=== PATIENT | female | born 1965 | race Two or more races ===

== ENCOUNTER 2020-06-27 12:43 | Outpatient (REF) | payer MEDICAID, SELFPAY | END 2020-06-27 12:44 | disposition home or self-care (01) | LOC: HO.LAB 12:43 | PROVIDERS: Visit Provider Internal Medicine | DX: Z20.828 Contact with and (suspected) exposure to other viral communicable diseases (principal) | CPT/HCPCS: C9803; U0003 ==

== ENCOUNTER 2020-07-18 09:48 | Emergency (ER) | payer MEDICAID, SELFPAY ==
[2020-07-18 10:16] VITALS: BP 145/87; PULSE 108; RESP 20; TEMP 37.8; O2SAT 96; BMI 29.2
[2020-07-18] MEDS: Acetaminophen 325 MG TABLET 650 MG PO (10:53)
[2020-07-18 11:53] LABS: Influenza A PCR NEGATIVE (Negative); Influenza B PCR NEGATIVE (Negative); Resp Syncy Virus RNA Qual PCR NEGATIVE (Negative)
[2020-07-18 11:57] LABS: SARS COV2 PCR INHOUSE POSITIVE (Negative)
--- NOTE | 2020-07-18 12:56 | ED.URI ---
HPI - URI/Sore Throat General Chief Complaint: Fever <Mauro Stubbs NP - Last Filed: 07/18/20 13:06> Stated Complaint: covid symptoms <Mauro Stubbs NP - Last Filed: 07/18/20 13:06> Time Seen by Provider: 07/18/20 10:32 <Mauro Stubbs NP - Last Filed: 07/18/20 13:06> Source: patient <Mauro Stubbs NP - Last Filed: 07/18/20 13:06> Mode of arrival: ambulatory <Mauro Stubbs NP - Last Filed: 07/18/20 13:06> Limitations: no limitations <Mauro Stubbs NP - Last Filed: 07/18/20 13:06> History of Present Illness HPI Narrative: Body aches, chills, nasal congestion <Mauro Stubbs NP - Last Filed: 07/18/20 13:06> MD elicited complaint: rhinorrhea and nasal congestion <Mauro Stubbs NP - Last Filed: 07/18/20 13:06> Onset (ago): day(s) (2 days ) <Mauro Stubbs NP - Last Filed: 07/18/20 13:06> Treatments prior to arrival: acetaminophen <Mauro Stubbs NP - Last Filed: 07/18/20 13:06> Related Data Home Medications: Previous Rx's Medication Instructions Recorded famotidine 20 mg tablet 20 mg PO BEDTIME 30 Days #30 tab 07/10/20 docusate sodium 100 mg capsule 100 mg PO DAILY PRN 30 Days #30 cap 07/13/20 albuterol sulfate 1 inh INHALATION Q4-6H PRN #1 ea 07/18/20 azithromycin [Zithromax Z-Mo] 250 mg PO DAILY 5 Days #6 tab 07/18/20 prednisone 40 mg PO DAILY 5 Days #10 tab 07/18/20 dexlansoprazole 60 mg 60 mg PO DAILY 30 Days #30 cap 07/19/20 capsule,biphase delayed release <Mauro Stubbs NP - Last Filed: 07/18/20 13:06> Allergies/Adverse Reactions: Allergies Allergy/AdvReac Type Severity Reaction Status Date / Time ibuprofen [From Motrin] AdvReac Mild INTENSE Unverified 03/22/20 15:22 STOMACH PAIN; RASH Motrin Allergy Unknown Uncoded 12/27/19 00:00 <Mauro Stubbs NP - Last Filed: 07/18/20 13:06> Review of Systems Review of Systems: Constitutional: No Weight loss, No Fever, + Chills, No Night Sweats, No Fatigue, No Malaise ENT/Mouth: No Hearing loss, No Ear Pain, + Nasal Congestion, No Sinus Pain, No Hoarseness, No sore throat, + Rhinorrhea, No Swallowing Difficulty Eyes: No Eye Pain, No Swelling, No Redness, No Foreign Body, No Discharge, No Vision Changes Cardiovascular: No Chest Pain, No SOB, No Dyspnea on Exertion, No Orthopnea, No Edema, No Palpitations Respiratory: No Cough, No Sputum, No Wheezing, No Smoke Exposure, No Dyspnea Gastrointestinal: No Nausea, No Vomiting, No Diarrhea, No Constipation, No abdominal Pain, No Hematochezia, No Melena Genitourinary: no irregular bleeding, No Dysuria, No Urinary Frequency, No Hematuria, No Urinary Incontinence, No Urgenc Musculoskeletal: No joint pain, No Myalgias, No Joint Swelling Skin: No Skin Lesions, No rash Neuro: No Weakness, No Numbness, No Paresthesias, No Loss of Consciousness, No Dizziness, No Headache Psych: No Social Issues Heme/Lymph: No Bruising, No Bleeding,No Lymphadenopathy Endocrine: No Polyuria, No Polydipsia, No Temperature Intolerance <Mauro Stubbs NP - Last Filed: 07/18/20 13:06> Yes all other systems are reviewed and are negative <Mauro Stubbs NP - Last Filed: 07/18/20 13:06> [facility], [facility] Past Medical History Medical History: Medical History (Updated 07/18/20 @ 13:05 by Mauro Stubbs NP) Asthma Diabetes mellitus, type 2 Hypercholesteremia Hypertension <Mauro Stubbs NP - Last Filed: 07/18/20 13:06> Social History Social History: Social History Advance Directives: No Advance Directives Information Provided: No <Mauro Stubbs NP - Last Filed: 07/18/20 13:06> Physical Exam Vital Signs: Vital Signs: Last Vital Signs Temp 100.0 F 07/18/20 10:16 Pulse 108 H 07/18/20 10:16 Resp 20 07/18/20 10:16 BP 145/87 H 07/18/20 10:16 Pulse Ox 96 07/18/20 10:16 Body Mass Index 29.2 Reviewed <Mauro Stubbs NP - Last Filed: 07/18/20 13:06> Vital Signs: Last Vital Signs Temp 100.0 F 07/18/20 10:16 Pulse 108 H 07/18/20 10:16 Resp 20 07/18/20 10:16 BP 145/87 H 07/18/20 10:16 Pulse Ox 96 07/18/20 10:16 Body Mass Index 29.2 <Christian Liu MD - Last Filed: 07/26/20 23:26> Const: General: cooperative and healthy appearing; No acute distress or intoxicated appearing <Mauro Stubbs NP - Last Filed: 07/18/20 13:06> Nutritional Appearance: average body habitus <Mauro Stubbs NP - Last Filed: 07/18/20 13:06> Orientation/consciousness: patient oriented x3 <Mauor Stubbs NP - Last Filed: 07/18/20 13:06> HENMT: Head: Yes normal to inspection <Mauro Stubbs NP - Last Filed: 07/18/20 13:06> Ears: hearing grossly normal bilaterally <Mauro Stubbs NP - Last Filed: 07/18/20 13:06> Eyes: General: appearance normal, both eyes and all related structures <Mauro Stubbs NP - Last Filed: 07/18/20 13:06> Visual Burgess: normal visual burgess by confrontation <Mauro Stubbs NP - Last Filed: 07/18/20 13:06> Neck: Neck: Yes normal visual inspection, No positive Brudzinski's sign, No positive Kernig's sign and No tender <Mauro Stubbs NP - Last Filed: 07/18/20 13:06> Thyroid: Thyroid normal <Mauro Stubbs NP - Last Filed: 07/18/20 13:06> Chest: Chest palpation & inspection: normal inspection of the chest <Mauro Stubbs NP - Last Filed: 07/18/20 13:06> Resp: Effort & Inspection: normal respiratory effort <Mauro Stubbs NP - Last Filed: 07/18/20 13:06> Auscultation: clear to auscultation bilaterally <Mauro StubbsYASH li - Last Filed: 07/18/20 13:06> Cardio: Jugular venous distension: no JVD <Mauroivette Stubbs NP - Last Filed: 07/18/20 13:06> Rate: regular rate <Mauro StubbsYASH li - Last Filed: 07/18/20 13:06> Rhythm: regular rhythm <Mauro YASH Stubbs - Last Filed: 07/18/20 13:06> Heart sounds: S1 normal heart sound present and S2 normal heart sound present <Mauro YASH Stubbs - Last Filed: 07/18/20 13:06> GI: Inspection: Yes normal to inspection <Mauro YASH Stubbs - Last Filed: 07/18/20 13:06> Percussion: Yes normal to percussion <Mauro YASH Stubbs - Last Filed: 07/18/20 13:06> Auscultation: normal bowel sounds <Mauroivette Stubbs NP - Last Filed: 07/18/20 13:06> : General: Yes no CVA tenderness <Mauroivette Stubbs NP - Last Filed: 07/18/20 13:06> Back/Spine/Pelvis: Back: no CVA tenderness <Mauroivette Stubbs NP - Last Filed: 07/18/20 13:06> Skin: General skin exam: no rashes or lesions noted <Mauroivette Stubbs NP - Last Filed: 07/18/20 13:06> Neuro: General: patient oriented x3 <Mauro Stubbs NP - Last Filed: 07/18/20 13:06> Extrem: General: Yes normal to inspection <Mauro YASH Stubbs - Last Filed: 07/18/20 13:06> Course Course Course Narrative: Well nontoxic appearing. COVID-19/flu/RSV panel done she is COVID positive. Not tachycardic, pulse ox 99% on room air. Ambulatory steady straight gait without shortness of breath. Will discharge home with supportive care, return follow-up instructions. <Mauro Stubbs NP - Last Filed: 07/18/20 13:06> I have reviewed the chart <Christian Liu MD - Last Filed: 07/26/20 23:26> MDM - URI/Sore Throat Lab Data Labs: Lab Results 07/18/20 Range/Units Unknown Coronavirus (PCR) POSITIVE A (Negative) Influenza Type A (PCR) NEGATIVE (Negative) Influenza Type B (PCR) NEGATIVE (Negative) RSV RNA Qual (PCR) NEGATIVE (Negative) <Mauro Stubbs NP - Last Filed: 07/18/20 13:06> Lab Results 07/18/20 Range/Units Unknown Coronavirus (PCR) POSITIVE A (Negative) Influenza Type A (PCR) NEGATIVE (Negative) Influenza Type B (PCR) NEGATIVE (Negative) RSV RNA Qual (PCR) NEGATIVE (Negative) <Christian Liu MD - Last Filed: 07/26/20 23:26> Discharge Plan Discharge Clinical Impression: COVID-19 <Mauro Stubbs NP - Last Filed: 07/18/20 13:06> Patient Disposition: Home, Self-Care <Mauro Stubbs NP - Last Filed: 07/18/20 13:06> Instructions: COVID-19 (Coronavirus Disease 2019) (ED) <Mauro Stubbs NP - Last Filed: 07/18/20 13:06> Additional Instructions: Self-isolation/discussing Quarantine for 14 days supportive care as discussed Take medication prescribed Return if any concerns or worsening symptoms Thank you <Mauro Stubbs NP - Last Filed: 07/18/20 13:06> Prescriptions: New azithromycin [Zithromax Z-Mo] 250 mg tablet 250 mg PO DAILY 5 Days Qty: 6 RF: 0 prednisone 20 mg tablet 40 mg PO DAILY 5 Days Qty: 10 RF: 0 albuterol sulfate 90 mcg/actuation aero powdr breath act w/sensor 1 inh inhalation Q4-6H PRN (Reason: shortness of breath or wheezing) Qty: 1 RF: 0 No Action famotidine 20 mg tablet 20 mg PO BEDTIME 30 Days Qty: 30 RF: 3 docusate sodium 100 mg capsule 100 mg PO DAILY PRN (Reason: constipation) 30 Days Qty: 30 RF: 6 Dexilant 60 mg capsule,biphase delayed releas 60 mg PO DAILY 30 Days Qty: 30 RF: 6 <Mauro Stubbs NP - Last Filed: 07/18/20 13:06> Referrals: Nidia Salgado MD [Primary Care Provider] - 2 weeks <Mauro Stubbs NP - Last Filed: 07/18/20 13:06> Interventions: ED Discharge Assessment Last Done: 07/18/20 13:30 <Mauro Stubbs NP - Last Filed: 07/18/20 13:06> Discharge Date/Time: 07/18/20 13:31 <Mauro Stubbs NP - Last Filed: 07/18/20 13:06>
== END 2020-07-18 13:31 | disposition home or self-care (01) ==
PROVIDERS: Physician Assistant Medical; Emergency Provider Emergency Medicine; PCP Internal Medicine
DX: U07.1 COVID-19 (principal); E11.9 Type 2 diabetes mellitus without complications; I10 Essential (primary) hypertension; J45.909 Unspecified asthma, uncomplicated
CPT/HCPCS: 0241U; 36415; 99283

== ENCOUNTER 2020-08-22 10:01 | Outpatient (REF) | payer MEDICAID, SELFPAY | END 2020-08-22 10:02 | disposition home or self-care (01) | LOC: HO.LAB 10:01 | PROVIDERS: PCP Internal Medicine; Visit Provider Internal Medicine | DX: Z20.822 Contact with and (suspected) exposure to COVID-19 (principal) | CPT/HCPCS: 36415; C9803; U0003; U0005 ==

== ENCOUNTER 2020-10-16 09:22 | Outpatient (REF) | payer MEDICAID, SELFPAY ==
--- NOTE | ~2020-10-16 | US_ITS ---
EXAMINATION: US RETROPERITONEAL COMPLETE (RENAL) CLINICAL INFORMATION: Abdominal pain. COMPARISON: CT abdomen and pelvis without contrast dated 12/23/2018 x-ray abdomen dated 11/22/2012 and 10/16/2009. TECHNIQUE: Real-time imaging of the kidneys and bladder. FINDINGS: RIGHT KIDNEY: 10.1 x 4.2 x 5.0 cm (SAG x AP x TRV). The kidney is normal in size, contour, and echogenicity. Renal cortical thickness is normal. No calculi or focal parenchymal lesions. No hydronephrosis. LEFT KIDNEY: 10.4 x 4.8 x 4.3 cm (SAG x AP x TRV). The kidney is normal in size, contour, and echogenicity. Renal cortical thickness is normal. No calculi or focal parenchymal lesions. No hydronephrosis. Slightly prominent but nondilated left proximal ureter is seen. BLADDER: Well distended and normal. Bilateral ureteral jets are demonstrated. Prevoid bladder volume is 325 mL. Postvoid bladder volume is 9.28 mL. US/US retroperitoneal comp IMPRESSION: Normal bilateral ureteral jets with a tiny postvoid residual volume of 9.3 mL. No bladder wall thickening seen. Ultrasound of kidneys is unremarkable. There is minimal prominence of the left proximal ureter but no dilation seen.
== END 2020-10-16 09:23 | disposition home or self-care (01) ==
LOC: HO.US 09:22
PROVIDERS: Visit Provider Internal Medicine
DX: R10.9 Unspecified abdominal pain (principal)
CPT/HCPCS: 76770

== ENCOUNTER 2020-11-19 11:05 | Emergency (ER) | payer OTHER, MEDICAID, SELFPAY ==
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
[2020-11-19 11:50] VITALS: BP 116/76; PULSE 94; RESP 18; TEMP 36; O2SAT 100; BMI 30.2
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
[2020-11-19] MEDS: HYDROcodone Bit/Acetam 5/325 TABLET 1 TAB PO (12:55)
== END 2020-11-19 13:43 | disposition home or self-care (01) ==
PROVIDERS: Emergency Provider Emergency Medicine; PCP Internal Medicine
DX: S53.402A Unspecified sprain of left elbow, initial encounter (principal); S43.402A Unspecified sprain of left shoulder joint, initial encounter; S39.012A Strain of muscle, fascia and tendon of lower back, initial encounter; M79.602 Pain in left arm; M25.561 Pain in right knee; I10 Essential (primary) hypertension; V43.62XA Car passenger injured in collision with other type car in traffic accident, initial encounter; Y93.9 Activity, unspecified; Y92.410 Unspecified street and highway as the place of occurrence of the external cause; Y99.9 Unspecified external cause status; Z86.16 Personal history of COVID-19; Z79.899 Other long term (current) drug therapy
CPT/HCPCS: 72100; 73030; 73080; 73564; 99283

== ENCOUNTER → 2021-03-05 11:01 | Outpatient (BNVA) | payer MEDICAID, SELFPAY | PROVIDERS: PCP Internal Medicine; Visit Provider Physician Assistant ==

== ENCOUNTER 2021-07-16 12:27 | Outpatient (REF) | payer MEDICAID, SELFPAY ==
--- NOTE | ~2021-07-16 | US_ITS ---
EXAMINATION: US PELVIS CLINICAL INFORMATION: Pelvic and perineal pain. Age 56. Prior hysterectomy. COMPARISON: CT abdomen and pelvis 12/23/2018, 07/01/2016 TECHNIQUE: Ultrasound of the pelvis is performed using both transabdominal and transvaginal transducers along with Doppler. Transvaginal imaging is performed due to inadequate visualization transabdominally. FINDINGS: Uterus: Prior hysterectomy. Vaginal stripe are unremarkable. Adnexa: Both ovaries are visualized. There is normal color flow to the adnexa. There is no ovarian torsion. There is no pelvic ascites or fluid collection. Right ovary measures 1.4 x 1.1 x 1.4 cm. Volume 1.1 mL. Left ovary measures 1.4 x 1.2 x 1.7 cm. Volume 1.5 mL. US/US pelvic and transvaginal IMPRESSION: 1. Status post prior hysterectomy. Vaginal stripe unremarkable. 2. No adnexal mass or pelvic ascites.
== END 2021-07-16 12:28 | disposition home or self-care (01) ==
LOC: HO.US 12:27
PROVIDERS: PCP Internal Medicine; Visit Provider Internal Medicine
DX: R10.2 Pelvic and perineal pain (principal)
CPT/HCPCS: 76830; 76856

== ENCOUNTER 2021-08-15 14:06 | Outpatient (REF) | payer MEDICAID, SELFPAY ==
--- NOTE | ~2021-08-15 | MM_ITS ---
EXAMINATION: MM SCREENING DIGITAL BREAST TOMOSYNTHESIS, BILATERAL CLINICAL INFORMATION: Screening. Asymptomatic. The lifetime risk of breast cancer based on the Tyrer-Cuzick Model is 7.7%. COMPARISON: Mammography: 04/07/2019 and studies dating back to 04/02/2010 TECHNIQUE: Digital breast tomosynthesis is performed in both the craniocaudal and mediolateral oblique views along with computer-aided detection (CAD). Synthesized 2-D images are generated from the tomosynthesis. FINDINGS: There are scattered areas of fibroglandular density (ACR BI-RADS breast composition Category b). There is a stable parenchymal pattern of the left breast without new abnormal dominant mass or suspicious grouping of microcalcifications. Within the upper outer aspect of the right breast approximately 4 cm from the nipple, there is a circumscribed 7 x 5 mm density without spiculation or calcifications. Spot compression view and probable ultrasound if this is persistent is recommended. MM/MM tomosynthesis screening BI IMPRESSION: Right breast density upper outer aspect for further evaluation as described. ASSESSMENT: BI-RADS 0: Incomplete - Need Additional Imaging Evaluation. RECOMMENDATION: 1. Additional views of the right breast. 2. Targeted ultrasound if warranted after review of the additional views. 3. Radiology department staff will contact the patient for additional imaging. This patient's information was entered into a reminder system with a target due date for their next mammogram.
== END 2021-08-15 14:07 | disposition home or self-care (01) ==
LOC: HO.MAMMO 14:06
PROVIDERS: PCP Internal Medicine; Visit Provider Internal Medicine
DX: Z12.31 Encounter for screening mammogram for malignant neoplasm of breast (principal)
CPT/HCPCS: 77063; 77067

== ENCOUNTER 2021-08-22 14:45 | Outpatient (REF) | payer MEDICAID, SELFPAY ==
--- NOTE | ~2021-08-22 | MM_ITS ---
EXAMINATION: MM DIAGNOSTIC DIGITAL BREAST TOMOSYNTHESIS, RIGHT US DIAGNOSTIC ULTRASOUND BREAST, RIGHT CLINICAL INFORMATION: Recall from screening for asymmetric density upper outer right breast. COMPARISON: Mammography: 08/15/2021, 04/07/2019, 01/19/2018, 12/18/2016, 11/26/2015, 12/12/2013 TECHNIQUE: Digital breast tomosynthesis is performed. 2D images are generated from the tomosynthesis. The following views are obtained: Spot CC, spot rolled CC, spot MLO, spot ML. Ultrasound right breast is targeted to the upper outer quadrant using grayscale imaging and color Doppler without and with harmonics. FINDINGS: There are scattered areas of fibroglandular density (ACR BI-RADS breast composition Category b). The additional views show no architectural abnormality or developing density from prior studies. On the CC spot views, there is a 6 mm circumscribed nodule which is believed to be related to the finding noted on CC screening view prompting recall. Ultrasound demonstrates a complicated cyst 10:00 position 4 cm from nipple measuring 0.8 x 0.4 cm. There is a tortuous hyperechoic internal septation. No solid mass or peripheral or internal color flow. This appears to correspond to the nodularity on additional views. Results are discussed with the patient at time of visit. The complicated cyst has a benign appearance and will be reassessed again in 6 months with targeted ultrasound. MM/MM tomosynthesis added views R IMPRESSION: Benign-appearing complicated cyst anterior upper outer breast measuring just under 1 cm. ASSESSMENT: BI-RADS 3: Probably Benign RECOMMENDATION: Targeted right breast ultrasound in 6 months. This patient's information was entered into a reminder system with a target due date for their next mammogram.
== END 2021-08-22 14:46 | disposition home or self-care (01) ==
LOC: HO.MAMMO 14:45
PROVIDERS: Visit Provider Internal Medicine
DX: R92.2 Inconclusive mammogram (principal)
CPT/HCPCS: 76642; 77061; 77065

== ENCOUNTER 2022-01-04 09:30 | Emergency (ER) | payer MEDICAID, SELFPAY ==
--- NOTE | ~2022-01-04 | XR_ITS ---
EXAMINATION: XR CHEST CLINICAL INFORMATION: Chest pain COMPARISON: September 04, 2019 TECHNIQUE: Frontal view of the chest was obtained. FINDINGS: No significant abnormality is noted involving the heart, lungs, mediastinum, bony thorax or soft tissues. There is mild elevation of the right hemidiaphragm. XR/XR chest 1V IMPRESSION: No acute disease
--- NOTE | ~2022-01-04 | CT_ITS ---
EXAMINATION: CT ABDOMEN AND PELVIS WITHOUT CONTRAST CLINICAL INFORMATION: LLQ pain, tenderness, rule out diverticulitis COMPARISON: 07/16/2021. 12/23/2018. TECHNIQUE: Multidetector volumetric imaging was performed from the lung bases through the pubic symphysis. Sagittal and coronal reformatted images were obtained on the technologist workstation. This CT examination was performed using dose optimization techniques as appropriate, variously including the following: *Automated exposure control *Adjustment of mA and/or kV according to patient size (this includes techniques or standardized protocols for targeted exams where dose is matched to indication/reason for exam; i.e. extremities or head) *Use of iterative reconstruction technique DLP 534 FINDINGS: The lack of intravenous contrast limits evaluation of the solid visceral organs including the liver, spleen, pancreas, and kidneys. LUNG BASES: Lung bases are clear. Normal heart size. No pericardial effusion. LIVER, GALLBLADDER, AND BILIARY TREE: Limited non-contrast evaluation is normal. No gross focal hepatic lesion. Normal liver size and contour. No gross biliary ductal dilation. Status post cholecystectomy. The common bile duct remains dilated, similar in appearance to the prior study 12/23/2018. This is not an uncommon chronic sequelae of remote prior cholecystectomy. No intrahepatic biliary ductal dilatation is seen. PANCREAS: There is diffuse low density atrophy of the pancreas similar to prior studies. No peripancreatic fluid or inflammatory changes. SPLEEN: Limited non-contrast evaluation is normal. ADRENAL GLANDS: Normal; no adrenal mass. KIDNEYS AND URETERS: Limited non-contrast evaluation is normal. No hydronephrosis, hydroureter, or calculi seen. No perinephric stranding. GASTROINTESTINAL TRACT: Small bowel and colon are non-dilated. No bowel wall thickening. There is mild diverticulosis especially in the sigmoid colon but no pericolonic inflammatory changes to suggest colitis or diverticulitis. No right lower quadrant inflammatory changes to suggest appendicitis. ABDOMINAL WALL: Small fat-containing umbilical hernia. LYMPH NODES: No pathologically enlarged lymph nodes in the abdomen or pelvis. VASCULAR: Normal caliber abdominal aorta. BLADDER: Unremarkable. PELVIC VISCERA: Uterus not seen, either diminutive or surgically absent. No adnexal mass. OSSEOUS STRUCTURES: No acute or suspicious osseous abnormalities. CT/CT abdomen pelvis wo con IMPRESSION: No acute CT findings to explain left lower quadrant pain. Diverticulosis without evidence of diverticulitis.
[2022-01-04 09:32] VITALS: BP 132/78; PULSE 88; RESP 18; TEMP 36.6; O2SAT 100; BMI 29.2
--- NOTE | 2022-01-04 09:34 | ECG_ITS ---
Test Reason : cp Blood Pressure : / mmHG Vent. Rate : 089 BPM Atrial Rate : 089 BPM P-R Int : 154 ms QRS Dur : 080 ms QT Int : 350 ms P-R-T Axes : 051 009 029 degrees QTc Int : 425 ms Normal sinus rhythm Low voltage QRS Septal infarct , age undetermined Abnormal ECG When compared with ECG of 04-SEP-2019 11:14, No significant change was found Referred By: Generic ED Physician Electronically Signed By:JAKY TUCKER
[2022-01-04 10:26] VITALS: BP 158/78; PULSE 89; RESP 16; O2SAT 100
[2022-01-04 10:28] LABS: MANUAL DIFF FLAG NO
[2022-01-04 10:31] LABS: Eosinophils Absolute Auto 0.1 X10*3/uL (0.0-0.4); Eosinophils Percent Auto 2.1 % (0-4); Hematocrit 37.9 % (37.0-47.0); Hemoglobin 12.5 g/dl (12.0-16.0); Imm Gran Abs Auto 0.02 X10*3/uL (0.00-0.03); Imm Gran Pct Auto 0.3 % (0.0-0.4); Lymphocytes Absolute Auto 1.9 X10*3/uL (1.2-4.9); Lymphocytes Percent Auto 30.6 % (20-40); Mean Corpuscular Hemoglobin 26.4 pg (27.0-33.0); Mean Platelet Volume 10.4 fL (9.4-12.3); Monocytes Absolute Auto 0.5 X10*3/uL (0.1-1.2); Monocytes Percent Auto 8.4 % (2-11); Neutrophils Absolute Auto 3.5 x10*3/uL (2.0-8.3); Neutrophils Percent Auto 58.6 % (45-73); Platelet Count 301 X10*3/uL (160-400); Red Blood Count 4.74 X10*6/uL (4.20-5.50); Red Cell Distribution Width 13.2 % (11.0-16.0); White Blood Count 6.1 X10*3/uL (4.8-10.8)
[2022-01-04] MEDS: ondansetron HCL 4 MG/2 ML VIAL IVPUSH (10:34)
--- NOTE | 2022-01-04 10:42 | ED_ITS ---
HPI - Chest Pain General Chief Complaint: Chest Pain Stated Complaint: left side abd pain/chest pain/diarrhea Time Seen by Provider: 01/04/22 10:42 Source: patient Mode of arrival: ambulatory Limitations: no limitations History of Present Illness HPI narrative: 56-year-old female who presents emergency department for evaluation of abdominal pain and chest pain. The patient states that she developed abdominal pain yesterday at around 17:00 hours. She states that it was gradual in onset. She points to her left upper quadrant and left lower quadrant when asked to localize the pain. The pain radiates to her back. She describes the pain is a constant pressure-like pain which is 9/10 at its worst. She states that this morning at 07:00 hours she woke up and she continued to have the pain. She states that she also developed left-sided chest pain which she describes as a pressure-like pain associated that radiates down her left arm, associated with lightheadedness dizziness and headache. She states that the chest pain is constant, still present and is 3/10. She states that she had 2 episodes of vomiting and 4 episodes of loose watery stool this morning. She denied complained of subjective fever and chills, she denied sore throat, cough, frequency, urgency or dysuria. MD complaint: chest pain Onset (ago): hour(s) (4) Timing of current episode: constant Prior episodes: No Onset: during rest Pain location: left chest Pain radiation: left arm Severity: mild Pain scale (0-10): 3 Quality: other (Pressure) Relieving factors: nothing Exacerbating factors: nothing Associated symptoms: nausea, vomiting, fever (Chills) and other (Diarrhea, abdominal pain) Treatment prior to arrival: none Related Data Home Medications Medication Instructions Recorded Confirmed metformin 500 mg tablet,extended 2 tab PO BID 09/03/21 09/03/21 release 24 hr Previous Rx's Medication Instructions Recorded albuterol sulfate 90 mcg/actuation 1 inh inhalation Q4-6H PRN 07/18/20 breath activated powder shortness of breath or wheezing #1 inhaler,sensor ea cyclobenzaprine 10 mg tablet 10 mg PO Q8H Muscle spasm #10 tabs 11/19/20 hydrocodone 5 mg-acetaminophen 325 1 tab PO Q8H PRN pain #10 tabs 11/19/20 mg tablet sennosides 8.6 mg tablet (senna) 17.2 mg PO DAILY PRN for 10/28/21 constipation 3 months #120 tabs dexlansoprazole 60 mg 60 mg PO DAILY #30 caps 12/05/21 capsule,biphase delayed release (Dexilant) docusate sodium 100 mg capsule 100 mg PO DAILY PRN for 12/09/21 constipation #30 caps famotidine 20 mg tablet 20 mg PO BEDTIME 30 days #30 tabs 12/15/21 ondansetron 4 mg disintegrating 4 mg PO Q6-8H PRN nausea and 01/04/22 tablet vomiting #14 tabs Allergies Allergy/AdvReac Type Severity Reaction Status Date / Time ibuprofen [From Motrin] AdvReac Mild INTENSE Verified 09/03/21 13:40 STOMACH PAIN; RASH Review of Systems Review of Systems: Yes all other systems are reviewed and are negative [facility] Past Medical History [facility] Narrative: Social history: The patient denies tobacco, alcohol and drug use. Medical History Asthma Diabetes mellitus, type 2 Hypercholesteremia Hypertension Surgical History H/O: hysterectomy History of bladder surgery Family History Family History Mother Diabetes Maternal Grandmother Diabetes Maternal Aunt Diabetes Social History Social History Household Members: Spouse Housing: Apartment Are you a primary med care manager to a significant other at home: No Do you presently have visiting nurse or other home services: Yes Alcohol intake: never Patient Tobacco Use Status: Never used Tobacco Use of substances other than those prescribed or required for medical reasons: No Advance Directives: No Advance Directives Information Provided: No service: No Current occupational status: disabled Physical Exam Vital Signs: Vital Signs: Last Vital Signs Temp 98 F 01/04/22 09:32 Pulse 89 01/04/22 10:26 Resp 16 01/04/22 10:26 BP 158/78 H 01/04/22 10:26 Pulse Ox 100 01/04/22 10:26 O2 Del Method 01/04/22 10:26 BMI result Body Mass Index 29.2 Const: General: cooperative and no acute distress Orientation/consciousness: oriented to person and oriented to place Limitations: no limitations HEENT: Head: Yes normal to inspection, Yes normocephalic and Yes atraumatic Ears: external ears normal General nose exam: Normal external nose present Face and sinus: Yes normal facial exam Mouth: Normal oral and palatal mucosa present Throat: Yes posterior oropharynx normal Eyes: General: appearance normal, both eyes and all related structures Pupils: Equal, round and reactive pupils present Neck: Neck: Yes normal visual inspection, Yes no lymphadenopathy, Yes trachea midline and Yes supple Chest: Chest palpation & inspection: normal inspection of the chest and tenderness (Moderate left chest wall tenderness) Resp: Effort & Inspection: normal respiratory effort and able to speak in complete sentences Auscultation: clear to auscultation bilaterally Cardio: Rate: regular rate Rhythm: regular rhythm Heart sounds: S1 norm al heart sound present, S2 normal heart sound present and no murmurs GI: Inspection: Yes normal to inspection Palpation (GI): Soft to palpation, Tenderness to palpation present (GI) in the LLQ (Moderate) and in the LUQ (Moderate) and no guarding Auscultation: normal bowel sounds : General: Yes no CVA tenderness Back/Spine/Pelvis: Back: no CVA tenderness Skin: General skin exam: no rashes or lesions noted Neuro: General: oriented to person and oriented to place Cranial nerves: Yes CN's II-XII intact bilaterally and Yes Equal, round and reactive pupils present Cognition (Neuro): normal cognition Motor exam (neuro): 5/5 motor strength present throughout Extrem: General: Yes normal to inspection Psych: Appearance: grossly normal Speech and movement: Normal speech and movement present Affect: normal affect Attitude: cooperative Thought process: Normal thought process present Thought content: Normal thought content present Course Course Course Narrative: 56-year-old female who presents emergency department for evaluation of left upper and left lower quadrant abdominal pain, nausea, vomiting and diarrhea as well as chest pain radiating to her left arm with symptoms starting yesterday. Vital signs were except for an elevated blood pressure of 150/78. Physical examination did reveal left-sided abdominal pain otherwise was unremarkable. Laboratory evaluation was ordered. CT scan of the abdomen pelvis was obtained. Patient was treated with Zosyn 4 mg IV and morphine 4 mg IV. She was also ordered to get normal saline x1 L. 1251: The patient's laboratory evaluation was unremarkable, the patient has high sensitivity troponin I was below detectable limits. COVID-[address] scan of the abdomen pelvis did not reveal a clear etiology for the patient's pain. The patient got no relief of her pain with the above treatment therefore she was given Dilaudid 1 mg IV. While the patient was here in the emergency department she had 3 loose diarrheal stools. This time I suspect the patient's pain is secondary to her diarrhea could be consistent with colonic spasm. The patient will be discharged home with a prescription for Zosyn. She was advised to take Tylenol for pain and for pain not relieved by Tylenol she was prescribed oxycodone. She was given printed and verbal instructions and discharged home. MDM - Chest Pain Lab Data Result diagrams: 01/04/22 10:24 01/04/22 10:24 Labs: Lab Results 01/04/22 01/04/22 01/04/22 Range/Units 10:24 10:24 10:24 WBC 6.1 (4.8-10.8) X10*3/uL RBC 4.74 (4.20-5.50) X10*6/uL Hgb 12.5 (12.0-16.0) g/dl Hct 37.9 (37.0-47.0) % MCV 80.0 (80.0-98.0) fL MCH 26.4 L (27.0-33.0) pg MCHC 33.0 (31.0-35.0) g/dl RDW 13.2 (11.0-16.0) % Plt Count 301 (160-400) X10*3/uL MPV 10.4 (9.4-12.3) fL Immature Gran % (Auto) 0.3 (0.0-0.4) % Neut % (Auto) 58.6 (45-73) % Lymph % (Auto) 30.6 (20-40) % [place] % (Auto) 8.4 (2-11) % Eos % (Auto) 2.1 (0-4) % Baso % (Auto) 0.0 (0-2) % Lymph # (Auto) 1.9 (1.2-4.9) X10*3/uL [place] # (Auto) 0.5 (0.1-1.2) X10*3/uL Eos # (Auto) 0.1 (0.0-0.4) X10*3/uL Baso # (Auto) 0.0 (0.0-0.2) X10*3/uL Abs Immat Gran (auto) 0.02 (0.00-0.03) X10*3/uL Absolute Neuts (auto) 3.5 (2.0-8.3) x10*3/uL Absolute Nucleated RBC 0.000 (0.0-0.012) X10*3/uL Nucleated RBC % (auto) 0.0 (0.0-0.2) /100WBC Sodium 137 (135-145) mmol/L Potassium 4.1 (3.3-5.1) mmol/L Chloride 100 (96-108) mmol/L Carbon Dioxide 30 H (22-29) mmol/L Anion Gap 11 L (12-20) BUN 9 (9-16) mg/dL Creatinine 0.86 (0.5-1.4) mg/dL Estim Creat Clear Calc 68.1 Estimated GFR > 60 Random Glucose 199 H (60-115) mg/dL Calcium 9.5 D (8.4-10.2) mg/dL Total Bilirubin 0.9 (0.0-1.0) mg/dL Direct Bilirubin 0.2 (0.0-0.5) mg/dL AST 32 H D (5-31) U/L ALT 25 (0-31) U/L Alkaline Phosphatase 76 (39-117) U/L Troponin I High Sens < 3.5 (<3.5-17.0) ng/L Total Protein 7.2 (6.5-8.0) g/dL Albumin 4.0 (3.5-5.0) g/dL Lipase 24 (8-78) U/L COVID-19 (JOSE ELIAS) (Negative) COVID-19 Clin Com 01/04/22 Range/Units 10:33 WBC (4.8-10.8) X10*3/uL RBC (4.20-5.50) X10*6/uL Hgb (12.0-16.0) g/dl Hct (37.0-47.0) % MCV (80.0-98.0) fL MCH (27.0-33.0) pg MCHC (31.0-35.0) g/dl RDW (11.0-16.0) % Plt Count (160-400) X10*3/uL MPV (9.4-12.3) fL Immature Gran % (Auto) (0.0-0.4) % Neut % (Auto) (45-73) % Lymph % (Auto) (20-40) % [place] % (Auto) (2-11) % Eos % (Auto) (0-4) % Baso % (Auto) (0-2) % Lymph # (Auto) (1.2-4.9) X10*3/uL [place] # (Auto) (0.1-1.2) X10*3/uL Eos # (Auto) (0.0-0.4) X10*3/uL Baso # (Auto) (0.0-0.2) X10*3/uL Abs Immat Gran (auto) (0.00-0.03) X10*3/uL Absolute Neuts (auto) (2.0-8.3) x10*3/uL Absolute Nucleated RBC (0.0-0.012) X10*3/uL Nucleated RBC % (auto) (0.0-0.2) /100WBC Sodium (135-145) mmol/L Potassium (3.3-5.1) mmol/L Chloride (96-108) mmol/L Carbon Dioxide (22-29) mmol/L Anion Gap (12-20) BUN (9-16) mg/dL Creatinine (0.5-1.4) mg/dL Estim Creat Clear Calc Estimated GFR Random Glucose (60-115) mg/dL Calcium (8.4-10.2) mg/dL Total Bilirubin (0.0-1.0) mg/dL Direct Bilirubin (0.0-0.5) mg/dL AST (5-31) U/L ALT (0-31) U/L Alkaline Phosphatase (39-117) U/L Troponin I High Sens (<3.5-17.0) ng/L Total Protein (6.5-8.0) g/dL Albumin (3.5-5.0) g/dL Lipase (8-78) U/L COVID-19 (JOSE ELIAS) Negative (Negative) COVID-19 Clin Com See Note Discharge Plan Discharge Clinical Impression: Abdominal pain Qualifiers: Abdominal location: left upper quadrant Qualified Code(s): R10.12 - Left upper quadrant pain Diarrhea Qualifiers: Diarrhea type: unspecified type Qualified Code(s): R19.7 - Diarrhea, unspecified Patient Disposition: Home, Self-Care Instructions: Acute Diarrhea (ED), Abdominal Pain (ED) Additional Instructions: Your blood work was normal. Your EKG was unremarkable. Your troponin which is a marker of heart damage was below detectable limits. Your chest x-ray was normal. The CT scan of your abdomen pelvis did not reveal a clear cause for the pain. At this time I believe that your pain is caused by your diarrhea which is probably causing spasm of your colon. Take Zofran ODT 4 mg pills, 1 pill dissolved in your mouth every 8 hours as needed for nausea and vomiting. Take Tylenol (acetaminophen) 500 mg pills, 2 pills every 4-6 hours as needed for pain. For pain not relieved by ibuprofen or Tylenol you can take Percocet as prescribed by your doctor however you have to wait at least 4-6 hours after taking Tylenol since Percocet has Tylenol in it as well. Do not drive or work while taking this medication since they can cause sleepiness. Follow-up with your doctor in 2 days. Please return to the emergency department if your symptoms get worse or if you develop any symptoms that are concerning to you. Prescriptions: New ondansetron 4 mg tablet,disintegrating 4 mg PO Q6-8H PRN (Reason: nausea and vomiting) Qty: 14 0RF No Action sennosides [senna] 8.6 mg tablet 17.2 mg PO DAILY PRN (Reason: for constipation) 90 Days Qty: 120 1RF Dexilant 60 mg capsule,biphase delayed releas 60 mg PO DAILY Qty: 30 6RF docusate sodium 100 mg capsule 100 mg PO DAILY PRN (Reason: for constipation) Qty: 30 0RF famotidine 20 mg tablet 20 mg PO BEDTIME 30 Days Qty: 30 1RF cyclobenzaprine 10 mg tablet 10 mg PO Q8H Qty: 10 0RF hydrocodone-acetaminophen 5-325 mg tablet 1 tab PO Q8H PRN (Reason: pain) Qty: 10 0RF albuterol sulfate 90 mcg/actuation aero powdr breath act w/sensor 1 inh inhalation Q4-6H PRN (Reason: shortness of breath or wheezing) Qty: 1 0RF metformin 500 mg tablet extended release 24 hr 2 tab PO BID
[2022-01-04 10:48] LABS: Troponin-I High Sensitivity < 3.5 ng/L (<3.5-17.0)
[2022-01-04 10:57] LABS: COVID-19 Test Negative (Negative)
[2022-01-04 11:07] LABS: Alanine Aminotransferase 25 U/L (0-31); Alkaline Phosphatase 76 U/L (39-117); Anion Gap 11 (12-20); Aspartate Amino Transferase 32 U/L (5-31); Bilirubin Direct 0.2 mg/dL (0.0-0.5); Bilirubin Total 0.9 mg/dL (0.0-1.0); Blood Urea Nitrogen 9 mg/dL (9-16); Calcium 9.5 mg/dL (8.4-10.2); Carbon Dioxide 30 mmol/L (22-29); Chloride 100 mmol/L (96-108); Creatinine Clr Calc Pharmacy 68.1; Estimated Glomerular Filt Rate > 60; Glucose Random 199 mg/dL (60-115); Lipase 24 U/L (8-78); Potassium 4.1 mmol/L (3.3-5.1); Sodium 137 mmol/L (135-145); Total Protein 7.2 g/dL (6.5-8.0)
[2022-01-04] MEDS: Morphine Sulfate 4 MG/ML CARTRIDGE IVPUSH (11:16)
[2022-01-04] MEDS: 0.9 % Sodium Chloride 1,000 ML 999 ML IV (11:17)
[2022-01-04] MEDS: HYDROmorphone HCl 1 MG/ML SYRINGE IVPUSH (12:59)
[2022-01-04 13:13] LABS: Appearance Urine CLEAR; Color Urine YELLOW; Glucose Urine UA NEG (NEG); Leukocyte Esterase Urine NEG (NEG); Nitrite Urine NEG (NEG); Specific Gravity - Urine <= 1.005 (1.005-1.025); Urine Blood NEG (NEG); Urine Ketones NEG (NEG); Urine Protein NEG (NEG-TRACE)
[2022-01-04 14:08] VITALS: BP 150/86; PULSE 81; RESP 18
== END 2022-01-04 14:08 | disposition home or self-care (01) ==
PROVIDERS: Emergency Provider Emergency Medicine Emergency Medical Services; PCP Internal Medicine
DX: R10.12 Left upper quadrant pain (principal); R19.7 Diarrhea, unspecified; Z20.822 Contact with and (suspected) exposure to COVID-19; R07.9 Chest pain, unspecified; E11.9 Type 2 diabetes mellitus without complications; I10 Essential (primary) hypertension; E78.5 Hyperlipidemia, unspecified
CPT/HCPCS: 36415; 71045; 74176; 80048; 80076; 81003; 83690; 84484; 85025; 87635; 93005; 96361; 96374; 96375; 99284; J1170; J2270; J2405

== ENCOUNTER → 2022-01-13 10:32 | Outpatient (BNVA) | payer MEDICAID, SELFPAY | PROVIDERS: PCP Internal Medicine; Referring Provider Internal Medicine; Visit Provider Physician Assistant | DX: R10.9 Unspecified abdominal pain (principal) | CPT/HCPCS: 99212 ==

== ENCOUNTER 2022-02-19 12:12 | Outpatient (REF) | payer MEDICAID, SELFPAY ==
--- NOTE | ~2022-02-19 | US_ITS ---
EXAMINATION: US DIAGNOSTIC ULTRASOUND BREAST, RIGHT CLINICAL INFORMATION: Six-month follow-up right breast complex cyst.. COMPARISON: August 22, 2021. TECHNIQUE: Ultrasound of the breast is performed with real-time reynolds scale imaging and color Doppler. FINDINGS: There is a stable appearing hypoechoic avascular lesion with hyperechoic septation at the 10:00 position 4 cm from the nipple.. No internal vascularity is seen. Margins are circumscribed. There is minimal distal sound enhancement. No ductal ectasia or edema within the soft tissues identified. Results are discussed with the patient at time of visit. US/US breast RT limited IMPRESSION: Stable appearance of right breast lesion. ASSESSMENT: BI-RADS 3: Probably Benign RECOMMENDATION: Diagnostic ultrasound evaluation in 6 months at time of bilateral mammography. This patient's information was entered into a reminder system with a target due date for their next mammogram.
== END 2022-02-19 12:13 | disposition home or self-care (01) ==
LOC: HO.MAMMO 12:12
PROVIDERS: PCP Internal Medicine; Visit Provider Internal Medicine
DX: N60.01 Solitary cyst of right breast (principal)
CPT/HCPCS: 76642

== ENCOUNTER 2022-04-16 09:46 | Inpatient (IN) | payer MEDICAID, SELFPAY ==
[2022-04-16] VITALS (7 sets, daily range): BP systolic 116–153; BP diastolic 67–81; PULSE 78–93; RESP 12–18; TEMP 36.3–37; O2SAT 93–100; BMI 25.6
--- NOTE | ~2022-04-16 | CT_ITS ---
EXAMINATION: CT ABDOMEN AND PELVIS WITHOUT CONTRAST CLINICAL INFORMATION: Left flank pain COMPARISON: January 04, 2022 December 23, 2018 TECHNIQUE: Multidetector volumetric imaging was performed from the superior aspect of the liver through the pubic symphysis. Sagittal and coronal reformatted images were obtained on the technologist's workstation. This CT examination was performed using dose optimization techniques as appropriate, variously including the following: *Automated exposure control *Adjustment of mA and/or kV according to patient size (this includes techniques or standardized protocols for targeted exams where dose is matched to indication/reason for exam; i.e. extremities or head) *Use of iterative reconstruction technique DLP: 526 mGy-cm FINDINGS: LUNG BASES: The visualized lung bases are unremarkable. No pleural or pericardial effusion. LIVER, GALLBLADDER, AND BILIARY TREE: The liver is normal in size, shape, and attenuation. No focal hepatic lesion or biliary ductal dilatation is present. Status post cholecystectomy. PANCREAS: Unremarkable. No mass or peripancreatic inflammatory change identified. SPLEEN: Unremarkable. ADRENAL GLANDS: Unremarkable. KIDNEYS AND URETERS: The kidneys are normal in size, shape, and attenuation. No hydronephrosis, hydroureter, or calculi seen. No perinephric stranding. BLADDER: Unremarkable. GASTROINTESTINAL TRACT: No dilated loops of large or small bowel are evident. There is a large stool burden throughout the colon. No evidence of acute appendicitis. No free air or free fluid is appreciated. There is some wall thickening and pericolonic fat stranding involving the sigmoid colon. This may be related to acute diverticulitis or colitis of other etiology. No drainable abscess collection. ABDOMINAL WALL: No significant hernia is appreciated. LYMPH NODES: No lymphadenopathy is appreciated. VASCULAR: Unremarkable. PELVIC VISCERA: No suspicious pelvic mass. OSSEOUS STRUCTURES: No suspicious destructive bony lesions identified. CT/CT abdomen pelvis wo IV con IMPRESSION: Thick-walled sigmoid colon with adjacent pericolonic fat stranding consistent with acute colitis such as diverticulitis. No drainable abscess collection identified. Large colonic stool burden. Fleischner guidelines were followed.
[2022-04-16 10:12] LABS: Appearance Urine Clear; Color Urine Yellow; Glucose Urine UA Negative (Negative); Leukocyte Esterase Urine Negative (Negative); Nitrite Urine Negative (Negative); Urine Blood Negative (Negative); Urine Ketones Negative (Negative); Urine Protein Negative (Neg-Trace)
--- NOTE | 2022-04-16 10:57 | ED.FEMALEGU ---
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 Patient states that around 02:00 hours she had a gradual onset bilateral flank pain, left greater than right. She describes the pain as a constant tightness that waxes and wanes in intensity. The pain is 8/10 at the time of evaluation. She states she had similar pain 3 years prior when she had a kidney infection which required hospitalization for 6 days. Patient states that she did have a fever as high as 102 degrees F. she had nausea and had 2 episodes of vomiting. She states she had 9 soft loose bowel movements with no blood in the bowel movement. She does have burning with urination and urinary frequency. Patient states that she had her gallbladder removed many years ago and she states that the pain in her abdomen feels similar to her gallbladder pain. MD elicited complaint: dysuria and flank pain (Bilateral, left greater than right) Pertinent past history: pyelonephritis Onset (ago): hour(s) (9) Location of symptoms: flank (Bilateral flank, left greater than right) Severity: severe Female Urogenital Radiation: Non-Radiating Severity scale (1-10): 8 Quality of pain: other (Tightness) Consistency: constant (Waxes and wanes in intensity) Vaginal discharge: none Vaginal bleeding: none Urinary symptoms: Dysuria and Frequency Relieving factors: none Associated symptoms: abdominal pain (Diffuse), fever (102 degrees F documented at home), chills, nausea, vomiting and other (Diarrhea) Treatment prior to arrival: none Related Data Home Medications Medication Instructions Recorded Confirmed metformin 500 mg tablet,extended 2 tab PO BID 09/03/21 01/13/22 release 24 hr plecanatide 3 mg tablet (Trulance) 3 mg PO DAILY 01/13/22 01/13/22 Previous Rx's Medication Instructions Recorded albuterol sulfate 90 mcg/actuation 1 inh inhalation Q4-6H PRN 07/18/20 breath activated powder shortness of breath or wheezing #1 inhaler,sensor ea cyclobenzaprine 10 mg tablet 10 mg PO Q8H Muscle spasm #10 tabs 11/19/20 hydrocodone 5 mg-acetaminophen 325 1 tab PO Q8H PRN pain #10 tabs 11/19/20 mg tablet dexlansoprazole 60 mg 60 mg PO DAILY #30 caps 12/05/21 capsule,biphase delayed release (Dexilant) ondansetron 4 mg disintegrating 4 mg PO Q6-8H PRN nausea and 01/04/22 tablet vomiting #14 tabs docusate sodium 100 mg capsule 200 mg PO BEDTIME #60 caps 01/13/22 (Colace) docusate sodium 100 mg capsule 100 mg PO DAILY PRN for 01/15/22 constipation #30 caps sennosides 8.6 mg tablet (senna) 17.2 mg PO DAILY PRN for 02/03/22 constipation 60 days #120 tabs plecanatide 3 mg tablet (Trulance) 3 mg PO DAILY #30 tabs 03/25/22 famotidine 20 mg tablet 20 mg PO BEDTIME 30 days #30 tabs 04/03/22 Allergies Allergy/AdvReac Type Severity Reaction Status Date / Time ibuprofen [From Motrin] AdvReac Mild INTENSE Verified 01/13/22 10:36 STOMACH PAIN; RASH Review of Systems Review of Systems: Yes all other systems are reviewed and are negative [facility] Past Medical History [facility] Narrative: Past medical history: Diabetes mellitus, hypertension, asthma, GERD, pyelonephritis 3 years prior requiring hospitalization. Past surgical history: Cholecystectomy many years prior. Hysterectomy secondary to fibroid disease, the patient has her ovaries. Bladder suspension social history: Patient denies tobacco, alcohol and drug use Medical History Asthma Diabetes mellitus, type 2 Hypercholesteremia Hypertension Surgical History H/O: hysterectomy History of bladder surgery Family History Family History Mother Diabetes Maternal Grandmother Diabetes Maternal Aunt Diabetes Social History Social History Household Members: Spouse Housing: Apartment Are you a primary memory care program resident to a significant other at home: No Do you presently have visiting nurse or other home services: Yes Alcohol intake: never Patient Tobacco Use Status: Never used Tobacco Use of substances other than those prescribed or required for medical reasons: No Advance Directives: No service: No Current occupational status: disabled Physical Exam Vital Signs: Vital Signs: Last Vital Signs Temp 97.6 F 04/16/22 13:01 Pulse 92 04/16/22 14:41 Resp 12 04/16/22 14:41 BP 133/80 04/16/22 14:41 Pulse Ox 93 04/16/22 14:41 O2 Del Method 04/16/22 14:41 BMI result Body Mass Index 25.6 Const: General: cooperative and no acute distress Orientation/consciousness: oriented to person and oriented to place Limitations: no limitations HEENT: Head: Yes normal to inspection, Yes normocephalic and Yes atraumatic Ears: external ears normal General nose exam: Normal external nose present Face and sinus: Yes normal facial exam Mouth: Normal oral and palatal mucosa present Throat: Yes posterior oropharynx normal Eyes: General: appearance normal, both eyes and all related structures Pupils: Equal, round and reactive pupils present Neck: Neck: Yes normal visual inspection, Yes no lymphadenopathy, Yes trachea midline and Yes supple Chest: Chest palpation & inspection: normal inspection of the chest and normal palpation of entire chest wall Resp: Effort & Inspection: normal respiratory effort and able to speak in complete sentences Auscultation: clear to auscultation bilaterally Cardio: Rate: regular rate Rhythm: regular rhythm Heart sounds: S1 normal heart sound present, S2 normal heart sound present and no murmurs GI: Inspection: Yes normal to inspection Palpation (GI): Soft to palpation, Tenderness to palpation present (GI) (Mild diffuse tenderness) and no guarding Auscultation: normal bowel sounds : General: Yes CVA tenderness on the right (Mild) and on the left (Moderate) Back/Spine/Pelvis: Back: CVA tenderness Skin: General skin exam: no rashes or lesions noted Neuro: General: oriented to person and oriented to place Cranial nerves: Yes CN's II-XII intact bilaterally and Yes Equal, round and reactive pupils present Cognition (Neuro): normal cognition Motor exam (neuro): 5/5 motor strength present throughout Extrem: General: Yes normal to inspection Psych: Appearance: grossly normal Speech and movement: Normal speech and movement present Affect: normal affect Attitude: cooperative Thought process: Normal thought process present Thought content: Normal thought content present Course Course Course Narrative: 57-year-old female who presents emergency department for evaluation of bilateral flank pain, left greater than right, fever documented at 102 degrees F at home with chills, frequency, dysuria, nausea, vomiting and diarrhea with symptoms starting today at 02:00 hours. Patient states she has had similar symptoms 3 years prior when she had a kidney infection requiring hospitalization. She also states that her abdominal pain felt similar to her gallbladder pain. At the time of presentation her pain was 8/10. Vital signs were normal and the patient was afebrile. Exam did reveal bilateral CVA tenderness left greater than right and diffuse abdominal tenderness. Laboratory evaluation was ordered at triage to include CBC, BMP, liver panel urinalysis, lipase, magnesium. I ordered COVID-19 influenza testing. I will obtain a CT scan of the abdomen pelvis without IV contrast to further evaluate her pain in her rule out renal disease. Patient's pain and nausea was treated with morphine 4 mg IV and Zofran 4 mg IV. She is also to get normal saline x1 L. 1258: Laboratory evaluation was unremarkable. Urinalysis was negative. COVID-[address] scan of the abdomen pelvis without IV contrast is consistent with sigmoid colitis versus diverticulitis. I did discuss this with the patient. I will obtain blood cultures x2. Patient was given Levaquin 750 mg IV and Flagyl 500 mg IV. She also required a 2nd dose of morphine 4 mg IV. 1447: The patient has only gotten minimal relief of her pain with the above medications, therefore I ordered Dilaudid 0.5 mg IV. Given the significant pain that the patient is having, I do not think that she be managed as an outpatient. I will discuss admission with the covering hospitalist. MDM - Female Genitourinary Lab Data Result diagrams: 04/16/22 11:16 10 11:16 Labs: Lab Results 04/16/22 04/16/22 04/16/22 Range/Units 10:04 11:16 11:16 WBC 6.5 (4.8-10.8) X10*3/uL RBC 4.95 (4.20-5.50) X10*6/uL Hgb 13.0 (12.0-16.0) g/dl Hct 40.2 (37.0-47.0) % MCV 81.2 (80.0-98.0) fL MCH 26.3 L (27.0-33.0) pg MCHC 32.3 (31.0-35.0) g/dl RDW 13.4 (11.0-16.0) % Plt Count 276 (160-400) X10*3/uL MPV 9.9 (9.4-12.3) fL Immature Gran % (Auto) 0.3 (0.0-0.4) % Neut % (Auto) 56.6 (45-73) % Lymph % (Auto) 31.4 (20-40) % Bertie % (Auto) 8.6 (2-11) % Eos % (Auto) 2.9 (0-4) % Baso % (Auto) 0.2 (0-2) % Lymph # (Auto) 2.0 (1.2-4.9) X10*3/uL Bertie # (Auto) 0.6 (0.1-1.2) X10*3/uL Eos # (Auto) 0.2 (0.0-0.4) X10*3/uL Baso # (Auto) 0.0 (0.0-0.2) X10*3/uL Abs Immat Gran (auto) 0.02 (0.00-0.03) X10*3/uL Absolute Neuts (auto) 3.7 (2.0-8.3) x10*3/uL Absolute Nucleated RBC 0.000 (0.0-0.012) X10*3/uL Nucleated RBC % (auto) 0.0 (0.0-0.2) /100WBC Sodium 140 (135-145) mmol/L Potassium 4.1 (3.3-5.1) mmol/L Chloride 101 (96-108) mmol/L Carbon Dioxide 29 (22-29) mmol/L Anion Gap 14 (12-20) BUN 7 L (9-16) mg/dL Creatinine 0.91 (0.5-1.4) mg/dL Estim Creat Clear Calc 59.7 Estimated GFR > 60 Random Glucose 105 (60-115) mg/dL Calcium 10.1 D (8.4-10.2) mg/dL Magnesium 1.8 (1.6-2.6) mg/dL Total Bilirubin 0.3 (0.0-1.0) mg/dL Direct Bilirubin < 0.2 (0.0-0.5) mg/dL AST 20 (5-31) U/L ALT 18 (0-31) U/L Alkaline Phosphatase 67 (39-117) U/L Total Protein 7.2 (6.5-8.0) g/dL Albumin 4.3 (3.5-5.0) g/dL Lipase 24 (8-78) U/L Urine Color Yellow Urine Appearance Clear Urine pH 6.0 (5.0-9.0) Ur Specific [place] 1.010 (1.005-1.025) Urine Protein Negative (Neg-Trace) mg/dL Urine Glucose (UA) Negative (Negative) mg/dL Urine Ketones Negative (Negative) mg/dL Urine Blood Negative (Negative) Urine Nitrite Negative (Negative) Ur Leukocyte Esterase Negative (Negative) COVID-19 (JOSE ELIAS) (Negative) COVID-19 Clin Com Influenza Type A (EM) (Negative) Influenza Type B (EM) (Negative) Influenza A & B Note 04/16/22 04/16/22 Range/Units 11:46 11:46 WBC (4.8-10.8) X10*3/uL RBC (4.20-5.50) X10*6/uL Hgb (12.0-16.0) g/dl Hct (37.0-47.0) % MCV (80.0-98.0) fL MCH (27.0-33.0) pg MCHC (31.0-35.0) g/dl RDW (11.0-16.0) % Plt Count (160-400) X10*3/uL MPV (9.4-12.3) fL Immature Gran % (Auto) (0.0-0.4) % Neut % (Auto) (45-73) % Lymph % (Auto) (20-40) % Bertie % (Auto) (2-11) % Eos % (Auto) (0-4) % Baso % (Auto) (0-2) % Lymph # (Auto) (1.2-4.9) X10*3/uL Bertie # (Auto) (0.1-1.2) X10*3/uL Eos # (Auto) (0.0-0.4) X10*3/uL Baso # (Auto) (0.0-0.2) X10*3/uL Abs Immat Gran (auto) (0.00-0.03) X10*3/uL Absolute Neuts (auto) (2.0-8.3) x10*3/uL Absolute Nucleated RBC (0.0-0.012) X10*3/uL Nucleated RBC % (auto) (0.0-0.2) /100WBC Sodium (135-145) mmol/L Potassium (3.3-5.1) mmol/L Chloride (96-108) mmol/L Carbon Dioxide (22-29) mmol/L Anion Gap (12-20) BUN (9-16) mg/dL Creatinine (0.5-1.4) mg/dL Estim Creat Clear Calc Estimated GFR Random Glucose (60-115) mg/dL Calcium (8.4-10.2) mg/dL Magnesium (1.6-2.6) mg/dL Total Bilirubin (0.0-1.0) mg/dL Direct Bilirubin (0.0-0.5) mg/dL AST (5-31) U/L ALT (0-31) U/L Alkaline Phosphatase (39-117) U/L Total Protein (6.5-8.0) g/dL Albumin (3.5-5.0) g/dL Lipase (8-78) U/L Urine Color Urine Appearance Urine pH (5.0-9.0) Ur Specific [place] (1.005-1.025) Urine Protein (Neg-Trace) mg/dL Urine Glucose (UA) (Negative) mg/dL Urine Ketones (Negative) mg/dL Urine Blood (Negative) Urine Nitrite (Negative) Ur Leukocyte Esterase (Negative) COVID-19 (JOSE ELIAS) Negative (Negative) COVID-19 Clin Com See Note Influenza Type A (EM) Negative (Negative) Influenza Type B (EM) Negative (Negative) Influenza A & B Note See Note Discharge Plan Discharge Clinical Impression: Diverticulitis of sigmoid colon, Abdominal pain Patient Disposition: Admitted As Inpatient Prescriptions: No Action Dexilant 60 mg capsule,biphase delayed releas 60 mg PO DAILY Qty: 30 6RF docusate sodium 100 mg capsule 100 mg PO DAILY PRN (Reason: for constipation) Qty: 30 0RF sennosides [senna] 8.6 mg tablet 17.2 mg PO DAILY PRN (Reason: for constipation) 60 Days Qty: 120 1RF Trulance 3 mg tablet 3 mg PO DAILY Qty: 30 2RF famotidine 20 mg tablet 20 mg PO BEDTIME 30 Days Qty: 30 1RF cyclobenzaprine 10 mg tablet 10 mg PO Q8H Qty: 10 0RF hydrocodone-acetaminophen 5-325 mg tablet 1 tab PO Q8H PRN (Reason: pain) Qty: 10 0RF albuterol sulfate 90 mcg/actuation aero powdr breath act w/sensor 1 inh inhalation Q4-6H PRN (Reason: shortness of breath or wheezing) Qty: 1 0RF ondansetron 4 mg tablet,disintegrating 4 mg PO Q6-8H PRN (Reason: nausea and vomiting) Qty: 14 0RF metformin 500 mg tablet extended release 24 hr 2 tab PO BID Trulance 3 mg tablet 3 mg PO DAILY docusate sodium [Colace] 100 mg capsule 200 mg PO BEDTIME Qty: 60 5RF
[2022-04-16 11:21] LABS: MANUAL DIFF FLAG NO
[2022-04-16 11:24] LABS: Basophils Percent Auto 0.2 % (0-2); Eosinophils Absolute Auto 0.2 X10*3/uL (0.0-0.4); Eosinophils Percent Auto 2.9 % (0-4); Hematocrit 40.2 % (37.0-47.0); Imm Gran Abs Auto 0.02 X10*3/uL (0.00-0.03); Imm Gran Pct Auto 0.3 % (0.0-0.4); Lymphocytes Percent Auto 31.4 % (20-40); Mean Corpuscular HGB Conc 32.3 g/dl (31.0-35.0); Mean Corpuscular Hemoglobin 26.3 pg (27.0-33.0); Mean Corpuscular Volume 81.2 fL (80.0-98.0); Mean Platelet Volume 9.9 fL (9.4-12.3); Monocytes Absolute Auto 0.6 X10*3/uL (0.1-1.2); Monocytes Percent Auto 8.6 % (2-11); Neutrophils Absolute Auto 3.7 x10*3/uL (2.0-8.3); Neutrophils Percent Auto 56.6 % (45-73); Platelet Count 276 X10*3/uL (160-400); Red Blood Count 4.95 X10*6/uL (4.20-5.50); Red Cell Distribution Width 13.4 % (11.0-16.0); White Blood Count 6.5 X10*3/uL (4.8-10.8)
[2022-04-16 11:43] LABS: Alanine Aminotransferase 18 U/L (0-31); Albumin Level 4.3 g/dL (3.5-5.0); Alkaline Phosphatase 67 U/L (39-117); Anion Gap 14 (12-20); Aspartate Amino Transferase 20 U/L (5-31); Bilirubin Direct < 0.2 mg/dL (0.0-0.5); Bilirubin Total 0.3 mg/dL (0.0-1.0); Blood Urea Nitrogen 7 mg/dL (9-16); Calcium 10.1 mg/dL (8.4-10.2); Carbon Dioxide 29 mmol/L (22-29); Chloride 101 mmol/L (96-108); Creatinine Clr Calc Pharmacy 59.7; Estimated Glomerular Filt Rate > 60; Glucose Random 105 mg/dL (60-115); Lipase 24 U/L (8-78); Magnesium 1.8 mg/dL (1.6-2.6); Potassium 4.1 mmol/L (3.3-5.1); Sodium 140 mmol/L (135-145); Total Protein 7.2 g/dL (6.5-8.0)
[2022-04-16] MEDS: ondansetron HCL 4 MG/2 ML VIAL IVPUSH (11:52)
[2022-04-16] MEDS: Morphine Sulfate 4 MG/ML CARTRIDGE IVPUSH ×2 (11:52→13:31)
[2022-04-16] MEDS: 0.9 % Sodium Chloride 1,000 ML 999 ML IV (11:54)
[2022-04-16 12:07] LABS: COVID-19 Test Negative (Negative); IDNOW Serial# 55D5AD1C
[2022-04-16 12:08] LABS: IDNOW Serial# 9DB6401D; Influenza A Negative (Negative); Influenza B2 Negative (Negative)
--- NOTE | 2022-04-16 13:52 | PC.NURSE ---
REC'D V.O. FOR BLOOD CULTURES, PT IS A TOUGH STICK, TECH CURRENTLY ATTEMPTING.
[2022-04-16] MEDS: levoFLOXacin/D5W 750 MG/150 ML PIGGYBACK 100 MG IV (14:19)
[2022-04-16] MEDS: HYDROmorphone HCl 0.5 MG/0.5 ML SYRINGE IVPUSH (14:57)
--- NOTE | 2022-04-16 15:44 | PM.IMHP ---
History of Present Illness Date of Service: 04/16/22 Attending physician on admission: George Cuellar Chief Complaint: left flank/llq pain 57-year-old female history of gcn-gojjbys-yvfyckxbl type 2 diabetes, hypertension, hypercholesterolemia, fibromyalgia, chronic low back pain, mild persistent asthma, chronic constipation, nephrolithiasis, and anxiety presented to the ED this morning complaining of left flank pain radiating to the left lower quadrant ongoing for 3 days. She reports the pain has been intermittent and rated as a 9/10. She has also felt bloated with constipation and has had fevers up to 102 yesterday but is currently afebrile. She also endorses mild dysuria, no hematuria or increaed urinary frequency. On arrival, she had stated that she felt as if her pain was related to kidney stones. Urinalysis was unremarkable. There is no leukocytosis. Renal function electrolyte levels were normal. CT of the abdomen/pelvis showed thick-walled sigmoid colon with adjacent pericolonic fat stranding consistent with acute colitis such as diverticulitis without any drainable abscess collection or perforation. There is also large colonic stool burden noted. Patient has been afebrile in the ED with VSS. Levaquin was initiated and metronidazole was ordered. Despite multiple doses of morphine and dilaudid, patient's pain level has been poorly controlled and admission is therefore recommended. Seen and examined in presence of , Catrachito, and [place] interpretor Review of Systems Review of Systems: General: No fevers, malaise, unintentional weight loss Cardiovascular: No chest pain, palpitations, or leg edema Respiratory: No shortness of breath, wheezing, cough GI: +llq pain, +nausea, +decreased appetite, +constipation. No vomiting, diarrhea, melena, hematochezia : +dysuria. No hematuria, increased urinary frequency Neuro: No headaches, weakness, paresthesias Skin: No rashes or lesions [facility] Medical History Abdominal pain Anemia Asthma Chronic constipation Chronic low back pain COVID-19 Diabetes mellitus, type 2 Fibromyalgia GERD (gastroesophageal reflux disease) Hypercholesteremia Hypertension Family History Mother Diabetes Chronic kidney disease Maternal Grandmother Diabetes Maternal Aunt Diabetes Father CAD (coronary artery disease) Surgical History H/O: hysterectomy History of bladder surgery Social History Household Members: Spouse Housing: Apartment Are you a primary director of primary care to a significant other at home: No Do you presently have visiting nurse or other home services: Yes Alcohol intake: never Patient Tobacco Use Status: Never used Tobacco Use of substances other than those prescribed or required for medical reasons: No Advance Directives: No service: No Current occupational status: disabled Meds Allergies Allergy/AdvReac Type Severity Reaction Status Date / Time ibuprofen [From Motrin] AdvReac Mild INTENSE Verified 01/13/22 10:36 STOMACH PAIN; RASH Active Medications: Current Medications Acetaminophen (Acetaminophen 325 Mg Tablet) 650 mg PO Q6H PRN PRN Reason: Pain, Mild (Pain Scale 1-3) Docusate Sodium (Docusate Sodium 100 Mg Capsule) 100 mg PO BID NARCISO Enoxaparin Sodium (Enoxaparin Sodium 40 Mg/0.4 Ml Syringe) 40 mg SUBCUT Q24H NARCISO Hydromorphone HCl (Hydromorphone Hcl 1 Mg/Ml Syringe) 0.5 mg IVPUSH Q4H PRN; Protocol PRN Reason: Pain, Severe (Pain Scale 7-10) Levofloxacin (Levaquin) 750 mg in 150 mls @ 100 mls/hr IV Q24H NARCISO Metronidazole (Flagyl) 500 mg in 100 mls @ 100 mls/hr IV Q8H NARCISO Ondansetron HCl (Ondansetron Odt 4 Mg Tab.Rapdis) 4 mg TRANSLINGU ONCE ONE Stop: 04/16/22 15:44 Oxycodone HCl (Oxycodone Hcl Immed Release 5 Mg Tablet) 5 mg PO Q6H PRN PRN Reason: Pain, Moderate (Pain Scale 4-6 Pharmacy Consult (Consult Rx Perform Med Rec) 1 each MISCELLANE ONCE PRN PRN Reason: Consult order Sodium Chloride (0.9 % Sodium Chloride Flush 3 Ml Syringe) 3 ml IVFLUSH QSHIFT NARCISO Home Medications Medication Instructions Recorded Confirmed Last Taken Type aspirin 81 mg tablet,delayed 1 tab PO DAILY 04/16/22 04/16/22 Unknown History release cholecalciferol (vitamin D3) 25 1 tab PO DAILY 04/16/22 04/16/22 04/16/22 History mcg (1,000 unit) tablet cyclobenzaprine 10 mg tablet 10 mg PO Q8H PRN Muscle Spasm 04/16/22 04/16/22 04/15/22 History dulaglutide 0.75 mg/0.5 mL 0.75 mg subcut TU 04/16/22 04/16/22 04/15/22 History subcutaneous pen injector (Trulicity) estradiol 0.05 mg/24 hr weekly 1 patch transdermal MO 04/16/22 04/16/22 04/14/22 History transdermal patch fluticasone propionate 220 1 puff inhalation BID 04/16/22 04/16/22 04/15/22 History mcg/actuation HFA aerosol inhaler (Flovent HFA) hydrochlorothiazide 25 mg tablet 0.5 tab PO DAILY 04/16/22 04/16/22 Unknown History lisinopril 40 mg tablet 1 tab PO DAILY 04/16/22 04/16/22 04/16/22 History lorazepam 0.5 mg tablet 1 tab PO DAILY PRN Anxiety 04/16/22 04/16/22 04/09/22 History montelukast 10 mg tablet 1 tab PO BEDTIME 04/16/22 04/16/22 04/15/22 History oxycodone-acetaminophen 5 mg-325 1 tab PO TID PRN severe pain 04/16/22 04/16/22 04/16/22 History mg tablet zolpidem 10 mg tablet 1 tab PO BEDTIME PRN Insomnia 04/16/22 04/16/22 04/15/22 History Physical Exam Vital Signs and Narrative: Vital Signs: Last Vital Signs Temp 97.6 F 04/16/22 13:01 Pulse 92 04/16/22 14:41 Resp 12 04/16/22 14:41 BP 133/80 04/16/22 14:41 Pulse Ox 93 04/16/22 14:41 O2 Del Method 04/16/22 14:41 BMI result Body Mass Index 25.6 Constitutional - Awake and Alert, No apparent distress Eyes - PERRLA, EOMI Cardiovascular - S1S2, RRR, No edema Respiratory - Normal lung expansion, Normal respiratory effort, No respiratory distress, CTA bilaterally Gastrointestinal - Diffuse abdominal pain greatest LLQ. ND; +BS; No rebound or guarding - No CVA tenderness Extremities - no calf tenderness bilaterally, no swelling Skin - Warm/Dry Neurological - Alert & oriented x3, 5/5 stregth BUE and BLE Psychological - Appropriate affect Results Labs CBC and Chem 7: 04/16/22 11:16 04/16/22 11:16 Labs: Laboratory Results - last 24 hr 04/16/22 04/16/22 04/16/22 10:04 11:16 11:16 MCV 81.2 MCH 26.3 L MCHC 32.3 RDW 13.4 Plt Count 276 MPV 9.9 Immature Gran % (Auto) 0.3 Neut % (Auto) 56.6 Lymph % (Auto) 31.4 Butts % (Auto) 8.6 Eos % (Auto) 2.9 Baso % (Auto) 0.2 Lymph # (Auto) 2.0 Butts # (Auto) 0.6 Eos # (Auto) 0.2 Baso # (Auto) 0.0 Abs Immat Gran (auto) 0.02 Absolute Neuts (auto) 3.7 Absolute Nucleated RBC 0.000 Nucleated RBC % (auto) 0.0 Anion Gap 14 Estim Creat Clear Calc 59.7 Estimated GFR > 60 Random Glucose 105 Calcium 10.1 D Magnesium 1.8 Total Bilirubin 0.3 Direct Bilirubin < 0.2 AST 20 ALT 18 Alkaline Phosphatase 67 Total Protein 7.2 Albumin 4.3 Lipase 24 Urine Color Yellow Urine Appearance Clear Urine pH 6.0 Ur Specific [place] 1.010 Urine Protein Negative Urine Glucose (UA) Negative Urine Ketones Negative Urine Blood Negative Urine Nitrite Negative Ur Leukocyte Esterase Negative COVID-19 (JOSE ELIAS) COVID-19 Clin Com Influenza Type A (EM) Influenza Type B (EM) Influenza A & B Note 04/16/22 04/16/22 11:46 11:46 MCV MCH MCHC RDW Plt Count MPV Immature Gran % (Auto) Neut % (Auto) Lymph % (Auto) Butts % (Auto) Eos % (Auto) Baso % (Auto) Lymph # (Auto) Butts # (Auto) Eos # (Auto) Baso # (Auto) Abs Immat Gran (auto) Absolute Neuts (auto) Absolute Nucleated RBC Nucleated RBC % (auto) Anion Gap Estim Creat Clear Calc Estimated GFR Random Glucose Calcium Magnesium Total Bilirubin Direct Bilirubin AST ALT Alkaline Phosphatase Total Protein Albumin Lipase Urine Color Urine Appearance Urine pH Ur Specific [place] Urine Protein Urine Glucose (UA) Urine Ketones Urine Blood Urine Nitrite Ur Leukocyte Esterase COVID-19 (JOSE ELIAS) Negative COVID-19 Clin Com See Note Influenza Type A (EM) Negative Influenza Type B (EM) Negative Influenza A & B Note See Note Imaging Radiologist's Impressions: Impressions Abdomen/Pelvis CT 04/16/22 11:47 IMPRESSION: Thick-walled sigmoid colon with adjacent pericolonic fat stranding consistent with acute colitis such as diverticulitis. No drainable abscess collection identified. Large colonic stool burden. Fleischner guidelines were followed. Assessment and Plan (1) Diverticulitis of sigmoid colon: Status: Acute Plan 57-year-old female history of eeo-mbzveih-aohccqiqj type 2 diabetes, hypertension, hypercholesterolemia, fibromyalgia, chronic low back pain, mild persistent asthma, chronic constipation, nephrolithiasis, and anxiety admitted for acute sigmoid diverticulitis. 1- Acute uncomplicated sigmoid diverticulitis vs colitis -CT abd/pelvis showing thick-walled sigmoid colon with pericolonic fat stranding suggestive of acute colitis or diverticulitis -IV levaquin and flagyl -Liquid diet due to decreased appetite. Advance as tolerated -Pain has been difficult to control. Pain control with oxycodone and dilaudid using pain scale -Ondansetron prn 2- Iho-kmmewzy-cmziothin type 2 diabetes - Humalog on sliding scale - liquid diet for now, advance to diabetic diet as tolerated - POC glucose 3- HTN- controlled -Continue lisinopril and hctz 4-HLD -not on statin 5-Mild persistent asthma -Continue maintenance meds -Albuterol prn 6-Chronic constipation -Continue home meds 7-Chronic pain/fibromyalgia -Hold home percocet. Pain scale as sabove -Continue cyclobenzaprine 8-Anxiety/insomnia -Continue home meds DVT proph- lovenox Full code Pt requires inpt stay at least 2 midnights due to acute diverticulitis with intractable pain requiring IV narcotics and IV antibiotics. Quality Stroke Does the patient have a stroke diagnosis?: No VTE Prior VTE?: No VTE Risk Level:: Medical - moderate - high VTE Device Contraindication: Treatment Not Indicated VTE Drug Contraindication: N/A - Med Ordered
[2022-04-16] MEDS: metroNIDAZOLE/NS 500 MG/100 ML PIGGYBACK 100 MG IV ×2 (15:56→23:48)
[2022-04-16] MEDS: Ondansetron ODT 4 MG TAB.RAPDIS TRANSLINGU (15:57)
--- NOTE | 2022-04-16 16:00 | PHA.MEDREC ---
Pharmacy Consult ? Medication Reconciliation Pharmacy has completed the medication reconciliation.
[2022-04-16] MEDS: Enoxaparin Sodium 40 MG/0.4 ML SYRINGE SUBCUT (17:30)
[2022-04-16 17:37] LABS: Glucose, Whole Blood 70 mg/dL (60-115)
--- NOTE | 2022-04-16 19:45 | PC.NURSE ---
Report given to Germán Stevens.
[2022-04-16] MEDS: HYDROmorphone HCl 1 MG/ML SYRINGE 0.5 MG IVPUSH (20:38)
[2022-04-16] MEDS: 0.9 % Sodium Chloride Flush 3 ML SYRINGE IVFLUSH (20:39)
[2022-04-16] MEDS: Montelukast Sodium 10 MG TABLET PO (20:39)
[2022-04-16] MEDS: Docusate Sodium 100 MG CAPSULE PO (20:39)
[2022-04-16 20:42] LABS: Glucose, Whole Blood 61 mg/dL (60-115)
[2022-04-16] MEDS: Zolpidem Tartrate 5 MG TABLET 10 MG PO (21:13)
[2022-04-16 22:14] LABS: Glucose, Whole Blood 69 mg/dL (60-115)
[2022-04-16 22:54] LABS: Glucose, Whole Blood 79 mg/dL (60-115)
[2022-04-16 23:48] LABS: Glucose, Whole Blood 97 mg/dL (60-115)
[2022-04-16] MEDS: oxyCODONE HCl Immed Release 5 MG TABLET PO (23:48)
[2022-04-17 03:18] VITALS: BP 109/58; PULSE 81; RESP 18; TEMP 36.9; O2SAT 97
[2022-04-17] MEDS: HYDROmorphone HCl 1 MG/ML SYRINGE 0.5 MG IVPUSH ×4 (04:44→18:33)
[2022-04-17 07:41] VITALS: BP 111/57; PULSE 77; RESP 16; TEMP 35.8; O2SAT 100
[2022-04-17 07:49] LABS: Glucose, Whole Blood 85 mg/dL (60-115)
[2022-04-17] MEDS: Acetaminophen 325 MG TABLET 650 MG PO ×2 (08:06→15:59)
[2022-04-17] MEDS: Cholecalciferol (Vitamin D3) 25 MCG TABLET PO (08:07)
[2022-04-17] MEDS: Aspirin Enteric Coated 81 MG TABLET.DR PO (08:07)
[2022-04-17] MEDS: Docusate Sodium 100 MG CAPSULE PO ×2 (08:07→21:04)
[2022-04-17] MEDS: hydroCHLOROthiazide 12.5 MG TABLET PO (08:07)
[2022-04-17] MEDS: oxyCODONE HCl Immed Release 5 MG TABLET PO ×2 (08:07→15:58)
[2022-04-17] MEDS: lisinopriL 40 MG TABLET PO (08:07)
[2022-04-17] MEDS: metroNIDAZOLE/NS 500 MG/100 ML PIGGYBACK 100 MG IV ×2 (08:08→15:59)
[2022-04-17] MEDS: 0.9 % Sodium Chloride Flush 3 ML SYRINGE IVFLUSH ×3 (08:09→21:05)
--- NOTE | 2022-04-17 09:20 | P.PNIM_ITS ---
Subjective Subjective Date of Service: 04/17/22 Interval History: cc: abd pain interval history:ongoing pain Cardiovascular Cardiovascular: Reports no additional cardiovascular complaints Respiratory Respiratory: Reports no additional respiratory complaints Physical Exam Vital Signs: Vital Signs: Last Vital Signs Temp 96.5 F L 04/17/22 07:41 Pulse 77 04/17/22 07:41 Resp 16 04/17/22 07:41 BP 111/57 L 04/17/22 07:41 Pulse Ox 100 04/17/22 07:41 O2 Del Method 04/17/22 07:41 BMI result Body Mass Index 25.6 General: AO X 3, no acute distress Resp: CTA bilateral, no accessory muscles used CVS: S1,S2,RRR GI: soft, LLQ tender, non distended Neuro: motor grossly intact, alert Psych: appropriate affect, appropriate insight Objective Data Active Medications Acetaminophen (Acetaminophen 325 Mg Tablet) 650 mg PO Q6H PRN PRN Reason: Pain, Mild (Pain Scale 1-3) Last Admin: 04/17/22 08:06 Dose: 650 mg Documented By: PARK Aspirin (Aspirin Enteric Coated 81 Mg Tablet.) 81 mg PO DAILY [facility] Last Admin: 04/17/22 08:07 Dose: 81 mg Documented By: PARK Cyclobenzaprine HCl (Cyclobenzaprine Hcl 10 Mg Tablet) 10 mg PO Q8H PRN PRN Reason: Muscle Spasm Dextrose (Dextrose 50 % 25 Gm/50 Ml Syringe) 25 gm IVPUSH Q15M PRN; Protocol PRN Reason: per Hypoglycemia Standing Ord. Docusate Sodium (Docusate Sodium 100 Mg Capsule) 100 mg PO BID [facility] Last Admin: 04/17/22 08:07 Dose: 100 mg Documented By: PARK Enoxaparin Sodium (Enoxaparin Sodium 40 Mg/0.4 Ml Syringe) 40 mg SUBCUT Q24H [facility] Last Admin: 04/16/22 17:30 Dose: 40 mg Documented By: MIKIE Fluticasone Propionate (Fluticasone Propionate 250 Mcg Blst.W.Dev) 1 puff INHALE RBID [facility] Last Admin: 04/17/22 07:51 Dose: Not Given Documented By: LALITO Non-Admin Reason: Med Not Available Glucose (Glucose Gel 15 Gm Gel..Gram.) 15 gm PO Q15M PRN; Protocol PRN Reason: per Hypoglycemia Standing Ord. Hydrochlorothiazide (Hydrochlorothiazide 12.5 Mg Tablet) 12.5 mg PO DAILY [facility]; Protocol Last Admin: 04/17/22 08:07 Dose: 12.5 mg Documented By: PARK Hydromorphone HCl (Hydromorphone Hcl 1 Mg/Ml Syringe) 0.5 mg IVPUSH Q4H PRN; Protocol PRN Reason: Pain, Severe (Pain Scale 7-10) Last Admin: 04/17/22 04:44 Dose: 0.5 mg Documented By: SOULEYMANE Levofloxacin (Levaquin) 750 mg in 150 mls @ 100 mls/hr IV Q24H NARC[facility] Metronidazole (Flagyl) 500 mg in 100 mls @ 100 mls/hr IV Q8H [facility] Last Admin: 04/17/22 08:08 Dose: 100 mls/hr Documented By: PARK Insulin Human Lispro (Insulin Lispro 100 Unit/Ml 3 Ml Vial) 0 unit SUBCUT QIDACHS [facility]; Protocol Last Admin: 04/17/22 08:01 Dose: Not Given Documented By: PARK Non-Admin Reason: No Insulin Coverage Lisinopril (Lisinopril 40 Mg Tablet) 40 mg PO DAILY [facility]; Protocol Last Admin: 04/17/22 08:07 Dose: 40 mg Documented By: PARK Lorazepam (Lorazepam 0.5 Mg Tablet) 0.5 mg PO DAILY PRN PRN Reason: Anxiety Montelukast Sodium (Montelukast Sodium 10 Mg Tablet) 10 mg PO BEDTIME [facility] Last Admin: 04/16/22 20:39 Dose: 10 mg Documented By: LAUREANO Non-Formulary Medication (Dexlansoprazole [Dexilant]) 60 mg PO DAILY [facility] Non-Formulary Medication (Estradiol) 1 patch TRANSDERMA MO [facility] Non-Formulary Medication (Plecanatide [Trulance]) 3 mg PO DAILY [facility] Oxycodone HCl (Oxycodone Hcl Immed Release 5 Mg Tablet) 5 mg PO Q6H PRN PRN Reason: Pain, Moderate (Pain Scale 4-6 Last Admin: 04/17/22 08:07 Dose: 5 mg Documented By: PARK Pharmacy Consult (Consult Rx Perform Med Rec) 1 each MISCELLANE ONCE PRN PRN Reason: Consult order Senna (Sennosides 8.6 Mg Tablet) 17.2 mg PO DAILY PRN PRN Reason: for constipation Sodium Chloride (0.9 % Sodium Chloride Flush 3 Ml Syringe) 3 ml IVFLUSH QSHIFT [facility] Last Admin: 04/17/22 08:09 Dose: 3 ml Documented By: PARK Vitamin D (Cholecalciferol (Vitamin D3) 25 Mcg Tablet) 25 mcg PO DAILY [facility] Last Admin: 04/17/22 08:07 Dose: 25 mcg Documented By: PARK Zolpidem Tartrate (Zolpidem Tartrate 5 Mg Tablet) 10 mg PO BEDTIME PRN PRN Reason: Insomnia Last Admin: 04/16/22 21:13 Dose: 10 mg Documented By: EDUARDOQC Labs CBC & Chem 7: 04/16/22 11:16 04/16/22 11:16 Labs: Laboratory Results - last 24 hr 04/16/22 04/16/22 04/16/22 10:04 11:16 11:16 MCV 81.2 MCH 26.3 L MCHC 32.3 RDW 13.4 Plt Count 276 MPV 9.9 Immature Gran % (Auto) 0.3 Neut % (Auto) 56.6 Lymph % (Auto) 31.4 [place] % (Auto) 8.6 Eos % (Auto) 2.9 Baso % (Auto) 0.2 Lymph # (Auto) 2.0 [place] # (Auto) 0.6 Eos # (Auto) 0.2 Baso # (Auto) 0.0 Abs Immat Gran (auto) 0.02 Absolute Neuts (auto) 3.7 Absolute Nucleated RBC 0.000 Nucleated RBC % (auto) 0.0 Anion Gap 14 Estim Creat Clear Calc 59.7 Estimated GFR > 60 POC Glucose Random Glucose 105 Calcium 10.1 D Magnesium 1.8 Total Bilirubin 0.3 Direct Bilirubin < 0.2 AST 20 ALT 18 Alkaline Phosphatase 67 Total Protein 7.2 Albumin 4.3 Lipase 24 Urine Color Yellow Urine Appearance Clear Urine pH 6.0 Ur Specific [place] 1.010 Urine Protein Negative Urine Glucose (UA) Negative Urine Ketones Negative Urine Blood Negative Urine Nitrite Negative Ur Leukocyte Esterase Negative COVID-19 ([facility]) COVID-19 Clin Com Influenza Type A (EM) Influenza Type B (EM) Influenza A & B Note 04/16/22 04/16/22 04/16/22 11:46 11:46 17:31 MCV MCH MCHC RDW Plt Count MPV Immature Gran % (Auto) Neut % (Auto) Lymph % (Auto) [place] % (Auto) Eos % (Auto) Baso % (Auto) Lymph # (Auto) [place] # (Auto) Eos # (Auto) Baso # (Auto) Abs Immat Gran (auto) Absolute Neuts (auto) Absolute Nucleated RBC Nucleated RBC % (auto) Anion Gap Estim Creat Clear Calc Estimated GFR POC Glucose 70 Random Glucose Calcium Magnesium Total Bilirubin Direct Bilirubin AST ALT Alkaline Phosphatase Total Protein Albumin Lipase Urine Color Urine Appearance Urine pH Ur Specific [place] Urine Protein Urine Glucose (UA) Urine Ketones Urine Blood Urine Nitrite Ur Leukocyte Esterase COVID-19 ([facility]) Negative COVID-19 Clin Com See Note Influenza Type A (EM) Negative Influenza Type B (EM) Negative Influenza A & B Note See Note 04/16/22 04/16/22 04/16/22 20:33 22:10 22:49 MCV MCH MCHC RDW Plt Count MPV Immature Gran % (Auto) Neut % (Auto) Lymph % (Auto) [place] % (Auto) Eos % (Auto) Baso % (Auto) Lymph # (Auto) [place] # (Auto) Eos # (Auto) Baso # (Auto) Abs Immat Gran (auto) Absolute Neuts (auto) Absolute Nucleated RBC Nucleated RBC % (auto) Anion Gap Estim Creat Clear Calc Estimated GFR POC Glucose 61 69 79 Random Glucose Calcium Magnesium Total Bilirubin Direct Bilirubin AST ALT Alkaline Phosphatase Total Protein Albumin Lipase Urine Color Urine Appearance Urine pH Ur Specific [place] Urine Protein Urine Glucose (UA) Urine Ketones Urine Blood Urine Nitrite Ur Leukocyte Esterase COVID-19 ([facility]) COVID-19 Clin Com Influenza Type A (EM) Influenza Type B (EM) Influenza A & B Note 04/16/22 04/17/22 23:44 07:34 MCV MCH MCHC RDW Plt Count MPV Immature Gran % (Auto) Neut % (Auto) Lymph % (Auto) [place] % (Auto) Eos % (Auto) Baso % (Auto) Lymph # (Auto) [place] # (Auto) Eos # (Auto) Baso # (Auto) Abs Immat Gran (auto) Absolute Neuts (auto) Absolute Nucleated RBC Nucleated RBC % (auto) Anion Gap Estim Creat Clear Calc Estimated GFR POC Glucose 97 85 Random Glucose Calcium Magnesium Total Bilirubin Direct Bilirubin AST ALT Alkaline Phosphatase Total Protein Albumin Lipase Urine Color Urine Appearance Urine pH Ur Specific [place] Urine Protein Urine Glucose (UA) Urine Ketones Urine Blood Urine Nitrite Ur Leukocyte Esterase COVID-19 ([facility]) COVID-19 Clin Com Influenza Type A (EM) Influenza Type B (EM) Influenza A & B Note Assessment and Plan (1) Diverticulitis of sigmoid colon: Status: Acute Plan 57F PMH DM, HTN, HLD, mild persistent asthma, fibromyalgia, anxiety, presented with abd pain acute sigmoid diverticulitis levaquin, flagyl advance diet as tolerated DM insulin, pocs htn lisinopril, hctz mild persistent asthma continue labuterol as needed singulair, flovent anxiety ativan chronic pain continue oxycodone, flexeril dvt prophylaxis - lovenox full code reason for continued hospitalization:ongoing pain requiring iv opiates Quality Stroke Does the patient have a stroke diagnosis?: No VTE Prior VTE?: No VTE Risk Level:: Medical - moderate - high VTE Device Contraindication: Treatment Not Indicated VTE Drug Contraindication: N/A - Med Ordered
--- NOTE | 2022-04-17 11:10 | MHC.CM.PN ---
PATIENT IS IN FROM HOME WHERE SHE HAS A CANE AND A WALKER SHE IS COVID VACCINATED X 2 NO PLAN FOR DC OF THIS NOTE NO HCP ON FILE. PATIENT AWARE THAT T/W CAN ASSIST WITH ONE IF SHE CHOOSES TO ASSIGN AN AGENT. CM FOLLOWING FOR DC NEEDS.
[2022-04-17 11:28] VITALS: BMI 25.6
[2022-04-17 11:36] LABS: Glucose, Whole Blood 76 mg/dL (60-115)
[2022-04-17] MEDS: levoFLOXacin/D5W 750 MG/150 ML PIGGYBACK 100 MG IV (12:07)
--- NOTE | 2022-04-17 12:53 | MHC.CM.PN ---
ANTICIPATE 2 MORE DAYS HERE AND THEN DC HOME ON PO ABX.
[2022-04-17] MEDS: ondansetron HCL 4 MG/2 ML VIAL IVPUSH (13:28)
[2022-04-17 13:48] LABS: Glucose, Whole Blood 105 mg/dL (60-115)
[2022-04-17 15:47] VITALS: BP 134/65; PULSE 83; RESP 17; TEMP 36.6; O2SAT 97
[2022-04-17] MEDS: Enoxaparin Sodium 40 MG/0.4 ML SYRINGE SUBCUT (15:59)
[2022-04-17 16:12] LABS: Glucose, Whole Blood 95 mg/dL (60-115)
[2022-04-17 19:24] VITALS: BP 133/67; PULSE 82; RESP 16; TEMP 36.6; O2SAT 98
[2022-04-17 19:42] LABS: Glucose, Whole Blood 87 mg/dL (60-115)
[2022-04-17] MEDS: Cyclobenzaprine HCl 10 MG TABLET PO (21:04)
[2022-04-17] MEDS: Montelukast Sodium 10 MG TABLET PO (21:04)
[2022-04-17] MEDS: Zolpidem Tartrate 5 MG TABLET 10 MG PO (21:04)
[2022-04-18] VITALS (7 sets, daily range): BP systolic 105–150; BP diastolic 58–77; PULSE 78–98; RESP 16–18; TEMP 36.1–36.2; O2SAT 96–100
[2022-04-18] MEDS: metroNIDAZOLE/NS 500 MG/100 ML PIGGYBACK 100 MG IV ×4 (00:01→23:50)
[2022-04-18] MEDS: HYDROmorphone HCl 1 MG/ML SYRINGE 0.5 MG IVPUSH ×6 (00:05→23:47)
[2022-04-18 00:30] LABS: Glucose, Whole Blood 79 mg/dL (60-115)
[2022-04-18] MEDS: oxyCODONE HCl Immed Release 5 MG TABLET PO ×3 (02:13→21:27)
[2022-04-18] MEDS: Omeprazole 40 MG CAPSULE.DR PO (06:17)
[2022-04-18 07:10] LABS: Glucose, Whole Blood 96 mg/dL (60-115)
[2022-04-18 07:18] LABS: Hemoglobin 12.2 g/dl (12.0-16.0); Mean Corpuscular Hemoglobin 27.2 pg (27.0-33.0); Mean Corpuscular Volume 82.4 fL (80.0-98.0); Mean Platelet Volume 10.5 fL (9.4-12.3); Platelet Count 267 X10*3/uL (160-400); Red Blood Count 4.49 X10*6/uL (4.20-5.50); Red Cell Distribution Width 13.3 % (11.0-16.0); White Blood Count 5.6 X10*3/uL (4.8-10.8)
[2022-04-18 07:37] LABS: Anion Gap 15 (12-20); Blood Urea Nitrogen 6 mg/dL (9-16); Calcium 9.3 mg/dL (8.4-10.2); Carbon Dioxide 27 mmol/L (22-29); Chloride 101 mmol/L (96-108); Creatinine Clr Calc Pharmacy 64.7; Estimated Glomerular Filt Rate > 60; Glucose Fasting 81 mg/dL (60-99); Potassium 3.9 mmol/L (3.3-5.1); Sodium 139 mmol/L (135-145)
[2022-04-18] MEDS: lisinopriL 40 MG TABLET PO (08:22)
[2022-04-18] MEDS: Docusate Sodium 100 MG CAPSULE PO ×2 (08:22→21:23)
[2022-04-18] MEDS: Aspirin Enteric Coated 81 MG TABLET.DR PO (08:22)
[2022-04-18] MEDS: Cholecalciferol (Vitamin D3) 25 MCG TABLET PO (08:23)
[2022-04-18] MEDS: hydroCHLOROthiazide 12.5 MG TABLET PO (08:23)
[2022-04-18] MEDS: 0.9 % Sodium Chloride Flush 3 ML SYRINGE IVFLUSH ×3 (08:24→23:57)
--- NOTE | 2022-04-18 10:09 | MHC.CLN ---
F/U DIET ADVANCED TODAY TO DIABETIC 1800 KCAL. ADDING GLUCERNA BID TO PROVIDE ADDITIONAL 474 KCALS, 20 G PROTEIN. PATIENT WITH SIGNIFICANT WEIGHT LOSS X 6 MONTHS AND DESIRE TO GAIN WEIGHT. FOLLOW FOR INTAKE/DIET TOLERANCE, WEIGHT.
[2022-04-18 11:49] LABS: Glucose, Whole Blood 93 mg/dL (60-115)
[2022-04-18] MEDS: levoFLOXacin/D5W 750 MG/150 ML PIGGYBACK 100 MG IV (13:24)
--- NOTE | 2022-04-18 13:35 | P.PNIM_ITS ---
Subjective Subjective Date of Service: 04/18/22 Interval History: cc: abd pain interval history:ongoing pain Cardiovascular Cardiovascular: Reports no additional cardiovascular complaints Respiratory Respiratory: Reports no additional respiratory complaints Physical Exam Vital Signs: Vital Signs: Last Vital Signs Temp 97.1 F 04/18/22 11:19 Pulse 85 04/18/22 11:19 Resp 16 04/18/22 11:19 BP 123/65 04/18/22 11:19 Pulse Ox 97 04/18/22 11:19 O2 Del Method 04/18/22 11:19 BMI result Body Mass Index 25.6 General: AO X 3, no acute distress Resp: CTA bilateral, no accessory muscles used CVS: S1,S2,RRR GI: soft, LLQ tender, non distended Neuro: motor grossly intact, alert Psych: appropriate affect, appropriate insight Objective Data Active Medications Acetaminophen (Acetaminophen 325 Mg Tablet) 650 mg PO Q6H PRN PRN Reason: Pain, Mild (Pain Scale 1-3) Last Admin: 04/17/22 15:59 Dose: 650 mg Documented By: PARK Aspirin (Aspirin Enteric Coated 81 Mg Tablet.Dr) 81 mg PO DAILY [facility] Last Admin: 04/18/22 08:22 Dose: 81 mg Documented By: LAURA Cyclobenzaprine HCl (Cyclobenzaprine Hcl 10 Mg Tablet) 10 mg PO Q8H PRN PRN Reason: Muscle Spasm Last Admin: 04/17/22 21:04 Dose: 10 mg Documented By: PEACE Dextrose (Dextrose 50 % 25 Gm/50 Ml Syringe) 25 gm IVPUSH Q15M PRN; Protocol PRN Reason: per Hypoglycemia Standing Ord. Docusate Sodium (Docusate Sodium 100 Mg Capsule) 100 mg PO BID [facility] Last Admin: 04/18/22 08:22 Dose: 100 mg Documented By: LAURA Enoxaparin Sodium (Enoxaparin Sodium 40 Mg/0.4 Ml Syringe) 40 mg SUBCUT Q24H [facility] Last Admin: 04/17/22 15:59 Dose: 40 mg Documented By: PARK Fluticasone Propionate (Fluticasone Propionate 250 Mcg Blst.W.Dev) 1 puff INHALE RBID [facility] Last Admin: 04/18/22 07:47 Dose: Not Given Documented By: LALITO Non-Admin Reason: Patient Refused Glucose (Glucose Gel 15 Gm Gel..Gram.) 15 gm PO Q15M PRN; Protocol PRN Reason: per Hypoglycemia Standing Ord. Hydrochlorothiazide (Hydrochlorothiazide 12.5 Mg Tablet) 12.5 mg PO DAILY [facility]; Protocol Last Admin: 04/18/22 08:23 Dose: 12.5 mg Documented By: LAURA Hydromorphone HCl (Hydromorphone Hcl 1 Mg/Ml Syringe) 0.5 mg IVPUSH Q4H PRN; Protocol PRN Reason: Pain, Severe (Pain Scale 7-10) Last Admin: 04/18/22 11:02 Dose: 0.5 mg Documented By: TERA Levofloxacin (Levaquin) 750 mg in 150 mls @ 100 mls/hr IV Q24H [facility] Last Admin: 04/18/22 13:24 Dose: 100 mls/hr Documented By: LAURA Metronidazole (Flagyl) 500 mg in 100 mls @ 100 mls/hr IV Q8H [facility] Last Infusion: 04/18/22 10:06 Dose: 0 mls/hr Documented By: LAURA Insulin Human Lispro (Insulin Lispro 100 Unit/Ml 3 Ml Vial) 0 unit SUBCUT QIDACHS [facility]; Protocol Last Admin: 04/18/22 11:58 Dose: Not Given Documented By: LAURA Non-Admin Reason: No Insulin Coverage Lisinopril (Lisinopril 40 Mg Tablet) 40 mg PO DAILY [facility]; Protocol Last Admin: 04/18/22 08:22 Dose: 40 mg Documented By: LAURA Lorazepam (Lorazepam 0.5 Mg Tablet) 0.5 mg PO DAILY PRN PRN Reason: Anxiety Montelukast Sodium (Montelukast Sodium 10 Mg Tablet) 10 mg PO BEDTIME [facility] Last Admin: 04/17/22 21:04 Dose: 10 mg Documented By: PEACE Omeprazole (Omeprazole 40 Mg Capsule.Dr) 40 mg PO DAILY@0630 [facility] Last Admin: 04/18/22 06:17 Dose: 40 mg Documented By: PEACE Ondansetron HCl (Ondansetron Hcl 4 Mg/2 Ml Vial) 4 mg IVPUSH Q8H PRN PRN Reason: nasuea Last Admin: 04/17/22 13:28 Dose: 4 mg Documented By: PARK Oxycodone HCl (Oxycodone Hcl Immed Release 5 Mg Tablet) 5 mg PO Q6H PRN PRN Reason: Pain, Moderate (Pain Scale 4-6 Last Admin: 04/18/22 08:43 Dose: 5 mg Documented By: LAURA Pharmacy Consult (Consult Rx Perform Med Rec) 1 each MISCELLANE ONCE PRN PRN Reason: Consult order Senna (Sennosides 8.6 Mg Tablet) 17.2 mg PO DAILY PRN PRN Reason: for constipation Sodium Chloride (0.9 % Sodium Chloride Flush 3 Ml Syringe) 3 ml IVFLUSH [facility] Last Admin: 04/18/22 08:24 Dose: 3 ml Documented By: LAURA Vitamin D (Cholecalciferol (Vitamin D3) 25 Mcg Tablet) 25 mcg PO DAILY [facility] Last Admin: 04/18/22 08:23 Dose: 25 mcg Documented By: LAURA Zolpidem Tartrate (Zolpidem Tartrate 5 Mg Tablet) 10 mg PO BEDTIME PRN PRN Reason: Insomnia Last Admin: 04/17/22 21:04 Dose: 10 mg Documented By: PEACE Labs CBC & Chem 7: 04/18/22 06:12 04/18/22 06:13 Labs: Laboratory Results - last 24 hr 04/17/22 04/17/22 04/17/22 13:43 15:49 19:25 MCV MCH MCHC RDW Plt Count MPV Absolute Nucleated RBC Nucleated RBC % (auto) Anion Gap Estim Creat Clear Calc Estimated GFR POC Glucose 105 95 87 Fasting Glucose Calcium 04/18/22 04/18/22 04/18/22 00:25 06:12 06:13 MCV 82.4 MCH 27.2 MCHC 33.0 RDW 13.3 Plt Count 267 MPV 10.5 Absolute Nucleated RBC 0.000 Nucleated RBC % (auto) 0.0 Anion Gap 15 Estim Creat Clear Calc 64.7 Estimated GFR > 60 POC Glucose 79 Fasting Glucose 81 Calcium 9.3 D 04/18/22 04/18/22 06:52 11:43 MCV MCH MCHC RDW Plt Count MPV Absolute Nucleated RBC Nucleated RBC % (auto) Anion Gap Estim Creat Clear Calc Estimated GFR POC Glucose 96 93 Fasting Glucose Calcium Microbiology Microbiology Results: Microbiology 04/16/22 14:16 Blood Culture - Preliminary Blood - Venous No growth after 24 hours. 04/16/22 14:16 Blood Culture - Preliminary Blood - Venous No growth after 24 hours. Assessment and Plan (1) Diverticulitis of sigmoid colon: Status: Acute Plan 57F PMH DM, HTN, HLD, mild persistent asthma, fibromyalgia, anxiety, presented with abd pain acute sigmoid diverticulitis levaquin, flagyl advance diet as tolerated, now on solids but not able to eat much DM insulin, pocs htn lisinopril, hctz mild persistent asthma continue labuterol as needed singulair, flovent anxiety ativan chronic pain continue oxycodone, flexeril dvt prophylaxis - lovenox full code reason for continued hospitalization:ongoing pain requiring iv opiates, advancing diet Quality Stroke Does the patient have a stroke diagnosis?: No VTE Prior VTE?: No VTE Risk Level:: Medical - moderate - high VTE Device Contraindication: Treatment Not Indicated VTE Drug Contraindication: N/A - Med Ordered
[2022-04-18] MEDS: ondansetron HCL 4 MG/2 ML VIAL IVPUSH (15:21)
[2022-04-18 15:28] LABS: Glucose, Whole Blood 121 mg/dL (60-115)
[2022-04-18] MEDS: Enoxaparin Sodium 40 MG/0.4 ML SYRINGE SUBCUT (16:30)
[2022-04-18 20:18] LABS: Glucose, Whole Blood 128 mg/dL (60-115)
[2022-04-18] MEDS: Montelukast Sodium 10 MG TABLET PO (21:23)
[2022-04-18] MEDS: Zolpidem Tartrate 5 MG TABLET 10 MG PO (21:27)
[2022-04-19] MEDS: oxyCODONE HCl Immed Release 5 MG TABLET PO ×2 (02:20→08:29)
[2022-04-19] MEDS: LORazepam 0.5 MG TABLET PO (02:22)
[2022-04-19 02:24] VITALS: BP 112/63; PULSE 80; RESP 16; TEMP 36.7; O2SAT 98
[2022-04-19 06:28] VITALS: BP 107/62; PULSE 78
[2022-04-19] MEDS: HYDROmorphone HCl 1 MG/ML SYRINGE 0.5 MG IVPUSH (06:31)
[2022-04-19] MEDS: Omeprazole 40 MG CAPSULE.DR PO (06:32)
[2022-04-19 07:29] VITALS: BP 99/58; PULSE 80; RESP 18; TEMP 36; O2SAT 95
[2022-04-19 08:02] LABS: Glucose, Whole Blood 95 mg/dL (60-115)
[2022-04-19] MEDS: Fluticasone Propionate 250 MCG BLST.W.DEV 1 PUFF INHALE (08:13)
[2022-04-19 08:14] VITALS: PULSE 75; RESP 14; O2SAT 98
[2022-04-19] MEDS: Cholecalciferol (Vitamin D3) 25 MCG TABLET PO (08:21)
[2022-04-19] MEDS: hydroCHLOROthiazide 12.5 MG TABLET PO (08:21)
[2022-04-19] MEDS: metroNIDAZOLE/NS 500 MG/100 ML PIGGYBACK 100 MG IV (08:22)
[2022-04-19] MEDS: Aspirin Enteric Coated 81 MG TABLET.DR PO (08:22)
[2022-04-19] MEDS: 0.9 % Sodium Chloride Flush 3 ML SYRINGE IVFLUSH (08:22)
[2022-04-19] MEDS: lisinopriL 40 MG TABLET PO (08:22)
[2022-04-19] MEDS: Docusate Sodium 100 MG CAPSULE PO (08:22)
--- NOTE | 2022-04-19 10:00 | P.DS_ITS ---
DS: Providers Provider Date of Service: 04/19/22 Date of admission: 04/16/22 15:39 Primary care physician: Nidia Salgado MD DS: Diagnosis Discharge Diagnosis (1) Diverticulitis of sigmoid colon: Status: Acute DS: Summary Hospital Course Hospital Course: from initial hpi: 57-year-old female history of [id number] type 2 diabetes, hypertension, hypercholesterolemia, fibromyalgia, chronic low back pain, mild persistent asthma, chronic constipation, nephrolithiasis, and anxiety presented to the ED this morning complaining of left flank pain radiating to the left lower quadrant ongoing for 3 days.? She reports the pain has been intermittent and rated as a 9/10.? She has also felt bloated with constipation and has had fevers up to 102 yesterday but is currently afebrile.? She also endorses mild dysuria, no hematuria or increaed urinary frequency.? On arrival, she had stated that she felt as if her pain was related to kidney stones.? Urinalysis was unremarkable.? There is no leukocytosis.? Renal function electrolyte levels were normal.? CT of the abdomen/pelvis showed thick-walled sigmoid colon with adjacent pericolonic fat stranding consistent with acute colitis such as diverticulitis without any drainable abscess collection or perforation.? There is also large colonic stool burden noted. Patient has been afebrile in the ED with VSS. Levaquin was initiated and metronidazole was ordered. Despite multiple doses of morphine and dilaudid, patient's pain level has been poorly controlled and admission is therefore recommended. Seen and examined in presence of , [place], and [place] interpretor hospital course: Patient was admitted for acute diverticulitis of the sigmoid colon. Treated with Levaquin and Flagyl and pain control. Her diet was slowly advanced the point where she is now tolerating solids. She will be discharged on 5 more days of Augmentin. For diabetes she was continue on insulin. For hypertension she was continued on lisinopril and hydrochlorothiazide. For mild intermittent asthma she remains stable. Patient is feeling better will be discharged home. Time Spent with Patient Time attestation: Total time spent providing and/or coordinating discharge services: Discharge coordination time: Greater than 30 minutes Quality: Safe Use of Opioids Does Pt have an Active Cancer Diagnosis on the Problem List?: No Quality: Stroke Does the patient have a stroke diagnosis?: No Physical Exam Vital Signs: Vital Signs: Last Vital Signs Temp 96.8 F 04/19/22 07:29 Pulse 75 04/19/22 08:14 Resp 14 04/19/22 08:14 BP 99/58 L 04/19/22 07:29 Pulse Ox 95 04/19/22 07:29 O2 Del Method 04/19/22 07:29 BMI result Body Mass Index 25.6 General: AO X 3, no acute distress Resp: CTA bilateral, no accessory muscles used CVS: S1,S2,RRR GI: soft, non tender, non distended Neuro: motor grossly intact, alert Psych: appropriate affect, appropriate insight DS: Data Data Completed and Pending Labs on day of discharge: Laboratory Results - last 24 hr 04/18/22 04/18/22 04/18/22 11:43 14:57 18:57 POC Glucose 93 121 H 128 H 04/19/22 07:27 POC Glucose 95 Preliminary micro results at discharge 04/16/22 14:16 Blood Culture - Preliminary Blood - Venous No growth after 48 hours. 04/16/22 14:16 Blood Culture - Preliminary Blood - Venous No growth after 48 hours. Discharge Plan Discharge Anticipated Discharge Date/Time: 04/19/22 09:57 Patient Disposition: Home, Self-Care Discharge Diagnosis: diverticulitis Referrals: Nidia Salgado MD [Primary Care Provider] - 1 Week Discharge Medications: New amoxicillin-pot clavulanate 875-125 mg tablet 1 tab PO BID Qty: 10 0RF Continued Dexilant 60 mg capsule,biphase delayed releas 60 mg PO DAILY Qty: 30 6RF sennosides [senna] 8.6 mg tablet 17.2 mg PO DAILY PRN (Reason: for constipation) 60 Days Qty: 120 1RF Trulance 3 mg tablet 3 mg PO DAILY Qty: 30 2RF albuterol sulfate 90 mcg/actuation aero powdr breath act w/sensor 1 inh inhalation Q4-6H PRN (Reason: shortness of breath or wheezing) Qty: 1 0RF ondansetron 4 mg tablet,disintegrating 4 mg PO Q6-8H PRN (Reason: nausea and vomiting) Qty: 14 0RF estradiol 0.05 mg/24 hr patch weekly 1 patch transdermal [place] aspirin 81 mg tablet,delayed release (DR/EC) 1 tab PO DAILY oxycodone-acetaminophen 5-325 mg tablet 1 tab PO TID PRN (Reason: severe pain) hydrochlorothiazide 25 mg tablet 0.5 tab PO DAILY zolpidem 10 mg tablet 1 tab PO BEDTIME PRN (Reason: Insomnia) lisinopril 40 mg tablet 1 tab PO DAILY Trulicity 0.75 mg/0.5 mL pen injector 0.75 mg subcut TU lorazepam 0.5 mg tablet 1 tab PO DAILY PRN (Reason: Anxiety) montelukast 10 mg tablet 1 tab PO BEDTIME fluticasone propionate [Flovent HFA] 220 mcg/actuation HFA aerosol inhaler 1 puff INHALATION BID cholecalciferol (vitamin D3) 25 mcg (1,000 unit) tablet 1 tab PO DAILY cyclobenzaprine 10 mg tablet 10 mg PO Q8H PRN (Reason: Muscle Spasm) Discharge Orders: Discharge Order (Routine); Ordered 04/19/22 Ordered By: George Cuellar Diet: Advance to usual diet Activity on Discharge: As tolerated Stand Alone Forms: Patient Portal Discharge page Care Plan Goals: recovery Health Concerns: divertiuclitis Plan of Treatment: 5 more days augmentin Assessment: see above
--- NOTE | 2022-04-19 10:16 | MHC.CM.PN ---
PT TO DC HOME TODAY WITH NO SERVICES PT TO ARRANGE TRANSPORT
[2022-04-19 11:31] LABS: Glucose, Whole Blood 107 mg/dL (60-115)
== END 2022-04-19 11:34 | disposition home or self-care (01) | DRG 244 ==
LOC: HO.ED 14:53 → HO.EDOVER 15:58 → HO.S3 18:36
PROVIDERS: Emergency Medicine; Admitting Provider Physician Assistant; Emergency Provider Emergency Medicine Emergency Medical Services; PCP Internal Medicine; Visit Provider Internal Medicine
DX: K57.32 Diverticulitis of large intestine without perforation or abscess without bleeding (principal); E78.5 Hyperlipidemia, unspecified; G89.29 Other chronic pain; M54.50 Low back pain, unspecified; K59.09 Other constipation; M79.7 Fibromyalgia; J45.30 Mild persistent asthma, uncomplicated; F41.9 Anxiety disorder, unspecified; G47.00 Insomnia, unspecified; Z20.822 Contact with and (suspected) exposure to COVID-19; Z88.6 Allergy status to analgesic agent; Z79.82 Long term (current) use of aspirin; Z79.51 Long term (current) use of inhaled steroids; Z79.899 Other long term (current) drug therapy
CPT/HCPCS: 36415; 74176; 80048; 80076; 81003; 82947; 83690; 83735; 85025; 85027; 87040; 87502; 87635; 94640; 94664; 99285; J1170; J1650; J1956; J2270; J2405

== ENCOUNTER 2022-05-12 12:33 | Outpatient (REF) | payer MEDICAID, SELFPAY ==
[2022-05-12 12:54] LABS: MANUAL DIFF FLAG NO
[2022-05-12 13:15] LABS: Eosinophils Absolute Auto 0.2 X10*3/uL (0.0-0.4); Eosinophils Percent Auto 2.8 % (0-4); Hematocrit 36.5 % (37.0-47.0); Hemoglobin 11.8 g/dl (12.0-16.0); Imm Gran Abs Auto 0.05 X10*3/uL (0.00-0.03); Imm Gran Pct Auto 0.7 % (0.0-0.4); Lymphocytes Absolute Auto 2.9 X10*3/uL (1.2-4.9); Lymphocytes Percent Auto 39.8 % (20-40); Mean Corpuscular HGB Conc 32.3 g/dl (31.0-35.0); Mean Corpuscular Hemoglobin 26.4 pg (27.0-33.0); Mean Corpuscular Volume 81.7 fL (80.0-98.0); Mean Platelet Volume 9.9 fL (9.4-12.3); Monocytes Absolute Auto 0.6 X10*3/uL (0.1-1.2); Monocytes Percent Auto 7.6 % (2-11); Neutrophils Absolute Auto 3.5 x10*3/uL (2.0-8.3); Neutrophils Percent Auto 49.1 % (45-73); Platelet Count 380 X10*3/uL (160-400); Red Blood Count 4.47 X10*6/uL (4.20-5.50); Red Cell Distribution Width 13.2 % (11.0-16.0); White Blood Count 7.2 X10*3/uL (4.8-10.8)
[2022-05-12 13:52] LABS: Alanine Aminotransferase 27 U/L (0-31); Albumin Level 4.4 g/dL (3.5-5.0); Alkaline Phosphatase 96 U/L (39-117); Anion Gap 16 (12-20); Aspartate Amino Transferase 20 U/L (5-31); Bilirubin Total 0.4 mg/dL (0.0-1.0); Blood Urea Nitrogen 8 mg/dL (9-16); Calcium 10.4 mg/dL (8.4-10.2); Carbon Dioxide 28 mmol/L (22-29); Chloride 100 mmol/L (96-108); Estimated Glomerular Filt Rate > 60; Glucose Random 113 mg/dL (60-115); Potassium 4.5 mmol/L (3.3-5.1); Sodium 139 mmol/L (135-145); Total Protein 7.5 g/dL (6.5-8.0)
[2022-05-12 14:08] LABS: Ferritin 76 ng/mL (10-250)
== END 2022-05-12 12:34 | disposition home or self-care (01) ==
LOC: HO.LAB 12:33
PROVIDERS: Internal Medicine Medical Oncology; PCP Internal Medicine; Visit Provider Physician Assistant
DX: K52.9 Noninfective gastroenteritis and colitis, unspecified (principal); K57.32 Diverticulitis of large intestine without perforation or abscess without bleeding; R10.32 Left lower quadrant pain; D64.9 Anemia, unspecified
CPT/HCPCS: 36415; 80053; 82728; 85025; 99202

== ENCOUNTER 2022-05-20 09:59 | Emergency (ER) | payer MEDICAID, SELFPAY ==
--- NOTE | ~2022-05-20 | CT_ITS ---
EXAMINATION: CT ABDOMEN AND PELVIS WITH CONTRAST CLINICAL INFORMATION: Left lower quadrant pain. History of diverticulitis. COMPARISON: CT abdomen pelvis 04/16/2022 TECHNIQUE: Multidetector volumetric images were obtained from the superior aspect of the liver through the pubic symphysis following administration 85 mL of Omnipaque 350 intravenous contrast. Sagittal and coronal reformatted images were obtained on the technologist's workstation. Oral contrast: No This CT examination was performed using dose optimization techniques as appropriate, variously including the following: *Automated exposure control *Adjustment of mA and/or kV according to patient size (this includes techniques or standardized protocols for targeted exams where dose is matched to indication/reason for exam; i.e. extremities or head) *Use of iterative reconstruction technique DLP: 524 mGy-cm FINDINGS: LUNG BASES: The visualized lung bases are unremarkable. LIVER, GALLBLADDER, AND BILIARY TREE: Normal hepatic attenuation. No liver lesion. Status post cholecystectomy. Extra hepatic bile duct is borderline dilated measuring up to 1 cm in diameter. Mild intrahepatic biliary ductal dilation. Findings are not significantly changed and likely normal postcholecystectomy. Correlate with LFTs for clinical significance. PANCREAS: Unremarkable. SPLEEN: Unremarkable. ADRENAL GLANDS: Unremarkable. KIDNEYS AND URETERS: Symmetric nephrograms. No hydronephrosis. No renal calculi or lesions. Focal cortical scarring in the right upper pole. No perinephric stranding. BLADDER: Unremarkable. GASTROINTESTINAL TRACT: Relatively large colonic stool burden. There is relatively long segment of circumferential mural thickening of the sigmoid colon with mild pericolonic inflammatory stranding. No appreciable colonic diverticulitis suggest diverticulitis is etiology. No pneumatosis. No extraluminal gas/free air. No pericolonic abscess. No additional bowel wall thickening. No dilated bowel loops. Normal appendix. ABDOMINAL WALL: No significant hernia is appreciated. LYMPH NODES: No lymphadenopathy. VASCULAR: Normal caliber abdominal aorta. Celiac, SMA, and QIANA origins are patent. PELVIC VISCERA: Status post hysterectomy. Trace free pelvic fluid. No adnexal mass. OSSEOUS STRUCTURES: No acute fracture or suspicious osseous lesion. Mild degenerative disc disease at L5-S1 and within the lower thoracic spine. CT/CT abdomen pelvis w IV con IMPRESSION: 1. Findings compatible with colitis involving the sigmoid colon. Differential considerations include infectious and inflammatory etiologies. No evidence of perforation or abscess. No significant diverticulosis. 2. Relatively large colonic stool burden. 3. Status post cholecystectomy. Mild intrahepatic and extrahepatic biliary ductal dilation, likely normal postcholecystectomy. Correlate with LFTs for clinical significance.
[2022-05-20 10:22] VITALS: BP 167/83; PULSE 99; RESP 20; TEMP 36.7; O2SAT 99; BMI 31.1
[2022-05-20 10:35] LABS: MANUAL DIFF FLAG NO
[2022-05-20 10:36] LABS: Eosinophils Absolute Auto 0.2 X10*3/uL (0.0-0.4); Eosinophils Percent Auto 2.3 % (0-4); Hematocrit 38.1 % (37.0-47.0); Hemoglobin 12.4 g/dl (12.0-16.0); Imm Gran Abs Auto 0.03 X10*3/uL (0.00-0.03); Imm Gran Pct Auto 0.4 % (0.0-0.4); Lymphocytes Absolute Auto 1.9 X10*3/uL (1.2-4.9); Lymphocytes Percent Auto 26.9 % (20-40); Mean Corpuscular HGB Conc 32.5 g/dl (31.0-35.0); Mean Corpuscular Hemoglobin 26.4 pg (27.0-33.0); Mean Corpuscular Volume 81.2 fL (80.0-98.0); Monocytes Absolute Auto 0.6 X10*3/uL (0.1-1.2); Monocytes Percent Auto 8.6 % (2-11); Neutrophils Absolute Auto 4.4 x10*3/uL (2.0-8.3); Neutrophils Percent Auto 61.8 % (45-73); Platelet Count 311 X10*3/uL (160-400); Red Blood Count 4.69 X10*6/uL (4.20-5.50); Red Cell Distribution Width 13.5 % (11.0-16.0); White Blood Count 7.1 X10*3/uL (4.8-10.8)
[2022-05-20 10:58] LABS: Alanine Aminotransferase 30 U/L (0-31); Albumin Level 4.3 g/dL (3.5-5.0); Alkaline Phosphatase 77 U/L (39-117); Anion Gap 13 (12-20); Aspartate Amino Transferase 27 U/L (5-31); Bilirubin Direct < 0.2 mg/dL (0.0-0.5); Bilirubin Total 0.2 mg/dL (0.0-1.0); Blood Urea Nitrogen 9 mg/dL (9-16); Calcium 9.7 mg/dL (8.4-10.2); Carbon Dioxide 27 mmol/L (22-29); Chloride 100 mmol/L (96-108); Creatinine Clr Calc Pharmacy 64.9; Estimated Glomerular Filt Rate > 60; Glucose Random 158 mg/dL (60-115); Potassium 3.7 mmol/L (3.3-5.1); Sodium 136 mmol/L (135-145); Total Protein 7.2 g/dL (6.5-8.0)
[2022-05-20 15:38] VITALS: BP 140/81; PULSE 90; RESP 18; O2SAT 100
--- NOTE | 2022-05-20 16:00 | ED.ABDPAIN ---
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 Labs done in triage showed normal CBC count. Related Data Home Medications Medication Instructions Recorded Confirmed aspirin 81 mg tablet,delayed 1 tab PO DAILY 04/16/22 04/16/22 release cholecalciferol (vitamin D3) 25 1 tab PO DAILY 04/16/22 05/12/22 mcg (1,000 unit) tablet cyclobenzaprine 10 mg tablet 10 mg PO Q8H PRN Muscle Spasm 04/16/22 05/12/22 dulaglutide 0.75 mg/0.5 mL 0.75 mg subcut TU 04/16/22 05/12/22 subcutaneous pen injector (Trulicity) estradiol 0.05 mg/24 hr weekly 1 patch transdermal MO 04/16/22 05/12/22 transdermal patch fluticasone propionate 220 1 puff inhalation BID 04/16/22 05/12/22 mcg/actuation HFA aerosol inhaler (Flovent HFA) hydrochlorothiazide 25 mg tablet 0.5 tab PO DAILY 04/16/22 05/12/22 lisinopril 40 mg tablet 1 tab PO DAILY 04/16/22 04/16/22 lorazepam 0.5 mg tablet 1 tab PO DAILY PRN Anxiety 04/16/22 05/12/22 montelukast 10 mg tablet 1 tab PO BEDTIME 04/16/22 05/12/22 oxycodone-acetaminophen 5 mg-325 1 tab PO TID PRN severe pain 04/16/22 05/12/22 mg tablet zolpidem 10 mg tablet 1 tab PO BEDTIME PRN Insomnia 04/16/22 05/12/22 Previous Rx's Medication Instructions Recorded albuterol sulfate 90 mcg/actuation 1 inh inhalation Q4-6H PRN 07/18/20 breath activated powder shortness of breath or wheezing #1 inhaler,sensor ea dexlansoprazole 60 mg 60 mg PO DAILY #30 caps 12/05/21 capsule,biphase delayed release (Dexilant) ondansetron 4 mg disintegrating 4 mg PO Q6-8H PRN nausea and 01/04/22 tablet vomiting #14 tabs sennosides 8.6 mg tablet (senna) 17.2 mg PO DAILY PRN for 02/03/22 constipation 60 days #120 tabs plecanatide 3 mg tablet (Trulance) 3 mg PO DAILY #30 tabs 03/25/22 barium sulfate 2 % (w/v) oral 450 ml PO DIRECTED 1 day #900 mL 05/12/22 suspension (Readi-Cat 2) ciprofloxacin HCl 500 mg tablet 500 mg PO BID 7 days #14 tabs 05/12/22 (Cipro) metronidazole 500 mg tablet 500 mg PO Q8H 7 days #21 tabs 05/12/22 peg-electrolyte solution 420 gram 240 ml PO ONCE 1 day #4,000 mL 05/12/22 oral solution magnesium hydroxide 400 mg/5 mL 15 ml PO BEDTIME PRN constipation 05/20/22 oral suspension (Milk of Magnesia) #355 mL ondansetron 4 mg disintegrating 4 mg PO Q6-8H PRN nausea and 05/20/22 tablet vomiting #7 tabs polyethylene glycol 3350 17 17 g PO DAILY #510 grams 05/20/22 gram/dose oral powder (Miralax) Allergies Allergy/AdvReac Type Severity Reaction Status Date / Time ibuprofen [From Motrin] AdvReac Mild INTENSE Verified 05/12/22 11:44 STOMACH PAIN; RASH Review of Systems Review of Systems Yes all other systems are reviewed and are negative PMFSH Past Medical History Medical History Abdominal pain Anemia Asthma Chronic constipation Chronic low back pain COVID-19 Diabetes mellitus, type 2 Fibromyalgia GERD (gastroesophageal reflux disease) Hypercholesteremia Hypertension Surgical History H/O: hysterectomy History of bladder surgery Family History Family History Mother Diabetes Chronic kidney disease Maternal Grandmother Diabetes Maternal Aunt Diabetes Father CAD (coronary artery disease) Social History Social History Household Members: Spouse Housing: Apartment Are you a primary rn progressive care unit to a significant other at home: No Do you presently have visiting nurse or other home services: Yes Alcohol intake: never Patient Tobacco Use Status: Never used Tobacco Smoked in Last 30 Days: No Use of substances other than those prescribed or required for medical reasons: No Advance Directives: No Advance Directives Information Provided: No Patient : No service: No Current occupational status: disabled Physical Exam ED Vital Signs: Vital Signs - 24 hr 05/20/22 10:22 05/20/22 15:38 05/20/22 16:48 Temperature 98.0 F Pulse Rate 99 90 89 Respiratory Rate 20 18 18 Blood Pressure 167/83 H 140/81 H 147/84 H Pulse Oximetry 99 100 99 Oxygen Delivery Method Room Air Room Air Room Air 05/20/22 18:00 05/20/22 20:00 Temperature 97.9 F Pulse Rate 83 78 Respiratory Rate 16 16 Blood Pressure 141/84 H 156/77 H Pulse Oximetry 100 98 Oxygen Delivery Method Room Air Room Air BMI result Body Mass Index 31.1 Appearance: Alert. Oriented X3. No acute distress. Eyes: No pallor or icterus ENT: Pharynx normal. Oral Mucosa moist Neck: Normal inspection. Neck supple. CVS: Normal heart rate and rhythm. Pulses normal. Respiratory: No respiratory distress. Equal air entry bilateral, no wheezing/rales/rhonchi Abdomen: Soft, diffuse tenderness no rebound tenderness guarding palpation tenderness left lower quadrant, Bowel sounds are present, no mass palpable, no CVA tenderness Skin: Skin warm and dry. Normal skin color. Normal skin turgor. Extremities: No lower extremity edema. No calf tenderness Neuro: Oriented X 3. No motor deficit. Medications Administered Discontinued Medications Generic Name Dose Route Start Last Admin Trade Name Freq PRN Reason Stop Dose Admin Bisacodyl 10 mg 05/20/22 19:13 05/20/22 20:22 Bisacodyl 5 Mg Tablet. PO 05/20/22 19:14 10 mg ONCE ONE Administration Sodium Chloride 1,000 mls @ 999 mls/hr 05/20/22 16:07 05/20/22 18:49 Ns IV 05/20/22 17:07 Infused .Q1H1M ONE Infusion Iohexol 100 ml 05/20/22 18:53 05/20/22 18:53 Iohexol 350 Mg/Ml 100 Ml Infus..Btl IV 05/20/22 18:54 85 ml ONCE ONE Administration Magnesium Hydroxide 30 ml 05/20/22 19:13 05/20/22 20:22 Milk Of Magnesia 30 Ml Oral.Susp PO 05/20/22 19:14 30 ml ONCE ONE Administration Morphine Sulfate 4 mg 05/20/22 16:07 05/20/22 17:03 Morphine Sulfate 4 Mg/Ml Cartridge IVPUSH 05/20/22 16:08 4 mg ONCE ONE Administration Protocol Ondansetron HCl 4 mg 05/20/22 16:07 05/20/22 17:03 Ondansetron Hcl 4 Mg/2 Ml Vial IVPUSH 05/20/22 16:08 4 mg ONCE ONE Administration MDM - Abdominal Pain MDM Narrative Medical decision making narrative: Patient with diffuse abdominal pain with constipation CT scan negative for diverticulitis shows chronic inflammation WBC count is normal lactic acid negative patient had a good bowel movement in the ER and feeling much better now discharge patient home on MiraLax advised to follow with spinning lathe operator patient's schedule for colonoscopy soon Medical Records Attestation: I reviewed the patient's medical records. Lab Data Attestation: I reviewed the patient's lab results. Result diagrams: 05/20/22 10:31 05/20/22 10:31 Labs: Lab Results 05/20/22 05/20/22 05/20/22 Range/Units 10:31 10:31 16:58 WBC 7.1 (4.8-10.8) X10*3/uL RBC 4.69 (4.20-5.50) X10*6/uL Hgb 12.4 (12.0-16.0) g/dl Hct 38.1 (37.0-47.0) % MCV 81.2 (80.0-98.0) fL MCH 26.4 L (27.0-33.0) pg MCHC 32.5 (31.0-35.0) g/dl RDW 13.5 (11.0-16.0) % Plt Count 311 (160-400) X10*3/uL MPV 10.0 (9.4-12.3) fL Immature Gran % (Auto) 0.4 (0.0-0.4) % Neut % (Auto) 61.8 (45-73) % Lymph % (Auto) 26.9 (20-40) % Sanborn % (Auto) 8.6 (2-11) % Eos % (Auto) 2.3 (0-4) % Baso % (Auto) 0.0 (0-2) % Lymph # (Auto) 1.9 (1.2-4.9) X10*3/uL Sanborn # (Auto) 0.6 (0.1-1.2) X10*3/uL Eos # (Auto) 0.2 (0.0-0.4) X10*3/uL Baso # (Auto) 0.0 (0.0-0.2) X10*3/uL Abs Immat Gran (auto) 0.03 (0.00-0.03) X10*3/uL Absolute Neuts (auto) 4.4 (2.0-8.3) x10*3/uL Absolute Nucleated RBC 0.000 (0.0-0.012) X10*3/uL Nucleated RBC % (auto) 0.0 (0.0-0.2) /100WBC Sodium 136 (135-145) mmol/L Potassium 3.7 (3.3-5.1) mmol/L Chloride 100 (96-108) mmol/L Carbon Dioxide 27 (22-29) mmol/L Anion Gap 13 (12-20) BUN 9 (9-16) mg/dL Creatinine 0.92 (0.5-1.4) mg/dL Estim Creat Clear Calc 64.9 Estimated GFR > 60 POC Glucose (60-115) mg/dL Random Glucose 158 H (60-115) mg/dL Lactic Acid 1.1 (0.5-2.0) mmol/L Calcium 9.7 D (8.4-10.2) mg/dL Total Bilirubin 0.2 (0.0-1.0) mg/dL Direct Bilirubin < 0.2 (0.0-0.5) mg/dL AST 27 (5-31) U/L ALT 30 (0-31) U/L Alkaline Phosphatase 77 (39-117) U/L Total Protein 7.2 (6.5-8.0) g/dL Albumin 4.3 (3.5-5.0) g/dL 05/20/ Range/Units 18:54 WBC (4.8-10.8) X10*3/uL RBC (4.20-5.50) X10*6/uL Hgb (12.0-16.0) g/dl Hct (37.0-47.0) % MCV (80.0-98.0) fL MCH (27.0-33.0) pg MCHC (31.0-35.0) g/dl RDW (11.0-16.0) % Plt Count (160-400) X10*3/uL MPV (9.4-12.3) fL Immature Gran % (Auto) (0.0-0.4) % Neut % (Auto) (45-73) % Lymph % (Auto) (20-40) % Sanborn % (Auto) (2-11) % Eos % (Auto) (0-4) % Baso % (Auto) (0-2) % Lymph # (Auto) (1.2-4.9) X10*3/uL Sanborn # (Auto) (0.1-1.2) X10*3/uL Eos # (Auto) (0.0-0.4) X10*3/uL Baso # (Auto) (0.0-0.2) X10*3/uL Abs Immat Gran (auto) (0.00-0.03) X10*3/uL Absolute Neuts (auto) (2.0-8.3) x10*3/uL Absolute Nucleated RBC (0.0-0.012) X10*3/uL Nucleated RBC % (auto) (0.0-0.2) /100WBC Sodium (135-145) mmol/L Potassium (3.3-5.1) mmol/L Chloride (96-108) mmol/L Carbon Dioxide (22-29) mmol/L Anion Gap (12-20) BUN (9-16) mg/dL Creatinine (0.5-1.4) mg/dL Estim Creat Clear Calc Estimated GFR POC Glucose 94 (60-115) mg/dL Random Glucose (60-115) mg/dL Lactic Acid (0.5-2.0) mmol/L Calcium (8.4-10.2) mg/dL Total Bilirubin (0.0-1.0) mg/dL Direct Bilirubin (0.0-0.5) mg/dL AST (5-31) U/L ALT (0-31) U/L Alkaline Phosphatase (39-117) U/L Total Protein (6.5-8.0) g/dL Albumin (3.5-5.0) g/dL Discharge Plan Discharge Clinical Impression: Constipation, Colitis Patient Disposition: Home, Self-Care Instructions: Constipation (ED), Colitis (ED) Additional Instructions: Drink plenty of fluids Take MiraLax daily for constipation Milk of magnesium for severe constipation Follow with spinning lathe operator/PCP Prescriptions: New magnesium hydroxide [Milk of Magnesia] 400 mg/5 mL suspension 15 ml PO BEDTIME PRN (Reason: constipation) Qty: 355 0RF polyethylene glycol 3350 [Miralax] 17 gram/dose powder 17 g PO DAILY Qty: 510 0RF ondansetron 4 mg tablet,disintegrating 4 mg PO Q6-8H PRN (Reason: nausea and vomiting) Qty: 7 0RF No Action Dexilant 60 mg capsule,biphase delayed releas 60 mg PO DAILY Qty: 30 6RF sennosides [senna] 8.6 mg tablet 17.2 mg PO DAILY PRN (Reason: for constipation) 60 Days Qty: 120 1RF Trulance 3 mg tablet 3 mg PO DAILY Qty: 30 2RF albuterol sulfate 90 mcg/actuation aero powdr breath act w/sensor 1 inh inhalation Q4-6H PRN (Reason: shortness of breath or wheezing) Qty: 1 0RF ondansetron 4 mg tablet,disintegrating 4 mg PO Q6-8H PRN (Reason: nausea and vomiting) Qty: 14 0RF estradiol 0.05 mg/24 hr patch weekly 1 patch transdermal MO aspirin 81 mg tablet,delayed release (DR/EC) 1 tab PO DAILY oxycodone-acetaminophen 5-325 mg tablet 1 tab PO TID PRN (Reason: severe pain) hydrochlorothiazide 25 mg tablet 0.5 tab PO DAILY zolpidem 10 mg tablet 1 tab PO BEDTIME PRN (Reason: Insomnia) lisinopril 40 mg tablet 1 tab PO DAILY Trulicity 0.75 mg/0.5 mL pen injector 0.75 mg subcut TU lorazepam 0.5 mg tablet 1 tab PO DAILY PRN (Reason: Anxiety) montelukast 10 mg tablet 1 tab PO BEDTIME fluticasone propionate [Flovent HFA] 220 mcg/actuation HFA aerosol inhaler 1 puff INHALATION BID cholecalciferol (vitamin D3) 25 mcg (1,000 unit) tablet 1 tab PO DAILY cyclobenzaprine 10 mg tablet 10 mg PO Q8H PRN (Reason: Muscle Spasm) peg-electrolyte soln 420 gram recon soln 240 ml PO ONCE 1 Days Qty: 4000 0RF Rx Instructions: Start at 6:00pm the evening before procedure, drink one 8oz glass every 15 minutes until complete ciprofloxacin HCl [Cipro] 500 mg tablet 500 mg PO BID 7 Days Qty: 14 0RF metronidazole 500 mg tablet 500 mg PO Q8H 7 Days Qty: 21 0RF Readi-Cat 2 2 % (w/v) suspension 450 ml PO DIRECTED 1 Days Qty: 900 0RF Interventions: ED Discharge Assessment Last Done: 05/20/22 20:30 Discharge Date/Time: 05/20/22 20:34
[2022-05-20 16:48] VITALS: BP 147/84; PULSE 89; RESP 18; O2SAT 99
[2022-05-20] MEDS: 0.9 % Sodium Chloride 1,000 ML 999 ML IV (17:03)
[2022-05-20] MEDS: ondansetron HCL 4 MG/2 ML VIAL IVPUSH (17:03)
[2022-05-20] MEDS: Morphine Sulfate 4 MG/ML CARTRIDGE IVPUSH (17:03)
[2022-05-20 17:18] LABS: Lactic Acid 1.1 mmol/L (0.5-2.0)
[2022-05-20 18:00] VITALS: BP 141/84; PULSE 83; RESP 16; TEMP 36.6; O2SAT 100
[2022-05-20] MEDS: iohexoL 350 MG/ML 100 ML INFUS..BTL IV (18:53)
[2022-05-20 19:05] LABS: Glucose, Whole Blood 94 mg/dL (60-115)
--- NOTE | 2022-05-20 19:08 | PC.NURSE ---
PT ASK AND WAS GIVEN CRACKERS AND JANUARY OTÑO FOR SNACK
[2022-05-20 20:00] VITALS: BP 156/77; PULSE 78; RESP 16; O2SAT 98
--- NOTE | 2022-05-20 20:10 | PC.NURSE ---
1999 rounding done ,pt vs taken pt awaithing for discharge p[aper work .
[2022-05-20] MEDS: Milk of Magnesia 30 ML ORAL.SUSP PO (20:22)
[2022-05-20] MEDS: bisacodyL 5 MG TABLET.DR 10 MG PO (20:22)
== END 2022-05-20 20:34 | disposition home or self-care (01) ==
PROVIDERS: Emergency Provider Internal Medicine; PCP Internal Medicine
DX: K52.9 Noninfective gastroenteritis and colitis, unspecified (principal); K59.00 Constipation, unspecified; R10.32 Left lower quadrant pain; Z79.899 Other long term (current) drug therapy
CPT/HCPCS: 36415; 74177; 80048; 80076; 82947; 83605; 85025; 96361; 96374; 96375; 99284; 99285; J2270; J2405; Q9967

== ENCOUNTER 2022-07-22 06:23 | Day surgery (SDC) | payer MEDICAID, SELFPAY ==
[2022-07-17 11:37] VITALS: BMI 29.9
--- NOTE | 2022-07-21 12:56 | HO.ANESPROP2 ---
Documented by User: Sri West NP 07/21/22 12:59 HPI - Anesthesia Eval Consult details Narrative: 57yo F for Colonoscopy PMFSH Active Problems Active Problems: All Active Problems (Updated 07/17/22 @ 11:34 by Nhi Almaguer RN) Diverticulitis of sigmoid colon (Acute) Abdominal pain (Acute) Hospital discharge follow-up (Acute) Hypertension (Acute) Hypercholesteremia (Acute) Diabetes mellitus, type 2 (Acute) Asthma (Acute) Past Medical History Medical History Abdominal pain Anemia Asthma Chronic constipation Chronic low back pain COVID-19 Diabetes mellitus, type 2 Fibromyalgia GERD (gastroesophageal reflux disease) Hypercholesteremia Hypertension Family History Family History Mother Diabetes Chronic kidney disease Maternal Grandmother Diabetes Maternal Aunt Diabetes Father CAD (coronary artery disease) Surgical History Surgical History H/O colonoscopy H/O: hysterectomy History of bladder surgery History of esophagogastroduodenoscopy (EGD) Hx laparoscopic cholecystectomy Hx of dilation and curettage Hx of ovarian cystectomy Social History Social History Household Members: Spouse Housing: Apartment Are you a primary floor care technician to a significant other at home: No Do you presently have visiting nurse or other home services: Yes Alcohol intake: never Patient Tobacco Use Status: Never used Tobacco Second Hand Smoke Exposure: No Use of substances other than those prescribed or required for medical reasons: No Are you DNR?: No Advance Directives: No Advance Directives Information Provided: Yes Advance Directives on File: No service: No Current occupational status: disabled Meds Allergies Allergy/AdvReac Type Severity Reaction Status Date / Time ibuprofen [From Motrin] AdvReac Mild INTENSE Verified 05/12/22 11:44 STOMACH PAIN; RASH Home Medications Medication Instructions Recorded Confirmed Last Taken Type aspirin 81 mg tablet,delayed 1 tab PO DAILY 04/16/22 07/22/22 07/20/22 History release cholecalciferol (vitamin D3) 25 1 tab PO DAILY 04/16/22 07/22/22 07/21/22 History mcg (1,000 unit) tablet cyclobenzaprine 10 mg tablet 10 mg PO Q8H PRN Muscle Spasm 04/16/22 07/22/22 07/21/22 History dulaglutide 0.75 mg/0.5 mL 0.75 mg subcut TU 04/16/22 07/22/22 07/21/22 History subcutaneous pen injector (Trulicity) estradiol 0.05 mg/24 hr weekly 1 patch transdermal MO 04/16/22 07/22/22 04/14/22 History transdermal patch fluticasone propionate 220 1 puff inhalation BID 04/16/22 07/22/22 07/21/22 History mcg/actuation HFA aerosol inhaler (Flovent HFA) hydrochlorothiazide 25 mg tablet 0.5 tab PO DAILY 04/16/22 07/22/22 07/21/22 History lisinopril 40 mg tablet 1 tab PO DAILY 04/16/22 07/22/22 07/21/22 History lorazepam 0.5 mg tablet 1 tab PO DAILY PRN Anxiety 04/16/22 07/22/22 07/21/22 History montelukast 10 mg tablet 1 tab PO BEDTIME 04/16/22 07/22/22 07/21/22 History oxycodone-acetaminophen 5 mg-325 1 tab PO TID PRN severe pain 04/16/22 07/22/22 07/21/22 History mg tablet zolpidem 10 mg tablet 1 tab PO BEDTIME PRN Insomnia 04/16/22 07/22/22 07/21/22 History Exam Exam Date and Time: July 21, 2022 1256 Height,Weight and Vital Signs: Height 5 ft 2 in Weight 74.389 kg Pertinent Lab Results Pertinent Lab Results: Laboratory Tests 05/20/22 05/20/22 10:31 10:31 WBC 7.1 Hgb 12.4 Hct 38.1 Plt Count 311 Sodium 136 Potassium 3.7 Chloride 100 Carbon Dioxide 27 BUN 9 Creatinine 0.92 Narrative Narrative: EKG 01/2022 Vent. Rate : 089 BPM ? ? Atrial Rate : 089 BPM ?? P-R Int : 154 ms? QRS Dur : 080 ms ? ? QT Int : 350 ms ? ? ? P-R-T Axes : 051 009 029 degrees ?? QTc Int : 425 ms ? Normal sinus rhythm Low voltage QRS Septal infarct , age undetermined Abnormal ECG When compared with ECG of 04-SEP-2019 11:14, No significant change was found Assessment and Plan Assessment Anesthesia Assessment: Chart Reviewed Documented by User: Estelle Shine MD 07/22/22 08:56 [facility] Active Problems Active Problems: All Active Problems (Updated 07/17/22 @ 11:34 by Nhi Almaguer RN) Diverticulitis of sigmoid colon (Acute) Abdominal pain (Acute) Hospital discharge follow-up (Acute) Hypertension (Acute) Hypercholesteremia (Acute) Diabetes mellitus, type 2 (Acute) Asthma (Acute). Used inhaler this morning Past Medical History Medical History Abdominal pain Anemia Asthma Chronic constipation Chronic low back pain COVID-19 Diabetes mellitus, type 2 Fibromyalgia GERD (gastroesophageal reflux disease) Hypercholesteremia Hypertension Family History Family History Mother Diabetes Chronic kidney disease Maternal Grandmother Diabetes Maternal Aunt Diabetes Father CAD (coronary artery disease) Family history of problems with anesthesia: No Surgical History Surgical History H/O colonoscopy H/O: hysterectomy History of bladder surgery History of esophagogastroduodenoscopy (EGD) Hx laparoscopic cholecystectomy Hx of dilation and curettage Hx of ovarian cystectomy History of Problems with Anesthesia: No Social History Social History Household Members: Spouse Housing: Apartment Are you a primary floor care technician to a significant other at home: No Do you presently have visiting nurse or other home services: Yes Alcohol intake: never Patient Tobacco Use Status: Never used Tobacco Second Hand Smoke Exposure: No Use of substances other than those prescribed or required for medical reasons: No Are you DNR?: No Advance Directives: No Advance Directives Information Provided: Yes Advance Directives on File: No service: No Current occupational status: disabled Meds Allergies Allergy/AdvReac Type Severity Reaction Status Date / Time ibuprofen [From Motrin] AdvReac Mild INTENSE Verified 05/12/22 11:44 STOMACH PAIN; RASH Home Medications Medication Instructions Recorded Confirmed Last Taken Type aspirin 81 mg tablet,delayed 1 tab PO DAILY 04/16/22 07/22/22 07/20/22 History release cholecalciferol (vitamin D3) 25 1 tab PO DAILY 04/16/22 07/22/22 07/21/22 History mcg (1,000 unit) tablet cyclobenzaprine 10 mg tablet 10 mg PO Q8H PRN Muscle Spasm 04/16/22 07/22/22 07/21/22 History dulaglutide 0.75 mg/0.5 mL 0.75 mg subcut TU 04/16/22 07/22/22 07/21/22 History subcutaneous pen injector (Trulicity) estradiol 0.05 mg/24 hr weekly 1 patch transdermal MO 04/16/22 07/22/22 04/14/22 History transdermal patch fluticasone propionate 220 1 puff inhalation BID 04/16/22 07/22/22 07/21/22 History mcg/actuation HFA aerosol inhaler (Flovent HFA) hydrochlorothiazide 25 mg tablet 0.5 tab PO DAILY 04/16/22 07/22/22 07/21/22 History lisinopril 40 mg tablet 1 tab PO DAILY 04/16/22 07/22/22 07/21/22 History lorazepam 0.5 mg tablet 1 tab PO DAILY PRN Anxiety 04/16/22 07/22/22 07/21/22 History montelukast 10 mg tablet 1 tab PO BEDTIME 04/16/22 07/22/22 07/21/22 History oxycodone-acetaminophen 5 mg-325 1 tab PO TID PRN severe pain 04/16/22 07/22/22 07/21/22 History mg tablet zolpidem 10 mg tablet 1 tab PO BEDTIME PRN Insomnia 04/16/22 07/22/22 07/21/22 History Exam Height,Weight and Vital Signs: Height 5 ft 2 in Weight 74.389 kg Vital Signs Temp Pulse Resp BP Pulse Ox O2 Del Method 07/22/22 06:43 97.0 F 84 16 144/81 H 100 Room Air Pertinent Lab Results Pertinent Lab Results: Laboratory Tests 05/20/22 05/20/22 10:31 10:31 WBC 7.1 Hgb 12.4 Hct 38.1 Plt Count 311 Sodium 136 Potassium 3.7 Chloride 100 Carbon Dioxide 27 BUN 9 Creatinine 0.92 Lab Results 07/22/22 Range/Units 06:49 POC Glucose 133 H (60-115) mg/dL Airway Mallampati Class: III TM Dist: >3cm Neck ROM: Full Partial: Upper Loose/Missing/Broken Teeth: No (Denies broken or loose teeth) Heart: RRR Lungs: CTAB Assessment and Plan Assessment Anesthesia Assessment: Anesthesia Plan Discussed Final Anesthetic Review Family History of Problems with Anesthesia: No History of Problems with Anesthesia: No NPO: Yes ASA Class: II Final Preanesthetic Review: No Changes in Pt Med Stat, Meds/Allgs Chart Reviewed, Consent Obtained/Reviewed and Anes Risks/Benef Reviewed Patient Risk: Intermediate Procedure Risk: Low Assessment/Block/Sedation in SS: Assess/Block/Sedation-SS Anesthetic Plan Anesthetic Plan: MAC: Disposition: Standard PACU
--- NOTE | 2022-07-22 06:25 | MHC.SHP ---
Pre-Procedural Eval Section A Date of Service: 07/22/22 Section B Chief Complaint: Left lower quadrant pain,diverticulitis lg intesti Relevant Family History (Specify if Yes): No Relevant Social History: None Present Medications: see Short Stay Collaborative assessment Medical History: Significant History (Abdominal pain Anemia Asthma Chronic constipation Chronic low back pain COVID-19 Diabetes mellitus, type 2 Fibromyalgia GERD (gastroesophageal reflux disease) Hypercholesteremia Hypertension) History of Previous Operations: Relevant previous surgery/procedure and date(s) ( H/O colonoscopy H/O: hysterectomy History of bladder surgery History of esophagogastroduodenoscopy (EGD) Hx laparoscopic cholecystectomy Hx of dilation and curettage Hx of ovarian cystectomy) Allergies: Allergies Allergy/AdvReac Type Severity Reaction Status Date / Time ibuprofen [From Motrin] AdvReac Mild INTENSE Verified 05/12/22 11:44 STOMACH PAIN; RASH Review of Systems Sugical H&P ROS: Negative: Constitution, Cardiovascular, Respiratory, Neurological, Psychiatric, Hem-Onc, Allergic/Immunologic, Gastrointestinal, Genitourinary, Musculoskeletal, Integumentary, Endocrine and Eyes/Ears/Nose/Throat Exam Surgical H&P Exam: Normal: HEENT, Normal: Heart, Normal: Lungs, Normal: Extremities, Normal: Abdomen, Normal: Skin and Normal: Neurological Plan Diagnosis/Plan: Unchanged I have reviewed the history and physical and performed a pertinent physical examination on my patient. No changes have occurred unless specified. Time Spent With Patient Time: Total time managing care of this patient today ____ minutes.
[2022-07-22 06:43] VITALS: BP 144/81; PULSE 84; RESP 16; TEMP 36.1; O2SAT 100
[2022-07-22 06:59] LABS: Glucose, Whole Blood 133 mg/dL (60-115)
[2022-07-22] MEDS: Lactated Ringers 1,000 ML 100 ML IVCONT (07:15)
--- NOTE | 2022-07-22 07:45 | W.PM.OPN ---
Operative Note Operative Note Date of Service: 07/22/22 Narrative: Operative Information Procedure Description: Colonoscopy Indication: hx of dvierticulitis Anesthesia: MAC COLONOSCOPY Instrument: Olympus variable stiffness pediatric scope 190L Colonoscopy Monitoring: Vital signs and clinical assessment, continuous EKG monitoring, Pulse oximetry, Carbon Dioxide monitoring and blood pressure monitoring were done throughout the procedure. Colon withdrawal time was 13 minutes. Procedure: The patient was placed in the left lateral decubitis position and pre-procedure medications were administered. After a digital rectal examination of the ano-rectum, the video colonoscope was inserted into the rectum and advanced through the colon to the cecum/TI. The colonoscope was slowly withdrawn in a retrograde panoramic fashion and the colon mucosa was carefully examined including a retroflexed view of the rectum. Findings and interventions are described below. Procedure Difficulty: moderate due to tight rectosigmoid angle Findings: Terminal Ileum-normal Cecum:normal Ascending Colon: normal Transverse Colon -normal Descending Colon:normal Sigmoid Colon: mild diverticulosis Rectum: Retroflexion with small internal hemorrhoids, grade I Anorectum - normal Colon preparation: [place] Bowel Preparation Scale Right colon; 2 Transverse colon: 2 Left colon; 1 (0 = Unprepared colon segment with mucosa not seen due to solid stool that cannot be cleared. 1 = Portion of mucosa of the colon segment seen, but other areas of the colon segment not well seen due to staining, residual stool and/or opaque liquid. 2 = Minor amount of residual staining, small fragments of stool and/or opaque liquid, but mucosa of colon segment seen well. 3 = Entire mucosa of colon segment seen well with no residual staining, small fragments of stool or opaque liquid) Impression and Post Procedure Diagnosis: internal hemorrhoids diverticular disease tight rectosigmoid angle, fair prep Plan: High fiber diet leaflet Avoid straining at stool, epsom salts and sitz bath, anusol supps or cream Repeat Colonoscopy in 5 years due to fair prep or earlier if clinically indicated Above findings were reviewed with the patient and relevant handouts were provided if indicated.
[2022-07-22 08:23] VITALS: BP 107/60; PULSE 82; RESP 18; TEMP 37; O2SAT 100
[2022-07-22 08:28] VITALS: BP 90/53; PULSE 75; RESP 18; O2SAT 100
[2022-07-22 08:33] VITALS: BP 105/68; PULSE 76; RESP 18; O2SAT 100
[2022-07-22 08:38] VITALS: BP 111/60; PULSE 78; RESP 18; TEMP 36.9; O2SAT 100
== END 2022-07-22 09:11 | disposition home or self-care (01) ==
PROVIDERS: PCP Internal Medicine; Visit Provider Internal Medicine Gastroenterology
PROC: 0DJD8ZZ Inspection of Lower Intestinal Tract, Via Natural or Artificial Opening Endoscopic (ICD-10-PCS; CPT 45378; principal; 2022-07-22 07:30)
DX: K57.30 Diverticulosis of large intestine without perforation or abscess without bleeding (principal); Z87.19 Personal history of other diseases of the digestive system; K64.0 First degree hemorrhoids; K59.09 Other constipation; K21.9 Gastro-esophageal reflux disease without esophagitis; D64.9 Anemia, unspecified; J45.909 Unspecified asthma, uncomplicated; I10 Essential (primary) hypertension; E11.9 Type 2 diabetes mellitus without complications; E78.00 Pure hypercholesterolemia, unspecified; M79.7 Fibromyalgia; Z79.85 Long-term (current) use of injectable non-insulin antidiabetic drugs; Z79.82 Long term (current) use of aspirin; Z79.51 Long term (current) use of inhaled steroids; Z79.899 Other long term (current) drug therapy; Z88.8 Allergy status to other drugs, medicaments and biological substances; Z86.16 Personal history of COVID-19; Z90.49 Acquired absence of other specified parts of digestive tract
CPT/HCPCS: 45378; 82947

== ENCOUNTER 2022-07-24 08:40 | Outpatient (REF) | payer MEDICAID, SELFPAY ==
--- NOTE | ~2022-07-24 | CT_ITS ---
EXAMINATION: CT ABDOMEN AND PELVIS WITH CONTRAST CLINICAL INFORMATION: 57-year-old female with history of diverticulitis of large intestine. COMPARISON: 05/20/2022 TECHNIQUE: Multidetector volumetric images were obtained from the superior aspect of the liver through the pubic symphysis following administration 85 mL of Omnipaque 350 intravenous contrast. Oral contrast was given. Sagittal and coronal reformatted images were obtained on the technologist's workstation. This CT examination was performed using dose optimization techniques as appropriate, variously including the following: *Automated exposure control *Adjustment of mA and/or kV according to patient size (this includes techniques or standardized protocols for targeted exams where dose is matched to indication/reason for exam; i.e. extremities or head) *Use of iterative reconstruction technique DLP: 331 mGy-cm FINDINGS: LUNG BASES: Normal. No pulmonary consolidation or pleural effusion. LIVER: The liver has normal size, shape, and attenuation. No evidence of liver mass. GALLBLADDER AND BILIARY TREE: Gallbladder is surgically absent. Common bile duct measures up to 8-9 mm compared to 10 mm on 05/20/2022. PANCREAS: Normal. No edema, pancreatic ductal dilatation or mass. SPLEEN: Normal. ADRENAL GLANDS: Normal. KIDNEYS AND URETERS: There is a somewhat wedge-shaped focus of cortical thinning/scarring of the posterior upper pole of the right kidney. No renal mass. No nephrolithiasis, hydronephrosis or perinephric edema. BLADDER: Normal. No calculi or wall thickening. BOWEL AND PERITONEUM: Stomach is unremarkable. No dilated loops of bowel. The appendix is normal. No overt bowel wall thickening or mesenteric fat stranding. No free fluid or pneumoperitoneum. ABDOMINAL WALL: Unremarkable. VASCULATURE: Unremarkable. LYMPH NODES: No pathologic sized lymph nodes in the abdomen or pelvis. No inguinal lymphadenopathy. PELVIC VISCERA: Status post hysterectomy. No adnexal mass. MUSCULOSKELETAL: No acute or suspicious osseous abnormality. CT/CT abdomen pelvis w IV con IMPRESSION: * No evidence of recurrent bowel inflammation. There is no evidence of acute colitis, diverticulitis or abscess. * Common bile duct is chronically mildly dilated, status post cholecystectomy.
[2022-07-24] MEDS: iohexoL 350 MG/ML 100 ML INFUS..BTL 85 ML IV (11:30)
[2022-07-24] MEDS: Barium Sulfate Oral (Vanilla) 450 ML ORAL.SUSP 900 ML PO (11:31)
[2022-07-24 16:07] LABS: Creatinine POC 0.5 mg/dL (0.5-1.4); GFR POC > 60
== END 2022-07-24 08:41 | disposition home or self-care (01) ==
LOC: HO.CT 08:40
PROVIDERS: Visit Provider Physician Assistant
DX: K57.32 Diverticulitis of large intestine without perforation or abscess without bleeding (principal); R10.32 Left lower quadrant pain
CPT/HCPCS: 74177; 82565; Q9967

== ENCOUNTER → 2022-08-07 12:01 | Outpatient (BNVA) | payer MEDICAID, SELFPAY | PROVIDERS: PCP Internal Medicine; Visit Provider Physician Assistant | DX: K57.32 Diverticulitis of large intestine without perforation or abscess without bleeding (principal); K64.9 Unspecified hemorrhoids | CPT/HCPCS: 99212 ==

== ENCOUNTER 2022-08-11 11:13 | Emergency (ER) | payer MEDICAID, SELFPAY ==
[2022-08-11 12:04] VITALS: BP 160/95; PULSE 101; RESP 18; TEMP 36.6; O2SAT 99; BMI 30.2
--- NOTE | 2022-08-11 12:06 | ED_ITS ---
HPI - General Adult General Chief complaint: Eye Problems <RAGHAV Cortes Last Filed: 08/11/22 19:10> Stated complaint: [place] [facility] <RAGHAV Cortes Last Filed: 08/11/22 19:10> Time Seen by Provider: 08/11/22 13:04 <RAGHAV Cortes Last Filed: 08/11/22 19:10> Source: patient and park interpreter <RAGHAV Nelson Last Filed: 08/11/22 14:41> Mode of arrival: ambulatory <RAGHAV Nelson Last Filed: 08/11/22 14:41> Limitations: language barrier <RAGHAV Nelson Last Filed: 08/11/22 14:41> History of Present Illness HPI narrative: Patient is a 57 year old assigned female at with a history of DM presenting to the emergency department today with bilateral eye redness. Patient states that this started 5 days ago and has not gotten any better. Patient states that she was seen at a walk in clinic this last and was given eye ointment but it isn't getting better. Patient denies any dizziness, lightheadedness, abdominal pain, nausea, vomiting, fever, chills, blurry vision, double vision, loss of vision, chest pain, difficulty breathing, shortness of breath, back pain, night sweats, pain with urination, increased urinary frequency, increased urinary urgency, blood in her urine or stool, syncope or a near syncopal episode, recent trauma or falls, bowel incontinence, bladder incontinence, bowel retention, bladder retention, or any other complaints at this time. <RAGHAV Nelson Last Filed: 08/11/22 14:41> Onset (ago): day(s) (5) <RAGHAV Nelson - Last Filed: 08/11/22 14:41> Location: eyes <RAGHAV Nelson Last Filed: 08/11/22 14:41> Radiation: non-radiation <RAGHAV Nelson - Last Filed: 08/11/22 14:41> Severity: mild <RAGHAV Nelson Last Filed: 08/11/22 14:41> Severity scale (1-10): 2 <RAGHAV Nelson Last Filed: 08/11/22 14:41> Relieving factors: none <RAGHAV Nelson - Last Filed: 08/11/22 14:41> Exacerbating factors: none <RAGHAV Nelson - Last Filed: 08/11/22 14:41> Associated symptoms: denies other symptoms <RAGHAV Nelson - Last Filed: 08/11/22 14:41> Treatments prior to arrival: none <RAGHAV Nelson - Last Filed: 08/11/22 14:41> Related Data Home medications: Home Medications Medication Instructions Recorded Confirmed aspirin 81 mg tablet,delayed 1 tab PO DAILY 04/16/22 08/07/22 release cholecalciferol (vitamin D3) 25 1 tab PO DAILY 04/16/22 08/07/22 mcg (1,000 unit) tablet cyclobenzaprine 10 mg tablet 10 mg PO Q8H PRN Muscle Spasm 04/16/22 08/07/22 dulaglutide 0.75 mg/0.5 mL 0.75 mg subcut TU 04/16/22 08/07/22 subcutaneous pen injector (Trulicity) estradiol 0.05 mg/24 hr weekly 1 patch transdermal MO 04/16/22 08/07/22 transdermal patch fluticasone propionate 220 1 puff inhalation BID 04/16/22 08/07/22 mcg/actuation HFA aerosol inhaler (Flovent HFA) hydrochlorothiazide 25 mg tablet 0.5 tab PO DAILY 04/16/22 08/07/22 lisinopril 40 mg tablet 1 tab PO DAILY 04/16/22 08/07/22 lorazepam 0.5 mg tablet 1 tab PO DAILY PRN Anxiety 04/16/22 08/07/22 montelukast 10 mg tablet 1 tab PO BEDTIME 04/16/22 08/07/22 oxycodone-acetaminophen 5 mg-325 1 tab PO TID PRN severe pain 04/16/22 08/07/22 mg tablet zolpidem 10 mg tablet 1 tab PO BEDTIME PRN Insomnia 04/16/22 08/07/22 Previous Rx's Medication Instructions Recorded albuterol sulfate 90 mcg/actuation 1 inh inhalation Q4-6H PRN 07/18/20 breath activated powder shortness of breath or wheezing #1 inhaler,sensor ea dexlansoprazole 60 mg 60 mg PO DAILY #30 caps 12/05/21 capsule,biphase delayed release (Dexilant) sennosides 8.6 mg tablet (senna) 17.2 mg PO DAILY PRN for 02/03/22 constipation 60 days #120 tabs barium sulfate 2 % (w/v) oral 450 ml PO DIRECTED 1 day #900 mL 05/12/22 suspension (Readi-Cat 2) magnesium hydroxide 400 mg/5 mL 15 ml PO BEDTIME PRN constipation 05/20/22 oral suspension (Milk of Magnesia) #355 mL famotidine 20 mg tablet 20 mg PO BEDTIME 30 days #30 tabs 07/08/22 docusate sodium 100 mg capsule 200 mg PO BEDTIME 90 days #180 caps 07/09/22 (Colace) plecanatide 3 mg tablet (Trulance) 3 mg PO DAILY #30 tabs 07/23/22 methylcellulose (laxative) 500 mg 500 mg PO BID #60 tabs 08/07/22 tablet (Citrucel) polyethylene glycol 3350 17 17 g PO DAILY #510 grams 08/07/22 gram/dose oral powder (Miralax) ofloxacin 0.3 % eye drops (Ocuflox) See Rx Instructions ophthalmic 08/11/22 (eye) .COMPLEX #10 mL <RAGHAV Cortes - Last Filed: 08/11/22 19:10> Allergies/adverse reactions: Allergies Allergy/AdvReac Type Severity Reaction Status Date / Time ibuprofen [From Motrin] AdvReac Mild INTENSE Verified 08/07/22 12:21 STOMACH PAIN; RASH <RAGHAV Cortes Last Filed: 08/11/22 19:10> Review of Systems Constitutional: Constitutional: Reports no additional constitutional complaints, Denies chills, Denies fever(s) and Denies night sweats <RAGHAV Nelson Last Filed: 08/11/22 14:41> Eyes: Eyes: Reports no additional eye complaints, Denies blurry vision, Denies change in vision, Denies diplopia, Denies eye discharge, Reports irritation, Denies loss of vision and Denies eye pain <RAGHAV Nelson Last Filed: 08/11/22 14:41> ENT: Denies dizziness <RAGHAV Nelson Last Filed: 08/11/22 14:41> Cardiovascular: Cardiovascular: Reports no additional cardiovascular complaints, Denies chest pain, Denies lightheadedness, Denies Loss of Consciousness and Denies dyspnea <RAGHAV Nelson - Last Filed: 08/11/22 14:41> Respiratory: Respiratory: Reports no additional respiratory complaints and Denies dyspnea <RAGHAV Nelson Last Filed: 08/11/22 14:41> Gastrointestinal: Gastrointestinal: Reports no additional gastrointestinal complaints, Denies abdominal pain, Denies melena, Denies hematochezia, Denies change in bowel habits and Denies change in stool character <RAGHAV Nelson - Last Filed: 08/11/22 14:41> Genitourinary: Genitourinary: Denies hematuria, Denies urinary frequency, Denies dysuria, Denies urinary incontinence, Denies urinary hesitancy and Denies urinary urgency <RAGHAV Nelson - Last Filed: 08/11/22 14:41> Musculoskeletal: Musculoskeletal: Reports no additional musculoskeletal complaints, Denies numbness and Denies tingling <RAGHAV Nelson - Last Filed: 08/11/22 14:41> Neurologic: Denies dizziness, Denies loss of vision, Denies numbness and Denies tingling <RAGHAV Nelson Last Filed: 08/11/22 14:41> Psychiatric: Psychiatric: Reports no additional psychiatric complaints <RAGHAV Nelson Last Filed: 08/11/22 14:41> Endocrine: Endocrine: Reports no additional endocrine complaints <RAGHAV Nelson Last Filed: 08/11/22 14:41> Hematologic/Lymphatic: Hematologic/Lymphatic: Reports no additional hematologic/lymphatic complaints <RAGHAV Nelson Last Filed: 08/11/22 14:41> Allergic/Immunologic: Allergic/Immunologic: Reports no additional allergic/immunologic complaints <RAGHAV Nelson Last Filed: 08/11/22 14:41> PMFSH Past Medical History Attestation statement: The following information was validated with the patient. <RAGHAV Nelson Last Filed: 08/11/22 14:41> Source: old records reviewed and nursing notes reviewed <RAGHAV Nelson Last Filed: 08/11/22 14:41> Medical History: Medical History Abdominal pain Anemia Asthma Chronic constipation Chronic low back pain COVID-19 Diabetes mellitus, type 2 Fibromyalgia GERD (gastroesophageal reflux disease) Hypercholesteremia Hypertension <RAGHAV Cortes - Last Filed: 08/11/22 19:10> Surgical History: Surgical History H/O colonoscopy H/O: hysterectomy History of bladder surgery History of esophagogastroduodenoscopy (EGD) Hx laparoscopic cholecystectomy Hx of dilation and curettage Hx of ovarian cystectomy <RAGHAV Cortes - Last Filed: 08/11/22 19:10> Family History Family History: Family History Mother Diabetes Chronic kidney disease Maternal Grandmother Diabetes Maternal Aunt Diabetes Father CAD (coronary artery disease) <RAGHAV Cortes - Last Filed: 08/11/22 19:10> Social History Social History: Social History Household Members: Spouse Housing: Apartment Are you a primary critical care technician to a significant other at home: No Do you presently have visiting nurse or other home services: Yes Alcohol intake: never Patient Tobacco Use Status: Never used Tobacco Second Hand Smoke Exposure: No Advance Directives: Yes Advance Directives Information Provided: Yes Advance Directives on File: No service: No Current occupational status: disabled <RAGHAV Cortes - Last Filed: 08/11/22 19:10> Physical Exam ED Vital Signs: Vital Signs - 24 hr 08/11/22 12:04 Temperature 97.9 F Pulse Rate 101 H Respiratory Rate 18 Blood Pressure 160/95 H Pulse Oximetry 99 Oxygen Delivery Method Room Air BMI result Body Mass Index 30.2 <RAGHAV Cortes - Last Filed: 08/11/22 19:10> Vital Signs - 24 hr 08/11/22 12:04 Temperature 97.9 F Pulse Rate 101 H Respiratory Rate 18 Blood Pressure 160/95 H Pulse Oximetry 99 Oxygen Delivery Method Room Air BMI result Body Mass Index 30.2 <RAGHAV Nelson - Last Filed: 08/11/22 14:41> Const General: cooperative, no acute distress, alert and awake <Kandicekieran Escobarquincy [facility] Last Filed: 08/11/22 14:41> Nutritional Appearance: well nourished <Kandice Escobarquincy [facility] Last Filed: 08/11/22 14:41> Orientation/consciousness: patient oriented x3 <Kandice Laina [facility] Last Filed: 08/11/22 14:41> Limitations: no limitations <Kandicekieran Escobarquincy [facility] Last Filed: 08/11/22 14:41> HENMT Ears: hearing grossly normal bilaterally and external ears normal <Kandice Escobarquincy [facility] Last Filed: 08/11/22 14:41> General nose exam: Normal external nose present, no nasal discharge noted and no epistaxis <Kandice Escobarquincy [facility] Last Filed: 08/11/22 14:41> Face and sinus: Yes normal facial exam, No abrasion and No laceration <Kandice Marina [facility] Last Filed: 08/11/22 14:41> Mouth: Normal oral and palatal mucosa present, no drooling and no muffled voice <Kandice Escobarquincy [facility] Last Filed: 08/11/22 14:41> Eyes Periorbital: periorbital findings normal <Kandice Escobarquincy [facility] Last Filed: 08/11/22 14:41> Eyelids: Yes eyelids normal <Kandice Escobarquincy [facility] Last Filed: 08/11/22 14:41> Conjunctivae: conjunctival abnormal bilateral conjunctival icterus <Kandice Marina [facility] Last Filed: 08/11/22 14:41> Pupils: Equal, round and reactive pupils present <Kandice Escobarquincy [facility] Last Filed: 08/11/22 14:41> EOM: EOMs intact bilaterally <Kandice Laina [facility] Last Filed: 08/11/22 14:41> Neck Neck: Yes normal visual inspection, Yes full ROM and Yes no lymphadenopathy <Kandice Laina [facility] Last Filed: 08/11/22 14:41> Chest Chest palpation & inspection: normal inspection of the chest <Kandice Marina [facility] Last Filed: 08/11/22 14:41> Resp Effort & Inspection: normal respiratory effort and able to speak in complete sentences <Kandice Marina PA - Last Filed: 08/11/22 14:41> Auscultation: clear to auscultation bilaterally <Kandice Marina PA - Last Filed: 08/11/22 14:41> Cardio Rate: regular rate <Kandice Marina PA - Last Filed: 08/11/22 14:41> Rhythm: regular rhythm <Kandice Marina PA - Last Filed: 08/11/22 14:41> GI Inspection: Yes normal to inspection <Kandice Marina PA - Last Filed: 08/11/22 14:41> Palpation (GI): Soft to palpation, not firm, nontender, no guarding and not rigid <Kandice Marina PA - Last Filed: 08/11/22 14:41> Neuro General: patient oriented x3 and moves all extremities <Kandice Marina PA - Last Filed: 08/11/22 14:41> Cranial nerves: Yes Equal, round and reactive pupils present <Kandice Marina PA - Last Filed: 08/11/22 14:41> Cognition (Neuro): normal cognition <Kandice Marina PA - Last Filed: 08/11/22 14:41> Motor exam (neuro): 5/5 motor strength present throughout <Kandice Marina PA - Last Filed: 08/11/22 14:41> Sensory Exam: Normal double simultaneous stimulation for sensation <Kandice Marina PA - Last Filed: 08/11/22 14:41> Coordination: [id number] test normal <Kandice Marina PA - Last Filed: 08/11/22 14:41> Extrem General: Yes normal to inspection, Yes full ROM and Yes capillary refill normal <Kandice Marina PA - Last Filed: 08/11/22 14:41> Psych Appearance: grossly normal <Kandice Marina PA - Last Filed: 08/11/22 14:41> Mental Status: mental status grossly normal <Kandice Marina PA - Last Filed: 08/11/22 14:41> Affect: normal affect <Kandice Marina PA - Last Filed: 08/11/22 14:41> Attitude: cooperative <Kandice Marina PA - Last Filed: 08/11/22 14:41> Thought process: Normal thought process present <RAGHAV Nelson Last Filed: 08/11/22 14:41> Thought content: Normal thought content present <RAGHAV Nelson Last Filed: 08/11/22 14:41> Insight: Good insight present (Psych) <RAGHAV Nelson Last Filed: 08/11/22 14:41> Course Course Course Narrative: RME: Bilateral red eyes since with pain, itchiness, and clear liquid discharge. no change in vision. patient denies any recent trauma to the eyes. Patient is alaready on erithromycin and states no improving. patient states she had fever of 103 yesterday. Patient states last week she had a itchy rash on arms last that resovled by itself seame time she had itchy rash. patient denies any recent travel, or anyone else at home being sick. <RAGHAV Cortes - Last Filed: 08/11/22 19:10> Medical Decision Making Medical Decision Making MDM Narrative: Patient is a 57 year old assigned female at with a history of DM presenting to the emergency department today with bilateral eye irritation. Patient's physical exam showed significantly irritation of both eyes that extended up to the iris. I spoke to Dr. Campbell who recommended the patient be switched from her erythromycin to ocuflox and follow up in his office on 08/12/2022. I explained my physical exam findings to the patient. I answered all questions asked by the patient. I stressed the importance of the patient taking her medication as prescribed. I stressed the importance of the patient following up with her primary care provider and an blind eyeletter. I stressed the importance of the patient returning to the emergency department immediately if her symptoms were to worsen or if she were to develop any dizziness, shortness of breath, difficulty breathing, chest pain, blurry vision, loss of vision, nausea, vomiting, abdominal pain, fever, chills, back pain, or any other complaints. Patient verbalized agreement and understanding with this treatment plan and discharge. <RAGHAV Nelson Last Filed: 08/11/22 14:41> Differential Diagnosis Differential Diagnoses: The differential diagnosis associated with the presentation includes <RAGHAV Nelson Last Filed: 08/11/22 14:41> Bilateral eye irritation <RAGHAV Nelson Last Filed: 08/11/22 14:41> Consult Healthcare Provider Management of the patient was discussed with: Military Analyst (spoke to the blind eyeletter who recommended switching the patient to Ocuflox and having her follow up at 07 on 08/12/2022) <RAGHAV Nelson Last Filed: 08/11/22 14:41> Lab Data MDM Lab Attestation statement: I reviewed the patient's lab results. <RAGHAV Nelson - Last Filed: 08/11/22 14:41> Labs: Lab Results 08/11/22 Range/Units 12:32 Influenza Type A (PCR) NEGATIVE (Negative) Influenza Type B (PCR) NEGATIVE (Negative) RSV RNA Qual (PCR) NEGATIVE (Negative) SARS-CoV-2 RNA (RT-PCR) NEGATIVE (Negative) <RAGHAV Cortes - Last Filed: 08/11/22 19:10> Lab Results 08/11/22 Range/Units 12:32 Influenza Type A (PCR) NEGATIVE (Negative) Influenza Type B (PCR) NEGATIVE (Negative) RSV RNA Qual (PCR) NEGATIVE (Negative) SARS-CoV-2 RNA (RT-PCR) NEGATIVE (Negative) <RAGHAV Nelson - Last Filed: 08/11/22 14:41> Chronic Conditions Patient?s care impacted by: Diabetes <RAGHAV Nelson Last Filed: 08/11/22 14:41> Critical Care Time Critical Care Time Critical Care Time: Yes <RAGHAV Nelson Last Filed: 08/11/22 14:41> Total Critical Care Time: 30 <RAGHAV Nelson Last Filed: 08/11/22 14:41> Attestation: I spent 30 minutes of Critical Care Time with this patient. This does not include time spent on separately reported billable procedures. <RAGHAV Nelson Last Filed: 08/11/22 14:41> Discharge Plan Discharge Clinical Impression: Irritation of both eyes <RAGHAV Cortes Last Filed: 08/11/22 19:10> Patient Disposition: Home, Self-Care <RAGHAV Cortes Last Filed: 08/11/22 19:10> Instructions: Eye Pain (ED) <RAGHAV Cortes Last Filed: 08/11/22 19:10> Additional Instructions: GO TO THE EAP COUNSELOR AT 0745 ON 08/12/2022 Follow up with your primary care provider. Return to the emergency department immediately if your symptoms worsen or if you develop any dizziness, shortness of breath, difficulty breathing, chest pain, blurry vision, loss of vision, nausea, vomiting, abdominal pain, fever, chills, back pain, or any other complaints. IR AL ESPECIALISTA DE OJOS AL 0745 EL 01/04/2023 Jesus un seguimiento con warren proveedor de atenci?n primaria. Regrese al departamento de emergencias de inmediato si tiara s?ntomas empeoran o si presenta mareos, falta de aire, dificultad para respirar, dolor de pecho, visi?n borrosa, p?rdida de la visi?n, n?useas, v?mitos, dolor abdominal, fiebre, escalofr?os, dolor de espalda o cualquier otras quejas. If you are concerned about payment for your medication, please show the pharmacist this information provided by Will: Si le preocupa el pago de warren medicamento, muestre al farmac?utico esta informaci?n proporcionada por Will: BIN [id number] [facility] [id number] <RAGHAV Cortes - Last Filed: 08/11/22 19:10> Prescriptions: New ofloxacin [Ocuflox] 0.3 % drops See Rx Instructions .ROUTE .COMPLEX Qty: 10 0RF Rx Instructions: put 1-2 drps into affected eye(s) every 2-4 h x 2 days, then 1-2 drps 4 times/day days 3-7 No Action Dexilant 60 mg capsule,biphase delayed releas 60 mg PO DAILY Qty: 30 6RF sennosides [senna] 8.6 mg tablet 17.2 mg PO DAILY PRN (Reason: for constipation) 60 Days Qty: 120 1RF famotidine 20 mg tablet 20 mg PO BEDTIME 30 Days Qty: 30 3RF docusate sodium [Colace] 100 mg capsule 200 mg PO BEDTIME 90 Days Qty: 180 0RF Trulance 3 mg tablet 3 mg PO DAILY Qty: 30 2RF albuterol sulfate 90 mcg/actuation aero powdr breath act w/sensor 1 inh inhalation Q4-6H PRN (Reason: shortness of breath or wheezing) Qty: 1 0RF estradiol 0.05 mg/24 hr patch weekly 1 patch transdermal MO aspirin 81 mg tablet,delayed release (DR/EC) 1 tab PO DAILY oxycodone-acetaminophen 5-325 mg tablet 1 tab PO TID PRN (Reason: severe pain) hydrochlorothiazide 25 mg tablet 0.5 tab PO DAILY zolpidem 10 mg tablet 1 tab PO BEDTIME PRN (Reason: Insomnia) lisinopril 40 mg tablet 1 tab PO DAILY Trulicity 0.75 mg/0.5 mL pen injector 0.75 mg subcut TU lorazepam 0.5 mg tablet 1 tab PO DAILY PRN (Reason: Anxiety) montelukast 10 mg tablet 1 tab PO BEDTIME fluticasone propionate [Flovent HFA] 220 mcg/actuation HFA aerosol inhaler 1 puff INHALATION BID cholecalciferol (vitamin D3) 25 mcg (1,000 unit) tablet 1 tab PO DAILY cyclobenzaprine 10 mg tablet 10 mg PO Q8H PRN (Reason: Muscle Spasm) magnesium hydroxide [Milk of Magnesia] 400 mg/5 mL suspension 15 ml PO BEDTIME PRN (Reason: constipation) Qty: 355 0RF polyethylene glycol 3350 [Miralax] 17 gram/dose powder 17 g PO DAILY Qty: 510 0RF Citrucel 500 mg tablet 500 mg PO BID Qty: 60 5RF Readi-Cat 2 2 % (w/v) suspension 450 ml PO DIRECTED 1 Days Qty: 900 0RF <RAGHAV Cortes - Last Filed: 08/11/22 19:10> Referrals: Brenton Campbell [Physician] - (GO TO THIS OFFICE AT 0745 ON 08/12/2022 IR A ESTA OFICINA A LAS 0745 EL 01/04/2023 ) Nidia Salgado MD [Primary Care Provider] - <RAGHAV Cortes - Last Filed: 08/11/22 19:10> Interventions: ED Discharge Assessment Last Done: 08/11/22 14:11 <RAGHAV Cortes - Last Filed: 08/11/22 19:10> Discharge Date/Time: 08/11/22 14:12 <RAGHAV Cortes - Last Filed: 08/11/22 19:10> Print Language: Hebrew <RAGHAV Cortes - Last Filed: 08/11/22 19:10>
[2022-08-11 13:17] LABS: Influenza A PCR NEGATIVE (Negative); Influenza B PCR NEGATIVE (Negative); Resp Syncy Virus RNA Qual PCR NEGATIVE (Negative); SARS COV2 PCR INHOUSE NEGATIVE (Negative)
== END 2022-08-11 14:12 | disposition home or self-care (01) ==
PROVIDERS: Physician Assistant; Emergency Provider Emergency Medicine; PCP Internal Medicine
DX: H53.143 Visual discomfort, bilateral (principal); Z20.822 Contact with and (suspected) exposure to COVID-19; Z20.828 Contact with and (suspected) exposure to other viral communicable diseases; E11.9 Type 2 diabetes mellitus without complications; I10 Essential (primary) hypertension; E78.00 Pure hypercholesterolemia, unspecified; Z79.899 Other long term (current) drug therapy; Z79.82 Long term (current) use of aspirin; Z79.85 Long-term (current) use of injectable non-insulin antidiabetic drugs
CPT/HCPCS: 0241U; 99282; 99283

== ENCOUNTER 2022-08-12 08:51 | Outpatient (REF) | payer MEDICAID, SELFPAY ==
[2022-08-12 09:18] LABS: MANUAL DIFF FLAG NO
[2022-08-12 09:22] LABS: Basophils Percent Auto 0.1 % (0-2); Eosinophils Percent Auto 0.3 % (0-4); Hematocrit 39.2 % (37.0-47.0); Imm Gran Abs Auto 0.05 X10*3/uL (0.00-0.03); Imm Gran Pct Auto 0.5 % (0.0-0.4); Lymphocytes Absolute Auto 1.6 X10*3/uL (1.2-4.9); Lymphocytes Percent Auto 15.7 % (20-40); Mean Corpuscular HGB Conc 33.2 g/dl (31.0-35.0); Mean Corpuscular Hemoglobin 26.7 pg (27.0-33.0); Mean Corpuscular Volume 80.5 fL (80.0-98.0); Mean Platelet Volume 9.4 fL (9.4-12.3); Monocytes Absolute Auto 0.7 X10*3/uL (0.1-1.2); Monocytes Percent Auto 7.2 % (2-11); Neutrophils Absolute Auto 7.6 x10*3/uL (2.0-8.3); Neutrophils Percent Auto 76.2 % (45-73); Platelet Count 482 X10*3/uL (160-400); Red Blood Count 4.87 X10*6/uL (4.20-5.50); Red Cell Distribution Width 12.3 % (11.0-16.0)
[2022-08-12 09:39] LABS: Alanine Aminotransferase 14 U/L (0-31); Albumin Level 4.4 g/dL (3.5-5.0); Alkaline Phosphatase 135 U/L (39-117); Anion Gap 20 (12-20); Aspartate Amino Transferase 14 U/L (5-31); Bilirubin Total 0.4 mg/dL (0.0-1.0); Blood Urea Nitrogen 8 mg/dL (9-16); Calcium 10.7 mg/dL (8.4-10.2); Carbon Dioxide 24 mmol/L (22-29); Chloride 93 mmol/L (96-108); Estimated Glomerular Filt Rate > 60; Glucose Random 217 mg/dL (60-115); Potassium 4.9 mmol/L (3.3-5.1); Sodium 132 mmol/L (135-145); Total Protein 8.1 g/dL (6.5-8.0)
[2022-08-12 10:22] LABS: Rheumatoid Factor < 13.0 IU/mL (<15.0)
[2022-08-12 10:30] LABS: Erythrocyte Sedimentation Rate 85 MM/HR (0-20)
[2022-08-14 13:23] LABS: Anti Nuclear Antibody Screen NEGATIVE (NEGATIVE)
[2022-08-15 13:48] LABS: Angiotensin Converting Enzyme 6.9 U/L (9-67)
[2022-08-15 20:13] LABS: Treponema pallidum Ab FTA ABS Nonreactive (Nonreactive)
== END 2022-08-12 08:52 | disposition home or self-care (01) ==
LOC: HO.LAB 08:51
PROVIDERS: Internal Medicine Medical Oncology; Visit Provider Ophthalmology
DX: H20.013 Primary iridocyclitis, bilateral (principal); D64.9 Anemia, unspecified
CPT/HCPCS: 36415; 80053; 82164; 85025; 85652; 86038; 86039; 86431; 86780

== ENCOUNTER 2022-08-18 11:24 | Outpatient (REF) | payer MEDICAID, SELFPAY ==
--- NOTE | ~2022-08-18 | MM_ITS ---
EXAMINATION: MM SCREENING DIGITAL BREAST TOMOSYNTHESIS, BILATERAL CLINICAL INFORMATION: History probable benign complicated cyst right breast (B3). Mammography performed as screening. The lifetime risk of breast cancer based on the Tyrer-Cuzick Model is 14%. COMPARISON: Mammography: 08/22/2021 (BI-RADS 3), 08/15/2021 (BI-RADS 0), 04/07/2019; Ultrasound right breast 08/22/2021, 02/19/2022. TECHNIQUE: Digital breast tomosynthesis is performed in both the craniocaudal and mediolateral oblique views along with computer-aided detection (CAD). Synthesized 2D images are generated from the tomosynthesis. FINDINGS: There are scattered areas of fibroglandular density (ACR BI-RADS breast composition Category b). Parenchymal pattern is similar to prior exam. The complicated cyst anterior outer right breast is similar in size. Patient will be recalled for follow-up targeted right breast ultrasound as recommended on prior report. There is no significant mass or architectural abnormality or developing density. No abnormal calcifications. The axilla and skin contours are unremarkable. MM/MM tomosynthesis screening BI IMPRESSION: Right: -No significant change from prior study. Left: -No mammographic evidence of malignancy. ASSESSMENT: BI-RADS 0: Incomplete - Need Additional Imaging Evaluation RECOMMENDATION: Targeted right breast ultrasound for follow-up of probable benign complicated cyst. This patient's information was entered into a reminder system with a target due date for their next mammogram.
== END 2022-08-18 11:25 | disposition home or self-care (01) ==
LOC: HO.MAMMO 11:24
PROVIDERS: Visit Provider Internal Medicine
DX: Z12.31 Encounter for screening mammogram for malignant neoplasm of breast (principal)
CPT/HCPCS: 77063; 77067

== ENCOUNTER 2022-09-09 12:33 | Outpatient (REF) | payer MEDICAID, SELFPAY ==
--- NOTE | ~2022-09-09 | US_ITS ---
EXAMINATION: US DIAGNOSTIC ULTRASOUND BREAST, RIGHT CLINICAL INFORMATION: Follow-up complicated cyst anterior upper outer right breast. COMPARISON: Ultrasound right breast 02/19/2022, 08/22/2021; mammography 08/18/2022, 08/22/2021, 08/15/2021 (BI-RADS 0). TECHNIQUE: Ultrasound anterior upper outer right breast is performed using grayscale imaging and color Doppler without and with harmonics. FINDINGS: The complicated cyst 10:00 position 4 cm from nipple is similar in size and contour, measuring just under 1 cm. The internal avascular hypoechoic internal septation is stable. There is no interval solid component or color flow. Finding will be reassessed again at time of next bilateral annual mammography to conclude long-term surveillance. Results are provided to the patient at time of visit by the technologist. US/US breast RT limited IMPRESSION: Stable complicated cyst anterior upper outer right breast. No associated color flow. ASSESSMENT: BI-RADS 3: Probably Benign RECOMMENDATION: Targeted right breast ultrasound at time of next bilateral annual diagnostic mammography, due in 12 months. This patient's information was entered into a reminder system with a target due date for their next mammogram.
== END 2022-09-09 12:34 | disposition home or self-care (01) ==
LOC: HO.MAMMO 12:33
PROVIDERS: Visit Provider Internal Medicine
DX: N60.01 Solitary cyst of right breast (principal)
CPT/HCPCS: 76642

== ENCOUNTER 2023-02-04 20:15 | Emergency (ER) | payer MEDICAID, SELFPAY ==
--- NOTE | ~2023-02-04 | CT_ITS ---
EXAMINATION: CT HEAD WITHOUT CONTRAST CLINICAL INFORMATION: Headache. Dizziness . Rule out bleed, stroke, mass. COMPARISON: 12/26/2009 TECHNIQUE: Contiguous axial imaging was performed from the skull base to vertex without intravenous contrast. This CT examination was performed using dose optimization techniques as appropriate, variously including the following: * Automated exposure control * Adjustment of mA and/or kV according to patient size (this includes techniques or standardized protocols for targeted exams where dose is matched to indication/reason for exam; i.e. extremities or head) Use of iterative reconstruction technique DLP: 719 mGy-cm. FINDINGS: There is no evidence of acute intracranial hemorrhage or territorial infarction. No abnormal mass effect or midline shift is seen. Kaminski to white matter differentiation is well preserved. No extra-axial fluid collections are identified. No hydrocephalus. No significant volume loss. There is no abnormal attenuation within the brain parenchyma. The osseous structures and soft tissues are normal. The mastoid air cells and visualized portions of the paranasal sinuses are well aerated. CT/CT head/brain wo IV con IMPRESSION: No acute intracranial pathology.
--- NOTE | 2023-02-04 20:23 | ECG_ITS ---
Test Reason : CHEST PAIN Blood Pressure : / mmHG Vent. Rate : 097 BPM Atrial Rate : 097 BPM P-R Int : 184 ms QRS Dur : 084 ms QT Int : 356 ms P-R-T Axes : 029 017 021 degrees QTc Int : 452 ms Normal sinus rhythm cannot exclude Anterior infarct (cited on or before 04-JAN-2022) Abnormal ECG When compared with ECG of 04-JAN-2022 09:36, Questionable change in initial forces of Septal leads Referred By: Generic ED Physician Electronically Signed By:JAKY TUCKER
[2023-02-04 20:24] VITALS: BP 158/85; BP 175/86; PULSE 94; RESP 14; TEMP 36.6; O2SAT 100; O2SAT 94; BMI 30.6
[2023-02-04 20:40] LABS: MANUAL DIFF FLAG NO
[2023-02-04 20:47] LABS: Basophils Percent Auto 0.1 % (0-2); Eosinophils Absolute Auto 0.1 X10*3/uL (0.0-0.4); Eosinophils Percent Auto 0.7 % (0-4); Hematocrit 39.5 % (37.0-47.0); Hemoglobin 13.4 g/dl (12.0-16.0); Imm Gran Abs Auto 0.04 X10*3/uL (0.00-0.03); Imm Gran Pct Auto 0.4 % (0.0-0.4); Lymphocytes Absolute Auto 2.1 X10*3/uL (1.2-4.9); Lymphocytes Percent Auto 23.6 % (20-40); Mean Corpuscular HGB Conc 33.9 g/dl (31.0-35.0); Mean Corpuscular Hemoglobin 27.2 pg (27.0-33.0); Mean Corpuscular Volume 80.3 fL (80.0-98.0); Mean Platelet Volume 10.4 fL (9.4-12.3); Monocytes Absolute Auto 0.6 X10*3/uL (0.1-1.2); Monocytes Percent Auto 6.3 % (2-11); Neutrophils Absolute Auto 6.2 x10*3/uL (2.0-8.3); Neutrophils Percent Auto 68.9 % (45-73); Platelet Count 279 X10*3/uL (160-400); Red Blood Count 4.92 X10*6/uL (4.20-5.50); Red Cell Distribution Width 12.9 % (11.0-16.0)
[2023-02-04 20:58] LABS: Anion Gap 15 (12-20); Blood Urea Nitrogen 13 mg/dL (9-16); Calcium 10.2 mg/dL (8.4-10.2); Carbon Dioxide 23 mmol/L (22-29); Chloride 102 mmol/L (96-108); Creatinine Clr Calc Pharmacy 66.4; Estimated Glomerular Filt Rate > 60; Glucose Random 190 mg/dL (60-115); Potassium 3.2 mmol/L (3.3-5.1); Sodium 137 mmol/L (135-145)
--- NOTE | 2023-02-04 21:00 | PC.NURSE ---
this rn assumed care of pt @ 2023 pt placed on site monitor 20g iv placed in R AC. pt family to bedside. dr alba made aware of pt. ekg obtained. bloodwork obtained
--- NOTE | 2023-02-04 21:02 | ED_ITS ---
HPI - Chest Pain General Chief Complaint: Chest Pain Stated Complaint: hypotension, nausea, chest palpitations, per ems Time Seen by Provider: 02/04/23 20:39 Source: patient Mode of arrival: EMS Limitations: language barrier (Peruvian speaking only, counter manager used) History of Present Illness HPI narrative: 58-year-old female who presents emergency department for evaluation of headache, nausea, vomiting, dizziness, chest pain, diarrhea left ear pain. The patient states she got sick last , 01/29/2023 (6 days prior to evaluation). She states that she developed intermittent dizziness which she describes as a room spinning sensation which is worse with movement of her head. She has associated nausea and multiple episodes of vomiting. She states she has also had pain in her left ear with a ringing sensation in her left ear. Patient also has a left- sided headache which radiates down her neck into the back of her head. The headache started 2 days prior and is got progressively worse. She describes as a pressure-like sensation patient also had diarrhea which started today, she states she had 5 episodes patient. She has also been experiencing intermittent chest pain since last , she describes the pain is a sharp pain which is worse with movement. Patient states her blood pressure is been going up and down over the past 6 days. Related Data Home Medications Medication Instructions Recorded Confirmed aspirin 81 mg tablet,delayed 1 tab PO DAILY 04/16/22 08/07/22 release cholecalciferol (vitamin D3) 25 1 tab PO DAILY 04/16/22 08/07/22 mcg (1,000 unit) tablet cyclobenzaprine 10 mg tablet 10 mg PO Q8H PRN Muscle Spasm 04/16/22 08/07/22 dulaglutide 0.75 mg/0.5 mL 0.75 mg subcut TU 04/16/22 08/07/22 subcutaneous [facility] estradiol 0.05 mg/24 hr weekly 1 patch transdermal MO 04/16/22 08/07/22 transdermal patch fluticasone propionate 220 1 puff inhalation BID 04/16/22 08/07/22 mcg/actuation HFA aerosol inhaler (Flovent HFA) hydrochlorothiazide 25 mg tablet 0.5 tab PO DAILY 04/16/22 08/07/22 lisinopril 40 mg tablet 1 tab PO DAILY 04/16/22 08/07/22 lorazepam 0.5 mg tablet 1 tab PO DAILY PRN Anxiety 04/16/22 08/07/22 montelukast 10 mg tablet 1 tab PO BEDTIME 04/16/22 08/07/22 oxycodone-acetaminophen 5 mg-325 1 tab PO TID PRN severe pain 04/16/22 08/07/22 mg tablet zolpidem 10 mg tablet 1 tab PO BEDTIME PRN Insomnia 04/16/22 08/07/22 Previous Rx's Medication Instructions Recorded albuterol sulfate 90 mcg/actuation 1 inh inhalation Q4-6H PRN 07/18/20 breath activated powder shortness of breath or wheezing #1 inhaler,sensor ea barium sulfate 2 % (w/v) oral 450 ml PO DIRECTED 1 day #900 mL 05/12/22 suspension (Readi-Cat 2) magnesium hydroxide 400 mg/5 mL 15 ml PO BEDTIME PRN constipation 05/20/22 oral suspension (Milk of Magnesia) #355 mL methylcellulose (laxative) 500 mg 500 mg PO BID #60 tabs 08/07/22 tablet (Citrucel) ofloxacin 0.3 % eye drops (Ocuflox) See Rx Instructions ophthalmic 08/11/22 (eye) .COMPLEX #10 mL sennosides 8.6 mg tablet (senna) 17.2 mg PO .COMPLEX PRN for 09/12/22 constipation 90 days #180 tabs dexlansoprazole 60 mg 60 mg PO DAILY #30 caps 10/28/22 capsule,biphase delayed release (Dexilant) famotidine 20 mg tablet 20 mg PO BEDTIME 90 days #90 tabs 11/12/22 polyethylene glycol 3350 17 17 g PO DAILY #510 grams 12/05/22 gram/dose oral powder (Gavilax) docusate sodium 100 mg capsule 200 mg PO BEDTIME #180 caps 01/05/23 plecanatide 3 mg tablet (Trulance) 3 mg PO DAILY #30 tabs 01/12/23 xguaaip-bwedogjvqfgue-lpwsgwcl 250 1 tab PO Q6H PRN headache #20 tabs 02/04/23 mg-250 mg-65 mg tablet (Excedrin Migraine) diphenhydramine HCl 25 mg capsule 50 mg PO Q6H PRN headache #20 caps 02/04/23 (Benadryl) meclizine 25 mg tablet (Dramamine 25 mg PO TID PRN dizziness #20 tabs 02/04/23 Less Drowsy) metoclopramide HCl 10 mg tablet 10 mg PO Q6H PRN nausea and 02/04/23 (Reglan) vomiting #14 tabs Allergies Allergy/AdvReac Type Severity Reaction Status Date / Time ibuprofen [From Motrin] AdvReac Mild INTENSE Verified 08/07/22 12:21 STOMACH PAIN; RASH Review of Systems Review of Systems: Yes all other systems are reviewed and are negative [facility] Past Medical History [facility] Narrative: Social history: She denies tobacco, alcohol and drug use. She is her is here in the emergency department with her. Patient's oldest daughter is also here in the emergency department with her. Medical History Abdominal pain Anemia Asthma Chronic constipation Chronic low back pain COVID-19 Diabetes mellitus, type 2 Fibromyalgia GERD (gastroesophageal reflux disease) Hypercholesteremia Hypertension Surgical History H/O colonoscopy H/O: hysterectomy History of bladder surgery History of esophagogastroduodenoscopy (EGD) Hx laparoscopic cholecystectomy Hx of dilation and curettage Hx of ovarian cystectomy Family History Family History Mother Diabetes Chronic kidney disease Maternal Grandmother Diabetes Maternal Aunt Diabetes Father CAD (coronary artery disease) Social History Social History Household Members: Spouse Housing: Apartment Are you a primary pet caregiver to a significant other at home: No Do you presently have visiting nurse or other home services: Yes Alcohol intake: never Patient Tobacco Use Status: Never used Tobacco Second Hand Smoke Exposure: No Advance Directives: No Advance Directives Information Provided: Yes service: No Current occupational status: disabled Physical Exam Vital Signs: Vital Signs: Last Vital Signs Temp 97.8 F 02/04/23 21:50 Pulse 99 02/04/23 21:50 Resp 22 H 02/04/23 21:50 BP 150/78 H 02/04/23 21:50 Pulse Ox 100 02/04/23 21:50 O2 Del Method Room Air 02/04/23 21:50 BMI result Body Mass Index 30.6 Const: Other: Awake, alert, female patient, pleasant, cooperative, answers questions appropriately, appears to be anxious but otherwise nondistressed HEENT: Head: Yes normal to inspection, Yes normocephalic and Yes atraumatic Ears: external ears normal and TM's normal bilaterally General nose exam: Normal external nose present Face and sinus: Yes normal facial exam Mouth: Normal oral and palatal mucosa present Throat: Yes posterior oropharynx nor mal Eyes: Other: Pupils are equal round reactive to light, sclera and conjunctiva were normal, the patient does have lateral nystagmus, mouth revealed moist membranes with no erythema or exudates Neck: Neck: Yes normal visual inspection, Yes no lymphadenopathy, Yes trachea midline and Yes supple Chest: Chest palpation & inspection: normal inspection of the chest and normal palpation of entire chest wall Resp: Effort & Inspection: normal respiratory effort and able to speak in complete sentences Auscultation: clear to auscultation bilaterally Cardio: Rate: regular rate Rhythm: regular rhythm Heart sounds: S1 normal heart sound present, S2 normal heart sound present and Murmur heart sound present systolic II/ and at the left sternal border GI: Inspection: Yes normal to inspection Palpation (GI): Soft to palpation, nontender and no guarding Auscultation: normal bowel sounds : General: Yes no CVA tenderness Back/Spine/Pelvis: Back: no CVA tenderness Skin: General skin exam: no rashes or lesions noted Neuro: Other: Patient is awake, alert, speech is normal, cranial nerves 2-12 are intact, strength symmetric bilaterally, patient has good xhianz-zq-vhuj-to-finger, good rapid finger movement, normal heel to wilson. Extrem: General: Yes normal to inspection Psych: Appearance: grossly normal Speech and movement: Normal speech and movement present Affect: normal affect Attitude: cooperative Thought process: Normal thought process present Thought content: Normal thought content present Medications Administered Generic Name Dose Route Start Last Admin Trade Name Freq PRN Reason Stop Dose Admin Sodium Chloride 1,000 mls @ 999 mls/hr 02/04/23 21:03 02/04/23 21:19 Ns IV 02/04/23 22:03 999 mls/hr .Q1H1M STA Administration Discontinued Medications Generic Name Dose Route Start Last Admin Trade Name Freq PRN Reason Stop Dose Admin Diphenhydramine HCl 50 mg 02/04/23 21:03 02/04/23 21:19 Diphenhydramine Hcl 50 Mg/Ml Vial IVPUSH 02/04/23 21:04 50 mg ONCE STA Administration Ketorolac Tromethamine 15 mg 02/04/23 21:03 02/04/23 21:20 Ketorolac Tromethamine 15 Mg/Ml Vial IVPUSH 02/04/23 21:04 15 mg ONCE STA Administration Meclizine HCl 25 mg 02/04/23 21:03 02/04/23 21:20 Meclizine Hcl 25 Mg Tablet PO 02/04/23 21:04 25 mg ONCE STA Administration Metoclopramide HCl 10 mg 02/04/23 21:03 02/04/23 21:20 Metoclopramide Hcl 10 Mg/2 Ml Vial IVPUSH 02/04/23 21:04 10 mg ONCE STA Administration Medical Decision Making Medical Decision Making [facility] Narrative: 58-year-old female history of hypertension, high cholesterol, diabetes mellitus, asthma, who presents emergency department for evaluation of vertigo like dizziness associated with headache, chest pain nausea, vomiting, diarrhea and intermittent chest x6 days. Vital signs did reveal an elevated blood pressure of 175/86 but the patient does have essential hypertension. Patient did have lateral nystagmus and her neurologic exam was nonfocal. Patient's presentation is most likely consistent with positional vertigo. Following tests were ordered on the patient: CBC, BMP, troponin, EKG, CT scan of the brain without IV contrast. Patient was treated with Toradol 15 mg IV, Reglan 10 mg IV, Benadryl 50 mg IV and meclizine 25 mg IV. I also ordered normal saline x1 L. 2147: Patient's laboratory evaluation was unremarkable. Patient's 12 EKG was unremarkable as well. CT scan of the brain is pending At the end of my shift, patient's care was turned over to my colleague, Dr. Britany Mcguire. Differential Diagnosis Differential Diagnoses: The differential diagnosis associated with the presentation includes Differential diagnosis includes but is not limited to positional vertigo, stroke, migraine headache, electrolyte abnormality, anemia, myocardial infarction, myocardial ischemia Admission/Observation Consideration of admission/observation: Escalation of care including admission/observation considered Lab Data [facility] Lab Attestation statement: I reviewed the patient's lab results. My interpretation patient's laboratory evaluation is as follows: CBC was normal. Potassium low 3.2. Glucose elevated 190. High sensitive troponin I was below detectable limits at 2.7 which is reassuring suggesting that she does not have myocardial injury or infarction as the cause of her chest pain. 02/04/23 20:36 02/04/23 20:36 Labs: Lab Results 02/04/23 02/04/23 02/04/23 Range/Units 20:36 20:36 20:36 WBC 9.0 (4.8-10.8) X10*3/uL RBC 4.92 (4.20-5.50) X10*6/uL Hgb 13.4 (12.0-16.0) g/dl Hct 39.5 (37.0-47.0) % MCV 80.3 (80.0-98.0) fL MCH 27.2 (27.0-33.0) pg MCHC 33.9 (31.0-35.0) g/dl RDW 12.9 (11.0-16.0) % Plt Count 279 D (160-400) X10*3/uL MPV 10.4 (9.4-12.3) fL Immature Gran % (Auto) 0.4 (0.0-0.4) % Neut % (Auto) 68.9 (45-73) % Lymph % (Auto) 23.6 (20-40) % Kershaw % (Auto) 6.3 (2-11) % Eos % (Auto) 0.7 (0-4) % Baso % (Auto) 0.1 (0-2) % Lymph # (Auto) 2.1 (1.2-4.9) X10*3/uL Kershaw # (Auto) 0.6 (0.1-1.2) X10*3/uL Eos # (Auto) 0.1 (0.0-0.4) X10*3/uL Baso # (Auto) 0.0 (0.0-0.2) X10*3/uL Abs Immat Gran (auto) 0.04 H (0.00-0.03) X10*3/uL Absolute Neuts (auto) 6.2 (2.0-8.3) x10*3/uL Absolute Nucleated RBC 0.000 (0.0-0.012) X10*3/uL Nucleated RBC % (auto) 0.0 (0.0-0.2) /100WBC Sodium 137 (135-145) mmol/L Potassium 3.2 L D (3.3-5.1) mmol/L Chloride 102 (96-108) mmol/L Carbon Dioxide 23 (22-29) mmol/L Anion Gap 15 (12-20) BUN 13 (9-16) mg/dL Creatinine 0.88 (0.5-1.4) mg/dL Estim Creat Clear Calc 66.4 Estimated GFR > 60 Random Glucose 190 H (60-115) mg/dL Calcium 10.2 (8.4-10.2) mg/dL Troponin I High Sens < 2.7 (<3.5-17.0) ng/L Independent Interpretation I performed an independent interpretation of an: EKG Interpretation: My independent interpretation of the patient's EKG is as follows: Normal sinus rhythm with a rate of 97, normal IA interval, normal QRS duration, normal QTC interval, no ST segment elevation, no ST segment depression, no PACs, no PVCs, no T-wave abnormalities Discharge Plan Discharge Clinical Impression: Benign paroxysmal positional vertigo, Chest pain, Headache Patient Disposition: Still a Patient Instructions: Vertigo (ED), Acute Headache (ED) Additional Instructions: Your blood work was unremarkable. Your EKG was normal. Your symptoms are consistent with a migraine headache. I want you to take the following 3 medications together every 6 hours as needed for headache, nausea or vomiting. Reglan (metoclopramide) in 10 mg, 1 pill Benadryl 25 mg, 2 pills Excedrin migraine, 1 pills. After you take these medications, lie down in a dark quiet room and try to fall asleep. These medications will make you sleepy, do not drive or work after taking these medications. Follow-up with your doctor in 2 days. Please return to the emergency department if your symptoms get worse or if you develop any symptoms that are concerning to you. For your dizziness take meclizine 25 mg pills, 1 pill 3 times a day for the next 3 days for dizziness then as needed for dizziness. This medication will make you sleepy. Do not drive or work while taking this medication. Follow-up with your doctor in 2 days. Please return to the emergency department if your symptoms get worse or if you develop any symptoms that are concerning to you. Prescriptions: New meclizine [Dramamine Less Drowsy] 25 mg tablet 25 mg PO TID PRN (Reason: dizziness) Qty: 20 0RF metoclopramide HCl [Reglan] 10 mg tablet 10 mg PO Q6H PRN (Reason: nausea and vomiting) Qty: 14 0RF diphenhydramine HCl [Benadryl] 25 mg capsule 50 mg PO Q6H PRN (Reason: headache) Qty: 20 0RF Excedrin Migraine 250-250-65 mg tablet 1 tab PO Q6H PRN (Reason: headache) Qty: 20 0RF No Action sennosides [senna] 8.6 mg tablet 17.2 mg PO .COMPLEX PRN (Reason: for constipation) 90 Days Qty: 180 1RF Rx Instructions: 17.2 mg orally daily PRN; dexlansoprazole [Dexilant] 60 mg capsule,biphase delayed releas 60 mg PO DAILY Qty: 30 0RF famotidine 20 mg tablet 20 mg PO BEDTIME 90 Days Qty: 90 1RF polyethylene glycol 3350 [Gavilax] 17 gram/dose powder 17 g PO DAILY Qty: 510 2RF docusate sodium 100 mg capsule 200 mg PO BEDTIME Qty: 180 0RF Trulance 3 mg tablet 3 mg PO DAILY Qty: 30 2RF albuterol sulfate 90 mcg/actuation aero powdr breath act w/sensor 1 inh inhalation Q4-6H PRN (Reason: shortness of breath or wheezing) Qty: 1 0RF estradiol 0.05 mg/24 hr patch weekly 1 patch transdermal MO aspirin 81 mg tablet,delayed release (DR/EC) 1 tab PO DAILY oxycodone-acetaminophen 5-325 mg tablet 1 tab PO TID PRN (Reason: severe pain) hydrochlorothiazide 25 mg tablet 0.5 tab PO DAILY zolpidem 10 mg tablet 1 tab PO BEDTIME PRN (Reason: Insomnia) lisinopril 40 mg tablet 1 tab PO DAILY Trulicity 0.75 mg/0.5 mL pen injector 0.75 mg subcut TU lorazepam 0.5 mg tablet 1 tab PO DAILY PRN (Reason: Anxiety) montelukast 10 mg tablet 1 tab PO BEDTIME fluticasone propionate [Flovent HFA] 220 mcg/actuation HFA aerosol inhaler 1 puff INHALATION BID cholecalciferol (vitamin D3) 25 mcg (1,000 unit) tablet 1 tab PO DAILY cyclobenzaprine 10 mg tablet 10 mg PO Q8H PRN (Reason: Muscle Spasm) magnesium hydroxide [Milk of Magnesia] 400 mg/5 mL suspension 15 ml PO BEDTIME PRN (Reason: constipation) Qty: 355 0RF ofloxacin [Ocuflox] 0.3 % drops See Rx Instructions .ROUTE .COMPLEX Qty: 10 0RF Rx Instructions: put 1-2 drps into affected eye(s) every 2-4 h x 2 days, then 1-2 drps 4 times/day days 3-7 Citrucel 500 mg tablet 500 mg PO BID Qty: 60 5RF Readi-Cat 2 2 % (w/v) suspension 450 ml PO DIRECTED 1 Days Qty: 900 0RF
[2023-02-04 21:08] LABS: Troponin-I High Sensitivity < 2.7 ng/L (<3.5-17.0)
[2023-02-04] MEDS: diphenhydrAMINE HCL 50 MG/ML VIAL IVPUSH (21:19)
[2023-02-04] MEDS: 0.9 % Sodium Chloride 1,000 ML 999 ML IV (21:19)
[2023-02-04] MEDS: Meclizine HCl 25 MG TABLET PO (21:20)
[2023-02-04] MEDS: Metoclopramide HCl 10 MG/2 ML VIAL IVPUSH (21:20)
[2023-02-04] MEDS: Ketorolac Tromethamine 15 MG/ML VIAL IVPUSH (21:20)
--- NOTE | 2023-02-04 21:26 | PC.NURSE ---
pt medicated per SEP for 03/15 headache/nausea/dizziness, 1L NS running, pt requesting medication prior to going to CT.
[2023-02-04 21:50] VITALS: BP 150/78; PULSE 99; RESP 22; TEMP 36.6; O2SAT 100
[2023-02-04] MEDS: Morphine Sulfate 4 MG/ML CARTRIDGE IVPUSH (22:25)
--- NOTE | 2023-02-04 23:00 | PC.NURSE ---
pt ambulatory to restroom with son standby assist. pt denies dizziness
[2023-02-04 23:28] VITALS: BP 137/82; PULSE 103; RESP 20; TEMP 36.6; O2SAT 98
[2023-02-05 00:31] VITALS: BP 136/83; PULSE 98; RESP 18; O2SAT 99
== END 2023-02-05 00:38 | disposition home or self-care (01) ==
PROVIDERS: Emergency Medicine Emergency Medical Services; Emergency Provider Emergency Medicine
DX: H81.13 Benign paroxysmal vertigo, bilateral (principal); R07.89 Other chest pain; R51.9 Headache, unspecified; Z79.899 Other long term (current) drug therapy
CPT/HCPCS: 36415; 70450; 80048; 84484; 85025; 93005; 96361; 96374; 96375; 99284; 99285; J1200; J1885; J2270; J2765

== ENCOUNTER → 2023-02-04 20:23 | Outpatient (BNV) | payer MEDICAID, SELFPAY | PROVIDERS: Emergency Provider Emergency Medicine; Visit Provider Internal Medicine | DX: R07.9 Chest pain, unspecified (principal); R94.31 Abnormal electrocardiogram [ECG] [EKG] | CPT/HCPCS: 93010 ==

== ENCOUNTER 2023-02-19 14:41 | Outpatient (REF) | payer MEDICAID, SELFPAY ==
[2023-02-19 17:06] LABS: Vitamin B12 > 2000 pg/mL (200-900)
[2023-02-19 18:07] LABS: Creatinine Urine 54.43 mg/dL; Microalbumin Urine < 5.0 mg/L
[2023-02-23 09:48] LABS: Methylmalonic Acid 105 nmol/L (87-318)
== END 2023-02-19 14:42 | disposition home or self-care (01) ==
LOC: HO.HHCL 14:41
PROVIDERS: Visit Provider Internal Medicine
DX: E11.9 Type 2 diabetes mellitus without complications (principal); E53.8 Deficiency of other specified B group vitamins
CPT/HCPCS: 36415; 82043; 82607; 83921

== ENCOUNTER 2023-02-20 11:51 | Outpatient (REF) | payer MEDICAID, SELFPAY ==
[2023-02-23 16:48] LABS: Homocysteine 8.5 umol/L (<10.4)
== END 2023-02-20 11:52 | disposition home or self-care (01) ==
LOC: HO.LAB 11:51
PROVIDERS: PCP Internal Medicine; Visit Provider Internal Medicine
DX: E53.8 Deficiency of other specified B group vitamins (principal)
CPT/HCPCS: 36415; 83090

== ENCOUNTER 2023-12-09 10:11 | Outpatient (AMB) | payer MEDICAID, SELFPAY ==
--- NOTE | 2023-12-09 11:31 | MHC.OFFVIS ---
Vital Signs 12/09/23 11:32 Height 5 ft 2 in Weight 167 lb BMI 30.5 Intake Visit Reasons: N/P Lumbar Radiculopathy Intake Note: Ariadne is a 58 year old female who presents today as a new patient for a evaluation of her lumbar spine. Patient reports ongoing pain for many years. She expresses that her pain is more to the left side of her lower back. Patient states that she had treatments at another practice that she is unsure about where she went. Hx of injections and PT for her lower back which didn't give her much relief. Allergies ibuprofen [From Motrin] Adverse Reaction (Mild, Verified 08/07/22 12:21) INTENSE STOMACH PAIN; RASH Medication List - Last Reconciled 12/09/23 by Peg Rodriguez MD albuterol sulfate 90 mcg/actuation 1 inh inhalation Q4-6H PRN aspirin 1 tab PO DAILY barium sulfate 2%(w/v) (Readi-Cat 2) 450 mL PO DIRECTED 1 day cholecalciferol (vitamin D3) 1 tab PO DAILY cyclobenzaprine 10 mg PO Q8H PRN dexlansoprazole (Dexilant) 60 mg PO DAILY docusate sodium 200 mg (2 x 100 mg) PO BEDTIME 30 days dulaglutide (Trulicity) 0.75 mg subcut TU estradiol 1 patch transdermal MO famotidine 20 mg PO BEDTIME fluticasone propionate 220 mcg/actuation (Flovent HFA) 1 puff inhalation BID hydrochlorothiazide 0.5 tabs PO DAILY lisinopril 1 tab PO DAILY lorazepam 1 tab PO DAILY PRN meclizine (Dramamine Less Drowsy) 25 mg PO TID PRN methylcellulose (laxative) (Citrucel) 500 mg PO BID 30 days montelukast 1 tab PO BEDTIME oxycodone-acetaminophen 5-325 mg 1 tab PO TID PRN plecanatide (Trulance) 3 mg PO DAILY polyethylene glycol 3350 (Gavilax) 17 grams PO DAILY zolpidem 1 tab PO BEDTIME PRN HPI Comments Details: Chronic back pain for years. Last MRI more than 2 years ago, in [place], but I don't see any available on EMR. She's had injections but she can't remember what, and that it hurt, 15 years ago. Uses cane for ambulation. Mid lower back pain, going to left leg. Left leg gets numb which she thinks attributes to knee pain. Left foot swells. Numbness on left posterior knee, calf and under foot. Sometimes it goes to right side but left worse. Took oxycodone today, so pain is not that bad , prescribed by PCP from [facility]. Last PT 3 years ago. History of CKD III and DM. [facility] Medical History Abdominal pain Anemia Asthma Chronic constipation Chronic low back pain COVID-19 Diabetes mellitus, type 2 Fibromyalgia GERD (gastroesophageal reflux disease) Hypercholesteremia Hypertension Surgical History H/O colonoscopy H/O: hysterectomy History of bladder surgery History of esophagogastroduodenoscopy (EGD) Hx laparoscopic cholecystectomy Hx of dilation and curettage Hx of ovarian cystectomy Family History Mother Diabetes Chronic kidney disease Maternal Grandmother Diabetes Maternal Aunt Diabetes Father CAD (coronary artery disease) Social History Household Members: Spouse Housing: Apartment Are you a primary home care music therapist to a significant other at home: No Do you presently have visiting nurse or other home services: Yes Alcohol intake: never Patient Tobacco Use Status: Never used Tobacco Second Hand Smoke Exposure: No service: No Current occupational status: disabled Review of Systems Const All systems reviewed & are unremarkable except as noted in HPI and below Physical Exam Vital Signs: BMI result Body Mass Index 30.5 Constitutional: Patient appears to be in no acute distress, well nourished and well developed. Patient was appropriately conversant and oriented. Good historian. MSK: No specific abnormalities found on inspection of the spine and all extremities. Tender in left SI joint, left GT, left groin. Lumbar ROM was full. Difficulty getting up on bed and get up from sitting position, hip flexor weakness. Straight-leg raising test positive left. FABERE test positive left hip and groin pain. Give-way weakness bilateral hip flexion. Neurological: Give-way weakness bilateral hip flexion. Normal 5/5 and knee extension and dorsiflexion. Reflexes intact and symmetric. Babinski was down going bilaterally. Clonus was negative. Gait is antalgic without loss of balance. Using cane. Results Reviewed Results Reviewed: I independently reviewed the results of the following: Lumbar x-rays done today showed preserved disc spaces. Question sacralized last lumbar vertebra? I reviewed records from the following: Notes from [facility] reviewed Assessment & Plan Assessment & Plan (1) Left lumbar radiculitis: Code(s): M54.16 - Radiculopathy, lumbar region Category: Medical (2) Left hip pain: Code(s): M25.552 - Pain in left hip Category: Medical (3) Sacroiliac joint dysfunction of left side: Code(s): M53.3 - Sacrococcygeal disorders, not elsewhere classified Category: Medical Plan A few pain areas, including left SI joint and left GT. Hip flexion weakness. Distribution of pain could be left L3-4 L4-5. Chronic lumbar radiculitis versus hip joint issue? We will send for more x-rays, particularly left hip/pelvic views. Referring to physical therapy to work on both back and hip, as well as SI joint. We might need further imaging such as MRI. We will re-evaluate in follow-up. Assessment and plan discussed with patient, and patient was agreeable. All questions were answered thoroughly. Follow-up after 6 weeks. Peg Rodriguez MD, MARIA D Board Certified, [place] [employer] and Rehabilitation (ABPMR) Board Certified, [employer] Electro[employer] (ABEM) Orders: Orders XR lumbar spine 2-3V Today M54.9 - Dorsalgia, unspecified PT Evaluation and Treatment Today M25.552 - Pain in left hip, M53.3 - Sacrococcygeal disorders, not elsewhere classified, M54.16 - Radiculopathy, lumbar region XR hip LT min 2V Today M25.552 - Pain in left hip Coding Level of Care Code New Pt Level 4 (02960) Diagnoses Left lumbar radiculitis M54.16 Left hip pain M25.552 Sacroiliac joint dysfunction of left side M53.3
[2023-12-09 11:32] VITALS: BMI 30.5
== END 2023-12-09 12:41 | disposition home or self-care (01) ==
LOC: HO.HOS 10:11
PROVIDERS: PCP Internal Medicine; Visit Provider Physical Medicine & Rehabilitation
DX: M54.16 Radiculopathy, lumbar region (principal); M25.552 Pain in left hip; M53.3 Sacrococcygeal disorders, not elsewhere classified
CPT/HCPCS: 99204

== ENCOUNTER 2023-12-09 10:11 | Outpatient (REF) | payer MEDICAID, SELFPAY ==
--- NOTE | ~2023-12-09 | XR_ITS ---
EXAMINATION: XR LEFT HIP XR LUMBAR SPINE CLINICAL INFORMATION: Back pain, pain in left hip, evaluate DJD left hip. COMPARISON: X-ray lumbar spine November 19, 2020. TECHNIQUE: 2 views of the left hip. 3 views of the lumbar spine. FINDINGS: LUMBAR SPINE: Dextroscoliosis of the lumbar spine. Surgical clips in the right upper quadrant. Facet arthritis in the lower lumbar spine. Mild multilevel lumbar spondylosis. Degenerative changes in the bilateral sacroiliac joints. LEFT HIP: Alignment maintained. Mild osteoarthritic changes with joint space narrowing and acetabular hypertrophic change. XR/XR hip LT min 2V IMPRESSION: 1. Mild multilevel lumbar spondylosis. 2. Mild osteoarthritic changes in the left hip.
--- NOTE | ~2023-12-09 | XR_ITS ---
EXAMINATION: XR LEFT HIP XR LUMBAR SPINE CLINICAL INFORMATION: Back pain, pain in left hip, evaluate DJD left hip. COMPARISON: X-ray lumbar spine November 19, 2020. TECHNIQUE: 2 views of the left hip. 3 views of the lumbar spine. FINDINGS: LUMBAR SPINE: Dextroscoliosis of the lumbar spine. Surgical clips in the right upper quadrant. Facet arthritis in the lower lumbar spine. Mild multilevel lumbar spondylosis. Degenerative changes in the bilateral sacroiliac joints. LEFT HIP: Alignment maintained. Mild osteoarthritic changes with joint space narrowing and acetabular hypertrophic change. XR/XR lumbar spine 2-3V IMPRESSION: 1. Mild multilevel lumbar spondylosis. 2. Mild osteoarthritic changes in the left hip.
== END 2023-12-09 10:12 | disposition home or self-care (01) ==
LOC: HO.HOSX 10:11
PROVIDERS: PCP Internal Medicine; Visit Provider Physical Medicine & Rehabilitation
DX: M25.552 Pain in left hip (principal); M54.16 Radiculopathy, lumbar region; M53.3 Sacrococcygeal disorders, not elsewhere classified
CPT/HCPCS: 72100; 73502; 99202

== ENCOUNTER 2024-01-21 10:31 | Outpatient (AMB) | payer MEDICAID, SELFPAY ==
[2024-01-21 10:32] VITALS: BMI 30.5
--- NOTE | 2024-01-21 10:32 | MHC.OFFVIS ---
Vital Signs 01/21/24 10:32 Height 5 ft 2 in Weight 167 lb BMI 30.5 Intake Visit Reasons: OV-Lumbar Radiculopathy-follow up Intake Note: Ariadne is a 59 year old female who presents to the office today for Lumbar Radiculopathy-follow up. Xrays done at last visit on 12/09/23. Patient reports that she has not been sleeping due to pain felt in the ride side of her lower back that radiates down the leg. She explains that this pain feels like a severe cramping felt all the time with not relief. Some numbness is felt in the foot. The right small toe does have cramping that puts it in a flexed position. She was attending physical therapy but was not scheduled for further appointments. She is Percocet 5-325 TID and Flexeril, neither of these medication shave been helpful. She expresses concerns that she is taking these strong medication with no relief. Business Process Coordinator Required: Yes Business Process Coordinator Name: Kathie - [id number] Allergies ibuprofen [From Motrin] Adverse Reaction (Mild, Verified 01/21/24 10:33) INTENSE STOMACH PAIN; RASH Medication List - Last Reconciled 01/21/24 by Peg Rodriguez MD albuterol sulfate 90 mcg/actuation 1 inh inhalation Q4-6H PRN aspirin 1 tab PO DAILY barium sulfate 2%(w/v) (Readi-Cat 2) 450 mL PO DIRECTED 1 day cholecalciferol (vitamin D3) 1 tab PO DAILY cyclobenzaprine 10 mg PO Q8H PRN dexlansoprazole (Dexilant) 60 mg PO DAILY docusate sodium 200 mg (2 x 100 mg) PO BEDTIME dulaglutide (Trulicity) 0.75 mg subcut TU estradiol 1 patch transdermal MO famotidine 20 mg PO BEDTIME fluticasone propionate 220 mcg/actuation (Flovent HFA) 1 puff inhalation BID hydrochlorothiazide 0.5 tabs PO DAILY lisinopril 1 tab PO DAILY lorazepam 1 tab PO DAILY PRN meclizine (Dramamine Less Drowsy) 25 mg PO TID PRN methylcellulose (laxative) (Citrucel) 500 mg PO BID 30 days montelukast 1 tab PO BEDTIME oxycodone-acetaminophen 5-325 mg 1 tab PO TID PRN plecanatide (Trulance) 3 mg PO DAILY polyethylene glycol 3350 (Gavilax) 17 grams PO DAILY zolpidem 1 tab PO BEDTIME PRN HPI Comments Details: Chronic back pain for years. Last MRI more than 2 years ago, in [place], but I don't see any available on EMR. She's had injections but she can't remember what, and that it hurt, 15 years ago. Uses cane for ambulation. Mid lower back pain, going to left leg. Left leg gets numb which she thinks attributes to knee pain. Left foot swells. Numbness on left posterior knee, calf and under foot. Sometimes it goes to right side but left worse. Took oxycodone today, so pain is not that bad , prescribed by PCP from [facility]. History of CKD III and DM. Last visit, pain was LEFT sided. Since last week, started having more RIGHT side now. Right sided buttocks pain, hip pain, groin pain. Going down to right leg with numbness on right leg. [facility] Medical History (Updated 01/21/24 @ 12:10 by Peg Rodriguez MD) Lumbar disc herniation Chronic constipation Chronic low back pain Fibromyalgia Abdominal pain Anemia COVID-19 Diabetes mellitus, type 2 Hypercholesteremia Asthma Hypertension GERD (gastroesophageal reflux disease) Surgical History Hx laparoscopic cholecystectomy Hx of ovarian cystectomy Hx of dilation and curettage History of esophagogastroduodenoscopy (EGD) H/O colonoscopy H/O: hysterectomy History of bladder surgery Family History Mother Diabetes Chronic kidney disease Maternal Grandmother Diabetes Maternal Aunt Diabetes Father CAD (coronary artery disease) Social History Household Members: Spouse Housing: Apartment Are you a primary child caregiver to a significant other at home: No Do you presently have visiting nurse or other home services: Yes Alcohol intake: never Patient Tobacco Use Status: Never used Tobacco Second Hand Smoke Exposure: No service: No Current occupational status: disabled Physical Exam Vital Signs: BMI result Body Mass Index 30.5 Constitutional: Patient appears to be in no acute distress, well nourished and well developed. Patient was appropriately conversant and oriented. Good historian. MSK: No specific abnormalities found on inspection of the spine and all extremities. Tenderness now is right-sided, right SI joint, right GT. Lumbar ROM was full. Difficulty getting up on bed and get up from sitting position, hip flexor weakness. Straight-leg raising test positive positive right. FABERE test positive right hip and groin pain. Give-way weakness bilateral hip flexion. Neurological: Give-way weakness bilateral hip flexion. Normal 5/5 and knee extension and dorsiflexion. Reflexes intact and symmetric. Babinski was down going bilaterally. Clonus was negative. Gait is antalgic without loss of balance. Using cane. Results Reviewed Results Reviewed: Reviewed lumbar x-rays, question L5-S1 disc space loss? Ordering Physician: Peg Voss Date of Service: 12/09/23 Procedure(s): XR hip LT min 2V Accession Number(s): [id number] cc: Kathleen Nieto MD; Peg Voss EXAMINATION: XR LEFT HIP XR LUMBAR SPINE CLINICAL INFORMATION: Back pain, pain in left hip, evaluate DJD left hip. COMPARISON: X-ray lumbar spine November 19, 2020. TECHNIQUE: 2 views of the left hip. 3 views of the lumbar spine. FINDINGS: LUMBAR SPINE: Dextroscoliosis of the lumbar spine. Surgical clips in the right upper quadrant. Facet arthritis in the lower lumbar spine. Mild multilevel lumbar spondylosis. Degenerative changes in the bilateral sacroiliac joints. LEFT HIP: Alignment maintained. Mild osteoarthritic changes with joint space narrowing and acetabular hypertrophic change. XR/XR hip LT min 2V IMPRESSION: 1. Mild multilevel lumbar spondylosis. 2. Mild osteoarthritic changes in the left hip. Assessment & Plan Assessment & Plan (1) Lumbar disc herniation: Code(s): M51.26 - Other intervertebral disc displacement, lumbar region Category: Medical (2) Right lumbar radiculitis: Code(s): M54.16 - Radiculopathy, lumbar region Category: Medical (3) Degenerative joint disease of both hips: Code(s): M16.0 - Bilateral primary osteoarthritis of hip Category: Medical Qualifiers: Osteoarthritis type: primary Qualified Code(s): M16.0 - Bilateral primary osteoarthritis of hip (4) Degenerative joint disease of sacroiliac joint: Code(s): M46.1 - Sacroiliitis, not elsewhere classified Category: Medical Plan Her pain shifts from 1 side to the other. When I 1st saw her it was left-sided. This time it is more right-sided. Still unable to distinguish between lumbar radiculopathy versus hip DJD. Concerned though that she has more numbness complaints nowadays. Patient had undergone adequate conservative management including PT without improvement of condition. It would be reasonable to obtain further imaging such as MRI. An MRI would help rule out any serious condition, guide treatment and assess prognosis for recovery. Specifically ruling out disc herniation or nerve impingement. Assessment and plan discussed with patient, and patient was agreeable. All questions were answered thoroughly. Follow up after MRI. Peg Rodriguez MD, MARIA D Board Certified, [place] [employer] and [employer] (ABPMR) Board Certified, [place] [employer] Electro[employer] (ABEM) Orders: Orders MR lumbar spine wo con Today M16.0 - Bilateral primary osteoarthritis of hip, M46.1 - Sacroiliitis, not elsewhere classified, M51.26 - Other intervertebral disc displacement, lumbar region, M54.16 - Radiculopathy, lumbar region Coding Level of Care Code Est Pt Level 4 (07147) Diagnoses Lumbar disc herniation M51.26 Right lumbar radiculitis M54.16 Primary osteoarthritis of both hips M16.0 Osteoarthritis type: primary Degenerative joint disease of sacroiliac joint M46.1
== END 2024-01-21 11:08 | disposition home or self-care (01) ==
PROVIDERS: PCP Internal Medicine; Visit Provider Physical Medicine & Rehabilitation
DX: M51.26 Other intervertebral disc displacement, lumbar region (principal); M54.16 Radiculopathy, lumbar region; M16.0 Bilateral primary osteoarthritis of hip; M46.1 Sacroiliitis, not elsewhere classified
CPT/HCPCS: 99213

== ENCOUNTER → 2024-01-21 10:31 | Outpatient (BNVA) | payer MEDICAID, SELFPAY | PROVIDERS: PCP Internal Medicine; Visit Provider Physical Medicine & Rehabilitation | DX: M51.26 Other intervertebral disc displacement, lumbar region (principal); M54.16 Radiculopathy, lumbar region; M16.0 Bilateral primary osteoarthritis of hip; M46.1 Sacroiliitis, not elsewhere classified | CPT/HCPCS: 99212 ==

== ENCOUNTER 2024-01-26 09:36 | Emergency (ER) | payer MEDICAID, SELFPAY ==
--- NOTE | ~2024-01-26 | US_ITS ---
EXAMINATION: US VENOUS ULTRASOUND WITH DOPPLER LOWER EXTREMITY, RIGHT CLINICAL INFORMATION: Evaluate for DVT COMPARISON: None available. TECHNIQUE: Ultrasound of the deep veins is performed from the hip to the calf with compression sonography and color and pulse Doppler assessment. Spectral analysis with color-flow imaging is performed. FINDINGS: There is normal venous compression and respiratory variation and augmented flow. The visualized common femoral vein, superficial femoral vein, profunda femoral vein, popliteal vein, and the trifurcation region shows no evidence of deep venous thrombosis. There is no significant popliteal fossa cyst. Contralateral common femoral vein is patent. If the patient's symptoms persist, followup ultrasound in 5 days 7 days might be of value to exclude proximal propagation from a non-visualized calf vein. US/US venous duplex LE RT IMPRESSION: No DVT demonstrated in the right lower extremity.
[2024-01-26 09:41] VITALS: BP 157/94; PULSE 93; RESP 18; TEMP 36.3; O2SAT 100
--- NOTE | 2024-01-26 09:59 | ED.LOWEXIN ---
HPI - Extremity Injury (Lower) General Chief Complaint: Extremity Injury, Lower Stated Complaint: Pain L leg 1 week Time Seen by Provider: 01/26/24 09:48 Source: patient and hourly sign language interpreter (ugandan) Mode of arrival: ambulatory Limitations: language barrier (ugandan) History of Present Illness ED Provider: TEJAS ALEGRE PA-C HPI Narrative: 59 year old [place] speaking female with pmhx significant for DJD of SI joint, HTN, T2DM presents to the ED today for evaluation of acute on chronic right hip pain x1 week. Pain is located to right hip with occasional radiation into her lateral thigh. Admits to seeing her PCP recently for same and was diagnosed with severe arthritis within the right hip. PCP ordered outpatient MRI however she has not received a call to schedule this. She has been taking percocet at home for chronic pain with minimal relief. Denies new injury or trauma to the hip. Denies fever/chills, back pain, numbness/tingling/weakness of the lower extremities, saddle anesthesia, bowel or bladder incontinence or retention. Denies difficulty with ambulation. Denies IV drug use. Related Data Home Medications ?Medication ?Instructions ?Recorded ?Confirmed aspirin 81 mg tablet,delayed 1 tab PO DAILY 04/16/22 01/21/24 release cholecalciferol (vitamin D3) 25 1 tab PO DAILY 04/16/22 01/21/24 mcg (1,000 unit) tablet cyclobenzaprine 10 mg tablet 10 mg PO Q8H PRN Muscle Spasm 04/16/22 01/21/24 dulaglutide 0.75 mg/0.5 mL 0.75 mg subcut TU 04/16/22 01/21/24 subcutaneous pen injector (Trulicity) estradiol 0.05 mg/24 hr weekly 1 patch transdermal MO 04/16/22 01/21/24 transdermal patch fluticasone propionate 220 1 puff inhalation BID 04/16/22 01/21/24 mcg/actuation HFA aerosol inhaler (Flovent HFA) hydrochlorothiazide 25 mg tablet 0.5 tab PO DAILY 04/16/22 01/21/24 lisinopril 40 mg tablet 1 tab PO DAILY 04/16/22 01/21/24 lorazepam 0.5 mg tablet 1 tab PO DAILY PRN Anxiety 04/16/22 01/21/24 montelukast 10 mg tablet 1 tab PO BEDTIME 04/16/22 01/21/24 oxycodone-acetaminophen 5 mg-325 1 tab PO TID PRN severe pain 04/16/22 01/21/24 mg tablet zolpidem 10 mg tablet 1 tab PO BEDTIME PRN Insomnia 04/16/22 01/21/24 Previous Rx's ?Medication ?Instructions ?Recorded albuterol sulfate 90 mcg/actuation 1 inh inhalation Q4-6H PRN 07/18/20 breath activated powder shortness of breath or wheezing #1 inhaler,sensor ea barium sulfate 2 % (w/v) oral 450 ml PO DIRECTED 1 day #900 mL 05/12/22 suspension (Readi-Cat 2) dexlansoprazole 60 mg 60 mg PO DAILY #30 caps 10/28/22 capsule,biphase delayed release (Dexilant) meclizine 25 mg tablet (Dramamine 25 mg PO TID PRN dizziness #20 tabs 02/04/23 Less Drowsy) famotidine 20 mg tablet 20 mg PO BEDTIME #90 tabs 09/09/23 methylcellulose (laxative) 500 mg 500 mg PO BID 30 days #60 tabs 10/15/23 tablet (Citrucel) polyethylene glycol 3350 17 17 g PO DAILY #510 grams 11/19/23 gram/dose oral powder (Gavilax) plecanatide 3 mg tablet (Trulance) 3 mg PO DAILY #30 tabs 12/18/23 docusate sodium 100 mg capsule 200 mg (2 x 100 mg) PO BEDTIME 01/06/24 #180 caps lidocaine 5 % topical patch 1 patch topical DAILY #15 ea 01/26/24 (Lidoderm) Allergies Allergy/AdvReac Type Severity Reaction Status Date / Time ibuprofen [From Motrin] AdvReac Mild INTENSE Verified 01/26/24 09:44 STOMACH PAIN; RASH Review of Systems Review of Systems: Constitutional: No fever, chills, fatigue, night sweats, weight changes ENT/Mouth: No ear pain, hearing loss, nasal congestion, sinus pain, rhinorrhea, sore throat Eyes: No eye pain, swelling, redness, vision changes, discharge Cardio: No chest pain, palpitations, MCGINNIS, orthopnea, peripheral edema Pulm: No SOB, cough, sputum, wheezing, dyspnea, hemoptysis GI: No nausea, vomiting, hematemesis, abdominal pain, diarrhea, constipation, hematochezia, melena : No irregular bleeding, dysuria, frequency, urgency, hesitancy, hematuria, flank pain, urinary flow changes, urinary incontinence or retention MSK: No back pain, neck pain, joint pain, myalgias, +right hip pain Skin: No lesions, rashes Neuro: No weakness, numbness, paresthesias, LOC, dizziness, headache Psych: No anxiety/panic, depression, SI/HI, AH/VH All other systems reviewed and are negative. [facility] Past Medical History Attestation statement: The following information was validated with the patient. Source: old records reviewed and nursing notes reviewed Medical History Lumbar disc herniation Chronic constipation Chronic low back pain Fibromyalgia Abdominal pain Anemia COVID-19 Diabetes mellitus, type 2 Hypercholesteremia Asthma Hypertension GERD (gastroesophageal reflux disease) Surgical History Hx laparoscopic cholecystectomy Hx of ovarian cystectomy Hx of dilation and curettage History of esophagogastroduodenoscopy (EGD) H/O colonoscopy H/O: hysterectomy History of bladder surgery Family History Family History Mother Diabetes Chronic kidney disease Maternal Grandmother Diabetes Maternal Aunt Diabetes Father CAD (coronary artery disease) Social History Social History Household Members: Spouse Housing: Apartment Are you a primary child care aide to a significant other at home: No Do you presently have visiting nurse or other home services: Yes Alcohol intake: never Patient Tobacco Use Status: Never used Tobacco Second Hand Smoke Exposure: No Advance Directives: No Do you have a plan to hurt others: No Plan service: No Current occupational status: disabled Physical Exam Vital Signs: Vital Signs: Last Vital Signs Temp 97.3 F 01/26/24 12:41 Pulse 93 01/26/24 12:41 Resp 18 01/26/24 12:41 BP 157/94 H 01/26/24 12:41 Pulse Ox 100 01/26/24 12:41 O2 Del Method Room Air 01/26/24 12:41 BMI result Body Mass Index 30.0 vital signs stable Const: General: cooperative, healthy appearing, comfortable and no acute distress Orientation/consciousness: patient oriented x3 Limitations: no limitations HEENT: Head: Yes normal to inspection, Yes No palpable skull fracture present, Yes normocephalic and Yes atraumatic Eyes: General: appearance normal, both eyes and all related structures Pupils: Equal, round and reactive pupils present Neck: Neck: Yes normal visual inspection Resp: Effort & Inspection: normal respiratory effort and able to speak in complete sentences Auscultation: clear to auscultation bilaterally Cardio: Rate: regular rate Rhythm: regular rhythm Back/Spine/Pelvis: Other: No midline spinous tenderness or step off deformity. No paraspinal muscle tenderness. Skin: General skin exam: no rashes or lesions noted Neuro: Other: Strength 5/5 intact throughout.? No saddle anesthesia.? Sensation intact to light touch.? Neurovascular intact distally.? General: patient oriented x3 Cranial nerves: Yes Equal, round and reactive pupils present Extrem: Other: + R hip without overlying skin changes or deformity. non tender to palpation. no palpable deformity, warmth, crepitus. FROM intact to right hip with minimal discomfort. No calf tenderness b/l. no pitting edema. 2+ dp/pt and popliteal pulse intact. ambulating with slight antalgic gait. Course Course Course Narrative: 1230-- cbc without leukocytosis or left shift. no anemia. h&h stable. chemistry without acute electrolyte abnormality requiring intervention. US RLE does not demonstrate VTE. Patient treated with toradol in ED with relief. Likely acute on chronic hip pain secondary to sever arthritis. further imaging not warranted at this time as patient has unchanged presentation and there has been no new injury or trauma. advised to follow up with PCP for planned outpatient MRI. Patient has remained stable throughout ED visit today. Discussed worrisome signs and symptoms and when to return to the ED. All questions answered at this time. Patient is agreeable with disposition and stable for discharge. Medications Administered Discontinued Medications Generic Name Dose Route Start Last Admin Trade Name Freq PRN Reason Stop Dose Admin Ketorolac Tromethamine 30 mg 01/26/24 10:19 01/26/24 10:24 Ketorolac Tromethamine 30 Mg/Ml Vial IM 01/26/24 10:20 30 mg ONCE ONE Administration Medical Decision Making Medical Decision Making [facility] Narrative: 59 year old [place] speaking female with pmhx significant for DJD of SI joint, HTN, T2DM presents to the ED today for evaluation of acute on chronic right hip pain x1 week. Patient hypertensive, vitals otherwise wnl. She is nontoxic appearing and in NAD. on exam of right hip, no overlying skin changes or deformity. non tender to palpation. no palpable deformity, warmth, crepitus. FROM intact to right hip with minimal discomfort. No calf tenderness b/l. no pitting edema. 2+ dp/pt and popliteal pulse intact. ambulating with slight antalgic gait. No midline spinous tenderness or step off deformity. No paraspinal muscle tenderness. Differential diagnosis includes arthritis, DJD, chronic pain, DVT, sciatica. unlikely fracture, dislocation, nv compromise, compartment syndrome, threat to limb. Plan for venous duplex rle, pain control, re-evaluation. Differential Diagnosis Differential Diagnoses: The differential diagnosis associated with the presentation includes as above. Admission/Observation Not indicated. Lab Data [facility] Lab Attestation statement: I reviewed the patient's lab results. as above. 01/26/24 10:28 01/26/24 10:28 Labs: Lab Results 01/26/24 Range/Units 10:28 WBC 5.8 (4.8-10.8) X10*3/uL RBC 4.91 (4.20-5.50) X10*6/uL Hgb 13.4 (12.0-16.0) g/dl Hct 40.3 (37.0-47.0) % MCV 82.1 (80.0-98.0) fL MCH 27.3 (27.0-33.0) pg MCHC 33.3 (31.0-35.0) g/dl RDW 13.0 (11.0-16.0) % Plt Count 261 (160-400) X10*3/uL MPV 10.5 (9.4-12.3) fL Immature Gran % (Auto) 0.3 (0.0-0.4) % Neut % (Auto) 54.1 (45-73) % Lymph % (Auto) 33.8 (20-40) % [place] % (Auto) 8.9 (2-11) % Eos % (Auto) 2.7 (0-4) % Baso % (Auto) 0.2 (0-2) % Lymph # (Auto) 2.0 (1.2-4.9) X10*3/uL [place] # (Auto) 0.5 (0.1-1.2) X10*3/uL Eos # (Auto) 0.2 (0.0-0.4) X10*3/uL Baso # (Auto) 0.0 (0.0-0.2) X10*3/uL Abs Immat Gran (auto) 0.02 (0.00-0.03) X10*3/uL Absolute Neuts (auto) 3.1 (2.0-8.3) x10*3/uL Absolute Nucleated RBC 0.000 (0.0-0.012) X10*3/uL Nucleated RBC % (auto) 0.0 (0.0-0.2) /100WBC Sodium 138 (135-145) mmol/L Potassium 3.8 (3.3-5.1) mmol/L Chloride 102 (96-108) mmol/L Carbon Dioxide 25 (22-29) mmol/L Anion Gap 15 (12-20) BUN 13 (9-16) mg/dL Creatinine 1.02 (0.5-1.4) mg/dL Estim Creat Clear Calc 56.0 Estimated GFR 55 Random Glucose 189 H (60-115) mg/dL Calcium 10.0 (8.4-10.2) mg/dL Independent Interpretation I performed an independent interpretation of an: Ultrasound Interpretation: US of RLE without clot, agree with radiologist's interpretation. Radiology Impression Discussion of test interpretation with radiology: I have reviewed the radiologist's reading. Radiologist Impression: EXAMINATION: US VENOUS ULTRASOUND WITH DOPPLER LOWER EXTREMITY, RIGHT CLINICAL INFORMATION: Evaluate for DVT COMPARISON: None available. TECHNIQUE: Ultrasound of the deep veins is performed from the hip to the calf with compression sonography and color and pulse Doppler assessment. Spectral analysis with color-flow imaging is performed. FINDINGS: There is normal venous compression and respiratory variation and augmented flow. The visualized common femoral vein, superficial femoral vein, profunda femoral vein, popliteal vein, and the trifurcation region shows no evidence of deep venous thrombosis. There is no significant popliteal fossa cyst. Contralateral common femoral vein is patent. If the patient's symptoms persist, followup ultrasound in 5 days 7 days might be of value to exclude proximal propagation from a non-visualized calf vein. US/US venous duplex LE RT IMPRESSION: No DVT demonstrated in the right lower extremity. External Record Review External record reviewed: Inpatient record Prescription Management I considered prescription management with: Pain Medication Chronic Conditions Patient?s care impacted by: Other (chronic pain, DJD) Social Determinants Patient?s care significantly limited by Social Determinants of Health including: Other Social Determinant of Health Critical Care Time Critical Care Time Critical Care Time: No Discharge Plan Discharge Clinical Impression: Acute pain of right hip Patient Disposition: Home, Self-Care Instructions: Arthralgia (ED), Hip Pain (ED) Additional Instructions: The ultrasound of your right leg does not show clots. You are known to have severe arthritis within the hip which is likely the cause of your pain. Continue taking oxycodone at home. Lidocaine patches have been sent to your pharmacy. You may apply these to your hip for pain. In addition, take Tylenol at home. Please follow up with your PCP for planned MRI of your hip. You may need to call them to schedule. Return with new or worsening symptoms. In the case of an emergency call 911. Prescriptions: New lidocaine [Lidoderm] 5 % adhesive patch,medicated 1 patch topical DAILY Qty: 15 0RF Rx Instructions: leave on most painful area for up to 12 hrs No Action dexlansoprazole [Dexilant] 60 mg capsule,biphase delayed releas 60 mg PO DAILY Qty: 30 0RF famotidine 20 mg tablet 20 mg PO BEDTIME Qty: 90 1RF Citrucel 500 mg tablet 500 mg PO BID 30 Days Qty: 60 5RF polyethylene glycol 3350 [Gavilax] 17 gram/dose powder 17 g PO DAILY Qty: 510 2RF Trulance 3 mg tablet 3 mg PO DAILY Qty: 30 2RF docusate sodium 100 mg capsule 200 mg PO BEDTIME Qty: 180 1RF albuterol sulfate 90 mcg/actuation aero powdr breath act w/sensor 1 inh inhalation Q4-6H PRN (Reason: shortness of breath or wheezing) Qty: 1 0RF estradiol 0.05 mg/24 hr patch weekly 1 patch transdermal MO aspirin 81 mg tablet,delayed release (DR/EC) 1 tab PO DAILY oxycodone-acetaminophen 5-325 mg tablet 1 tab PO TID PRN (Reason: severe pain) hydrochlorothiazide 25 mg tablet 0.5 tab PO DAILY zolpidem 10 mg tablet 1 tab PO BEDTIME PRN (Reason: Insomnia) lisinopril 40 mg tablet 1 tab PO DAILY Trulicity 0.75 mg/0.5 mL pen injector 0.75 mg subcut TU lorazepam 0.5 mg tablet 1 tab PO DAILY PRN (Reason: Anxiety) montelukast 10 mg tablet 1 tab PO BEDTIME fluticasone propionate [Flovent HFA] 220 mcg/actuation HFA aerosol inhaler 1 puff INHALATION BID cholecalciferol (vitamin D3) 25 mcg (1,000 unit) tablet 1 tab PO DAILY cyclobenzaprine 10 mg tablet 10 mg PO Q8H PRN (Reason: Muscle Spasm) meclizine [Dramamine Less Drowsy] 25 mg tablet 25 mg PO TID PRN (Reason: dizziness) Qty: 20 0RF Readi-Cat 2 2 % (w/v) suspension 450 ml PO DIRECTED 1 Days Qty: 900 0RF Referrals: Kathleen Nieto MD [Primary Care Provider] - Interventions: ED Discharge Assessment Last Done: 01/26/24 12:41 Discharge Date/Time: 01/26/24 12:43 Print Language: [place]
[2024-01-26] MEDS: Ketorolac Tromethamine 30 MG/ML VIAL IM (10:24)
[2024-01-26 10:33] LABS: MANUAL DIFF FLAG NO
[2024-01-26 10:35] LABS: Basophils Percent Auto 0.2 % (0-2); Eosinophils Absolute Auto 0.2 X10*3/uL (0.0-0.4); Eosinophils Percent Auto 2.7 % (0-4); Hematocrit 40.3 % (37.0-47.0); Hemoglobin 13.4 g/dl (12.0-16.0); Imm Gran Abs Auto 0.02 X10*3/uL (0.00-0.03); Imm Gran Pct Auto 0.3 % (0.0-0.4); Lymphocytes Percent Auto 33.8 % (20-40); Mean Corpuscular HGB Conc 33.3 g/dl (31.0-35.0); Mean Corpuscular Hemoglobin 27.3 pg (27.0-33.0); Mean Corpuscular Volume 82.1 fL (80.0-98.0); Mean Platelet Volume 10.5 fL (9.4-12.3); Monocytes Absolute Auto 0.5 X10*3/uL (0.1-1.2); Monocytes Percent Auto 8.9 % (2-11); Neutrophils Absolute Auto 3.1 x10*3/uL (2.0-8.3); Neutrophils Percent Auto 54.1 % (45-73); Platelet Count 261 X10*3/uL (160-400); Red Blood Count 4.91 X10*6/uL (4.20-5.50); White Blood Count 5.8 X10*3/uL (4.8-10.8)
[2024-01-26 10:53] LABS: Anion Gap 15 (12-20); Blood Urea Nitrogen 13 mg/dL (9-16); Carbon Dioxide 25 mmol/L (22-29); Chloride 102 mmol/L (96-108); Estimated Glomerular Filt Rate 55; Glucose Random 189 mg/dL (60-115); Potassium 3.8 mmol/L (3.3-5.1); Sodium 138 mmol/L (135-145)
[2024-01-26 12:41] VITALS: BP 157/94; PULSE 93; RESP 18; TEMP 36.3; O2SAT 100
== END 2024-01-26 12:43 | disposition home or self-care (01) ==
PROVIDERS: Physician Assistant Medical; Emergency Provider Emergency Medicine Emergency Medical Services; PCP Internal Medicine
DX: M25.551 Pain in right hip (principal); E11.9 Type 2 diabetes mellitus without complications; Z79.82 Long term (current) use of aspirin; Z79.85 Long-term (current) use of injectable non-insulin antidiabetic drugs; Z79.899 Other long term (current) drug therapy
CPT/HCPCS: 36415; 80048; 85025; 93971; 96372; 99283; 99284; J1885

== ENCOUNTER 2024-02-11 10:37 | Outpatient (REF) | payer MEDICAID, SELFPAY ==
[2024-02-11 13:53] LABS: Alanine Aminotransferase 26 U/L (0-31); Albumin Level 4.4 g/dL (3.5-5.0); Alkaline Phosphatase 93 U/L (39-117); Anion Gap 12 (12-20); Aspartate Amino Transferase 29 U/L (5-31); Bilirubin Total 0.3 mg/dL (0.0-1.0); Blood Urea Nitrogen 15 mg/dL (9-16); Calcium 10.7 mg/dL (8.4-10.2); Carbon Dioxide 29 mmol/L (22-29); Chloride 102 mmol/L (96-108); Cholesterol 358 mg/dL (<200); Estimated Glomerular Filt Rate 54; Glucose Random 154 mg/dL (60-115); HDL Cholesterol 43 mg/dL (>40); Potassium 4.1 mmol/L (3.3-5.1); Sodium 139 mmol/L (135-145); Total Protein 7.9 g/dL (6.5-8.0); Triglycerides 809 mg/dL (<150)
[2024-02-11 13:57] LABS: Creatinine Urine 94.17 mg/dL; Microalbum/Creatinine Ratio Ur 7.4 ug/mg cr (<30)
[2024-02-11 14:11] LABS: Vitamin D 25-OH Total 66.9 ng/mL (>30)
[2024-02-11 14:21] LABS: Reflex LDLD? Yes
[2024-02-13 02:08] LABS: LDL Cholesterol Direct 137 mg/dL (<100)
== END 2024-02-11 10:38 | disposition home or self-care (01) ==
LOC: HO.HHCL 10:37
PROVIDERS: Visit Provider Internal Medicine
DX: E11.65 Type 2 diabetes mellitus with hyperglycemia (principal)
CPT/HCPCS: 36415; 80053; 80061; 82043; 82306; 82570; 83721

== ENCOUNTER 2024-02-16 17:26 | Outpatient (REF) | payer MEDICAID, SELFPAY ==
--- NOTE | ~2024-02-16 | MR_ITS ---
EXAMINATION: MR LUMBAR SPINE WITHOUT CONTRAST CLINICAL INFORMATION: Intervertebral disc displacement, lumbar region. Assess for disc herniation at L5-S1 or L3-L4. COMPARISON: MRI scan of the lumbar spine 06/02/2018. Plain films of the lumbar spine 12/09/2023.. TECHNIQUE: MRI of the lumbar spine was obtained without contrast. FINDINGS: VERTEBRAL BODIES AND PARASPINAL STRUCTURES: The study demonstrates an mild dextroscoliosis. There are slight retrolistheses of L3 on L4 and L5 on S1. There is multilevel narrowing of intervertebral disc height with disc desiccation, spanning L3-L4. There are mild degenerative endplate changes at L5-S1, but there has been interval resolution of degenerative endplate signal compared to the prior study. Vertebral body heights are maintained and no fractures are demonstrated. Overall, marrow signal is homogenous. The study redemonstrates scarring at the superior pole of the right kidney, unchanged. The visualized pelvic structures are unremarkable. CONUS MEDULLARIS AND CAUDA EQUINA: Normal, terminating at the level of T12-L1. The lower thoracic spinal cord appears normal. The cauda equina nerve roots and filum terminale appear normal. SPINAL LEVELS: L1-L2: There is mild bilateral facet arthropathy. There is a small left paracentral disc protrusion without significant mass effect on the thecal sac with no central stenosis. The neural foramina are patent bilaterally. L2-L3: There is mild bilateral facet arthropathy. There is a posterior disc protrusion with an annular fissure which is slightly more prominent compared to prior imaging with some distortion of the ventral thecal sac, but no central stenosis. The neural foramina are patent. L3-L4: There is mild to moderate bilateral facet arthropathy. Disc contour is normal. There is no central stenosis or foraminal narrowing. L4-L5: There is moderate bilateral facet arthropathy with ligamenta flava hypertrophy and facet joint effusions. There is a small posterior disc protrusion with an annular fissure, which appears similar compared to prior imaging. There is minimal distortion of the ventral thecal sac and there is no central stenosis. The neural foramina are patent bilaterally. L5-S1: There is moderate severe right and moderate left facet arthropathy. The small synovial cyst extending laterally from the posterior right facet joint is unchanged. There is an eccentric posterior disc protrusion to the right with some distortion of the ventral thecal sac and with mild narrowing of the right subarticular recess. There are bilateral foraminal disc protrusions. MR/MR lumbar spine wo con IMPRESSION: 1. At L5-S1 there is facet arthropathy and there is an eccentric posterior disc protrusion to the right with mild narrowing of the right subarticular recess. There are bilateral foraminal disc protrusions. 2. At L4-L5 there is facet arthropathy and there is a small posterior disc protrusion. There is no central stenosis or foraminal narrowing. 3. At L2-L3 there is a posterior disc protrusion with an annular fissure which is slightly more prominent compared to prior imaging. There is no central stenosis or foraminal narrowing. 4. Spondylitic and facet arthropathic changes are also demonstrated at other levels as described above. Electronically signed by: Carlos Lazaro MD 03/12/2024 02:45 PM EDT
== END 2024-02-16 17:27 | disposition home or self-care (01) ==
LOC: HO.MRI 17:26
PROVIDERS: PCP Internal Medicine; Visit Provider Physical Medicine & Rehabilitation
DX: M51.26 Other intervertebral disc displacement, lumbar region (principal); M54.16 Radiculopathy, lumbar region; M16.0 Bilateral primary osteoarthritis of hip; M46.1 Sacroiliitis, not elsewhere classified
CPT/HCPCS: 72148

== ENCOUNTER 2024-02-22 12:57 | Outpatient (REF) | payer MEDICAID, SELFPAY ==
--- NOTE | ~2024-02-22 | MM_ITS ---
EXAMINATION: MM DIAGNOSTIC DIGITAL BREAST TOMOSYNTHESIS, BILATERAL US BREAST LIMITED, RIGHT MAMMOGRAPHY: CLINICAL INFORMATION: 12 month diagnostic for follow-up of probably benign subcentimeter complicated cyst right breast 10:00 axis, 4 cm from the nipple. Patient also due for yearly bilateral screening. COMPARISON: Ultrasound right breast 09/09/2022, 02/19/2022, 08/22/2021; mammography 08/18/2022, 08/22/2021, 08/15/2021 (BI-RADS 0). TECHNIQUE: Digital breast tomosynthesis is performed in both the craniocaudal and mediolateral oblique views along with computer-aided detection (CAD). Synthesized 2D images are generated from the tomosynthesis. FINDINGS: There are scattered areas of fibroglandular density (ACR BI-RADS breast composition Category b). There is a stable oval isodense circumscribed 7 mm mass in the 10:00 axis of the right breast anterior one third, correlating with the known complicated cyst in this region. This appears stable and unchanged. We will evaluate this with ultrasound. There are mild vascular calcifications. There are no suspicious masses, suspicious grouped calcifications, or areas of architectural distortion in either breast. The parenchymal pattern is stable from prior exams. There is no skin or axillary abnormality. ULTRASOUND: CLINICAL INFORMATION: Evaluate complicated cyst 10:00 axis right breast. COMPARISON: As above. TECHNIQUE: Targeted sonographic evaluation right breast was performed using a high frequency linear transducer. Attention to the upper outer quadrant was given to include the 10:00 axis complicated cyst. Selected archived documentation. FINDINGS: RIGHT BREAST: -At 2:00, 4 cm from the nipple right breast, there is a stable mildly complicated cyst with calcification measuring 7 x 3 x 5 mm, unchanged from prior exams. This has been stable over 2 years and is benign. 6 no further follow-up recommended. At 2:00, 5 cm from the nipple, there is a simple cyst measuring 6 x 3 x 5 mm, also stable. There is no solid mass, abnormal shadowing, architectural distortion, or edema within the soft tissue planes. MM/MM tomosynthesis diagnostic BI IMPRESSION: -There are no findings suspicious for malignancy in either breast. -Minimally complicated cyst at the 10:00 axis right breast, 4 cm from the nipple, is stable over 2 years and hence benign. No further follow-up recommended. -Simple cyst at the right breast 10:00 axis, 5 cm from the nipple, stable and benign. -Recommend this patient return to routine annual screening mammography. OVERALL ASSESSMENT: Mammography: BI-RADS 2 - Benign Findings Ultrasound: BI-RADS 2 - Benign Findings RECOMMENDATION: 1 year F/U This patient's information was entered into a reminder system with a target due date for their next mammogram.
== END 2024-02-22 12:58 | disposition home or self-care (01) ==
LOC: HO.MAMMO 12:57
PROVIDERS: PCP Internal Medicine; Visit Provider Internal Medicine
DX: R92.2 Inconclusive mammogram (principal)
CPT/HCPCS: 76642; 77062; 77066

== ENCOUNTER → 2024-02-22 13:30 | Outpatient (BNV) | payer MEDICAID, SELFPAY | PROVIDERS: PCP Internal Medicine; Visit Provider Radiology Diagnostic Radiology | DX: R92.8 Other abnormal and inconclusive findings on diagnostic imaging of breast (principal) | CPT/HCPCS: 76642; 77062; 77066 ==

== ENCOUNTER 2024-03-16 11:55 | Outpatient (AMB) | payer MEDICAID, SELFPAY ==
--- NOTE | 2024-03-16 11:57 | A.OFFVIS_ITS ---
Intake Visit Reasons: OV-MRI f/u Intake Note: Ariadne is a 59 year old female who presents today for lumbar spine MRI review. 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 She's had injections but she can't remember what, and that it hurt, 15 years ago. Uses cane for ambulation. PT multiple times before, I have referred her again but await further schedul ing. History of CKD III and DM. Pain seems to switch sides. Seen initially complaining of left, then follow up complained of right. Usually has buttocks pain, hip pain, groin pain. Today she says it is right sided. Going down to right leg with numbness on right leg. Here to discuss MRI. [facility] Medical History Lumbar disc herniation Chronic constipation Chronic low back pain Fibromyalgia Abdominal pain Anemia COVID-19 Diabetes mellitus, type 2 Hypercholesteremia Asthma Hypertension GERD (gastroesophageal reflux disease) Surgical History Hx laparoscopic cholecystectomy Hx of ovarian cystectomy Hx of dilation and curettage History of esophagogastroduodenoscopy (EGD) H/O colonoscopy H/O: hysterectomy History of bladder surgery Family History Mother Diabetes Chronic kidney disease Maternal Grandmother Diabetes Maternal Aunt Diabetes Father CAD (coronary artery disease) Social History Household Members: Spouse Housing: Apartment Are you a primary career specialist to a significant other at home: No Do you presently have visiting nurse or other home services: Yes Alcohol intake: never Patient Tobacco Use Status: Never used Tobacco Second Hand Smoke Exposure: No service: No Current occupational status: disabled Results Reviewed Results Reviewed: Images reviewed with patient. MRI shows shallow disc herniation L5-S1 going more to right side. No significant spinal stenosis. Ordering Physician: Peg Voss Date of Service: 02/16/24 Procedure(s): MR lumbar spine wo con Accession Number(s): [id number] cc: Kathleen Nieto MD; Peg Ryan EXAMINATION: MR LUMBAR SPINE WITHOUT CONTRAST CLINICAL INFORMATION: Intervertebral disc displacement, lumbar region. Assess for disc herniation at L5-S1 or L3-L4. COMPARISON: MRI scan of the lumbar spine 06/02/2018. Plain films of the lumbar spine 12/09/2023.. TECHNIQUE: MRI of the lumbar spine was obtained without contrast. FINDINGS: VERTEBRAL BODIES AND PARASPINAL STRUCTURES: The study demonstrates an mild dextroscoliosis. There are slight retrolistheses of L3 on L4 and L5 on S1. There is multilevel narrowing of intervertebral disc height with disc desiccation, spanning L3-L4. There are mild degenerative endplate changes at L5-S1, but there has been interval resolution of degenerative endplate signal compared to the prior study. Vertebral body heights are maintained and no fractures are demonstrated. Overall, marrow signal is homogenous. The study redemonstrates scarring at the superior pole of the right kidney, unchanged. The visualized pelvic structures are unremarkable. CONUS MEDULLARIS AND CAUDA EQUINA: Normal, terminating at the level of T12-L1. The lower thoracic spinal cord appears normal. The cauda equina nerve roots and filum terminale appear normal. SPINAL LEVELS: L1-L2: There is mild bilateral facet arthropathy. There is a small left paracentral disc protrusion without significant mass effect on the thecal sac with no central stenosis. The neural foramina are patent bilaterally. L2-L3: There is mild bilateral facet arthropathy. There is a posterior disc protrusion with an annular fissure which is slightly more prominent compared to prior imaging with some distortion of the ventral thecal sac, but no central stenosis. The neural foramina are patent. L3-L4: There is mild to moderate bilateral facet arthropathy. Disc contour is normal. There is no central stenosis or foraminal narrowing. L4-L5: There is moderate bilateral facet arthropathy with ligamenta flava hypertrophy and facet joint effusions. There is a small posterior disc protrusion with an annular fissure, which appears similar compared to prior imaging. There is minimal distortion of the ventral thecal sac and there is no central stenosis. The neural foramina are patent bilaterally. L5-S1: There is moderate severe right and moderate left facet arthropathy. The small synovial cyst extending laterally from the posterior right facet joint is unchanged. There is an eccentric posterior disc protrusion to the right with some distortion of the ventral thecal sac and with mild narrowing of the right subarticular recess. There are bilateral foraminal disc protrusions. MR/MR lumbar spine wo con IMPRESSION: 1. At L5-S1 there is facet arthropathy and there is an eccentric posterior disc protrusion to the right with mild narrowing of the right subarticular recess. There are bilateral foraminal disc protrusions. 2. At L4-L5 there is facet arthropathy and there is a small posterior disc protrusion. There is no central stenosis or foraminal narrowing. 3. At L2-L3 there is a posterior disc protrusion with an annular fissure which is slightly more prominent compared to prior imaging. There is no central stenosis or foraminal narrowing. 4. Spondylitic and facet arthropathic changes are also demonstrated at other levels as described above. Electronically signed by: Carlos Lazaro MD 03/12/2024 02:45 PM EDT RP Assessment & Plan Assessment & Plan (1) Right lumbar radiculitis: Code(s): M54.16 - Radiculopathy, lumbar region Category: Medical (2) Lumbar disc herniation: Code(s): M51.26 - Other intervertebral disc displacement, lumbar region Category: Medical Plan Chronic worsening right sided back pain going to right leg. MRI shows L5-S1 shallow right sided disc herniation. She's had injections and PT in the past wihtout relief. She defers referral to Pain Management for injections. At this point, she would to be referred to neurospine to discuss surgical options. Assessment and plan discussed with patient, and patient was agreeable. All questions were answered thoroughly. Follow-up after Neurosurgery consult. Peg Rodriguez MD, MARIA D Board Certified, [place] Board of Physical Medicine and Rehabilitation (ABPMR) Board Certified, [place] Board of Electrodiagnostic Medicine (ABEM) Orders: Referrals Neurosurgery Referral M51.26 - Other intervertebral disc displacement, lumbar region, M54.16 - Radiculopathy, lumbar region Coding Level of Care Code Est Pt Level 4 (33908) Diagnoses Right lumbar radiculitis M54.16 Lumbar disc herniation M51.26
== END 2024-03-16 12:31 | disposition home or self-care (01) ==
PROVIDERS: PCP Internal Medicine; Visit Provider Physical Medicine & Rehabilitation
DX: M54.16 Radiculopathy, lumbar region (principal); M51.26 Other intervertebral disc displacement, lumbar region
CPT/HCPCS: 99214

== ENCOUNTER → 2024-03-16 11:55 | Outpatient (BNVA) | payer MEDICAID, SELFPAY | PROVIDERS: PCP Internal Medicine; Visit Provider Physical Medicine & Rehabilitation | DX: M54.16 Radiculopathy, lumbar region (principal); M51.26 Other intervertebral disc displacement, lumbar region | CPT/HCPCS: 99212 ==

== ENCOUNTER 2024-03-28 10:15 | Outpatient (REF) | payer MEDICAID, SELFPAY ==
--- NOTE | ~2024-03-28 | XR_ITS ---
EXAMINATION: XR HIP, RIGHT CLINICAL INFORMATION: Right hip pain of 2 months' duration. COMPARISON: None available. TECHNIQUE: AP and frog-leg lateral views of the right hip. FINDINGS: No fracture. Alignment is anatomic. Hip joint space is maintained. Soft tissues are unremarkable. XR/XR hip RT min 2V IMPRESSION: Normal right hip. Electronically signed by: Javier Vazquez MD 03/28/2024 07:18 PM EDT
== END 2024-03-28 10:16 | disposition home or self-care (01) ==
LOC: HO.XRAY 10:15
PROVIDERS: PCP Internal Medicine; Referring Provider Physician Assistant; Visit Provider Physician Assistant
DX: M46.1 Sacroiliitis, not elsewhere classified (principal)
CPT/HCPCS: 73502; 99212

== ENCOUNTER 2024-03-28 10:15 | Outpatient (AMB) | payer MEDICAID, SELFPAY ==
--- NOTE | 2024-03-28 10:50 | A.SPINEOV_ITS ---
Intake Visit Reasons: Hip pain radiating to right leg to foot, numbness Intake Note: Mrs. Lundberg is here today c/o Rt. hip pain radiating into Rt. thigh down to foot. MRI done @ [facility]. 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 Voss, Thank you for referring Ariadne to our office today. She is a pleasant 59-year-old female who comes in today with a chief complaint of right hip & leg pain. She states this has been ongoing for the past 2 months and she feels as though it is worsening. When asked where her worst pain is she points her finger directly to the right SI joint. She reports some radiation down the posterior aspect of her left leg terminating before the knee. She denies any numbness/tingling/weakness associated with the pain. She denies any inciting incident. She reports that sitting and resting helps to alleviate her pain and standing/walking exacerbate her pain. She has tried taking ejuy-ldn-[id number] medications such as Tylenol and pain patches/creams to help alleviate the pain without significant relief. She has not as of yet pertinent physical therapy for this issue, and has not attempted injections near her right hip/sacrum. Given this, it should be noted that she has been worked up for low back pain in the past, and has had injections in her lumbar spine. In addition to this, she has a history of natural childbirth x4. PMH: Type 2 diabetes mellitus (unsure of last A1c), hypertension, hyperlipidemia, asthma, anxiety, insomnia, constipation, GERD. Social hx: Patient does not smoke, reports no substance use. Medications: Albuterol, aspirin, cyclobenzaprine, Dexilant, docusate sodium, Trulicity, estradiol, famotidine, fluticasone, hydrochlorothiazide, lidocaine, lisinopril, lorazepam, meclizine, methylcellulose, montelukast, Percocet, Trulance, zolpidem. Allergies: Ibuprofen. Physical exam: The patient has 4/5 strength with right-sided lower extremity testing (reports pain limited). The rest of her strength is 5/5 in her upper and lower extremities. No significant sensational deficits. Her reflexes are 2+ intact. The patient is able to ambulate well and rises from a seated position without difficulty. (+) right-sided SI joint compression test, (+) right-sided gaenslens, (+) right-sided Danette's, (+) right-sided Samuel finger test. (-) bilateral straight leg raise. Imaging review: MRI of the lumbar spine completed at [facility] shows a very small disc protrusion at L5-S1 causing what I would call mild right-sided foraminal stenosis at this level. Impression: Ariadne is a pleasant 59-year-old female who comes in today with a chief complaint of right hip and leg pain. She reports that this has been ongoing for the past 2 months. She denies any known inciting incident. She states that it feels as though the right-sided hip/leg pain is worsening. She does endorse intermittent radiculopathy down the back side of her right leg as well. I believe that the small disc herniation seen at L5-S1 is not very likely to be the cause of her pain. Given she is positive for 4 different types of SI joint physical exam testing on the right side, I would say it is highly likely that she has a right-sided SI joint pathology. This is also more common in women who have birthed multiple children naturally. Alternatively she may have an issue with her right hip. Thus, I will be sending her for an x-ray of her right hip in an attempt to identify the causative agent. Dependent on her x-ray imaging results I will either send her to our colleagues in Orthopedics for evaluation of her right hip, or recommend she have an SI joint injection to see if this is able to provide her with relief on that side. Thank you for allowing us to care for your patient. The total time spent with this visit with this patient was 45 minutes reviewing history, physical exam, MRI imaging review, and implementation of treatment plan or further diagnostic testing Isaak Catalan MD,PhD [facility] Orders: Orders XR hip RT min 2V Today M46.1 - Sacroiliitis, not elsewhere classified Coding Level of Care Code New Pt Level 4 (82410) Diagnoses Degenerative joint disease of sacroiliac joint M46.1
== END 2024-03-28 11:30 | disposition home or self-care (01) ==
PROVIDERS: PCP Internal Medicine; Referring Provider Physical Medicine & Rehabilitation; Visit Provider Physician Assistant
DX: M46.1 Sacroiliitis, not elsewhere classified (principal)
CPT/HCPCS: 99204

== ENCOUNTER 2024-04-14 13:26 | Outpatient (REF) | payer MEDICAID, SELFPAY | END 2024-04-14 13:27 | disposition home or self-care (01) | LOC: HO.SH 13:26 | PROVIDERS: Visit Provider Registered Nurse | DX: Z01.118 Encounter for examination of ears and hearing with other abnormal findings (principal); H90.42 Sensorineural hearing loss, unilateral, left ear, with unrestricted hearing on the contralateral side | CPT/HCPCS: 92557; 92567 ==

== ENCOUNTER 2024-06-15 10:42 | Emergency (ER) | payer MEDICAID, SELFPAY ==
--- NOTE | ~2024-06-15 | XR_ITS ---
EXAMINATION: XR CHEST 2 VIEW CLINICAL INFORMATION: Cough and fever COMPARISON: 01/04/2022 TECHNIQUE: PA and lateral views of the chest obtained. FINDINGS: The lungs are clear. There are no pleural effusions. The cardiomediastinal silhouette is normal. XR/XR chest 2V IMPRESSION: No acute cardiopulmonary disease. Electronically signed by: Jagdish Gagnon MD 06/15/2024 12:52 PM [facility]
--- NOTE | 2024-06-15 10:46 | ECG_ITS ---
Test Reason : CP Blood Pressure : / mmHG Vent. Rate : 118 BPM Atrial Rate : 118 BPM P-R Int : 168 ms QRS Dur : 066 ms QT Int : 288 ms P-R-T Axes : 014 028 023 degrees QTc Int : 403 ms Sinus tachycardia Septal infarct , age undetermined Abnormal ECG When compared to the previous EKG of No significant changes seen Referred By: Generic ED Physician Electronically Signed By:BLAZE BA MD
[2024-06-15 11:22] VITALS: BP 117/82; PULSE 118; RESP 20; TEMP 37.4; O2SAT 98; BMI 28.9
--- NOTE | 2024-06-15 11:23 | ED.GENADULT ---
HPI - General Adult General Chief complaint: Upper Respiratory Symptoms Stated complaint: CP Time Seen by Provider: 06/15/24 15:08 Source: patient, family and patient day coordinator Mode of arrival: ambulatory Limitations: language barrier History of Present Illness ED Provider: henry HPI narrative: Patient is a 59-year-old Bolivian-speaking female with history of asthma, T2 DM, hypercholesterolemia, HTN presenting to the emergency department with complaint of productive cough as well as fever and shortness of breath for the past 3 days. Also complains of right-sided lung pain. Recently traveled to [place] within the last week. Great grandson is sick with similar symptoms as well as daughter. Denies any hemoptysis. MD complaint: cough, fever Onset (ago): day(s) Pain Consistency: intermittent (with coughing) Treatments prior to arrival: none Related Data Home Medications ?Medication ?Instructions ?Recorded ?Confirmed aspirin 81 mg tablet,delayed 1 tab PO DAILY 04/16/22 01/21/24 release cholecalciferol (vitamin D3) 25 1 tab PO DAILY 04/16/22 01/21/24 mcg (1,000 unit) tablet cyclobenzaprine 10 mg tablet 10 mg PO Q8H PRN Muscle Spasm 04/16/22 01/21/24 dulaglutide 0.75 mg/0.5 mL 0.75 mg subcut TU 04/16/22 01/21/24 subcutaneous pen injector (Trulicity) estradiol 0.05 mg/24 hr weekly 1 patch transdermal MO 04/16/22 01/21/24 transdermal patch fluticasone propionate 220 1 puff inhalation BID 04/16/22 01/21/24 mcg/actuation HFA aerosol inhaler (Flovent HFA) hydrochlorothiazide 25 mg tablet 0.5 tab PO DAILY 04/16/22 01/21/24 lisinopril 40 mg tablet 1 tab PO DAILY 04/16/22 01/21/24 lorazepam 0.5 mg tablet 1 tab PO DAILY PRN Anxiety 04/16/22 01/21/24 montelukast 10 mg tablet 1 tab PO BEDTIME 04/16/22 01/21/24 oxycodone-acetaminophen 5 mg-325 1 tab PO TID PRN severe pain 04/16/22 01/21/24 mg tablet zolpidem 10 mg tablet 1 tab PO BEDTIME PRN Insomnia 04/16/22 01/21/24 Previous Rx's ?Medication ?Instructions ?Recorded albuterol sulfate 90 mcg/actuation 1 inh inhalation Q4-6H PRN 07/18/20 breath activated powder shortness of breath or wheezing #1 inhaler,sensor ea barium sulfate 2 % (w/v) oral 450 ml PO DIRECTED 1 day #900 mL 05/12/22 suspension (Readi-Cat 2) dexlansoprazole 60 mg 60 mg PO DAILY #30 caps 10/28/22 capsule,biphase delayed release (Dexilant) meclizine 25 mg tablet (Dramamine 25 mg PO TID PRN dizziness #20 tabs 02/04/23 Less Drowsy) methylcellulose (laxative) 500 mg 500 mg PO BID 30 days #60 tabs 10/15/23 tablet (Citrucel) docusate sodium 100 mg capsule 200 mg (2 x 100 mg) PO BEDTIME 01/06/24 #180 caps lidocaine 5 % topical patch 1 patch topical DAILY #15 ea 01/26/24 (Lidoderm) famotidine 20 mg tablet 20 mg PO .daily 90 days #90 tabs 05/04/24 plecanatide 3 mg tablet (Trulance) 3 mg PO DAILY #30 tabs 05/04/24 polyethylene glycol 3350 17 17 g PO DAILY #510 grams 05/09/24 gram/dose oral powder (Gavilax) albuterol sulfate 90 mcg/actuation 2 puff inhalation Q4-6H PRN 06/15/24 aerosol inhaler shortness of breath or wheezing #6.7 grams benzonatate 100 mg capsule 100 mg PO TID PRN cough #14 caps 06/15/24 prednisone 20 mg tablet 40 mg (2 x 20 mg) PO DAILY #10 tabs 06/15/24 Allergies Allergy/AdvReac Type Severity Reaction Status Date / Time ibuprofen [From Motrin] AdvReac Mild INTENSE Verified 06/15/24 11:24 STOMACH PAIN; RASH Review of Systems Review of Systems: As per HPI Yes all other systems are reviewed and are negative Constitutional: Constitutional: Reports as per HPI [facility] Past Medical History Medical History Lumbar disc herniation Chronic constipation Chronic low back pain Fibromyalgia Abdominal pain Anemia COVID-19 Diabetes mellitus, type 2 Hypercholesteremia Asthma Hypertension GERD (gastroesophageal reflux disease) Surgical History Hx laparoscopic cholecystectomy Hx of ovarian cystectomy Hx of dilation and curettage History of esophagogastroduodenoscopy (EGD) H/O colonoscopy H/O: hysterectomy History of bladder surgery Family History Family History Mother Diabetes Chronic kidney disease Maternal Grandmother Diabetes Maternal Aunt Diabetes Father CAD (coronary artery disease) Social History Social History Household Members: Spouse Housing: Apartment Are you a primary field care advocate to a significant other at home: No Do you presently have visiting nurse or other home services: Yes Alcohol intake: never Patient Tobacco Use Status: Never used Tobacco Second Hand Smoke Exposure: No Advance Directives: No Advance Directives Information Provided: No service: No Current occupational status: disabled Physical Exam ED Vital Signs: Vital Signs - 24 hr 06/15/24 11:22 06/15/24 16:27 Temperature 99.4 F 98.4 F Pulse Rate 118 H 107 H Respiratory Rate 20 20 Blood Pressure 117/82 106/65 Pulse Oximetry 98 95 Oxygen Delivery Method Room Air Room Air BMI result Body Mass Index 28.9 Vital signs have been reviewed and appear to be correct. Blood pressure normal. Heart rate tachycardic. Respiratory rate normal. Temperature normal. Oxygen saturation normal. Const General: cooperative, healthy appearing and no acute distress Orientation/consciousness: oriented to person, oriented to place, oriented to time and patient oriented x3 Limitations: no limitations [facility] Head: Yes normocephalic and Yes atraumatic Ears: external ears normal General nose exam: Normal external nose present Face and sinus: Yes face symmetric Mouth: oropharynx normal and moist mucous membranes Throat: Yes uvula midline Eyes Pupils: Equal, round and reactive pupils present Neck Neck: Yes normal visual inspection and Yes supple Resp Effort & Inspection: normal respiratory effort and able to speak in complete sentences Auscultation: clear to auscultation bilaterally Cardio Rate: tachycardic Rhythm: regular rhythm Heart sounds: S1 normal heart sound present and S2 normal heart sound present GI Palpation (GI): Soft to palpation and nontender Auscultation: normoactive bowel sounds General: Yes no CVA tenderness Back/Spine/Pelvis Back: no CVA tenderness Skin General skin exam: elasticity normal and turgor normal Neuro General: oriented to person, oriented to place, oriented to time, patient oriented x3, moves all extremities, no focal motor deficits and CN's II-XI intact bilaterally Cranial nerves: Yes Equal, round and reactive pupils present Cognition (Neuro): normal cognition Extrem General: Yes full ROM, Yes no pedal edema and Yes no calf tenderness Psych Mental Status: mental status grossly normal Affect: normal affect Thought process: Normal thought process present Course Course Course Narrative: This is a rapid medical exam performed by Salty Morris NP: Additional HPI, ROS, PE not included below will be deferred to primary provider. Patient is a 59-year-old female pmhx of asthma, T2DM, HTNpresenting with 3 days of cough, body aches, lung pain, fevers for 3 days. Plan: viral serology, CXR Medical Decision Making Medical Decision Making [facility] Narrative: Patient is a 59-year-old [place]ian-speaking female with history of asthma, T2 DM, hypercholesterolemia, HTN presenting to the emergency department with complaint of productive cough as well as fever and shortness of breath for the past 3 days. On exam patient is awake, A+Ox3, VS WNL, afebrile, normal neurological exam without focal deficits, physical exam findings as above. Given reported symptoms and physical exam findings, initial differential includes viral illness, Covid, flu, RSV, bronchitis, pneumonia, costochondritis. Low suspicion for PE but will check d-dimer. Unlikely ACS. Viral serology positive for Covid as well as RSV. X-ray chest notable for no evidence of pneumonia. My interpretation is in agreement with the radiologist's interpretation. D-dimer negative. Feel patient is stable for discharge home on prednisone, albuterol, and benzonatate. FOllow up with PCP. Return precautions discussed. Patient verbalized understanding of and agreement with plan. Differential Diagnosis Differential Diagnoses: The differential diagnosis associated with the presentation includes As per [facility] Admission/Observation Consideration of admission/observation: Escalation of care including admission/observation considered Patient would have been admitted to the hospital had their work up had any findings where hospital admission was appropriate and their clinical presentation warranted hospital admission. Lab Data [facility] Lab Attestation statement: I reviewed the patient's lab results[facility] Labs: Lab Results 06/15/24 06/15/24 06/15/24 Range/Units 12:48 15:46 16:45 D-Dimer High Sensitivty < 150 NG/ML Troponin I High Sens 7.2 D (<3.5-17.0) ng/L Influenza Type A (PCR) NEGATIVE (Negative) Influenza Type B (PCR) NEGATIVE (Negative) RSV RNA Qual (PCR) POSITIVE A (Negative) SARS-CoV-2 RNA (RT-PCR) POSITIVE A (Negative) Independent Interpretation I performed an independent interpretation of an: EKG (sinus tachycardia, rate 118 bpm, normal IN interval and QTc) and Plain X-Ray Interpretation: No evidence of pneumonia on chest x-ray Radiology Impression Discussion of test interpretation with radiology: I have reviewed the radiologist's reading. Radiologist Impression: XR/XR chest 2V IMPRESSION: No acute cardiopulmonary disease. External Record Review External record reviewed: Inpatient record, Office record and Outpatient record Prescription Management I considered prescription management with: Other Discharge Plan Discharge Clinical Impression: COVID-19, RSV (respiratory syncytial virus infection) Patient Disposition: Home, Self-Care Instructions: Respiratory Syncytial Virus (ED), COVID-19 (Coronavirus Disease 2019) (ED) Additional Instructions: You were evaluated in the emergency department today for cough, fever. Your COVID test was resulted as positive. You also tested positive for RSV which is a different respiratory virus. You should continue to isolate at home for another 3 days. You should continue to wear mask for 5 days after that. You should specifically avoid being around infants and anyone who is immunocompromised. Return to the emergency department with worsening shortness of breath, chest pain, fever that does not improve with Tylenol or ibuprofen, persistent vomiting, or any other concerning symptoms. You should follow-up with your primary care provider. Prescriptions: New albuterol sulfate 90 mcg/actuation HFA aerosol inhaler 2 puff inhalation Q4-6H PRN (Reason: shortness of breath or wheezing) Qty: 6.7 0RF prednisone 20 mg tablet 40 mg PO DAILY Qty: 10 0RF benzonatate 100 mg capsule 100 mg PO TID PRN (Reason: cough) Qty: 14 0RF No Action dexlansoprazole [Dexilant] 60 mg capsule,biphase delayed releas 60 mg PO DAILY Qty: 30 0RF Citrucel 500 mg tablet 500 mg PO BID 30 Days Qty: 60 5RF docusate sodium 100 mg capsule 200 mg PO BEDTIME Qty: 180 1RF famotidine 20 mg tablet 20 mg PO .daily 90 Days Qty: 90 1RF Rx Instructions: at bedtime Trulance 3 mg tablet 3 mg PO DAILY Qty: 30 2RF polyethylene glycol 3350 [Gavilax] 17 gram/dose powder 17 g PO DAILY Qty: 510 2RF albuterol sulfate 90 mcg/actuation aero powdr breath act w/sensor 1 inh inhalation Q4-6H PRN (Reason: shortness of breath or wheezing) Qty: 1 0RF estradiol 0.05 mg/24 hr patch weekly 1 patch transdermal MO aspirin 81 mg tablet,delayed release (DR/EC) 1 tab PO DAILY oxycodone-acetaminophen 5-325 mg tablet 1 tab PO TID PRN (Reason: severe pain) hydrochlorothiazide 25 mg tablet 0.5 tab PO DAILY zolpidem 10 mg tablet 1 tab PO BEDTIME PRN (Reason: Insomnia) lisinopril 40 mg tablet 1 tab PO DAILY Trulicity 0.75 mg/0.5 mL pen injector 0.75 mg subcut TU lorazepam 0.5 mg tablet 1 tab PO DAILY PRN (Reason: Anxiety) montelukast 10 mg tablet 1 tab PO BEDTIME fluticasone propionate [Flovent HFA] 220 mcg/actuation HFA aerosol inhaler 1 puff INHALATION BID cholecalciferol (vitamin D3) 25 mcg (1,000 unit) tablet 1 tab PO DAILY cyclobenzaprine 10 mg tablet 10 mg PO Q8H PRN (Reason: Muscle Spasm) meclizine [Dramamine Less Drowsy] 25 mg tablet 25 mg PO TID PRN (Reason: dizziness) Qty: 20 0RF lidocaine [Lidoderm] 5 % adhesive patch,medicated 1 patch topical DAILY Qty: 15 0RF Rx Instructions: leave on most painful area for up to 12 hrs Readi-Cat 2 2 % (w/v) suspension 450 ml PO DIRECTED 1 Days Qty: 900 0RF Print Language: Bolivian
[2024-06-15 13:31] LABS: Influenza A PCR NEGATIVE (Negative); Influenza B PCR NEGATIVE (Negative); Resp Syncy Virus RNA Qual PCR POSITIVE (Negative); SARS COV2 PCR INHOUSE POSITIVE (Negative)
[2024-06-15 16:12] LABS: Troponin-I High Sensitivity 7.2 ng/L (<3.5-17.0)
[2024-06-15 16:27] VITALS: BP 106/65; PULSE 107; RESP 20; TEMP 36.9; O2SAT 95
[2024-06-15 17:10] LABS: D Dimer High Sensitivity < 150 NG/ML
[2024-06-15 17:59] VITALS: BP 106/65; PULSE 107; RESP 20; TEMP 36.9; O2SAT 95
== END 2024-06-15 17:59 | disposition home or self-care (01) ==
PROVIDERS: Registered Nurse Emergency; Emergency Provider Internal Medicine; PCP Internal Medicine
DX: U07.1 COVID-19 (principal); B97.4 Respiratory syncytial virus as the cause of diseases classified elsewhere; R06.02 Shortness of breath; E11.9 Type 2 diabetes mellitus without complications; I10 Essential (primary) hypertension; E78.00 Pure hypercholesterolemia, unspecified; K21.9 Gastro-esophageal reflux disease without esophagitis; J45.909 Unspecified asthma, uncomplicated; Z79.82 Long term (current) use of aspirin; Z79.85 Long-term (current) use of injectable non-insulin antidiabetic drugs; Z79.899 Other long term (current) drug therapy
CPT/HCPCS: 0241U; 36415; 71046; 84484; 85379; 93005; 99283; 99284

== ENCOUNTER → 2024-06-15 10:46 | Outpatient (BNV) | payer MEDICAID, SELFPAY | PROVIDERS: Emergency Provider Internal Medicine; PCP Internal Medicine; Visit Provider Internal Medicine Cardiovascular Disease | DX: R94.31 Abnormal electrocardiogram [ECG] [EKG] (principal) | CPT/HCPCS: 93010 ==

== ENCOUNTER 2024-11-25 10:01 | Outpatient (AMB) | payer MEDICAID, SELFPAY ==
--- NOTE | 2024-11-25 10:10 | MHC.OFFVIS ---
Vital Signs 11/25/24 10:17 Height 5 ft 2 in Weight 160 lb BMI 29.3 BP 124/69 Blood Pressure Location Lt brachial Position Sitting Pulse 70 Pulse Oximetry (%) 98 Oxygen Delivery Method Room Air Intake Visit Reasons: med refill/ thea adama 2022 Intake Note: Patient complex follow up for Diverticulitis of sigmoid colon and med refill. Patient cc: abdominal pain, nauseas, and acid reflux on and off. Denies any other GI issues. Fourdrinier Operator Required: Yes Fourdrinier Operator Name: [id number] Accompanied by: Self / Same As Patient Allergies ibuprofen [From Motrin] Adverse Reaction (Mild, Verified 11/25/24 10:11) INTENSE STOMACH PAIN; RASH Medication List - Last Reconciled 11/25/24 by Praveena Ham CNP albuterol sulfate 90 mcg/actuation 1 inh inhalation Q4-6H PRN albuterol sulfate 90 mcg/actuation 2 puffs inhalation Q4-6H PRN aspirin 1 tab PO DAILY cholecalciferol (vitamin D3) 1 tab PO DAILY cyclobenzaprine 10 mg PO Q8H PRN docusate sodium 200 mg (2 x 100 mg) PO BEDTIME estradiol 1 patch transdermal MO famotidine 20 mg PO BEDTIME 90 days fluticasone propionate 220 mcg/actuation (Flovent HFA) 1 puff inhalation BID hydrochlorothiazide 0.5 tabs PO DAILY lidocaine 5% (Lidoderm) 1 patch topical DAILY lisinopril 1 tab PO DAILY lorazepam 1 tab PO DAILY PRN meclizine (Dramamine Less Drowsy) 25 mg PO TID PRN methylcellulose (laxative) (Citrucel) 500 mg PO BID 30 days montelukast 1 tab PO BEDTIME oxycodone-acetaminophen 5-325 mg 1 tab PO TID PRN plecanatide (Trulance) 3 mg PO DAILY polyethylene glycol 3350 (Gavilax) 17 grams PO DAILY zolpidem 1 tab PO BEDTIME PRN HPI HPI med refill/ thea galan 2022: Details: Patient is a 59-year-old female with PMH of hypertension, hyperlipidemia, DMII, asthma, fibromyalgia, anemia and GERD. Last visit with RAGHAV Roblero 08/07/2022 for follow-up after colonoscopy. Since her last visit in August 2022, Ariadne has been experiencing stomach pain on the left upper ab quadrant, which she describes as occurring every two weeks or sporadically. The pain is accompanied by nausea each time but no fever. Ariadne reports that her appetite fluctuates with episodes of pain. Her constipation has improved slightly with the use of medications, but she still experiences some discomfort. She takes medication as needed when pain is present and does not feel significant relief. Her bowel movements occur 3-4 times a day mainly due to Miralax usage, and her stools often appear constipated. The pain seems to lessen after bowel movements. She describes her stools as mostly type 1 on the [place] Stool Chart, with occasional type 4. Patient denies: fever/chills, vomiting, pyrosis, regurgitation,dysphasia, unintentional wt loss, or melena/hematochezia. ? [facility] Medical History (Updated 11/30/24 @ 09:58 by Praveena Ham CNP) Lumbar disc herniation Chronic constipation Chronic low back pain Fibromyalgia Abdominal pain Anemia COVID-19 Diabetes mellitus, type 2 Hypercholesteremia Asthma Hypertension GERD (gastroesophageal reflux disease) Surgical History Hx laparoscopic cholecystectomy Hx of ovarian cystectomy Hx of dilation and curettage History of esophagogastroduodenoscopy (EGD) H/O colonoscopy H/O: hysterectomy History of bladder surgery Family History Mother Diabetes Chronic kidney disease Maternal Grandmother Diabetes Maternal Aunt Diabetes Father CAD (coronary artery disease) Social History Household Members: Spouse Housing: Apartment Are you a primary palliative care physician to a significant other at home: No Do you presently have visiting nurse or other home services: Yes Alcohol intake: never Patient Tobacco Use Status: Never used Tobacco Second Hand Smoke Exposure: No service: No Current occupational status: disabled Review of Systems Const Reports as per HPI ENT Reports as per HPI Card Reports as per HPI Resp Reports as per HPI GI Reports as per HPI Reports as per HPI Physical Exam Vital Signs: Last Vital Signs Pulse 70 11/25/24 10:17 BP 124/69 11/25/24 10:17 Pulse Ox 98 11/25/24 10:17 Oxygen Delivery Method Room Air 11/25/24 10:17 BMI result Body Mass Index 29.3 Const General: healthy appearing, no acute distress and well developed Nutritional Appearance: well nourished Orientation/consciousness: patient oriented x3 HEENT Head: Yes normal to inspection, Yes normocephalic and Yes atraumatic Face and sinus: Yes normal facial exam Eyes General: appearance normal, both eyes and all related structures Neck Neck: Yes normal visual inspection Resp Effort & Inspection: normal respiratory effort, able to speak in complete sentences, no tracheal deviation and symmetric chest movement Auscultation: clear to auscultation bilaterally Cardio Jugular venous distension: no JVD Rate: regular rate Rhythm: regular rhythm Heart sounds: S1 normal heart sound present, S2 normal heart sound present, no gallops and no murmurs GI Inspection: Yes normal to inspection, No distended and Yes obesity Palpation (GI): Soft to palpation, not firm, nontender and No hepatosplenomegaly present Auscultation: normal bowel sounds Neuro General: patient oriented x3 Gait exam (Neuro): Normal gait present Psych Appearance: grossly normal Mental Status: mental status grossly normal Speech and movement: Normal speech and movement present Affect: normal affect Attitude: cooperative Thought process: Normal thought process present Thought content: Normal thought content present Insight: Good insight present (Psych) Judgement: Good judgement present (Psych) Results Reviewed Results Reviewed: Operative Note Date of Service: 07/22/22 Narrative: Operative Information Procedure Description: Colonoscopy Indication: hx of dvierticulitis Anesthesia: MAC COLONOSCOPY Instrument: Olympus variable stiffness pediatric scope 190L Colonoscopy Procedure: The patient was placed in the left lateral decubitis position and pre-procedure medications were administered. After a digital rectal examination of the ano-rectum, the video colonoscope was inserted into the rectum and advanced through the colon to the cecum/TI. The colonoscope was slowly withdrawn in a retrograde panoramic fashion and the colon mucosa was carefully examined including a retroflexed view of the rectum. Findings and interventions are described below. Procedure Difficulty: moderate due to tight rectosigmoid angle Findings: Terminal Ileum-normal Cecum:normal Ascending Colon: normal Transverse Colon -normal Descending Colon:normal Sigmoid Colon: mild diverticulosis Rectum: Retroflexion with small internal hemorrhoids, grade I Anorectum - normal Colon preparation: [place] Bowel Preparation Scale Right colon; 2 Transverse colon: 2 Left colon; 1 Impression and Post Procedure Diagnosis: internal hemorrhoids diverticular disease tight rectosigmoid angle, fair prep Plan: High fiber diet leaflet Avoid straining at stool, epsom salts and sitz bath, anusol supps or cream Repeat Colonoscopy in 5 years due to fair prep or earlier if clinically indicated Assessment & Plan Assessment & Plan (1) Chronic constipation: Comment: Jul 28' complete COLO-internal hemorrhoids, diverticular disease (sigmoid), and a tight rectosigmoid angle were noted, with bowel prep rated as fair. Code(s): K59.09 - Other constipation Category: Medical Plan: The patient?s symptoms are suspected to be drug-induced, likely related to oxycodone use. We reviewed the 2022 colonoscopy results, which revealed mild diverticulosis in the sigmoid colon. Her next colonoscopy is due in 2027; however, she understands that earlier evaluation may be recommended if clinically indicated. We are reassured, as there are no current alarm features. We advised her to begin a daily bowel regimen instead of using current medications on an as-needed basis. She is agreeable to this change and understands the importance of reporting any loose stools or new symptoms. Refills sent. If her symptoms persist despite these adjustments, further evaluation, including imaging, will be considered Plan Follow-up in 8 weeks or sooner as needed. Time: I spent a total of 50 minutes on the date of encounter which includes: Preparing to see the patient (reviewed previous documentation, test results and medical history) Performing a medically appropriate exam and/or evaluation Ordering medications, tests, and procedures Documenting clinical information in the health record Medications: Refilled polyethylene glycol 3350 (Gavilax) 17 grams PO DAILY 476 grams 2RF methylcellulose (laxative) (Citrucel) 500 mg PO BID 30 days 180 tabs 3RF plecanatide (Trulance) 3 mg PO DAILY 30 tabs 3RF Coding Level of Care Code Established Pt Est Pt Level 4 (36372) Patient Type Established Diagnoses Chronic constipation K59.09
--- OUTSIDE RECORDS SUMMARY | 2024-11-25 10:16 | XMS_ITS | Encounter Summary ---
Author Organization [employer] Address [address] [place] [address] [address] [place] [address] Care Team Providers Care Educational Program Director Name Role Phone Kathleen Nieto MD Primary Care Provide r Reason for Visit * Reason Onset Date Comments Med Refill 09/22/2022 Encounter Details Date Type Department Care Team (Late st Contact Info) Description 09/22/2022 Telephone [facility] [address] [place] [address] [phone] Kathleen Nieto MD [address] [place] [address] Med Refill Social History Tobacco Use Types Packs/Day Years Used Date Smoking Tobacco: Never Smokeless Tobacco: Never Comments Unknown Sex and Gender Information Value Date Recorded Sex Assigned at Female 05/05/2022 10:15 AM EDT Legal Sex Female 10:15 AM EDT Gender Identity Female 05/05/2022 10:15 AM EDT Sexual Orientation Straight 05/05/2022 10 :15 AM EDT documented as of this encounter Miscellaneous Notes * Telephone Encounter - Vaibhav Aleman - 09/22/2022 9:56 AM EDT Tc from pt requesting med refill Oxycodone 5 mg documented in this encounter Plan of Treatment Upcoming Encounters Date Type Department Care Team (Late st Contact Info) Description 11/29/2024 11:00 AM EDT Office Visit [facility] [address] [place] [address] [phone] 01/02/2025 11:30 AM EDT Office Visit [facility] [address] [place] [address] Kathleen Nieto MD [address] [place] [address] documented as of this encounter Visit Diagnoses Not on filedocumented in this encounter Care Teams Educational Program Director Relationship Specialty Start Date End Date Kathleen Nieto MD [address] [place] [id number] PCP - General Internal Medicine 09/12/22 documented as of this encounter
[2024-11-25 10:17] VITALS: BP 124/69; PULSE 70; O2SAT 98; BMI 29.3
== END 2024-11-25 11:04 | disposition home or self-care (01) ==
LOC: HO.HGI 10:01
PROVIDERS: PCP Internal Medicine; Visit Provider Nurse Practitioner Family
DX: K59.09 Other constipation (principal)
CPT/HCPCS: 99214

== ENCOUNTER → 2024-11-25 10:01 | Outpatient (BNVA) | payer MEDICAID, SELFPAY | PROVIDERS: PCP Internal Medicine; Visit Provider Nurse Practitioner Family | DX: K59.09 Other constipation (principal) | CPT/HCPCS: 99212 ==

== ENCOUNTER 2025-01-17 08:56 | Outpatient (REF) | payer MEDICAID, SELFPAY ==
--- OUTSIDE RECORDS SUMMARY | 2025-01-17 09:13 | XMS_ITS | Clinical Summary ---
Author Organization [facility] ity Address [address] [place] [address] Care Team Providers Care Aluminum Shingle Roofer Name Role Phone Minerva Negro MD Primary Care Provider Social History Tobacco Use Types Packs/Day Years Used Date Smoking Tobacco: Never Assessed Comments Unknown Sex and Gender Information Value Date Recorded Sex Assigned at Not on file Legal Sex Female 1:00 AM EST Gender Identity Not on file Sexual Orientation Not on file Plan of Treatment Health Maintenance Due Date Last Done Comments Breast Cancer Screening 1965 DTaP,Tdap,and Td Vaccines (1 - Tdap) 01/11/1984 Cervical Cancer Screening: P ap Smear 1986 Pneumococcal Vaccine: 50+ Ye ars (1 of 1 - PCV) 2015 Zoster Vaccines (1 of 2) 2015 COVID-19 Vaccine ( - 2023-2 5 season) 2024 Influenza Vaccine (#1) 2025 RSV Immunization Adult Patie nts (1 - 1-dose 75+ series) 01/11/2040 HIB Vaccines Aged Out No longer eligi ble based on patient's age to complete this topic HPV Vaccines Aged Out No longer eligi ble based on patient's age to complete this topic Hepatitis A Vaccines Aged Out No long er eligible based on patient's age to complete this topic Hepatitis B Vaccines Aged Out No long er eligible based on patient's age to complete this topic IPV Vaccines Aged Out No longer eligi ble based on patient's age to complete this topic MMR Vaccines Aged Out No longer eligi ble based on patient's age to complete this topic Meningococcal ACWY Vaccine Aged Out N o longer eligible based on patient's age to complete this topic Meningococcal B Vaccine Aged Out No l onger eligible based on patient's age to complete this topic RSV Immunization Patients Un natalee 20 months Aged Out No longer eligible b ased on patient's age to complete this topic Varicella Vaccines Aged Out No longer eligible based on patient's age to complete this topic Care Teams Aluminum Shingle Roofer Relationship Specialty Start Date End Date Minerva Negro MD [address] [place] [address] JOSE Evans PCP - General Internal Medicine 05/03/18
--- OUTSIDE RECORDS SUMMARY | 2025-01-17 09:13 | XMS_ITS | Encounter Summary ---
Author Organization [employer] Address [address] [place] [address] [address] [place] [address] Care Team Providers Care Farm Crew Leader Name Role Phone Kathleen Nieto MD Primary Care Provide r Reason for Visit * Reason Onset Date Comments Med Refill 09/22/2022 Encounter Details Date Type Department Care Team (Late st Contact Info) Description 09/22/2022 Telephone [facility] [address] [place] [address] [phone] Kathleen Nieto MD [address] [place], [place] [phone] Med Refill Social History Tobacco Use Types [...] Care Team (Late st Contact Info) Description 01/24/2025 11:00 AM EDT Office Visit [facility] [address] [place] [address] [phone] documented as of this encounter Visit Diagnoses Not on filedocumented in this encounter Care Teams Farm Crew Leader Relationship Specialty Start Date End Date Kathleen Nieto MD [address] [place] [address] PCP - General Internal Medicine 09/12/22 documented as of this encounter
[2025-01-17 11:15] LABS: MANUAL DIFF FLAG NO
[2025-01-17 11:25] LABS: Hematocrit 41.3 % (37.0-47.0); Hemoglobin 13.6 g/dl (12.0-16.0); Imm Gran Abs Auto 0.02 X10*3/uL (0.00-0.03); Imm Gran Pct Auto 0.3 % (0.0-0.4); Lymphocytes Absolute Auto 1.9 X10*3/uL (1.2-4.9); Mean Corpuscular HGB Conc 32.9 g/dl (31.0-35.0); Mean Corpuscular Hemoglobin 26.7 pg (27.0-33.0); Mean Corpuscular Volume 81.0 fL (80.0-98.0); NRBC Abs Auto 0.000 X10*3/uL (0.0-0.012); NRBC Pct Auto 0.0 /100WBC (0.0-0.2); Platelet Count 378 X10*3/uL (160-400); Red Blood Count 5.10 X10*6/uL (4.20-5.50); White Blood Count 6.3 X10*3/uL (4.8-10.8)
[2025-01-17 12:05] LABS: Alanine Aminotransferase 40 U/L (0-31); Albumin Level 4.8 g/dL (3.5-5.0); Alkaline Phosphatase 60 U/L (39-117); Anion Gap 12 (12-20); Aspartate Amino Transferase 45 U/L (5-31); Blood Urea Nitrogen 22 mg/dL (9-16); Calcium 10.1 mg/dL (8.4-10.2); Carbon Dioxide 28 mmol/L (22-29); Chloride 104 mmol/L (96-108); Cholesterol 189 mg/dL (<200); Estimated Glomerular Filt Rate 45; HDL Cholesterol 48 mg/dL (>40); Potassium 3.6 mmol/L (3.3-5.1); Sodium 140 mmol/L (135-145); Total Protein 7.7 g/dL (6.5-8.0); Triglycerides 166 mg/dL (<150)
[2025-01-17 12:15] LABS: HIV Num 1 0.05 S/CO (0.00-0.99); ~HepC Num1 0.13 S/CO (0.00-0.79); ~Hepatitis C Antibody Nonreactive (Nonreactive)
[2025-01-17 12:30] LABS: Folate 15.5 ng/mL (> or = 4.0); Vitamin B12 305 pg/mL (200-900)
== END 2025-01-17 08:57 | disposition home or self-care (01) ==
LOC: HO.HHCL 08:56
PROVIDERS: PCP Internal Medicine; Visit Provider Internal Medicine
DX: E11.65 Type 2 diabetes mellitus with hyperglycemia (principal); Z11.4 Encounter for screening for human immunodeficiency virus [HIV]; Z11.59 Encounter for screening for other viral diseases
CPT/HCPCS: 36415; 80053; 80061; 82043; 82306; 82570; 82607; 82746; 84443; 85025; 86592; 86803; 87389

== ENCOUNTER 2025-04-11 12:45 | Outpatient (AMB) | payer MEDICAID, SELFPAY ==
[2025-04-11 12:48] VITALS: BP 105/65; PULSE 79; O2SAT 98; BMI 28.7
--- NOTE | 2025-04-11 12:48 | A.OFFVIS_ITS ---
Vital Signs 04/11/25 12:48 Height 5 ft 2 in Weight 157 lb BMI 28.7 BP 105/65 Blood Pressure Location Lt brachial Position Sitting Pulse 79 Pulse Oximetry (%) 98 Oxygen Delivery Method Room Air Intake Visit Reasons: F/U Constipation PT R/S from 01/24/25 Intake Note: Patient follow up for chronic constipation Patient cc: abdominal pain on and off, constipation is much better with new medication, and poor appetite, denies any other GI issues. Embroidery Patternmaker Required: No Accompanied by: Self / Same As Patient Allergies ibuprofen (From Motrin) Adverse Reaction (Mild, Verified 04/11/25 12:48) INTENSE STOMACH PAIN; RASH HPI HPI F/U Constipation PT R/S from 01/24/25: Details: Patient is a 59-year-old female with PMH of hypertension, hyperlipidemia, DMII, asthma, fibromyalgia, anemia in GERD. Last visit with RAGHAV Roblero 08/07/2022 for follow-up after colonoscopy. F/u for chronic constipation management. Pt notes improvement in constipation since previous visit, utilizing Gavilax powder every two days PRN if no BM is noted. Pt adheres to fiber supplement and TrueLance regimen as instructed but does not take osmotic laxative daily, instead as needed. Abdominal pain reported as less frequent and milder; tends to improve after BM. Reports feeling better generally, with constipation more controlled than prior to current regimen. No episodes of hematochezia, fever, N/V, or other acute sx. No recent hospitalizations; prior episode of colitis/diverticulitis in 2021 with hospitalization. [facility] Medical History (Updated 04/11/25 @ 13:25 by Praveena Ham CNP) Elevated LFTs Abnormal liver function test HELLP syndrome (HELLP), unspecified trimester Lumbar disc herniation Chronic constipation Chronic low back pain Fibromyalgia Abdominal pain Anemia COVID-19 Diabetes mellitus, type 2 Hypercholesteremia Asthma Hypertension GERD (gastroesophageal reflux disease) Surgical History Hx laparoscopic cholecystectomy Hx of ovarian cystectomy Hx of dilation and curettage History of esophagogastroduodenoscopy (EGD) H/O colonoscopy H/O: hysterectomy History of bladder surgery Family History Mother Diabetes Chronic kidney disease Maternal Grandmother Diabetes Maternal Aunt Diabetes Father CAD (coronary artery disease) Social History Household Members: Spouse Housing: Apartment Are you a primary resident care aide to a significant other at home: No Do you presently have visiting nurse or other home services: Yes Alcohol intake: never Patient Tobacco Use Status: Never used Tobacco Second Hand Smoke Exposure: No service: No Current occupational status: disabled Review of Systems Const Reports as per HPI ENT Reports as per HPI Card Reports as per HPI Resp Reports as per HPI GI Reports as per HPI Reports as per HPI Physical Exam Vital Signs: Last Vital Signs Pulse 79 04/11/25 12:48 BP 105/65 04/11/25 12:48 Pulse Ox 98 04/11/25 12:48 Oxygen Delivery Method Room Air 04/11/25 12:48 BMI result Body Mass Index 28.7 Const General: healthy appearing, no acute distress and well developed Nutritional Appearance: average body habitus Orientation/consciousness: patient oriented x3 HEENT Head: Yes normal to inspection, Yes normocephalic and Yes atraumatic Face and sinus: Yes normal facial exam Eyes General: appearance normal, both eyes and all related structures Neck Neck: Yes normal visual inspection Resp Effort & Inspection: normal respiratory effort, able to speak in complete sentences, no tracheal deviation and symmetric chest movement Cardio Jugular venous distension: no JVD GI Inspection: Yes normal to inspection, No distended and Yes obesity Palpation (GI): Soft to palpation, not firm, nontender and No hepatosplenomegaly present Auscultation: normal bowel sounds Neuro General: patient oriented x3 Gait exam (Neuro): Normal gait present Psych Appearance: grossly normal Mental Status: mental status grossly normal Speech and movement: Normal speech and movement present Affect: normal affect Attitude: cooperative Thought process: Normal thought process present Thought content: Normal thought content present Insight: Good insight present (Psych) Judgement: Good judgement present (Psych) Assessment & Plan Assessment & Plan (1) Chronic constipation: Comment: 07/22/22 Colonoscopy complete with fair prep- internal hemorrhoids, diverticular disease, tight rectosigmoid angle. Repeat in 5 years due to fair prep (2027) Code(s): K59.09 - Other constipation Category: Medical Plan: Improving; Sx improved but suboptimal daily compliance with osmotic agent. No acute or red flag sx. Additional Testing: - None specific for constipation at this time. Medications: - Continue fiber tablets (maintain 90-day supply + 3 refills). - Continue Gavilax powder PRN; encourage routine daily use if BM regularity declines. - Continue TrueLance; refilled 30 days w/ 6 refills (insurance limitation). Lifestyle Recommendations: - Reinforce high-fiber diet, adequate hydration. - Educated on identifying and reporting warning sx (hematochezia, fever, severe abd pain). Referrals / Coordination of Care: - None indicated at present. Follow-Up Plan: - RTC in 6 mo unless sx worsen; consider annual f/u if stable. Monitor BM frequency and abd pain; advise earlier contact if red flag sx. (2) Elevated LFTs: Code(s): R79.89 - Other specified abnormal findings of blood chemistry Category: Medical Plan: Mild elevation, non-fasting; no liver-related sx. Normal liver findings on 01/[address] Need fasting re-check. Additional Testing: - Repeat LFTs (fasting) - order placed. Medications: - None specifically indicated for LFTs at this time. Lifestyle Recommendations: - NPO except water x8h prior to labs. Referrals / Coordination of Care: - None unless persistent elevation or other findings. Follow-Up Plan: - Advise pt: no news = WNL labs; office will call if abnormal. (3) Diverticulitis of sigmoid colon: Code(s): K57.32 - Diverticulitis of large intestine without perforation or abscess without bleeding Category: Medical Plan: Stable. No acute sx, no hx of recurrent flares since 05/2022.Maintained constipation control to minimize risk of diverticulitis. Additional Testing: - Repeat colonoscopy due in 2027 (5 years from 2022 exam). Medications: - See above. Lifestyle Recommendations: - Emphasize constipation management, high-fiber diet. Referrals / Coordination of Care: - None at present. Follow-Up Plan: - Await routine colonoscopy interval or sooner if clinically indicated. Plan Follow-up in 6 months or sooner as needed Time: I spent a total of 25 minutes on the date of encounter which includes: Preparing to see the patient (reviewed previous documentation, test results and medical history) Performing a medically appropriate exam and/or evaluation Ordering medications, tests, and procedures Documenting clinical information in the health record Orders: Orders Liver Panel Today R79.89 - Other specified abnormal findings of blood chemistry Medications: Changed From methylcellulose (laxative) (Citrucel) 500 mg PO BID 30 days 180 tabs 3RF To methylcellulose (laxative) (Citrucel) Take one tablet twice daily 500 mg PO BID 180 tabs 3RF 30 days Refilled plecanatide (Trulance) 3 mg PO DAILY 30 tabs 6RF Coding Level of Care Code Established Pt Est Pt Level 3 (43126) Patient Type Established Diagnoses Chronic constipation K59.09 Elevated LFTs R79.89 Diverticulitis of sigmoid colon K57.32
--- OUTSIDE RECORDS SUMMARY | 2025-04-11 15:36 | XMS_ITS | Encounter Summary ---
Author Organization [employer] Address [address] [facility] [address] [place] [address] Care Team Providers Care Cartridge Loader Name Role Phone Kathleen Nieto MD Primary Care Provide r Encounter Details Date Type Department Care Team (Late st Contact Info) Description 11/12/2022 Orders Only [facility] [address] [place] [address] [phone] Elva Hernández LPN Social History Tobacco Use Types Packs/Day Years Used Date Smoking Tobacco: Never Passive Smoke Exposure: Never Smokeless Tobacco: Never Depression Answer Date Recorded Patient Health Questionnaire-9 Score 0 10/30/2022 Depression Answer Date Recorded Patient Health Questionnaire-2 Score 0 10/30/2022 Comments Unknown Sex and Gender Information Value Date Recorded Sex Assigned at Female 05/05/2022 10:15 AM EDT Legal Sex Female 10:15 AM EDT Gender Identity Female 05/05/2022 10:15 AM EDT Sexual Orientation Straight 05/05/2022 10 :15 AM EDT COVID-19 Exposure Response Date Recorded In the last 10 days, have she u been in contact with someone who was confirmed or suspected to have Coronavirus/COVID-19? No / Unsure 10/30/2022 1:23 PM EDT documented as of this encounter Plan of Treatment Upcoming Encounters Date Type Department Care Team (Late st Contact Info) Description 04/18/2025 3:15 PM EDT Telemedicine [facility] [address] [place], [place] [phone] Kathleen Nieto MD [address] [place], [place] [phone] 04/25/2025 1:00 PM EDT Nutrition [facility] [address] [place] [address] [place] [address] 05/30/2025 11:00 AM EST Office Visit [facility] [address] [place] [address] documented as of this encounter Visit Diagnoses Not on filedocumented in this encounter Additional Health Concerns Assessment Noted Time PHQ-9 Depression Total Score: 0 10/31/19 1:55 PM EDT documented as of this encounter Care Teams Cartridge Loader Relationship Specialty Start Date End Date Kathleen Nieto MD [address] [place] [address] PCP - General Internal Medicine 09/12/22 documented as of this encounter
--- OUTSIDE RECORDS SUMMARY | 2025-04-11 15:36 | XMS_ITS | Clinical Summary ---
Author Organization [employer] Address [address] [facility] [address] [place] [address] Care Team Providers Care Relocation Director Name Role Phone Kathleen Nieto MD Primary Care Provide r Allergies Active Allergy Reactions Criticality Noted Date Comments Ibuprofen 06/04/2012 Medications * This document contains information received from the source organization and may not represent a complete record from that organization. zolpidem (Ambien) 10 MG tablet Take 1 tablet by mouth at bed time. 017 Active sennosides (Senokot) 8.6 MG tablet 1 tablet every 12 (twelve) hours if needed. Active naloxone (Narcan) 4 mg/0.1 mL nasal spray Administer 0.1 mL into affected nostril(s). Active psyllium (Metamucil Smooth Texture) 58.6 % powder use as directed on bottle, 1tsp once daily, increase over time to 3tsp daily, may increase up to 3TBL/d if needed, but over many days Active LORazepam (Ativan) 0.5 MG tablet take 1 tablet by oral route 2 times every day as needed Active plecanatide (Trulance) tablet tablet Take 1 tablet by mouth at bed time. Active Blood Glucose Monitoring Suppl (FreeStyle glucose monitoring) kit 1 each if needed. Active ondansetron (Zofran) 4 MG tabletIndications :Nausea and vomiting, unspecified vomiting type Take 2 tablets (8 mg) by mouth every 8 (eight) hours if needed for nausea or vomiting. 30 tablet 023 Active albuterol (Ventolin HFA) 108 (90 Base) MCG/ACT inhaler inhale 2 puff by inhalation route every 4 - 6 hours as needed 18 g 3 024 Active FreeStyle lancets TO TEST BLOOD SUGAR TWICE DAILY 100 each 11 024 Active lidocaine (Lidoderm) 5 % patchIndications: Lumbar radiculopathy,Lef t hip pain APPLY 1 PATCH TOPICALLY IN THE MORNING. REMOVE AND DISCARD PATCH WITHIN 12 HOURS OR DIRECTED BY MD. 30 patch 1 024 Active sodium chloride 0.9% (SwabFlush Saline Flush) 0.9 % flushIndications: Pharyngitis, unspecified etiology Use as instructed 100 mL 11 024 Active metFORMIN XR (Glucophage-XR) 500 MG 24 hr tabletIndications :Type 2 diabetes mellitus with hyperlipidemia (HCC) TAKE 2 TABLETS BY MOUTH TWICE A DAY 360 tablet 3 025 Active diclofenac sodium 3 % gelIndications:Lise mbar radiculopathy,Chr onic right hip pain Apply topically 2 times daily. 100 g 1 025 Active FREESTYLE LITE test stripIndications: Type 2 diabetes mellitus with hyperlipidemia (HCC) TEST BLOOD SUGARS TWICE A DAY 100 strip 11 025 Active Aspirin Low Dose 81 MG EC tablet TAKE 1 TABLET (81 MG) BY MOUTH IN THE MORNING 90 tablet 3 025 Active montelukast (Singulair) 10 MG tablet TOME 1 TABLETA POR VIA ORAL TODOS LOS MARTIN EN LA NOCHE 90 tablet 3 025 Active hydroCHLOROthiazi de 12.5 MG tabletIndications :Essential hypertension TAKE 1 TABLET BY MOUTH EVERY MORNING 90 tablet 3 025 Active Blood Glucose Monitoring Suppl (FreeStyle Mabie Lite) w/Device kitIndications:Ty pe 2 diabetes mellitus without complication, without long-term current use of insulin ([facility]) Use to test blood sugar 2 times daily 1 kit 025 Active albuterol (Ventolin HFA) 108 (90 Base) MCG/ACT inhaler INHALE 2 PUFFS BY MOUTH EVERY 4 TO 6 HOURS NEEDED 18 g 5 025 Active empagliflozin (Jardiance) 25 MGIndications:Typ e 2 diabetes mellitus with hyperglycemia, without long-term current use of insulin ([facility]) Take 1 tablet (25 mg) by mouth Once per day. 30 tablet 025 2025 Active SITagliptin (Januvia) 50 MG tabletIndications :Type 2 diabetes mellitus with hyperglycemia, without long-term current use of insulin (HCC) Take 1 tablet (50 mg) by mouth Once per day. 30 tablet 025 2025 Active fenofibrate (Triglide) 160 MG tabletIndications :Hypertriglycerid emia TAKE 1 TABLET BY MOUTH EVERY DAY 90 tablet 3 025 Active atorvastatin (Lipitor) 20 MG tablet TOME CECILIA TABLETA POR VIA ORAL TODOS LOS MARTIN PARA CHOLESTEROL 90 tablet 3 025 Active lisinopril 40 MG tablet TOME CECILIA TABLETA TODOS LOS MARTIN EN LA MANANA 90 tablet 3 025 Active cholecalciferol (Vitamin D3) 25 MCG (1000 UT) tabletIndications :Vitamin D deficiency TAKE 1 TABLET BY MOUTH EVERYDAY 90 tablet 1 025 Active cyclobenzaprine (Flexeril) 10 MG tabletIndications :Lumbar radiculopathy TOME CECILIA TABLETA POR VIA ORAL 3 TIMES DAILY 90 tablet 1 025 Active oxyCODONE-acetami nophen (Percocet) 5-325 MG tabletIndications :Lumbar radiculopathy Take 1 tablet by mouth every 8 (eight) hours if needed for severe pain for up to [address] while taking this medication Do not start before April 01, 2025. 84 tablet 025 2024 Active estradiol (Climara) 0.05 MG/24HRIndication s:Menopause APLIQUE UN PARCHE BY TRANSDERMAL ROUTE EVERY WEEK 12 patch 1 Active Arnuity Ellipta 200 MCG/ACT inhaler INHALE 1 PUFF BY MOUTH ONCE A DAY 30 each 3 025 Active estradiol (Climara) 0.05 MG/24HRIndication s:Menopause APLIQUE UN PARCHE BY TRANSDERMAL ROUTE EVERY WEEK 12 patch 5 024 2024 Discontinued fluticasone furoate (Arnuity Ellipta) 200 MCG/ACT inhaler INHALE 1 PUFF BY MOUTH ONCE A DAY 30 each 3 024 2024 Discontinued cyclobenzaprine (Flexeril) 10 MG tabletIndications :Lumbar radiculopathy Take 1 tablet (10 mg) by mouth 3 times daily. 90 tablet 1 025 2024 Discontinued oxyCODONE-acetami nophen (Percocet) 5-325 MG tabletIndications :Lumbar radiculopathy Take 1 tablet by mouth every 8 (eight) hours if needed for severe pain for up to [address]. [address] while taking this medication Do not start before March 04, 2025. 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 At L5-S1 there is facet arthropathy and there is an eccentric posterior disc protrusion to the right with mild narrowing of the right subarticular recess. There are bilateral foraminal disc protrusions. 2. At L4-L5 there is facet arthropathy and there is a small posterior disc protrusion. There is no central stenosis or foraminal narrowing. 3. At L2-L3 there is a posterior disc protrusion with an annular fissure which is slightly more prominent compared to prior imaging. There is no central stenosis or foraminal narrowing. 4. Spondylitic and facet arthropathic changes are also demonstrated at other levels as described above. Assessment & Plan (03/28/2025 1:48 PM EDT): -Good engagement and participation with Group Medical Visit model -Encouraged multifactorial approach to pain control including pharm and non- pharm modalities -Utox and pill count as expected Assessment & Plan (01/24/2025 1:55 PM EDT): -Good engagement and participation with Group Medical Visit model -Encouraged multifactorial approach to pain control including pharm and non- pharm modalities -See cna pct regarding UTOX and Pill count Assessment & Plan (11/29/2024 5:04 PM EDT): -Good engagement and participation with Group Medical Visit model -Encouraged multifactorial approach to pain control including pharm and non- pharm modalities -UTOX and Pill count as expected Assessment & Plan (09/27/2024 8:35 PM EDT): -Good engagement and participation with Group Medical Visit model -Encouraged multifactorial approach to pain control including pharm and non- pharm modalities -UTOX and Pill count as expected Assessment & Plan (08/04/2024 4:26 PM EST): Reports scheduled for upcoming appt with spine/event specialist. Not sure if she would like to pursue surgical intervention. No red flag symptoms today, ED precautions -Good engagement and participation with Group Medical Visit model -Encouraged multifactorial approach to pain control including pharm and non- pharm modalities -UTOX and Pill count as expected Assessment & Plan (05/31/2024 2:07 PM EST): May have to have hip surgery and she is worried about this No red flag symptoms today, ED precautions -Good engagement and participation with Group Medical Visit model -Encouraged multifactorial approach to pain control including pharm and non- pharm modalities -UTOX and Pill count as expected (largely, her pill count was one less than expected today) Assessment & Plan (03/29/2024 6:18 PM EDT): Reports scheduled for upcoming appt with spine/event specialist No red flag symptoms today, ED precautions -Good engagement and participation with Group Medical Visit model -Encouraged multifactorial approach to pain control including pharm and non- pharm modalities -UTOX and Pill count as expected Long-term current use of opiate analgesic 2023 Overview (03/28/2025): Medication: Percocet 5-325 mg Q8H PRN Indication: lumbar radiculopathy, lumbar disc herniation Last [employer]ON THERAPIST Agreement: 01/24/25 Additional considerations/risk factors: benzodiazepine & zolpidem prescriptions Assessment & Plan (03/28/2025 1:49 PM EDT): Timeline: - 09/27/24: Group - utox/pill count as expected - 11/29/24: Group - utox/pill count as expected - 01/24/25: Group - utox as expected, pill count 1 short - 03/28/25: Group - utox/pill count as expected Assessment & Plan (01/24/2025 1:55 PM EDT): Timeline: - 09/27/24: Group - utox/pill count wnl - 11/29/24: Group - utox/pill count wnl - 01/24/25: Group - utox as expected, pill count 1 short Assessment & Plan (11/29/2024 5:04 PM EDT): Timeline: - 09/27/24: Group - utox/pill count wnl - 11/29/24: Group - utox/pill count wnl Assessment & Plan (09/27/2024 8:35 PM EDT): Timeline: - 09/27/24: Group - utox/pill count wnl Left hip pain 08/27/2023 Unstable gait 08/27/2023 Assessment & Plan (08/27/2023 2:31 PM EST): Cane will be prescribed for patient Dizziness 02/19/2023 Assessment & Plan (02/19/2023 4:43 PM EDT): Likely vertigo Vitamin B12 deficiency 01/30/2023 Assessment & Plan (01/30/2023 12:28 PM EDT): b12 levels to be recheck on next appointment if methylmalonic acid still high I will start her on b12 injections once a week (insurance only approves once a week) Health care maintenance 10/30/2022 Cold feet 10/20/2018 Bilateral swelling of feet 10/20/2018 Anemia 01/13/2018 Fatigue 12/14/2017 Vitamin D deficiency 12/14/2017 Intermittent asthma 09/07/2017 Assessment & Plan (09/29/2024 12:34 PM EDT): Asthma has been stable I advised to avoid triggers Continue with albuterol as needed Lumbar radiculopathy 05/21/2017 Assessment & Plan (01/12/2025 3:53 PM EDT): Counseling done about how to take her pain medications as prescribed I added today Flexeril 10 mg 3 times a day and acetaminophen 500 mg every 8 hours if needed (do not take more than 3 g of Tylenol daily, I educated patient that her Percocet also has this medication) Assessment & Plan (09/29/2024 12:34 PM EDT): Apply heat on affected area continue taking Percocet as prescribed, I added today lidocaine patch, I will change her muscle relaxer from Flexeril to Robaxin, I advised to follow-up with specialist Assessment & Plan (02/05/2024 1:55 PM EDT): C/w percocet 5/325mg TID C/w flexeril same dose I will start today gabapentin 100mg Q 8hrs (do not take together with flexeril or percocet) Pending MRI and orthopedics referral Assessment & Plan (01/12/2024 3:38 PM EDT): History of chronic pain - lumbar radiculopathy Good engagement and participation with Group Medical Visit model Encouraged multifactorial approach to pain control including pharm and non-pharm modalities Continues with COT, UTOX and pill count as expected Assessment & Plan (10/15/2023 10:16 AM EDT): History of chronic pain - lumbar radiculopathy Good engagement and participation with Group Medical Visit model Encouraged multifactorial approach to pain control including pharm and non-pharm modalities Continues with COT, UTOX and pill count as expected Assessment & Plan (09/15/2023 4:36 PM EDT): History of chronic pain - lumbar radiculopathy Good engagement and participation with Group Medical Visit model - today was first visit. Encouraged multifactorial approach to pain control including pharm and non-pharm modalities Continues with COT, UTOX and pill count as expected Neuropathy of right peroneal nerve 05/21/2017 Foot pain 05/04/2017 Essential hypertension 03/30/2017 Assessment & Plan (01/12/2025 3:49 PM EDT): Advised: - Aerobic exercise to reduce BP. Initial goal of 30 min walk 3-5x/week. Increase as tolerated. - low-sodium diet (goal: <2g/day) and heart healthy diet such as DASH to reduce BP and prevent ASCVD. - Home BP monitoring 1-2 x day with goal of <140/90. - Seek immediate medical attention for chest pain, palpitations, SOB, syncope, or sudden changes in mental status. - Do not change or discontinue current prescriptions without first consulting health care provider Assessment & Plan (09/29/2024 12:33 PM EDT): I advised: - Aerobic exercise to reduce BP. Initial goal of 30 min walk 3-5x/week. Increase as tolerated. - low-sodium diet (goal: <2g/day) and heart healthy diet such as DASH to reduce BP and prevent ASCVD. - Home BP monitoring 1-2 x day with goal of <140/90. - Seek immediate medical attention for chest pain, palpitations, SOB, syncope, or sudden changes in mental status. - Do not change or discontinue current prescriptions without first consulting health care provider Assessment & Plan (06/30/2024 2:15 PM EST): I advised: - Aerobic exercise to reduce BP. Initial goal of 30 min walk 3-5x/week. Increase as tolerated. - low-sodium diet (goal: <2g/day) and heart healthy diet such as DASH to reduce BP and prevent ASCVD. - Home BP monitoring 1-2 x day with goal of <140/90. - Seek immediate medical attention for chest pain, palpitations, SOB, syncope, or sudden changes in mental status. - Do not change or discontinue current prescriptions without first consulting health care provider Assessment & Plan (02/05/2024 1:40 PM EDT): - Aerobic exercise to reduce BP. Initial goal of 30 min walk 3-5x/week. Increase as tolerated. - low-sodium diet (goal: <2g/day) and heart healthy diet such as DASH to reduce BP and prevent ASCVD. - Home BP monitoring 1-2 x day with goal of <140/90. - Seek immediate medical attention for chest pain, palpitations, SOB, syncope, or sudden changes in mental status. - Do not change or discontinue current prescriptions without first consulting health care provider Assessment & Plan (09/15/2023 2:14 PM EDT): Possibly elevated in setting of pain, continue with med management through PCP including lisinopril 40mg francesca and hydrochlorothiazide 12.5mg daily. Call office if readings elevated at home or with symptoms. - Aerobic exercise to reduce BP. Initial goal of 30 min walk 3-5x/week. Increase as tolerated. - low-sodium diet (goal: <2g/day) and heart healthy diet such as DASH to reduce BP and prevent ASCVD. - Home BP monitoring 1-2 x day with goal of <140/90. - Seek immediate medical attention for chest pain, palpitations, SOB, syncope, or sudden changes in mental status. - Do not change or discontinue current prescriptions without first consulting health care provider Assessment & Plan (08/27/2023 2:29 PM EST): Maintenance: BMP: up to date Lipid Panel: up to sate ASCVD Risk:on atorvastatin 20mg daily - Aerobic exercise to reduce BP. Initial goal of 30 min walk 3-5x/week. Increase as tolerated. - low-sodium diet (goal: <2g/day) and heart healthy diet such as DASH to reduce BP and prevent ASCVD. - Home BP monitoring 1-2 x day with goal of <140/90. - Seek immediate medical attention for chest pain, palpitations, SOB, syncope, or sudden changes in mental status. - Do not change or discontinue current prescriptions without first consulting health care provider Assessment & Plan (05/04/2023 1:28 PM EDT): - Aerobic exercise to reduce BP. Initial goal of 30 min walk 3-5x/week. Increase as tolerated. - low-sodium diet (goal: <2g/day) and heart healthy diet such as DASH to reduce BP and prevent ASCVD. - Home BP monitoring 1-2 x day with goal of <140/90. - Seek immediate medical attention for chest pain, palpitations, SOB, syncope, or sudden changes in mental status. - Do not change or discontinue current prescriptions without first consulting health care provider Assessment & Plan (02/19/2023 4:41 PM EDT): - Aerobic exercise to reduce BP. Initial goal of 30 min walk 3-5x/week. Increase as tolerated. - low-sodium diet (goal: <2g/day) and heart healthy diet such as DASH to reduce BP and prevent ASCVD. - Home BP monitoring 1-2 x day with goal of <140/90. - Seek immediate medical attention for chest pain, palpitations, SOB, syncope, or sudden changes in mental status. - Do not change or discontinue current prescriptions without first consulting health care provider Assessment & Plan (01/30/2023 12:26 PM EDT): Patient's medication hydrochlorothiazide was change to amlodipine on last appointment, patient thinks this may be causing her BP to be higher I went up on amlodipine and started her again on hydrochlorothiazide 12.5mg I advise to product picker medication at pharmacy and today to take again amlodipine 5mg and hydrochlorothiazide 12.5mg, BP today 183/79mmmhg I took it again and went down to 164/88mmhg I advise to continue to monitor BP at home and if persistently high or if symptoms persist or worse to go to ED I will follow up with her on upcoming appointment Assessment & Plan (10/30/2022 2:49 PM EDT): Maintenance: BMP: ordered today Lipid Panel: ordered today ASCVD Risk:patient on atorvastatin 20mg daily - Aerobic exercise to reduce BP. Initial goal of 30 min walk 3-5x/week. Increase as tolerated. - low-sodium diet (goal: <2g/day) and heart healthy diet such as DASH to reduce BP and prevent ASCVD. - Home BP monitoring 1-2 x day with goal of <140/90. - Seek immediate medical attention for chest pain, palpitations, SOB, syncope, or sudden changes in mental status. - Do not change or discontinue current prescriptions without first consulting health care provider Steatosis of liver 09/21/2013 Insomnia 06/16/2013 Chronic kidney disease (CKD) , stage III (moderate) ([facility]) 02/15/2013 Type 2 diabetes mellitus with hyperglycemia 10/05 Assessment & Plan (01/12/2025 3:50 PM EDT): Diabetes is: not controlled but improved - Lab Results Component Value Date HGBA1C 7.4 (A) 09/29/2024 HGBA1C 8.6 (A) 06/30/2024 HGBA1C 7.9 (A) 02/05/2024 - Lab Results Component Value Date MICROALBUR 7.0 02/11/2024 CREATININE 1.04 02/11/2024 -Changes: I discontinue glipizide and instead start her on Januvia 50 mg daily - Diabetic eye exam: Pending - Diabetic foot exam: Pending - Continue lifestyle modifications - Continue current medications - Follow up: 3 months Assessment & Plan (09/29/2024 12:35 PM EDT): Diabetes is: controlled - Lab Results Component Value Date HGBA1C 7.4 (A) 09/29/2024 HGBA1C 8.6 (A) 06/30/2024 HGBA1C 7.9 (A) 02/05/2024 - Lab Results Component Value Date MICROALBUR 7.0 02/11/2024 CREATININE 1.04 02/11/2024 -Changes: None - Diabetic eye exam: Up-to-date - Diabetic foot exam: Pending - Continue lifestyle modifications - Continue current medications - Follow up: 3 months Assessment & Plan (06/30/2024 2:16 PM EST): Diabetes is: not controlled - Lab Results Component Value Date HGBA1C 8.6 (A) 06/30/2024 HGBA1C 7.9 (A) 02/05/2024 HGBA1C 7.9 (A) 08/27/2023 - Lab Results Component Value Date MICROALBUR 7.0 02/11/2024 CREATININE 1.04 02/11/2024 -Changes: I adde today glipizide 5mg daily - Diabetic eye exam:pending - Diabetic foot exam:pending - Continue lifestyle modifications - Continue current medications - Follow up: 3 months Assessment & Plan (02/05/2024 1:56 PM EDT): Diabetes is: not controlled - Lab Results Component Value Date HGBA1C 7.9 (A) 02/05/2024 HGBA1C 7.9 (A) 08/27/2023 HGBA1C 7.2 (A) 05/04/2023 - Lab Results Component Value Date MICROALBUR <5.0 02/19/2023 CREATININE 1.02 01/26/2024 -Changes: increase jardiance dose to 25mg daily - Diabetic eye exam:up to date - Diabetic foot exam:pending - Continue lifestyle modifications - Continue current medications - Follow up: 3 months Assessment & Plan (08/27/2023 2:30 PM EST): Diabetes is: not controlled - Lab Results Component Value Date HGBA1C 7.9 (A) 08/27/2023 HGBA1C 7.2 (A) 05/04/2023 HGBA1C 8.2 (A) 02/19/2023 - Lab Results Component Value Date MICROALBUR <5.0 02/19/2023 CREATININE 0.88 02/04/2023 -Changes: diabetic diet counseling done today - Diabetic eye exam:pending - Diabetic foot exam:pending - Continue lifestyle modifications - Continue current medications - Follow up: 3 months Assessment & Plan (05/04/2023 1:29 PM EDT): - Lab Results Component Value Date HGBA1C 7.2 (A) 05/04/2023 HGBA1C 8.2 (A) 02/19/2023 HGBA1C 7.1 (A) 10/30/2022 - Lab Results Component Value Date MICROALBUR <5.0 02/19/2023 CREATININE 0.88 02/04/2023 - Diabetic eye exam: up to date - Diabetic foot exam: pending - Continue lifestyle modifications - Continue current medications Assessment & Plan (02/19/2023 4:43 PM EDT): - Lab Results Component Value Date HGBA1C 8.2 (A) 02/19/2023 HGBA1C 7.1 (A) 10/30/2022 - Lab Results Component Value Date CREATININE 0.88 02/04/2023 - - Continue lifestyle modifications -c/w metfornin I added today jardaince 10mg daily Assessment & Plan (10/30/2022 2:51 PM EDT): - Lab Results Component Value Date HGBA1C 7.1 (A) 10/30/2022 - Lab Results Component Value Date CREATININE 0.92 05/20/2022 - Diabetic eye exam: recently done - Diabetic foot exam: pending next appointment - Continue lifestyle modifications - Continue current medications Mixed hyperlipidemia 03/10/2012 Generalized osteoarthritis 01/08/2012 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 Assessment & Plan (10/30/2022 2:50 PM EDT): continue with current interventions Hypertensive left ventricular hypertrophy 2011 Obesity 12/18/2011 Resolved Problems Problem Noted Date Diagnosed Date Resolved Date Acute otitis media 05/07/2023 4 Laryngitis 05/07/2023 10/15/2023 Assessment & Plan (05/07/2023 2:35 PM EDT): Rest voice Viral upper respiratory tract infection 05/04/2023 10/15/2023 Assessment & Plan (05/04/2023 1:29 PM EDT): COVID and strep negative Rest and drink plenty of liquids Viral gastroenteritis 01/30/20232023 Assessment & Plan (01/30/2023 12:27 PM EDT): Likely vomiting/diarrhea viral gastroenteritis Supportive measures zofran and imodium only if needed I advise to hydrate with pedyalite Encounters * This document contains information received from the source organization and may not represent a complete record from that organization. Date Type Department Care Team Description 04/10/2025 Refill [facility] [address] [place] [phone] Kathleen Nieto MD Type 2 diabetes mellitus with hyperglycemia, without long-term current use of insulin (HCC); Menopause 03/31/2025 Patient Outreach [facility] [address] [place] [phone] Kathleen Nieto MD Pre-visit Planning (SDOH screening completed on 09/20/2024) 03/30/[phone] Nutrition referral 03/30/2025 Refill [facility] [address] [place] [phone] Kathleen Nieto MD Lumbar radiculopathy 03/28/2025 11:00 AM EDT Office Visit [address] [id number] Homa Randle, ITZ Lumbar disc herniation (Primary Dx); Long-term current use of opiate analgesic 03/28/2025 Travel 03/13/2025 Refill [facility] [address] [place] [address] Kathleen Nieto MD Lumbar radiculopathy 03/02/2025 Refill [facility] [address] [place] [phone] Kathleen Nieto MD Lumbar radiculopathy 02/23/2025 Refill [facility] [address] [place] [address] Kathleen Nieto MD Lumbar radiculopathy 02/08/2025 Telephone [facility] [address] [place], [place] [phone] Kathleen Nieto MD OCT RECALL 02/04/2025 Refill [facility] [address] [place] [address] Nichole Zhao DO Vitamin D deficiency 02/04/2025 Refill [facility] [address] [place], [place] [phone] Kathleen Nieto MD Vitamin D deficiency 02/02/[address] [phone] Kathleen Nieto MD Lumbar radiculopathy 01/24/2025 11:00 AM EDT Office Visit [address] [phone] [place], [place], [employer] Lumbar disc herniation (Primary Dx); Long-term current use of opiate analgesic 01/24/[address] [address] aBrbara Castillo, REN COLON THERAPIST Agreement renewed today 01/24/2025 Travel 01/20/[address] [address] Kathleen Nieto MD Hypertriglyceridemia 01/18/2025 Orders Only [address] [address] Kathleen Nieto MD Overweight (BMI 25.0-29.9) (Primary Dx); Type 2 diabetes mellitus with hyperglycemia, without long-term current use of insulin (CMS/HCC); Elevated LFTs 01/17/2025 Results Follow-Up [address] [address] Kathleen Nieto MD CBC auto differential, Comprehensive Metabolic Panel, HIV-1/2 Antigen and Antibodies, Fourth Generation, with Reflexes, Additional followed-up results: 6 01/12/2025 3:15 PM EDT Office Visit [address] [address] Kathleen Nieto MD Essential hypertension (Primary Dx); Type 2 diabetes mellitus with hyperglycemia, without long-term current use of insulin (CMS/HCC); Urinary incontinence, unspecified type; Lumbar radiculopathy 01/12/2025 Travel 01/12/[address] [address] Barbara Castillo, REN Recommend COLON THERAPIST Tier 2 01/11/[address] [address] Kathleen Nieto MD Chart prep from Last 3 Months Immunizations Immunization Administration Dates Next Due Hep B, adult 02/16/2018,01/19/2018 HepB-CpG 12/04/2022 Influenza Injectable Quadriv alant Preservative Free IIV4 MDCK 02/24/2023,03/07/2022 Influenza injectable quadriv alent preservative free 03/06/2021,02/27/2018,02/22/2017,02/27,09/16/2015 Influenza, Split (incl. oscar fied surface antigen) 03/10/2012 Influenza, seasonal, injecta ble, preservative free 06/04/2016 Sharda SARS-CoV-2 Vaccination 09/19/2020 Pfizer Covid-19 Vaccine 12+ 10/16/2021, Pfizer Covid-19 Vaccine 12+ logan-sucrose (Kaminski Cap) 10/16/2021 Pneumococcal Conjugate PCV 20 05/26/2022 Pneumococcal Polysaccharide PPSV23 01/27/2020,,06/04/2016 TD (adult), 2 Lf tetanus tox oid, preservative free, adsorbed 05/17/2021,09/12/1998,04/09/1995 Tdap 12/16/2010 Zoster, Recombinant 11/30/2022,01/27/2020 Social History Tobacco Use Types Packs/Day Years Used Date Smoking Tobacco: Never Passive Smoke Exposure: Never Smokeless Tobacco: Never Tobacco Cessation:Counseling Given: Not Answered Alcohol Use Standard Drinks/Week Comments Never 0 (1 standard drink = 0.6 oz pur e alcohol) Alcohol Answer Date Recorded Frequency of Alcohol Consumption Not on file 08/27/2023 Average Number of Drinks Not on file 024 Frequency of Binge Drinking Not on file 08/07 Score 0 08/27/2023 Depression Answer Date Recorded Patient Health Questionnaire-9 Score 0 08/27/2023 Patient Health Questionnaire-9 Score 0 08/27/2023 Last PHQ-9: Questionnaire Data Not on file 0 08/27/2023 Housing Stability Answer Date Recorded What is your housing situation today? I have concepcion seth 09/20/[address] you li ve. Do you have problems with any of the following? None of the above 09/20/2024 Food Insecurity Answer Date Recorded Within the past 12 months, y ou worried that your food would run out before you got money to buy more: Never True 09/20/2024 Within the past 12 months,th e food you bought just didn't last and you didn't have enough money to get more: Never True Transportation Answer Date Recorded In the past 12 months, has l ack of transportation kept you from medical appts, meetings, work or from getting things needed for daily living? No 09/20/2024 Utilities Answer Date Recorded In the past 12 months, has t he electric, gas, oil or water company threatened to shut off services in your home? Yes 09/20/2024 Depression Answer Date Recorded Patient Health Questionnaire-2 Score 0 08/27/2023 Internet Access Answer Date Recorded Internet Access Q1 Yes 09/20/2024 Internet Access Q2 Not on file 09/20/2024 Comments No Sex and Gender Information Value Date Recorded Sex Assigned at Female 05/05/2022 10:15 AM EDT Legal Sex Female 10:15 AM EDT Gender Identity Female 05/05/2022 10:15 AM EDT Sexual Orientation Straight 05/05/2022 10 :15 AM EDT Last Filed Vital Signs Vital Sign Reading Time Taken Comments Blood Pressure 139/80 01/12/2025 2:06 PM EDT Pulse 86 01/12/2025 2:06 PM EDT Temperature 36 C (96.8 F) 01/12/2025 2:06 PM EDT Respiratory Rate 16 01/12/2025 2:06 PM EDT Oxygen Saturation 98% 01/12/2025 2:06 PM EDT Inhaled Oxygen Concentration - - Weight 73.7 kg (162 lb 6.4 oz) 01/12/2025 2:06 P M EDT Height 157.5 cm (5' 2 ) 01/12/2025 2:06 PM EDT Body Mass Index 29.7 01/12/2025 2:06 PM EDT Plan of Treatment Upcoming Encounters Date Type Department Care Team (Late st Contact Info) Description 04/18/2025 3:15 PM EDT Telemedicine [facility] MEDICINE [address] [place] [address] Kathleen Nieto MD [address] [place] [address] 04/25/2025 1:00 PM EDT Nutrition [facility] DIABETES/NUTRITION [address], [place] [phone] Elsie Duncan, RD [address] [place] [address] 05/30/2025 11:00 AM EST Office Visit [facility] MEDIC[facility] [address], [place] [phone] Health Maintenance Due Date Last Done Comments CT Colonography 1965 FIT DNA/Cologuard 1965 FIT 1965 FOBT 1965 Sigmoidoscopy 1965 Disability Screening 1965 Diabetes: Foot Exam 1975 Eye Exam 1975 Alcohol/Substance Use Screening 1977 Hepatitis A Vaccines (1 of 2 - Risk 2-dose series) 01/11/1984 Depression Screening 08/27/2024 08/27/2023, 08/27/19 24 Diabetes: Hemoglobin A1C 12/30/2024 025, 06/30/2024, 02/05/2024, Additional history exists Mammogram 02/21/2025 02/22/2024, 02/03, 09/09/2022, Additional history exists COVID-19 Vaccine ( season) 2025 06/05/2023, 05/02/2022, 10/16/2021, Additional history exists SDOH Screening 09/20/2025 09/20/2024 Tobacco Screening 01/12/2026 01/12/2025 Diabetes: Urine Protein Screening 01/17/2026 01/17/2025, 02/11/2024, 02/19/2023 Lipid Panel 01/17/2026 01/17/2025, 08/02/2024, 02/11/2024, Additional history exists Colonoscopy 12/21/2027 Colorectal Cancer Screening 12/21/2027 DTaP/Tdap/Td Vaccines (4 - Td or Tdap) 02/01/2035 02/01/2025, 05/17/2021, 12/16/2010, Additional history exists Pneumococcal Vaccine: 50+ Years Completed 05/26/2022, 01/27/2020, 06/09/2017, Additional history exists Zoster Vaccines Completed 11/30/2022, 01/27/2020 Hepatitis B Vaccines Completed 12/04/2022, 02/16/2018, 01/19/2018 HIV Screening Completed 01/17/2025 Hepatitis C Screening Completed 01/17/2025 RSV Patients and Patients Aged 60 years or older Completed 02/01/2025 Influenza Vaccine Completed 03/02/2025, , 02/24/2023, Additional history exists HIB Vaccines Aged Out No longer eligi [...] patient's age to complete this topic Meningococcal Vaccine Aged Out No jose silvana eligible based on patient's age to complete this topic RSV under 20 months Aged Out No longe r eligible based on patient's age to complete this topic Rotavirus Vaccines Aged Out No longer eligible based on patient's age to complete this topic Procedures Procedure Name Priority Date/Time Associated Diagnosis Comments POCT HALINA-14 URINE DRUG SCREEN Routine 03/28/2025 11:22 AM EDT Long-term current use of opiate analgesic AMB REFERRAL TO ENT Routine 02/09/2025 Asymmetrical hearing loss POCT HALINA-14 URINE DRUG SCREEN Routine 01/24/2025 11:11 AM EDT Lumbar disc herniation ALBUMIN, RANDOM URINE W/CREATININE Routine 01/17/2025 9:02 AM EDT Type 2 diabetes mellitus with hyperglycemia, without long-term current use of insulin ([facility]/HCC) RPR (MONITOR) W/REFL TITER Routine 01/17/2025 9:02 AM EDT Type 2 diabetes mellitus with hyperglycemia, without long-term current use of insulin (CMS/HCC) VITAMIN B12/FOLATE, SERUM PANEL Routine 01/17/2025 9:02 AM EDT Type 2 diabetes mellitus with hyperglycemia, without long-term current use of insulin (CMS/HCC) TSH W/REFLEX TO FT4 Routine 01/17/2025 9 :02 AM EDT Type 2 diabetes mellitus with hyperglycemia, without long-term current use of insulin (CMS/HCC) VITAMIN D,25-OH,TOTAL,IA Routine 01/17/2025 9:02 AM EDT Type 2 diabetes mellitus with hyperglycemia, without long-term current use of insulin (CMS/HCC) LIPID PANEL, STANDARD Routine 01/17/2025 9:02 AM EDT Type 2 diabetes mellitus with hyperglycemia, without long-term current use of insulin (CMS/HCC) HEPATITIS C AB W/REFL TO HCV RNA, QN, PCR Routine 01/17/2025 9:02 AM EDT Type 2 diabetes mellitus with hyperglycemia, without long-term current use of insulin (CMS/HCC) HIV 1/2 ANTIGEN/ANTIBODY, FOURTH GENERATION W/RFL Routine 01/17/2025 9:02 AM EDT Type 2 diabetes mellitus with hyperglycemia, without long-term current use of insulin (CMS/HCC) COMPREHENSIVE METABOLIC PANEL Routine 01/17/2025 9:02 AM EDT Type 2 diabetes mellitus with hyperglycemia, without long-term current use of insulin (CMS/HCC) CBC WITH AUTO DIFFERENTIAL Routine 01/17/2025 9:02 AM EDT Type 2 diabetes mellitus with hyperglycemia, without long-term current use of insulin (CMS/HCC) POCT GLYCATED HEMOGLOBIN, TOTAL Routine 09/29/2024 10:57 AM EDT Type 2 diabetes mellitus with hyperglycemia, without long-term current use of insulin (CMS/HCC) BI US BREAST LIMITED RIGHT Routine 02/22/2024 3:09 PM EDT from Last 3 Months or Most Recently Relevant to Health Maintenance Results * POCT HALINA-14 Urine Drug Screen (03/28/2025 11:22 AM EDT) Only the most recent of2 resultswithin the time period is included. THC Negative Negative Cocaine Screen, Urine Negative Negative Opiate Screen, Urine Negative Negative Methamphetamine Screen Urine Negative Negative Amphetamine Screen, Urine Negative Negative Benzodiazepines Screen, Urine Negative Negative Barbiturate Screen, Urine Negative Negative Methadone Screen, Urine Negative Negative Buprenophine Screen, Urine Negative Negative TCA, Urine Positive Negative MDMA Urine Negative Negative ng/mL Oxycodone Screen, Urine Positive Negative Phencyclidine (PCP), Urine Negative Negative Propoxyphene, Urine Negative Negative Fentanyl, Urine Negative Negative Urine Urine specimen obtained by clean catch procedure / Unknown 03/28/2025 11:22 AM EDT Narrative Barbara Castillo RN - 03/28/2025 11:22 AM EDT UTOX cup Lot#[id number] Exp. 04/11/26 Internal Pass Control us Homa [facility]LEY POINT OF CARE TEST ENTER/EDIT ORDERABLES Final Result * Referral to ENT (02/09/2025) us Kathleen Gracia MD OUTPATIENT REFERRAL O RDERABLES Final Result * Vitamin D, 25-Hydroxy, Total, Immunoassay (01/17/2025 9:02 AM EDT) Vitamin D 25-OH Total 69.9 >30 ng/mL [facility] Comment: Health Based Reference Values*< 20 ng/mL [id number] ng/mL Insufficient> 30 ng/mL Sufficient*Ye TONG. N Engl J Med. 2007;357:266-280There is no well-established upper level of normal vitamin Dlevels. Some laboratories use 50 ng/mL as an upper limit ofnormal. However, toxicity is patient-dependent and may occurat any level. Careful correlation with the patient'spresentation is necessary and, if there is concern forvitamin D toxicity, treatment should be consideredirrespective of the serum level.Care must be taken in interpreting Vitamin D results fromdifferent laboratories and methodologies. Published datademonstrated that results from patients undergoinghemodialysis may show a negative bias when tested withvarious automated 25-OH vitamin D assays when compared toLC-MS/MS.When testing samples from patients whose predominant form ofVitamin D is Vitamin D2, such as patients receiving VitaminD2 supplementation, results that are subtherapeutic shouldbe confirmed with another method such as LC-MS/MS. Blood Venous blood specimen / Unknown 01/17/2025 9:02 AM EDT 01/17/2025 11:06 AM EDT Kathleen Gracia MD LAB BLOOD ORDERABLES Final Result Performing Organization Address [facility] de Phone Number [facility] [address] [place] [phone] * Vitamin B12/Folate, Serum Panel (01/17/2025 9:02 AM EDT) Vitamin B12 305 200 - 900 pg/mL [facility] Comment:NORMAL 200-900 PG/ML INDETERMINATE 160-199 PG/ML DEFICIENT < 160 PG/ML Folate 15.5 > or = 4.0 ng/mL [facility] Comment:Reference Values:> o r = 4.0 ng/mL< 4.0 ng/mL suggests folate deficiency Methotrexate, aminopterin and folinic acid(leucovorin) are chemotherapeutic agents whose molecularstructures are similar to folate; therefore, the Architectfolate assay cannot be used for patients using these drugs. Blood Venous blood specimen / Unknown 01/17/2025 9:02 AM EDT 01/17/2025 11:06 AM EDT Kathleen Gracia MD LAB BLOOD ORDERABLES Final Result Performing Organization Address [facility] de Phone Number [facility] [address] [place] [phone] * TSH with Reflex to Free T4 (01/17/2025 9:02 AM EDT) TSH reflex Free T4 2.50 0.32 - 4.0 uIU/mL [facility] Blood Venous blood specimen / Unknown 01/17/2025 9:02 AM EDT 01/17/2025 11:06 AM EDT us Kathleen Gracia MD LAB BLOOD ORDERABLES Final Result Performing Organization Address [facility] de Phone Number [facility] [address] [place] [phone] * Albumin, Random Urine W/Creatinine (01/17/2025 9:02 AM EDT) Pathologist [facility] Creatinine, Urine 85.40 mg/dL [facility] Microalbumin Urine <5.0 mg/L [facility] Microalbum Creatinine Ratio Ur TNP <30 ug/mg cr [facility] Comment:Unable to calculate albumin/creatinine ratio due to lowmicroalbumin or creatinine result. Urine (Urine, Random) 01/17/2025 9:02 AM EDT 01/17/2025 11:07 AM EDT us Kathleen Gracia MD LAB URINE ORDERABLES Final Result Performing Organization Address [facility] de Phone Number [facility] [address] [place] [phone] * (ABNORMAL) CBC auto differential (01/17/2025 9:02 AM EDT) Pathologist [facility] White Blood Count 6.3 4.8 - 10.8 X10*3/uL [facility] Red Blood Count 5.10 4.20 - 5.50 X10*6/uL [facility] Hemoglobin 13.6 12.0 - 16.0 g/dl [facility] Hematocrit 41.3 37.0 - 47.0 % [facility] Mean Corpuscular Volume 81.0 80.0 - 98.0 fL [facility] Mean Corpuscular Hemoglobin 26.7(L) 27.0 - 33.0 pg [facility] Mean Corpuscular HGB Conc 32.9 31.0 - 35.0 g/dl [facility] Red Cell Distribution Width 13.8 11.0 - 16.0 % [facility] Platelet Count 378 160 - 400 X10*3/uL [facility] Mean Platelet Volume 11.0 9.4 - 12.3 fL [facility] Neutrophils Percent Auto 58.4 45 - 73 % [facility] Imm Gran Pct Auto 0.3 0.0 - 0.4 % [facility] Lymphocytes Percent Auto 30.6 20 - 40 % [facility] Monocytes Percent Auto 8.4 2 - 11 % [facility] Eosinophils Percent Auto 2.1 0 - 4 % [facility] Basophils Percent Auto 0.2 0 - 2 % [facility] NRBC Pct Auto 0.0 0.0 - 0.2 /100WBC [facility] Neutrophils Absolute Auto 3.7 2.0 - 8.3 x10*3/uL [facility] Imm Gran Abs Auto 0.02 0.00 - 0.03 X10*3/uL [facility] Lymphocytes Absolute Auto 1.9 1.2 - 4.9 X10*3/uL [facility] Monocytes Absolute Auto 0.5 0.1 - 1.2 X10*3/uL [facility] Eosinophils Absolute Auto 0.1 0.0 - 0.4 X10*3/uL [facility] Basophils Absolute Auto 0.0 0.0 - 0.2 X10*3/uL [facility] NRBC Abs Auto 0.000 0.0 - 0.012 X10*3/uL [facility] Blood Venous blood specimen / Unknown 01/17/2025 9:02 AM EDT 01/17/2025 11:06 AM EDT us Kathleen Gracia MD LAB BLOOD ORDERABLES Final Result [facility] [address] [place] [phone] * Hepatitis C Antibody with Reflex to HCV, RNA, Quantitative, Real-Time PCR (01/17/2025 9:02 AM EDT) Pathologist [facility] Hepatitis C Antibody Nonreactive Nonreactive [facility] Comment:Antibodies to HCV no t detected; does not exclude early acuteHCV infection. Blood Venous blood specimen / Unknown 01/17/2025 9:02 AM EDT 01/17/2025 11:06 AM EDT Kathleen Gracia MD LAB BLOOD ORDERABLES Final Result Performing Organization Address [facility]/ZIP Co de Phone Number [facility] [address] [place] [phone] * RPR (Monitor) with Reflex to??Titer (01/17/2025 9:02 AM EDT) Pathologist [facility] RPR (Monitor) w/Refl Titer NON-REACTI VE NON-REACT JEROME [facility] Comment:THIS TEST WAS PERFOR MED AT:[facility] [address] [phone] MCMILLAN MD Rapid Plasma Reagin Ab Titer TNP [facility] Blood Venous blood specimen / Unknown 01/17/2025 9:02 AM EDT 01/17/2025 11:06 AM EDT us Kathleen Gracia MD LAB BLOOD ORDERABLES Final Result Performing Organization Address City/[facility]/ZIP Co de Phone Number [facility] [address] [place] [phone] * HIV-1/2 Antigen and Antibodies, Fourth Generation, with Reflexes (01/17/2025 9:02 AM EDT) Pathologist [facility] HIV AB/AG Nonreactive Nonreactive [facility] Comment:HIV-1 p24 Ag and/or HIV-1/HIV-2 Ab not detected.A test result that is nonreactive does not exclude thepossibility of exposure to or infection with HIV-1 and/orHIV-2. Nonreactive results in this assay for individualswith prior exposure to HIV-1 and/or HIV-2 may be due toantigen and antibody levels that are below the limit ofdetection of this assay.The eCardioniMarkTend HIV Ag/Ab Combo assay result andsupplemental assay results should be interpreted inconjunction with the patient's clinical presentation,history and other laboratory results. If the results areinconsistent with clinical evidence, additional testing issuggested to confirm the result. Blood Venous blood specimen / Unknown 01/17/2025 9:02 AM EDT 01/17/2025 11:06 AM EDT us Kathleen Gracia MD LAB BLOOD ORDERABLES Final Result [facility] [address] [place] [phone] * (ABNORMAL) Lipid Panel, Standard (01/17/2025 9:02 AM EDT) Triglycerides 166(H) <150 mg/dL [facility] Comment:Desirable Triglyceri de: less than 150 mg/dLBorderline High Triglyceride 150-199 mg/dLHigh Triglyceride: 200-499 mg/dLVery High Triglyceride: greater than or equal to 5OO mg/dL Cholesterol 189 <200 mg/dL [facility] Comment:Desirable Cholestero l: less than 200 mg/dLBorderline High Cholesterol: 200-239 mg/dLHigh Cholesterol: greater than 239 mg/dL LDL Cholesterol Calculated 108(H) <100 mg/dL [facility] Comment:Desirable LDL: less than 100 mg/dLNear Optimal/Above Optimal LDL: 110- 129 mg/dLBorderline High LDL: 130-159 mg/dLHigh LDL: 160-189 mg/dLVery High LDL: greater than or equal to 190 mg/dL HDL Cholesterol 48 >40 mg/dL [facility] Comment:Desirable HDL: great er than 40 mg/dL Note: This HDL assay may give artificially low results in patients with liver disease. Blood Venous blood specimen / Unknown 01/17/2025 9:02 AM EDT 01/17/2025 11:06 AM EDT Kathleen Gracia MD LAB BLOOD ORDERABLES Final Result [facility] [address] [place] [phone] * (ABNORMAL) Comprehensive Metabolic Panel (01/17/2025 9:02 AM EDT) Sodium 140 135 - 145 mmol/L [facility] Potassium 3.6 3.3 - 5.1 mmol/L [facility] Chloride 104 96 - 108 mmol/L [facility] Carbon Dioxide 28 22 - 29 mmol/L [facility] Anion Gap 12 12 - 20 [facility] Urea Nitrogen (BUN) 22(H) 9 - 16 mg/dL [facility] Creatinine, Serum 1.23 0.5 - 1.4 mg/dL [facility] Estimated Glomerular Filt Rate 45 [facility] Comment:Chronic Kidney Disea se: Estimated GFR < 60 mL/min/1.79j9Osotyd Kidney Disease: Estimated GFR < 15 mL/min/1.73m2 Glucose 168(H) 60 - 115 mg/dL [facility] Calcium 10.1 8.4 - 10.2 mg/dL [facility] Bilirubin, Total 0.3 0.0 - 1.0 mg/dL [facility] Aspartate Amino Transferase 45(H) 5 - 31 U/L [facility] Alanine Aminotransferase 40(H) 0 - 31 U/L [facility] Total Protein 7.7 6.5 - 8.0 g/dL [facility] Albumin Level 4.8 3.5 - 5.0 g/dL [facility] Alkaline Phosphatase 60 39 - 117 U/L [facility] Blood Venous blood specimen / Unknown 01/17/2025 9:02 AM EDT 01/17/2025 11:06 AM EDT us Kathleen Gracia MD LAB BLOOD ORDERABLES Final Result [facility] [address] [place] [phone] * (ABNORMAL) POCT HGB A1C (09/29/2024 10:57 AM EDT) Hemoglobin A1C 7.4(A) 4.0 - 6.0 % QC Media Lot # [id number] Lot# Expiration Date [id number] Blood 09/29/2024 10:5 7 AM EDT us Kathleen Gracia MD POINT OF CARE TEST EN TER/EDIT ORDERABLES Final Result * BI US Breast Limited Right (02/22/2024 3:09 PM EDT) Anatomical Region Laterality Modality Breast Right Ultrasound 02/22/2024 3:09 PM EDT Narrative 02/22/2024 3:17 PM EDT [address] [place] [address] Ultrasound Report Signed Patient: Ariadne Lunbderg I MR#: [id number] : 1965 Acct:[id number] Age/Sex: 59 / F ADM Date: 02/22/24 Loc: HO.MAMMO Attending Dr: Kathleen Gracia MD Ordering Physician: Kathleen Nieto MD Date of Service: 02/22/24 Procedure(s): US breast RT limited mamm only Accession Number(s): [id number] cc: Kathleen Nieto MD EXAMINATION: MM DIAGNOSTIC DIGITAL BREAST TOMOSYNTHESIS, BILATERAL US BREAST LIMITED, RIGHT MAMMOGRAPHY: CLINICAL INFORMATION: 12 month diagnostic for follow-up of probably benign subcentimeter complicated cyst right breast 10:00 axis, 4 cm from the nipple. Patient also due for yearly bilateral screening. COMPARISON: Ultrasound right breast 09/09/2022, 02/19/2022, 08/22/2021; mammography 08/18/2022, 08/22/2021, 08/15/2021 (BI-RADS 0). TECHNIQUE: Digital breast tomosynthesis is performed in both the craniocaudal and mediolateral oblique views along with computer-aided detection (CAD). Synthesized 2D images are generated from the tomosynthesis. FINDINGS: There are scattered areas of fibroglandular density (ACR BI-RADS breast composition Category b). There is a stable oval isodense circumscribed 7 mm mass in the 10:00 axis of the right breast anterior one third, correlating with the known complicated cyst in this region. This appears stable and unchanged. We will evaluate this with ultrasound. There are mild vascular calcifications. There are no suspicious masses, suspicious grouped calcifications, or areas of architectural distortion in either breast. The parenchymal pattern is stable from prior exams. There is no skin or axillary abnormality. ULTRASOUND: CLINICAL INFORMATION: Evaluate complicated cyst 10:00 axis right breast. COMPARISON: As above. TECHNIQUE: Targeted sonographic evaluation right breast was performed using a high frequency linear transducer. Attention to the upper outer quadrant was given to include the 10:00 axis complicated cyst. Selected archived documentation. FINDINGS: RIGHT BREAST: -At 2:00, 4 cm from the nipple right breast, there is a stable mildly complicated cyst with calcification measuring 7 x 3 x 5 mm, unchanged from prior exams. This has been stable over 2 years and is benign. 6 no further follow-up recommended. At 2:00, 5 cm from the nipple, there is a simple cyst measuring 6 x 3 x 5 mm, also stable. There is no solid mass, abnormal shadowing, architectural distortion, or edema within the soft tissue planes. US/US breast RT limited mamm only IMPRESSION: -There are no findings suspicious for malignancy in either breast. -Minimally complicated cyst at the 10:00 axis right breast, 4 cm from the nipple, is stable over 2 years and hence benign. No further follow-up recommended. -Simple cyst at the right breast 10:00 axis, 5 cm from the nipple, stable and benign. -Recommend this patient return to routine annual screening mammography. OVERALL ASSESSMENT: Mammography: BI-RADS 2 - Benign Findings Ultrasound: BI-RADS 2 - Benign Findings RECOMMENDATION: 1 year F/U This patient's information was entered into a reminder system with a target due date for their next mammogram. Dictated By: Magdy Finch MD Signed By: <Electronically signed by Magdy Finch MD in OV> 02/22/24 1513 DD/ 1509 TD/TT: [employer] Worker: Procedure Note Donotuseinterpreter, Image - 02/22/2024 [facility] [address] [place] [address] Ultrasound Report Signed Patient: Ariadne Lundberg IMR#: [id number] : 1965Acct:[id number] Age/Sex: 59 / FADM Date: 02/22/24 Loc: HO.MAMMO Attending Dr: Kathleen Gracia MD Ordering Physician: Kathleen Nieto MD Date of Service: 02/22/24 Procedure(s): US breast RT limited mamm only Accession Number(s): [id number] cc: Kathleen Nieto MD EXAMINATION: MM DIAGNOSTIC DIGITAL BREAST TOMOSYNTHESIS, BILATERAL US BREAST LIMITED, RIGHT MAMMOGRAPHY: CLINICAL INFORMATION: 12 month diagnostic for follow-up of probably benign subcentimeter complicated cyst right breast 10:00 axis, 4 cm from the nipple. Patient also due for yearly bilateral screening. COMPARISON: Ultrasound right breast 09/09/2022, 02/19/2022, 08/22/2021; mammography 08/18/2022, 08/22/2021, 08/15/2021 (BI-RADS 0). TECHNIQUE: Digital breast tomosynthesis is performed in both the craniocaudal and mediolateral oblique views along with computer-aided detection (CAD). Synthesized 2D images are generated from the tomosynthesis. FINDINGS: There are scattered areas of fibroglandular density (ACR BI-RADS breast composition Category b). There is a stable oval isodense circumscribed 7 mm mass in the 10:00 axis of the right breast anterior one third, correlating with the known complicated cyst in this region. This appears stable and unchanged. We will evaluate this with ultrasound. There are mild vascular calcifications. There are no suspicious masses, suspicious grouped calcifications, or areas of architectural distortion in either breast. The parenchymal pattern is stable from prior exams. There is no skin or axillary abnormality. ULTRASOUND: CLINICAL INFORMATION: Evaluate complicated cyst 10:00 axis right breast. COMPARISON: As above. TECHNIQUE: Targeted sonographic evaluation right breast was performed using a high frequency linear transducer. Attention to the upper outer quadrant was given to include the 10:00 axis complicated cyst. Selected archived documentation. FINDINGS: RIGHT BREAST: -At 2:00, 4 cm from the nipple right breast, there is a stable mildly complicated cyst with calcification measuring 7 x 3 x 5 mm, unchanged from prior exams. This has been stable over 2 years and is benign. 6 no further follow-up recommended. At 2:00, 5 cm from the nipple, there is a simple cyst measuring 6 x 3 x 5 mm, also stable. There is no solid mass, abnormal shadowing, architectural distortion, or edema within the soft tissue planes. US/US breast RT limited mamm only IMPRESSION: -There are no findings suspicious for malignancy in either breast. -Minimally complicated cyst at the 10:00 axis right breast, 4 cm from the nipple, is stable over 2 years and hence benign. No further follow-up recommended. -Simple cyst at the right breast 10:00 axis, 5 cm from the nipple, stable and benign. -Recommend this patient return to routine annual screening mammography. OVERALL ASSESSMENT: Mammography: BI-RADS 2 - Benign Findings Ultrasound: BI-RADS 2 - Benign Findings RECOMMENDATION: 1 year F/U This patient's information was entered into a reminder system with a target due date for their next mammogram. Dictated By: Magdy Finch MD Signed By: <Electronically signed by Magdy Finch MD in OV> 02/22/24 1513 DD/ 1509 TD/TT: [employer] Worker: us Kathleen Gracia MD IMG US PROCEDURES Fin al Result from Last 3 Months or Most Recently Relevant to Health Maintenance Insurance [email or web address] Care Teams Relocation Director Relationship Specialty Start Date End Date Kathleen Nieto MD [address] [place] [phone] PCP - General Internal Medicine 09/12/22
--- OUTSIDE RECORDS SUMMARY | 2025-04-11 15:36 | XMS_ITS | Encounter Summary ---
Author Organization [employer] Address [address] [facility] 7t [place] [address] Care Team Providers Care Metallurgy Teacher Name Role Phone Kathleen Nieto MD Primary Care Provide r Reason for Visit * Reason Comments Med Change Request Encounter Details Date Type Department Care Team ([facility] st Contact Info) Description 11/18/2022 Refill [facility] MEDICINE [address] [place], [place] [phone] Kathleen Nieto MD 230 [place], [place] [phone] Vitamin B12 deficiency Social History Tobacco Use Types Packs/Day Years [...] Recorded In the last 10 days, have yo u been in contact with someone who was confirmed or suspected to have Coronavirus/COVID-19? No / Unsure 10/30/2022 1:23 PM EDT documented as of this encounter Miscellaneous Notes * Telephone Encounter - Kathleen Gracia MD - 11/19/2022 2:12 PM EDT Approving, but needs appt for additional refills. documented in this encounter Plan of Treatment Upcoming Encounters Date Type Department Care Team (Late st Contact Info) Description 04/18/2025 3:15 PM EDT Telemedicine [facility] MEDICINE [address] [place] [phone] Kathleen Nieto MD [address] [place] [address] 04/25/2025 1:00 PM EDT Nutrition [facility] DIABETES/NUTRITION [address] [place] [phone] [place] [address] 05/30/2025 11:00 AM EST Office Visit [facility] MEDICINE [address] [place] [phone] documented as of this encounter Visit Diagnoses Diagnosis Vitamin B12 deficiency Other B-complex deficiencies documented in this encounter Additional Health Concerns Assessment Noted Time PHQ-9 Depression Total Score: 0 10/31/19 1:55 PM EDT documented as of this encounter Care Teams Metallurgy Teacher Relationship Specialty Start Date End Date Kathleen Nieto MD [address] [place] [phone] PCP - General Internal Medicine 09/12/22 documented as of this encounter
--- OUTSIDE RECORDS SUMMARY | 2025-04-11 15:36 | XMS_ITS | Clinical Summary ---
Author Organization [facility] Address [address] [place] [address] Care Team Providers Care Industrial Maintenance Instructor Name Role Phone Minerva Negro MD Primary [...] 2015 Zoster Vaccines (1 of 2) 2015 Depression Screening 07/06/2024 COVID-19 Vaccine (1 - 2023-2 5 season) 2025 Influenza Vaccine (#1) 2025 RSV Immunization Adult [...] age to complete this topic Care Teams Industrial Maintenance Instructor Relationship Specialty Start Date End Date Minerva Negro MD [address] [place] [address] [place], [place] PCP - General Internal Medicine 05/03/18
--- OUTSIDE RECORDS SUMMARY | 2025-04-11 15:36 | XMS_ITS | Encounter Summary ---
Author Organization [employer] Address [address] [place] [address] 7t [place] [address] Care Team Providers Care Pipe Fitter Apprentice Name Role Phone Kathleen Nieto MD Primary Care Provide r Reason for Visit * Reason Onset Date Comments Med Refill 09/22/2022 Encounter Details Date Type Department Care Team (Late st Contact Info) Description 09/22/2022 Telephone [facility] MEDICINE [address] [place] [address] [phone] Kathleen Nieto MD [address] [place] [address] [phone] Med Refill Social History Tobacco Use Types [...] Info) Description 04/18/2025 3:15 PM EDT Telemedicine [facility] MEDICINE [address] [place] [address] [phone] Kathleen Nieto MD 230 [place] [address] 04/25/2025 1:00 PM EDT Nutrition [facility] DIABETES/NUTRITION [address] [place] [address] [address], RD 230 [place], [place] [phone] 05/30/2025 11:00 AM EST Office Visit [facility] MEDICINE [address] [place] [phone] documented as of this encounter Visit Diagnoses Not on filedocumented in this encounter Care Teams Pipe Fitter Apprentice Relationship Specialty Start Date End Date Kathleen Nieto MD [address] [place] [phone] PCP - General Internal Medicine 09/12/22 documented as of this encounter
--- OUTSIDE RECORDS SUMMARY | 2025-04-11 15:36 | XMS_ITS | Encounter Summary ---
Author Organization [employer] Address [address] [facility] 7t [place] [address] Care Team Providers Care Freight Receiver Name Role Phone Kathleen Nieto MD Primary Care Provide r Reason for Visit * Reason Comments Med Refill Encounter Details Date Type Department Care Team ([facility] st Contact Info) Description 09/09/2023 Refill [facility] MEDICINE [address] [place], [place] [phone] Kathleen Nieto MD 230 [place], [place] [phone] Social History Tobacco Use Types Packs/Day Years Used Date Smoking Tobacco: Never Passive Smoke Exposure: Never Smokeless Tobacco: Never Alcohol Use Standard Drinks/Week Comments Never 0 [...] housing situation today? I have concepcion seth 04/28/[address] you li ve. Do you have problems with any of the following? None of the above 04/28/2023 Food Insecurity Answer Date Recorded Within the past 12 months, y ou worried that your food would run out before you got money to buy more: Never True 04/28/2023 Within the past 12 months,th e food you bought just didn't last and you didn't have enough money to get more: Never True Transportation Answer Date Recorded In the past 12 months, has l ack of transportation kept you from medical appts, meetings, work or from getting things needed for daily living? No 04/28/2023 Utilities Answer Date Recorded In the past 12 months, has t he electric, gas, oil or water company threatened to shut off services in your home? No 04/28/2023 Depression Answer Date Recorded Patient Health Questionnaire-2 Score 0 08/27/2023 Comments Unknown Sex and Gender Information Value Date Recorded Sex Assigned at Female 05/05/2022 10:15 AM EDT Legal Sex Female 10:15 AM EDT Gender Identity Female 05/05/2022 10:15 AM EDT Sexual Orientation Straight 05/05/2022 10 :15 AM EDT documented as of this encounter Plan of Treatment Upcoming Encounters Date Type Department Care Team (Late st Contact Info) Description 04/18/2025 3:15 PM EDT Telemedicine [facility] MEDICINE [address] [place] [phone] Kathleen Nieto MD [address] [place] [address] 04/25/2025 1:00 PM EDT Nutrition [facility] DIABETES/NUTRITION [address] [place] [address] Elsie Duncan, ZOIE [address] [place] [address] 05/30/2025 11:00 AM EST Office Visit [facility] MEDICINE [address] [place] [address] documented as of this encounter Visit Diagnoses Not on filedocumented in this encounter Additional Health Concerns Assessment Noted Time PHQ-9 Depression Total Score: 0 08/27/19 24 10:26 AM EST documented as of this encounter Care Teams Freight Receiver Relationship Specialty Start Date End Date Kathleen Nieto MD [address] [place] [phone] PCP - General Internal Medicine 09/12/22 documented as of this encounter
--- OUTSIDE RECORDS SUMMARY | 2025-04-11 15:36 | XMS_ITS | Encounter Summary ---
Author Organization [employer] Address [address] [facility] 7t [place] [address] Care Team Providers Care Administrative Services Specialist Name Role Phone Kathleen Nieto MD Primary Care Provide r Reason for Visit * Reason Comments Med Change Request Encounter Details Date Type Department Care Team ([facility] st Contact Info) Description 06/23/2023 Refill [facility] 230 [place], [place] [phone] Kathleen Nieto MD 230 [place], [place] [phone] Menopause Social History Tobacco Use Types Packs/Day Years Used Date Smoking Tobacco: Never Passive Smoke Exposure: Never Smokeless Tobacco: Never Depression Answer Date Recorded Patient Health Questionnaire-9 Score 0 10/30/2022 Housing Stability Answer Date Recorded What is [...] Info) Description 04/18/2025 3:15 PM EDT Telemedicine [facility] [address] [place] [phone] Kathleen Nieto MD [address] [place] [address] 04/25/2025 1:00 PM EDT Nutrition [facility] DIABETES/NUTRITION [address] [place] [phone] Elsie Duncan, ZOIE 230 [place] [address] 05/30/2025 11:00 AM EST Office Visit [facility] [address] [place] [phone] documented as of this encounter Visit Diagnoses Diagnosis Menopause Symptomatic menopausal or female climacteric states documented in this encounter Additional Health Concerns Assessment Noted Time PHQ-9 Depression Total Score: 0 10/31/19 23 1:55 PM EDT documented as of this encounter Care Teams Administrative Services Specialist Relationship Specialty Start Date End Date Kathleen Nieto MD [address] [place] [phone] PCP - General Internal Medicine 09/12/22 documented as of this encounter
--- OUTSIDE RECORDS SUMMARY | 2025-04-11 15:36 | XMS_ITS | Encounter Summary ---
Author Organization [employer] Address [address] [facility] 7t [place] [address] Care Team Providers Care Caustics Loader Name Role Phone Kathleen Nieto MD Primary Care Provide r Reason for Visit * Reason Comments Med Refill Encounter Details Date Type Department Care Team (Late st Contact Info) Description 01/02/2025 Refill [facility] MEDICINE 230 [place], [place] [phone] Laurel Dacosta MD 230 [place], [place] [phone] Lumbar radiculopathy Social History Tobacco Use Types Packs/Day Years [...] Info) Description 04/18/2025 3:15 PM EDT Telemedicine [facility] MEDICINE [address] [place] [phone] Kathleen Nieto MD [address] [place] [phone] 04/25/2025 1:00 PM EDT Nutrition [facility] DIABETES/NUTRITION [address] [place] [phone] [place] [address] 05/30/2025 11:00 AM EST Office Visit [facility] MEDICINE [address] [place] [phone] documented as of this encounter Visit Diagnoses Diagnosis Lumbar radiculopathy Thoracic or lumbosacral neuritis or radiculitis, unspecified documented in this encounter Additional Health Concerns Assessment Noted Time PHQ-9 Depression Total Score: 0 08/27/19 24 10:26 AM EST documented as of this encounter Care Teams Caustics Loader Relationship Specialty Start Date End Date Kathleen Nieto MD [address] [place] [address] PCP - General Internal Medicine 09/12/22 documented as of this encounter
--- OUTSIDE RECORDS SUMMARY | 2025-04-11 15:36 | XMS_ITS | Encounter Summary ---
Author Organization [employer] Address [address] [facility] 7t [place] [address] Care Team Providers Care Paving Foreman Name Role Phone Kathleen Nieto MD Primary Care Provide r Reason for Visit * Reason Comments Med Change Request Encounter Details Date Type Department Care Team ([facility] Contact Info) Description 11/19/2022 Refill [facility] MEDICINE 230 [place], [place] [phone] Kathleen Nieto MD 230 [place], [place] [phone] Vitamin B12 deficiency Social History Tobacco Use [...] Encounters Date Type Department Care Team (Late Contact Info) Description 04/18/2025 3:15 PM EDT Telemedicine [facility] MEDICINE 230 [place], [place] [phone] Kathleen Nieto MD 230 [place] [address] 04/25/2025 1:00 PM EDT Nutrition [facility] DIABETES/NUTRITION 230 [place], [place] [phone] Elsie [address] [place] [address] 05/30/2025 11:00 AM EST Office Visit [facility] MEDICINE [address] [place] [address] documented as of this encounter Visit Diagnoses Diagnosis Vitamin B12 deficiency Other B-complex deficiencies documented in this encounter Additional Health Concerns Assessment Noted Time PHQ-9 Depression Total Score: 0 10/31/19 1:55 PM EDT documented as of this encounter Care Teams Paving Foreman Relationship Specialty Start Date End Date Kathleen Nieto MD [address] [place] [phone] PCP - General Internal Medicine 09/12/22 documented as of this encounter
--- OUTSIDE RECORDS SUMMARY | 2025-04-11 15:36 | XMS_ITS | Encounter Summary ---
Author Organization [employer] Address [address] [place] [address] 7t [place] [address] Care Team Providers Care Loom Stop Checker Name Role Phone Kathleen Nieto MD Primary Care Provide r Reason for Visit * Reason Onset Date Comments Med Refill 02/12/2023 Encounter Details Date Type Department Care Team ([facility] st Contact Info) Description 02/12/2023 Telephone [facility] MEDICINE 230 [place], [place] [phone] Kathleen Nieto MD 230 [place] [address] Med Refill Social History Tobacco Use Types [...] encounter Miscellaneous Notes * Telephone Encounter - Vicky Crooks - 02/12/2023 9:04 AM EDT Tc from pt requesting medication refill on oxyCODONE-acetaminophen (Percocet) 5- 325 MG tablet documented in this encounter Plan of Treatment Upcoming Encounters Date Type Department Care Team (Late st Contact Info) Description 04/18/2025 3:15 PM EDT Telemedicine [facility] MEDICINE 230 [place] [address] Kathleen Nieto MD 230 [place] [address] 04/25/2025 1:00 PM EDT Nutrition [facility] DIABETES/NUTRITION [address] [place] [address] [place] [address] 05/30/2025 11:00 AM EST Office Visit [facility] MEDICINE [address] [place] [phone] documented as of this encounter Visit Diagnoses Not on filedocumented in this encounter Additional Health Concerns Assessment Noted Time PHQ-9 Depression Total Score: 0 10/31/19 23 1:55 PM EDT documented as of this encounter Care Teams Loom Stop Checker Relationship Specialty Start Date End Date Kathleen Nieto MD [address] [place] [address] [phone] PCP - General Internal Medicine 09/12/22 documented as of this encounter
--- OUTSIDE RECORDS SUMMARY | 2025-04-11 15:36 | XMS_ITS | Encounter Summary ---
Author Organization [employer] Address [address] [place] [address] 7t [place] [address] Care Team Providers Care Insulation Board Back Tender Name Role Phone Kathleen Nieto MD Primary Care Provide r Reason for Visit * Reason Comments Med Refill Encounter Details Date Type Department Care Team (Late st Contact Info) Description 12/05/2022 Refill [facility] MEDICINE [address] [place] [address] [phone] Kathleen Nieto MD [address] [place] [address] [phone] Vitamin B12 deficiency Social History Tobacco Use [...] Info) Description 04/18/2025 3:15 PM EDT Telemedicine [facility] MEDICINE [address] [place] [address] [phone] Kathleen Nieto MD 230 [place], [place] [phone] 04/25/2025 1:00 PM EDT Nutrition [facility] DIABETES/NUTRITION 230 [place] [address] Elsie Duncan, ZOIE 230 [place] [address] 05/30/2025 11:00 AM EST Office Visit [facility] MEDICINE 230 [place] [address] documented as of this encounter Visit Diagnoses Diagnosis Vitamin B12 deficiency Other B-complex deficiencies documented in this encounter Additional Health Concerns Assessment Noted Time PHQ-9 Depression Total Score: 0 10/31/19 1:55 PM EDT documented as of this encounter Care Teams Insulation Board Back Tender Relationship Specialty Start Date End Date Kathleen Nieto MD 230 [place] [address] PCP - General Internal Medicine 09/12/22 documented as of this encounter
--- OUTSIDE RECORDS SUMMARY | 2025-04-11 15:36 | XMS_ITS | Encounter Summary ---
Author Organization [employer] Address [address] [place] [address] 7t [place] [address] Care Team Providers Care Veneer Slicing Machine Operator Name Role Phone Kathleen Nieto MD Primary Care Provide r Reason for Visit * Reason Comments Med Refill Encounter Details Date Type Department Care Team (Late Contact Info) Description 03/11/2023 Refill [facility] MEDICINE [address] [place] [address] [phone] Kathleen Nieto MD [address] [place] [address] [phone] Social History Tobacco Use Types Packs/Day Years [...] Info) Description 04/18/2025 3:15 PM EDT Telemedicine [facility] MEDICINE 230 [place], [place] [phone] Kathleen Nieto MD [address] [place] [address] [phone] 04/25/2025 1:00 PM EDT Nutrition [facility] DIABETES/NUTRITION 230 [place] [address] Elsie Duncan, ZOIE [address] [place] [address] 05/30/2025 11:00 AM EST Office Visit [facility] MEDICINE [address] [place] [address] documented as of this encounter Visit Diagnoses Not on filedocumented in this encounter Additional Health Concerns Assessment Noted Time PHQ-9 Depression Total Score: 0 10/31/19 1:55 PM EDT documented as of this encounter Care Teams Veneer Slicing Machine Operator Relationship Specialty Start Date End Date Kathleen Nieto MD [address] [place] [address] PCP - General Internal Medicine 09/12/22 documented as of this encounter
--- OUTSIDE RECORDS SUMMARY | 2025-04-11 15:36 | XMS_ITS | Encounter Summary ---
Author Organization [employer] Address [address] [facility] 7t [place] [address] Care Team Providers Care Slip Operator Name Role Phone Kathleen Nieto MD Primary Care Provide r Reason for Visit * Reason Onset Date Comments Med Change Request telephone call 11/19/2022 Encounter Details Date Type Department Care Team ([facility] st Contact Info) Description 11/19/2022 Refill [facility] MEDICINE 230 [place] [address] Kathleen Nieto MD 230 [place] [address] Vitamin B12 deficiency Social History Tobacco Use [...] encounter Miscellaneous Notes * Telephone Encounter - Eloina Valientepcion - 11/25/2022 10:34 AM EDT Pt walked in requesting to speak to Dr. Dominguez because her B-12 injections was not covered by herinsurance pharmacist told her it would only cover it if it was once a month. We informed pt that script was change to pills, but pt states she was informed that it was better for her to just do injections instead. She would like to speak to someone in regards to this situation so she can start taking the right treatment. documented in this encounter Plan of Treatment Upcoming Encounters Date Type Department Care Team (Late st Contact Info) Description 04/18/2025 3:15 PM EDT Telemedicine [facility] MEDICINE [address] [place] [address] [phone] Kathleen Nieto MD [address] [place] [phone] 04/25/2025 1:00 PM EDT Nutrition [facility] DIABETES/NUTRITION [address] [place] [address] Elsie Duncan, ZOIE 230 [place] [address] 05/30/2025 11:00 AM EST Office Visit [facility] MEDICINE [address] [place] [phone] documented as of this encounter Visit Diagnoses Diagnosis Vitamin B12 deficiency Other B-complex deficiencies documented in this encounter Additional Health Concerns Assessment Noted Time PHQ-9 Depression Total Score: 0 10/31/19 23 1:55 PM EDT documented as of this encounter Care Teams Slip Operator Relationship Specialty Start Date End Date Kathleen Nieto MD [address] [place] [address] [phone] PCP - General Internal Medicine 09/12/22 documented as of this encounter
--- OUTSIDE RECORDS SUMMARY | 2025-04-11 15:36 | XMS_ITS | Encounter Summary ---
Author Organization [employer] Address [address] [place] [address] 7t [place] [address] Care Team Providers Care Rail Doweling Machine Operator Name Role Phone Kathleen Nieto MD Primary Care Provide r Reason for Visit * Reason Comments Med Refill Encounter Details Date Type Department Care Team (Late st Contact Info) Description 03/31/2023 Refill [facility] [address] [place] [phone] Mary Edwards ANP 230 [place] [address] Vitamin D deficiency Social History Tobacco Use Types Packs/Day [...] PM EDT Telemedicine [facility] [address] [place] [address] Kathleen Nieto MD 230 [place], [place] [phone] 04/25/2025 1:00 PM EDT Nutrition [facility] DIABETES/NUTRITION 230 [place] [address] Elsie Duncan, ZOIE 230 [place] [address] 05/30/2025 11:00 AM EST Office Visit [facility] [address] [place] [address] documented as of this encounter Visit Diagnoses Diagnosis Vitamin D deficiency documented in this encounter Additional Health Concerns Assessment Noted Time PHQ-9 Depression Total Score: 0 10/31/19 1:55 PM EDT documented as of this encounter Care Teams Rail Doweling Machine Operator Relationship Specialty Start Date End Date Kathleen Nieto MD 230 [place] [address] PCP - General Internal Medicine 09/12/22 documented as of this encounter
--- OUTSIDE RECORDS SUMMARY | 2025-04-11 15:36 | XMS_ITS | Encounter Summary ---
Author Organization [employer] Address [address] [facility] 7t [place] [address] Care Team Providers Care Blow Mold Technician Name Role Phone Kathleen Nieto MD Primary Care Provide r Reason for Visit * Reason Comments Med Refill Encounter Details Date Type Department Care Team ([facility] st Contact Info) Description 01/05/[address] [facility] MED & PEDS [address] [place], [place] [phone] Kathleen Nieto MD 230 [place] [address] Vitamin D deficiency Social History Tobacco Use [...] Info) Description 04/18/2025 3:15 PM EDT Telemedicine [facility] MEDICINE [address] [place] [address] Kathleen Nieto MD [address] [place] [phone] 04/25/2025 1:00 PM EDT Nutrition [facility] DIABETES/NUTRITION [address] [place] [phone] [place] [address] 05/30/2025 11:00 AM EST Office Visit [facility] [address] [place] [address] documented as of this encounter Visit Diagnoses Diagnosis Vitamin D deficiency documented in this encounter Additional Health Concerns Assessment Noted Time PHQ-9 Depression Total Score: 0 08/27/19 24 10:26 AM EST documented as of this encounter Care Teams Blow Mold Technician Relationship Specialty Start Date End Date Kathleen Nieto MD [address] [place] [phone] PCP - General Internal Medicine 09/12/22 documented as of this encounter
--- OUTSIDE RECORDS SUMMARY | 2025-04-11 15:36 | XMS_ITS | Encounter Summary ---
Author Organization [employer] Address [address] [facility] 7t [place] [address] Care Team Providers Care Waiter/Waitress First Class Name Role Phone Kathleen Nieto MD Primary Care Provide r Reason for Visit * Reason Comments Med Refill Encounter Details Date Type Department Care Team ([facility] st Contact Info) Description 02/23/2025 Refill [facility] MED[facility]INE 230 [place], [place] [phone] Kathleen Nieto MD 230 [place], [place] [phone] Lumbar radiculopathy Social History Tobacco Use Types [...] Info) Description 04/18/2025 3:15 PM EDT Telemedicine [facility] MEDICINE [address] [place] [phone] Kathleen Nieto MD [address] [place] [address] 04/25/2025 1:00 PM EDT Nutrition [facility] DIABETES/NUTRITION [address] [place] [address] Elsie Dnucan, ZOIE [address] [place] [address] 05/30/2025 11:00 AM EST Office Visit [facility] MEDICINE [address] [place] [address] documented as of this encounter Visit Diagnoses Diagnosis Lumbar radiculopathy Thoracic or lumbosacral neuritis or radiculitis, unspecified documented in this encounter Additional Health Concerns Assessment Noted Time PHQ-9 Depression Total Score: 0 08/27/19 24 10:26 AM EST documented as of this encounter Care Teams Waiter/Waitress First Class Relationship Specialty Start Date End Date Kathleen Nieto MD [address] [place] [phone] PCP - General Internal Medicine 09/12/22 documented as of this encounter
--- OUTSIDE RECORDS SUMMARY | 2025-04-11 15:36 | XMS_ITS | Encounter Summary ---
Author Organization [employer] Address [address] [facility] 7t [place] [address] Care Team Providers Care Retort Setter Name Role Phone Kathleen Nieto MD Primary Care Provide r Reason for Visit * Reason Comments Med Refill Encounter Details Date Type Department Care Team ([facility] st Contact Info) Description 04/10/2025 Refill [facility] 230 [place], [place] [phone] Kathleen Nieto MD 230 [place], [place] [phone] Type 2 diabetes mellitus with hyperglycemia, without long-term current use of insulin (HCC); Menopause Social History Tobacco Use Types Packs/Day [...] the past 12 months, has t he [employer], gas, oil or water company threatened to [...] Info) Description 04/18/2025 3:15 PM EDT Telemedicine [facility] [address] [place] [phone] Kathleen Nieto MD [address] [place] [address] 04/25/2025 1:00 PM EDT Nutrition [facility] DIABETES/NUTRITION [address] [place] [address] Elsie Duncan, ZOIE [address] [place] [address] 05/30/2025 11:00 AM EST Office Visit [facility] [address] [place] [phone] documented as of this encounter Visit Diagnoses Diagnosis Type 2 diabetes mellitus with hyperglycemia, without long-term current use of insulin (HCC) Menopause Symptomatic menopausal or female climacteric states documented in this encounter Additional Health Concerns Assessment Noted Time PHQ-9 Depression Total Score: 0 08/27/19 24 10:26 AM EST documented as of this encounter Care Teams Retort Setter Relationship Specialty Start Date End Date Kathleen Nieto MD 230 [place] [address] PCP - General Internal Medicine 09/12/22 documented as of this encounter
--- OUTSIDE RECORDS SUMMARY | 2025-04-11 15:36 | XMS_ITS | Encounter Summary ---
Author Organization [employer] Address [address] [facility] 7t [place] [address] Care Team Providers Care Car Retarder Operator Name Role Phone Kathleen Nieto MD Primary Care Provide r Reason for Visit * Reason Onset Date Comments Med Refill 11/19/2022 Encounter Details Date Type Department Care Team ([facility] st Contact Info) Description 11/19/2022 Telephone [facility] 230 [place], [place] [phone] Kathleen Nieto MD 230 [place], [place] [phone] Med Refill Social History Tobacco Use Types [...] encounter Miscellaneous Notes * Telephone Encounter - Nichole Strong LPN - 11/19/2022 1:14 PM EDT Medication pended to PCP. * Telephone Encounter - Yazmin Mosley - 11/19/2022 12:31 PM EDT Tc from pt requesting med refill on cyanocobalamin (Vitamin B-12) 1000 MCG/ML injection. Service Officer obinna was sent over on 11/18/2022, scientific technical writer called Pharmacy to confirmed and Pharmacy informed they have not received script. Please sent to [facility]/pharmacy #[id number] - [place] - [address] [place] [address] documented in this encounter Plan of Treatment Upcoming Encounters Date Type Department Care Team (Late st Contact Info) Description 04/18/2025 3:15 PM EDT Telemedicine [facility] [address] [place] [address] Kathleen Nieto MD 230 [place] [address] 04/25/2025 1:00 PM EDT Nutrition [facility] DIABETES/NUTRITION [address] [place] [address] Elsie Duncan, ZOIE 230 [place] [address] 05/30/2025 11:00 AM EST Office Visit [facility] [address] [place] [phone] documented as of this encounter Visit Diagnoses Not on filedocumented in this encounter Additional Health Concerns Assessment Noted Time PHQ-9 Depression Total Score: 0 10/31/19 1:55 PM EDT documented as of this encounter Care Teams Car Retarder Operator Relationship Specialty Start Date End Date Kathleen Nieto MD [address] [place] [phone] PCP - General Internal Medicine 09/12/22 documented as of this encounter
--- OUTSIDE RECORDS SUMMARY | 2025-04-11 15:36 | XMS_ITS | Encounter Summary ---
Author Organization [employer] Address [address] [facility] 7t [place] [address] Care Team Providers Care Fern Cutter Name Role Phone Kathleen Nieto MD Primary Care Provide r Encounter Details Date Type Department Care Team ([facility] st Contact Info) Description 04/15/2023 Abstract [facility] 230 [place], [place] [phone] Kathleen Nieto MD 230 [place], [place] [phone] Social History Tobacco Use Types Packs/Day Years Used Date Smoking Tobacco: Never Passive Smoke Exposure: Never Smokeless Tobacco: Never Depression Answer Date Recorded Patient Health Questionnaire-9 Score 0 10/30/2022 Housing Stability Answer Date Recorded What is your housing situation today? I have concepcionshahla seth 04/15/[address] you li ve. Do you have problems with any of the following? None of the above 04/15/2023 Food Insecurity Answer Date Recorded Within the past 12 months, y ou worried that your food would run out before you got money to buy more: Never True 04/15/2023 Within the past 12 months,th e food you bought just didn't last and you didn't have enough money to get more: Never True 05/2023 Transportation Answer Date Recorded In the past 12 months, has l ack of transportation kept you from medical appts, meetings, work or from getting things needed for daily living? No 04/15/2023 Utilities Answer Date Recorded In the past 12 months, has t he electric, gas, oil or water company threatened to shut off services in your home? No 04/15/2023 Depression Answer Date Recorded Patient Health Questionnaire-2 [...] Info) Description 04/18/2025 3:15 PM EDT Telemedicine [facility] [address] [place] [address] Kathleen Nieto MD [address] [place] [address] 04/25/2025 1:00 PM EDT Nutrition [facility] DIABETES/NUTRITION [address] [place] [address] [place] [address] 05/30/2025 11:00 AM EST Office Visit [facility] [address] [place] [address] documented as of this encounter Visit Diagnoses Not on filedocumented in this encounter Additional Health Concerns Assessment Noted Time PHQ-9 Depression Total Score: 0 10/31/19 23 1:55 PM EDT documented as of this encounter Care Teams Fern Cutter Relationship Specialty Start Date End Date Kathleen Nieto MD [address] [place] [phone] PCP - General Internal Medicine 09/12/22 documented as of this encounter
--- OUTSIDE RECORDS SUMMARY | 2025-04-11 15:36 | XMS_ITS | Encounter Summary ---
Author Organization [employer] Address [address] [place] [address] 7t [place] [address] Care Team Providers Care Customer Expert Name Role Phone Kathleen Nieto MD Primary Care Provide r Reason for Visit * Reason Comments Med Refill Encounter Details Date Type Department Care Team (Late st Contact Info) Description 03/11/2023 Refill [facility] [address] [place] [phone] Mary Edwards ANP [address] [place] [address] Vitamin D deficiency Social History Tobacco Use [...] Info) Description 04/18/2025 3:15 PM EDT Telemedicine [facility] [address] [place] [address] Kathleen Nieto MD 230 [place], [place] [phone] 04/25/2025 1:00 PM EDT Nutrition [facility] DIABETES/NUTRITION [address] [place] [address] Elsie Duncan, ZOIE [address] [place] [address] 05/30/2025 11:00 AM EST Office Visit [facility] [address] [place] [address] documented as of this encounter Visit Diagnoses Diagnosis Vitamin D deficiency documented in this encounter Additional Health Concerns Assessment Noted Time PHQ-9 Depression Total Score: 0 10/31/19 1:55 PM EDT documented as of this encounter Care Teams Customer Expert Relationship Specialty Start Date End Date Kathleen Nieto MD [address] [place] [address] PCP - General Internal Medicine 09/12/22 documented as of this encounter
== END 2025-04-11 13:24 | disposition home or self-care (01) ==
LOC: HO.HGI 12:46
PROVIDERS: PCP Internal Medicine; Visit Provider Nurse Practitioner Family
DX: K59.09 Other constipation (principal); R79.89 Other specified abnormal findings of blood chemistry; K57.32 Diverticulitis of large intestine without perforation or abscess without bleeding
CPT/HCPCS: 99213

== ENCOUNTER → 2025-04-11 12:45 | Outpatient (BNVA) | payer MEDICAID, SELFPAY | PROVIDERS: PCP Internal Medicine; Visit Provider Nurse Practitioner Family | DX: K57.32 Diverticulitis of large intestine without perforation or abscess without bleeding (principal); R79.89 Other specified abnormal findings of blood chemistry | CPT/HCPCS: 99212 ==

== ENCOUNTER 2025-04-17 10:29 | Emergency (ER) | payer MEDICAID, SELFPAY ==
--- NOTE | ~2025-04-17 | CT_ITS ---
CLINICAL HISTORY: acute Left sided abd pain, dysuria CT abdomen and pelvis with contrast Comparison: CT/SR - CT ABDOMEN PELVIS WITH IV CONTRAST - 07/24/22 11:[address] - CT ABDOMEN PELVIS WITH IV CONTRAST - 05/20/22 18:31 EST Findings: No consolidation or effusion. Hepatic steatosis. Unchanged intrahepatic and extrahepatic biliary ductal dilation postcholecystectomy. No nephrolithiasis or hydronephrosis. No bowel obstruction, pneumoperitoneum, or pneumatosis. Large volume of stool throughout the colon. Hysterectomy. No acute inflammation or free fluid. No acute fracture. IMPRESSION: 1. Large volume of stool throughout the colon. 2. No acute inflammation or free fluid. 3. Unchanged intrahepatic and extrahepatic biliary ductal dilation postcholecystectomy. 4. No nephrolithiasis or hydronephrosis. This document has been electronically signed by: Godwin Hernandez DO on 04/17/2025 13:29:24
[2025-04-17 10:35] VITALS: BP 132/68; PULSE 89; RESP 20; TEMP 36.4; O2SAT 99; BMI 28.5
--- NOTE | 2025-04-17 10:35 | ED.GENADULT ---
HPI - General Adult General Chief complaint: Urogenital-Female Stated complaint: willis when urinating, kidney pain Time Seen by Provider: 04/17/25 11:22 Source: patient and electronic test technician (English- MIREYAYCE) Mode of arrival: ambulatory Limitations: language barrier (English) History of Present Illness ED Provider: MICHELINE KNIGHT PA-C HPI narrative: 60-year-old English-speaking female with pmhx significant for asthma, HTN, T2DM, diverticulitis, chronic back pain presents to the ED today for evaluation of left upper quadrant pain radiating to her back x3 days. Admits to associated nausea without vomiting, dysuria and nonbloody diarrhea. Reports fever TMAX 102F this morning. Took Tylenol around 0500. Denies recent abnormal foods. She has been trialing Oycodone at home without improvement in pain. She typipcally takes this as needed for chronic back pain. Endorses hx of bladder stones. Surgical hx includes removal of bladder stones and hysterectomy. Related Data Home Medications ?Medication ?Instructions ?Recorded ?Confirmed aspirin 81 mg tablet,delayed 1 tab PO DAILY 04/16/22 04/28/25 release cholecalciferol (vitamin D3) 25 1 tab PO DAILY 04/16/22 04/28/25 mcg (1,000 unit) tablet estradiol 0.05 mg/24 hr weekly 1 patch transdermal MO 04/16/22 04/28/25 transdermal patch fluticasone propionate 220 1 puff inhalation BID 04/16/22 04/28/25 mcg/actuation HFA aerosol inhaler (Flovent HFA) hydrochlorothiazide 25 mg tablet 0.5 tab PO DAILY 04/16/22 04/28/25 lisinopril 40 mg tablet 1 tab PO DAILY 04/16/22 04/28/25 lorazepam 0.5 mg tablet 1 tab PO DAILY PRN Anxiety 04/16/22 04/28/25 montelukast 10 mg tablet 1 tab PO BEDTIME 04/16/22 04/28/25 oxycodone-acetaminophen 5 mg-325 1 tab PO TID PRN severe pain 04/16/22 04/28/25 mg tablet zolpidem 10 mg tablet 1 tab PO BEDTIME PRN Insomnia 04/16/22 04/28/25 empagliflozin 25 mg tablet 25 mg PO DAILY 04/11/25 04/28/25 (Jardiance) Previous Rx's ?Medication ?Instructions ?Recorded meclizine 25 mg tablet (Dramamine 25 mg PO TID PRN dizziness #20 tabs 02/04/23 Less Drowsy) albuterol sulfate 90 mcg/actuation 2 puff inhalation Q4-6H PRN 06/15/24 aerosol inhaler shortness of breath or wheezing #6.7 grams polyethylene glycol 3350 17 17 g PO DAILY #510 grams 02/20/25 gram/dose oral powder (Gavilax) sennosides 8.6 mg tablet (senna) 17.2 mg (2 x 8.6 mg) PO BEDTIME 02/23/25 PRN for constipation 90 days #180 tabs famotidine 20 mg tablet 20 mg PO BEDTIME 90 days #90 tabs 03/06/25 plecanatide 3 mg tablet (Trulance) 3 mg PO DAILY #30 tabs 04/11/25 docusate sodium 100 mg capsule 100 mg PO BID PRN constipation #20 04/17/25 (Colace) caps peg 3350-electrolytes 236 240 ml PO Q10M #4,000 mL 04/17/25 gram-22.74 gram-6.74 gram-5.86 gram solution (Golytely) Allergies Allergy/AdvReac Type Severity Reaction Status Date / Time ibuprofen (From Motrin) AdvReac Mild INTENSE Verified 04/17/25 10:38 STOMACH PAIN; RASH Review of Systems Review of Systems: Yes all other systems are reviewed and are negative PMFSH Past Medical History Attestation statement: The following information was validated with the patient. Source: old records reviewed and nursing notes reviewed Medical History Elevated LFTs Abnormal liver function test HELLP syndrome (HELLP), unspecified trimester Lumbar disc herniation Chronic constipation Chronic low back pain Fibromyalgia Abdominal pain Anemia COVID-19 Diabetes mellitus, type 2 Hypercholesteremia Asthma Hypertension GERD (gastroesophageal reflux disease) Surgical History Hx laparoscopic cholecystectomy Hx of ovarian cystectomy Hx of dilation and curettage History of esophagogastroduodenoscopy (EGD) H/O colonoscopy H/O: hysterectomy History of bladder surgery Family History Family History Mother Diabetes Chronic kidney disease Maternal Grandmother Diabetes Maternal Aunt Diabetes Father CAD (coronary artery disease) Social History Social History Household Members: Spouse Housing: Apartment Are you a primary career consultant to a significant other at home: No Do you presently have visiting nurse or other home services: Yes Alcohol intake: never Patient Tobacco Use Status: Never used Tobacco Second Hand Smoke Exposure: No service: No Current occupational status: disabled Physical Exam ED Vital Signs: Vital Signs - 24 hr 04/17/25 10:35 04/17/25 13:01 04/17/25 15:31 Temperature 97.5 F 98.2 F 98.1 F Pulse Rate 89 78 78 Respiratory Rate 20 15 16 Blood Pressure 132/68 103/55 L 101/73 Pulse Oximetry 99 100 98 Oxygen Delivery Method Room Air Room Air 04/17/25 15:52 Temperature 98.1 F Pulse Rate 78 Respiratory Rate 16 Blood Pressure 101/73 Pulse Oximetry 98 Oxygen Delivery Method Room Air BMI result Body Mass Index 28.5 vital signs stable General: Well appearing, in no acute distress. Skin: Warm, dry, intact. No rashes or lesions. Head: Normocephalic, atraumatic. EENT: Hearing is intact b/l. Conjunctiva clear. Sclera is anicteric. PERRLA. EOM intact. Moist mucous membranes.? Cardiac: Chest wall symmetric. RRR Lungs: Normal respiratory effort without accessory muscle use. CTA bilaterally Abdomen: Soft, non-tender, non-distended. No rebound tenderness or guarding. Positive BS x4. Ext: Upper and lower extremities atraumatic, without tenderness, deformity, swelling or erythema Neuro: AOx3. Normal speech. Ambulating with steady gait. Course Course Course Narrative: Rapid medical examination performed in triage by Kandice Marina PA-C. Patient is a 60 year old assigned female at presenting to the emergency department with left sided flank pain and dysuria. Detailed physical exam and review of systems are deferred to the revenue enforcement collection agent. Labs ordered. Patient placed back in the waiting room pending room availability and results. Reevaluation(s) Reevaluation #1: CBC without leukocytosis or left shift. No anemia. H&H stable. Chemistry without acute electrolyte abnormality requiring intervention. Renal function around baseline. Random glucose 140, no gap. Slightly hypercalcemic however this appears to be her baseline. Liver function at baseline. Urine without infection. CT abdomen/pelvis showing large volume stool throughout colon. She is post cholecystectomy and there is unchanged intrahepatic and extrahepatic biliary ductal dilation, likely not the cause of her pain. There is no nephro or urolithiasis. > the patient is constipated. Will start her on a bowel regimen. Patient has remained stable throughout ED visit today. Discussed worrisome signs and symptoms and when to return to the ED. All questions answered at this time. Patient is agreeable with disposition and stable for discharge. Medications Administered Discontinued Medications Generic Name Dose Route Start Last Admin Trade Name Freq PRN Reason Stop Dose Admin Hydromorphone HCl 1 mg 04/17/25 14:31 04/17/25 14:34 Hydromorphone Hcl 1 Mg/Ml Syringe IVPUSH 04/17/25 14:32 1 mg ONCE ONE Administration Protocol Iohexol 85 ml 04/17/25 12:40 04/17/25 12:41 Iohexol 350 Mg/Ml 100 Ml Infus..Btl IV 04/17/25 12:41 85 ml ONCE ONE Administration Morphine Sulfate 4 mg 04/17/25 11:37 04/17/25 11:46 Morphine Sulfate 4 Mg/Ml Cartridge IVPUSH 04/17/25 11:38 4 mg ONCE ONE Administration Protocol Ondansetron HCl 4 mg 04/17/25 11:34 04/17/25 11:46 Ondansetron Hcl 4 Mg/2 Ml Vial IVPUSH 04/17/25 11:35 4 mg ONCE ONE Administration Medical Decision Making Medical Decision Making MDM Narrative: 60-year-old English-speaking female with pmhx significant for asthma, HTN, T2DM, diverticulitis, chronic back pain presents to the ED today for evaluation of left upper quadrant pain radiating to her back x3 days. vital signs stable. she is well appearing and in NAD. Differential diagnosis includes biliary colic, renal colic, nephrolithiasis, gastroenteritis, gastritis, PUD, constipation. Abdominal exam without peritoneal signs. No evidence of acute abdomen at this time. Well appearing. Moderate suspicion for acute hepatobiliary disease (including acute cholecystitis - s/p roger). Less likely to represent acute pancreatitis, perforated ulcer/ GI bleed, acute infectious processes (pneumonia, hepatitis, pyelonephritis), atypical appendicitis, vascular catastrophe, bowel obstruction or viscus perforation. Presentation not consistent with other acute, emergent causes of abdominal pain at this time. Plan: labs, UA, pain control, CT, serial reassessment Differential Diagnosis Differential Diagnoses: The differential diagnosis associated with the presentation includes as above. Admission/Observation not indicated Lab Data MDM Lab Attestation statement: I reviewed the patient's lab results. as above. 04/17/25 10:50 04/17/25 10:50 Labs: Lab Results 04/17/25 04/17/25 Range/Units 10:50 11:38 WBC 7.6 (4.8-10.8) X10*3/uL RBC 5.20 (4.20-5.50) X10*6/uL Hgb 13.7 (12.0-16.0) g/dl Hct 42.8 (37.0-47.0) % MCV 82.3 (80.0-98.0) fL MCH 26.3 L (27.0-33.0) pg MCHC 32.0 (31.0-35.0) g/dl RDW 13.2 (11.0-16.0) % Plt Count 358 (160-400) X10*3/uL MPV 10.1 (9.4-12.3) fL Immature Gran % (Auto) 0.4 (0.0-0.4) % Neut % (Auto) 57.6 (45-73) % Lymph % (Auto) 31.7 (20-40) % Frio % (Auto) 8.0 (2-11) % Eos % (Auto) 2.2 (0-4) % Baso % (Auto) 0.1 (0-2) % Lymph # (Auto) 2.4 (1.2-4.9) X10*3/uL Frio # (Auto) 0.6 (0.1-1.2) X10*3/uL Eos # (Auto) 0.2 (0.0-0.4) X10*3/uL Baso # (Auto) 0.0 (0.0-0.2) X10*3/uL Abs Immat Gran (auto) 0.03 (0.00-0.03) X10*3/uL Absolute Neuts (auto) 4.4 (2.0-8.3) x10*3/uL Absolute Nucleated RBC 0.000 (0.0-0.012) X10*3/uL Nucleated RBC % (auto) 0.0 (0.0-0.2) /100WBC Sodium 140 (135-145) mmol/L Potassium 4.3 (3.3-5.1) mmol/L Chloride 104 (96-108) mmol/L Carbon Dioxide 26 (22-29) mmol/L Anion Gap 14 (12-20) BUN 22 H (9-16) mg/dL Creatinine 1.19 (0.5-1.4) mg/dL Estim Creat Clear Calc 46.2 Estimated GFR 46 Random Glucose 140 H (60-115) mg/dL Calcium 10.6 H (8.4-10.2) mg/dL Magnesium 1.9 (1.6-2.6) mg/dL Total Bilirubin 0.3 (0.0-1.0) mg/dL AST 35 H (5-31) U/L ALT 35 H (0-31) U/L Alkaline Phosphatase 57 (39-117) U/L Total Protein 7.5 (6.5-8.0) g/dL Albumin 4.6 (3.5-5.0) g/dL Urine Color Yellow Urine Appearance Clear Urine pH 5.5 (5.0-9.0) Ur Specific [place] 1.010 (1.005-1.025) Urine Protein Negative (Neg-Trace) mg/dL Urine Glucose (UA) >=1000 H (Negative) mg/dL Urine Ketones Negative (Negative) mg/dL Urine Blood Negative (Negative) Urine Nitrite Negative (Negative) Ur Leukocyte Esterase Negative (Negative) Urine RBC 0-2 (0-2) /HPF Urine WBC 0-5 (0-5) /HPF Ur Squamous Epith Cells 0-2 (0-2) /HPF Urine Bacteria None Seen (None Seen) Hyaline Casts 0-2 (0-2) /LPF Independent Interpretation I performed an independent interpretation of an: CT Scan Interpretation: ct a/p without bowel obstruction Radiology Impression Discussion of test interpretation with radiology: I have reviewed the radiologist's reading. Radiologist Impression: Procedure(s): CT abdomen pelvis w IV con Accession Number(s): [id number] cc: Kathleen Nieto MD; Micheline Knight~ Report Number: [id number]: Total DLP = 433.00 mGy-cm Reason for Exam: acute Left sided abd pain, dysuria CLINICAL HISTORY: acute Left sided abd pain, dysuria CT abdomen and pelvis with contrast Comparison: CT/SR - CT ABDOMEN PELVIS WITH IV CONTRAST - 07/24/22 11:[address] - CT ABDOMEN PELVIS WITH IV CONTRAST - 05/20/22 18:31 EST Findings: No consolidation or effusion. Hepatic steatosis. Unchanged intrahepatic and extrahepatic biliary ductal dilation postcholecystectomy. No nephrolithiasis or hydronephrosis. No bowel obstruction, pneumoperitoneum, or pneumatosis. Large volume of stool throughout the colon. Hysterectomy. No acute inflammation or free fluid. No acute fracture. IMPRESSION: 1. Large volume of stool throughout the colon. 2. No acute inflammation or free fluid. 3. Unchanged intrahepatic and extrahepatic biliary ductal dilation postcholecystectomy. 4. No nephrolithiasis or hydronephrosis. This document has been electronically signed by: Godwin Hernandez DO on 04/17/2025 13:29:24 External Record Review External record reviewed: Inpatient record Social Determinants Patient?s care significantly limited by Social Determinants of Health including: Other Social Determinant of Health Critical Care Time Critical Care Time Critical Care Time: No Discharge Plan Discharge Clinical Impression: Constipation Patient Disposition: Home, Self-Care Instructions: Constipation (ED) Additional Instructions: Your lab work up today is unremarkable. Blood work and urine are normal. Your imaging shows that you are constipated. See home care instructions. There is no evidence of obstruction. Make sure you are staying adequately hydrated. I recommend using stool softeners such as colace 100 mg twice daily. GoLYTELY has been sent to your pharmacy to help him move your bowels. Follow up with your doctor in 2 weeks. Return with new or worsening symptoms. In the case of an emergency call 911. Prescriptions: New peg 3350-electrolytes [Golytely] 236-22.74-6.74 -5.86 gram recon soln 240 ml PO Q10M Qty: 4000 0RF Rx Instructions: until fecal effluent is clear docusate sodium [Colace] 100 mg capsule 100 mg PO BID PRN (Reason: constipation) Qty: 20 0RF No Action polyethylene glycol 3350 [Gavilax] 17 gram/dose powder 17 g PO DAILY Qty: 510 2RF sennosides [senna] 8.6 mg tablet 17.2 mg PO BEDTIME PRN (Reason: for constipation) 90 Days Qty: 180 1RF famotidine 20 mg tablet 20 mg PO BEDTIME 90 Days Qty: 90 1RF Trulance 3 mg tablet 3 mg PO DAILY Qty: 30 6RF Rx Instructions: Take one tablet daily estradiol 0.05 mg/24 hr patch weekly 1 patch transdermal MO aspirin 81 mg tablet,delayed release (DR/EC) 1 tab PO DAILY oxycodone-acetaminophen 5-325 mg tablet 1 tab PO TID PRN (Reason: severe pain) hydrochlorothiazide 25 mg tablet 0.5 tab PO DAILY zolpidem 10 mg tablet 1 tab PO BEDTIME PRN (Reason: Insomnia) lisinopril 40 mg tablet 1 tab PO DAILY lorazepam 0.5 mg tablet 1 tab PO DAILY PRN (Reason: Anxiety) montelukast 10 mg tablet 1 tab PO BEDTIME fluticasone propionate [Flovent HFA] 220 mcg/actuation HFA aerosol inhaler 1 puff INHALATION BID cholecalciferol (vitamin D3) 25 mcg (1,000 unit) tablet 1 tab PO DAILY meclizine [Dramamine Less Drowsy] 25 mg tablet 25 mg PO TID PRN (Reason: dizziness) Qty: 20 0RF albuterol sulfate 90 mcg/actuation HFA aerosol inhaler 2 puff inhalation Q4-6H PRN (Reason: shortness of breath or wheezing) Qty: 6.7 0RF Jardiance 25 mg tablet 25 mg PO DAILY Referrals: Kathleen Nieto MD [Primary Care Provider, Internal Medicine] Interventions: ED Discharge Assessment Last Done: 04/17/25 15:52 Discharge Date/Time: 04/17/25 15:53 Print Language: Indonesian
[2025-04-17 10:53] LABS: MANUAL DIFF FLAG NO
[2025-04-17 10:55] LABS: Hematocrit 42.8 % (37.0-47.0); Hemoglobin 13.7 g/dl (12.0-16.0); Imm Gran Abs Auto 0.03 X10*3/uL (0.00-0.03); Imm Gran Pct Auto 0.4 % (0.0-0.4); Lymphocytes Absolute Auto 2.4 X10*3/uL (1.2-4.9); Mean Corpuscular HGB Conc 32.0 g/dl (31.0-35.0); Mean Corpuscular Hemoglobin 26.3 pg (27.0-33.0); Mean Corpuscular Volume 82.3 fL (80.0-98.0); NRBC Abs Auto 0.000 X10*3/uL (0.0-0.012); NRBC Pct Auto 0.0 /100WBC (0.0-0.2); Platelet Count 358 X10*3/uL (160-400); Red Blood Count 5.20 X10*6/uL (4.20-5.50); White Blood Count 7.6 X10*3/uL (4.8-10.8)
[2025-04-17 11:11] LABS: Alanine Aminotransferase 35 U/L (0-31); Albumin Level 4.6 g/dL (3.5-5.0); Alkaline Phosphatase 57 U/L (39-117); Anion Gap 14 (12-20); Aspartate Amino Transferase 35 U/L (5-31); Blood Urea Nitrogen 22 mg/dL (9-16); Calcium 10.6 mg/dL (8.4-10.2); Carbon Dioxide 26 mmol/L (22-29); Chloride 104 mmol/L (96-108); Creatinine Clr Calc Pharmacy 46.2; Estimated Glomerular Filt Rate 46; Magnesium 1.9 mg/dL (1.6-2.6); Potassium 4.3 mmol/L (3.3-5.1); Sodium 140 mmol/L (135-145); Total Protein 7.5 g/dL (6.5-8.0)
[2025-04-17 11:45] LABS: Appearance Urine Clear; Glucose Urine UA >=1000 mg/dL (Negative); PH 5.5 (5.0-9.0); Specific Gravity - Urine 1.010 (1.005-1.025); UMIC TRIGGER UACC YES
--- OUTSIDE RECORDS SUMMARY | 2025-04-17 12:16 | XMS_ITS | Clinical Summary ---
Author Organization [facility] it Address [address] [place] [address] Care Team Providers Care Can Carrier Name Role Phone Minerva Negro MD Primary [...] age to complete this topic Care Teams Can Carrier Relationship Specialty Start Date End Date Minerva Negro MD [address] [place] [address] [place], [place] PCP - General Internal Medicine 05/03/18
[2025-04-17] MEDS: iohexoL 350 MG/ML 100 ML INFUS..BTL 85 ML IV (12:41)
[2025-04-17 13:01] VITALS: BP 103/55; PULSE 78; RESP 15; TEMP 36.8; O2SAT 100
--- NOTE | 2025-04-17 14:56 | PC.NURSE ---
soap suds enema ordered by provider but pt currently refusing despite education. provider notified/aware.
[2025-04-17 15:31] VITALS: BP 101/73; PULSE 78; RESP 16; TEMP 36.7; O2SAT 98
[2025-04-17 15:52] VITALS: BP 101/73; PULSE 78; RESP 16; TEMP 36.7; O2SAT 98
== END 2025-04-17 15:53 | disposition home or self-care (01) ==
PROVIDERS: Physician Assistant Medical; Emergency Provider Emergency Medicine; PCP Internal Medicine
DX: K59.00 Constipation, unspecified (principal); I10 Essential (primary) hypertension; G89.29 Other chronic pain; J45.909 Unspecified asthma, uncomplicated; E83.52 Hypercalcemia; E11.9 Type 2 diabetes mellitus without complications; Z90.49 Acquired absence of other specified parts of digestive tract; Z79.899 Other long term (current) drug therapy
CPT/HCPCS: 36415; 74177; 80053; 81001; 83735; 85025; 96374; 96375; 99284; 99285; J1171; J2270; J2405; Q9967

== ENCOUNTER → 2025-04-17 11:52 | Outpatient (BNV) | payer MEDICAID, SELFPAY | PROVIDERS: Emergency Provider Emergency Medicine; PCP Internal Medicine; Visit Provider Family Medicine | DX: R10.9 Unspecified abdominal pain (principal); R30.0 Dysuria | CPT/HCPCS: 74177 ==

== ENCOUNTER 2025-04-28 10:12 | Outpatient (AMB) | payer MEDICAID, SELFPAY ==
--- NOTE | 2025-04-28 10:19 | A.OFFVIS_ITS ---
Vital Signs 04/28/25 10:52 Height 5 ft 2 in Weight 155 lb BMI 28.3 Intake Visit Reasons: OV-RT hip pain Intake Note: Ariadne is a 60 year old female who presents today as a follow up for her right hip pain. At last visit we referred her to referred to Neuro spine to discuss surgical options. She was evaluated with a PA in the Spine Office who recommended SI joint injections with Tono Merino in Family Physiatry - She was booked for April of 2024 but did not do injections as she feels that they are not helpful for her. Currently, patient reports that her lower back and right hip are quite painful and are preventing her from sleeping and performing daily activities. The pain is described as a cramping and throbbing pain. When it wakes her up at night her right foot goes numb and she feels that she needs to get up and walk to relieve it. Taking Percocet 5-325, which is not helping. Teletype Operator Required: Yes Teletype Operator Language: Genetic Counselor Name: Sajan York [phone] Allergies ibuprofen (From Motrin) Adverse Reaction (Mild, Verified 04/17/25 10:38) INTENSE STOMACH PAIN; RASH Medication List - Last Reconciled 04/28/25 by Peg Rodriguez MD albuterol sulfate 90 mcg/actuation 2 puffs inhalation Q4-6H PRN aspirin 1 tab PO DAILY cholecalciferol (vitamin D3) 1 tab PO DAILY docusate sodium (Colace) 100 mg PO BID PRN empagliflozin (Jardiance) 25 mg PO DAILY estradiol 1 patch transdermal MO famotidine 20 mg PO BEDTIME 90 days fluticasone propionate 220 mcg/actuation (Flovent HFA) 1 puff inhalation BID hydrochlorothiazide 0.5 tabs PO DAILY lisinopril 1 tab PO DAILY lorazepam 1 tab PO DAILY PRN meclizine (Dramamine Less Drowsy) 25 mg PO TID PRN montelukast 1 tab PO BEDTIME oxycodone-acetaminophen 5-325 mg 1 tab PO TID PRN peg 3350-electrolytes 236-22.74-6.74 -5.86 gram (Golytely) 240 mL PO Q10M plecanatide (Trulance) 3 mg PO DAILY polyethylene glycol 3350 (Gavilax) 17 grams PO DAILY sennosides (senna) 17.2 mg (2 x 8.6 mg) PO BEDTIME PRN 90 days zolpidem 1 tab PO BEDTIME PRN HPI Comments Details: Saw her last 03/16/24. MRI showed small right L5-S1 disc herniation. Referred to neuro spine, who was not convinced the disc herniation was causing her pain. Referred to Dr. Stokes for SI joint injection with patient did not pursue. She's had prevoius lumbar injections without relief. She does not want any further injections. She says the pain is same but progressed. The hip pain pain is right lateral hip, but not to the groin. Hip xray was done today, in office. Xray shows OA, possible sacroiliitis. Recent B12 and D levels were normal. [facility] Medical History Elevated LFTs Abnormal liver function test HELLP syndrome (HELLP), unspecified trimester Lumbar disc herniation Chronic constipation Chronic low back pain Fibromyalgia Abdominal pain Anemia COVID-19 Diabetes mellitus, type 2 Hypercholesteremia Asthma Hypertension GERD (gastroesophageal reflux disease) Surgical History Hx laparoscopic cholecystectomy Hx of ovarian cystectomy Hx of dilation and curettage History of esophagogastroduodenoscopy (EGD) H/O colonoscopy H/O: hysterectomy History of bladder surgery Family History Mother Diabetes Chronic kidney disease Maternal Grandmother Diabetes Maternal Aunt Diabetes Father CAD (coronary artery disease) Social History Household Members: Spouse Housing: Apartment Are you a primary vision care associate to a significant other at home: No Do you presently have visiting nurse or other home services: Yes Alcohol intake: never Patient Tobacco Use Status: Never used Tobacco Second Hand Smoke Exposure: No service: No Current occupational status: disabled Physical Exam Exam Exam: Constitutional: Patient appears to be in no acute distress, well nourished and well developed. Patient was appropriately conversant and oriented. Good historian. MSK: No specific abnormalities found on inspection of the spine and all extremities. Mild tenderness over right SI joint. Mild tenderness over right GT. Lumbar ROM was full. Bilateral hip, knee and ankle ROM WNL. No ligamentous laxity or crepitance. No increased effusion. Straight-leg raising test negative. FABERE test negative. Gillet test is negative. Strength is 5/5 in all muscle groups tested. No increased tone noted. Neurological: Neurologic examination of the upper and lower extremities was nonfocal with intact sensation, muscle stretch reflexes and without focal motor deficits . Mayer?s negative bilaterally. Babinski was down going bilaterally. Clonus was negative. Gait is non-antalgic without loss of balance. Vital Signs: BMI result Body Mass Index 28.3 Results Reviewed Results Reviewed: Ordering Physician: Peg Voss Date of Service: 04/28/25 Procedure(s): XR hip RT min 2V Accession Number(s): [id number] cc: Kathleen Nieto MD; Peg Voss~ Reason for Exam: M25.551 - Pain in right hip EXAMINATION: XR HIP, RIGHT CLINICAL INFORMATION: M25.551 - Pain in right hip COMPARISON: March 28, 2024. TECHNIQUE: AP and oblique views of the right hip. FINDINGS: No acute cortical disruption or malalignment. No lytic or blastic lesions. Mild sclerosis and the articular surface of the acetabulum and asymmetric joint space narrowing. Sclerosis and vacuum phenomenon, right sacroiliac joint. Mild degenerative changes most conspicuous. No metallic or radiopaque foreign body. XR/XR hip RT min 2V IMPRESSION: Mild osteoarthrosis/osteoarthritis without acute fracture or dislocation, right hip. Probable right sacroiliitis. Electronically signed by: Bryce Dos Santos MD 04/28/2025 10:45 AM EDT Assessment & Plan Assessment & Plan (1) Bilateral sacroiliitis: Code(s): M46.1 - Sacroiliitis, not elsewhere classified Category: Medical (2) Lumbar disc herniation: Code(s): M51.26 - Other intervertebral disc displacement, lumbar region Category: Medical (3) Osteoarthritis of right hip: Code(s): M16.11 - Unilateral primary osteoarthritis, right hip Category: Medical Qualifiers: Osteoarthritis type: primary Qualified Code(s): M16.11 - Unilateral primary osteoarthritis, right hip Plan Chronic recurrent right-sided back and hip pain. Neurosurgery not convinced the disc herniation L5-S1 was the cause or that patient needed surgical in tervention. Patient does not want to pursue any kind of injections. Differential include right SI joint dysfunction or hip arthritis. X-ray today raised the possibility of sacroiliitis. We will do more x-rays, looking further into the SI joints. We will send patient for DEMETRIUS and RF. Depending on results, we will consider referral to Rheumatology. Assessment and plan discussed with patient, and patient was agreeable. All questions were answered thoroughly. Peg Rodriguez MD, MARIA D Board Certified, [place] [employer] and Rehabilitation (ABPMR) Board Certified, [place] Board [employer] Electro[employer]ostic [employer] (ABEM) Orders: Orders XR sacroiliac joint 1-2V Today M46.1 - Sacroiliitis, not elsewhere classified, M53.3 - Sacrococcygeal disorders, not elsewhere classified XR hip RT min 2V Today M25.551 - Pain in right hip DEMETRIUS Reflex Titer and Pattern Today M16.11 - Unilateral primary osteoarthritis, right hip, M46.1 - Sacroiliitis, not elsewhere classified Rheumatoid Factor Today M16.11 - Unilateral primary osteoarthritis, right hip, M46.1 - Sacroiliitis, not elsewhere classified Coding Level of Care Code Est Pt Level 4 (62488) Complex EM visit Add On G2211 Diagnoses Bilateral sacroiliitis M46.1 Lumbar disc herniation M51.26 Primary osteoarthritis of right hip M16.11 Osteoarthritis type: primary
[2025-04-28 10:52] VITALS: BMI 28.3
== END 2025-04-28 11:03 | disposition home or self-care (01) ==
LOC: HO.HOS 10:13
PROVIDERS: PCP Internal Medicine; Visit Provider Physical Medicine & Rehabilitation
DX: M46.1 Sacroiliitis, not elsewhere classified (principal); M51.26 Other intervertebral disc displacement, lumbar region; M16.11 Unilateral primary osteoarthritis, right hip
CPT/HCPCS: 99214

== ENCOUNTER 2025-04-28 10:12 | Outpatient (REF) | payer MEDICAID, SELFPAY ==
--- NOTE | ~2025-04-28 | XR_ITS ---
EXAMINATION: XR HIP, RIGHT CLINICAL INFORMATION: M25.551 - Pain in right hip COMPARISON: March 28, 2024. TECHNIQUE: AP and oblique views of the right hip. FINDINGS: No acute cortical disruption or malalignment. No lytic or blastic lesions. Mild sclerosis and the articular surface of the acetabulum and asymmetric joint space narrowing. Sclerosis and vacuum phenomenon, right sacroiliac joint. Mild degenerative changes most conspicuous. No metallic or radiopaque foreign body. XR/XR hip RT min 2V IMPRESSION: Mild osteoarthrosis/osteoarthritis without acute fracture or dislocation, right hip. Probable right sacroiliitis. Electronically signed by: Bryce Dos Santos MD 04/28/2025 10:45 AM EDT
--- OUTSIDE RECORDS SUMMARY | 2025-04-28 11:43 | XMS_ITS | Encounter Summary ---
Author Organization [employer] Address [address] [facility] [address] [place] [address] Care Team Providers Care Power Saw Operator Name Role Phone Kathleen Nieto MD Primary Care Provide r Encounter Details Date Type Department Care Team ([facility] st Contact Info) Description 04/15/[address] [facility] MEDICINE [address] [place], [place] [phone] Kathleen Nieto MD [address] [place], [place] [phone] Social History Tobacco Use Types Packs/Day Years [...] Care Team (Late st Contact Info) Description 05/30/2025 11:00 AM EST Office Visit [facility] [address] [place] [address] documented as of this encounter Visit Diagnoses Not on filedocumented in this encounter Additional Health Concerns Assessment Noted Time PHQ-9 Depression Total Score: 0 10/31/19 23 1:55 PM EDT documented as of this encounter Care Teams Power Saw Operator Relationship Specialty Start Date End Date Kathleen Nieto MD [address] [place] [address] PCP - General Internal Medicine 09/12/22 documented as of this encounter
--- OUTSIDE RECORDS SUMMARY | 2025-04-28 11:43 | XMS_ITS | Encounter Summary ---
Author Organization [employer] Address [address] [place] [address] 7t [place] [address] Care Team Providers Care Senior Cognos Developer Name Role Phone Kathleen Nieto MD Primary Care Provide r Reason for Visit * Reason Onset Date Comments Med Refill 02/12/2023 Encounter Details Date Type Department Care Team ([facility] st Contact Info) Description 02/12/2023 Telephone [facility] MEDICINE [address] [place], [place] [phone] Kathleen Nieto MD [address] [place] [address] Med Refill Social History Tobacco Use Types [...] Description 05/30/2025 11:00 AM EST Office Visit [facility] MEDICINE [address] [place] [address] documented as of this encounter Visit Diagnoses Not on filedocumented in this encounter Additional Health Concerns Assessment Noted Time PHQ-9 Depression Total Score: 0 10/31/19 23 1:55 PM EDT documented as of this encounter Care Teams Senior Cognos Developer Relationship Specialty Start Date End Date Kathleen Nieto MD [address] [place] [address] PCP - General Internal Medicine 09/12/22 documented as of this encounter
--- OUTSIDE RECORDS SUMMARY | 2025-04-28 11:43 | XMS_ITS | Encounter Summary ---
Author Organization [employer] Address [address] [facility] [address]t [place] [address] Care Team Providers Care Cot Assembler Name Role Phone Kathleen Nieto MD Primary Care Provide r Reason for Visit * Reason Onset Date Comments Med Refill 11/19/2022 Encounter Details Date Type Department Care Team ([facility] st Contact Info) Description 11/19/2022 Telephone [facility] MEDICINE [address] [place], [place] [phone] Kathleen Nieto MD [address] [place], [place] [phone] Med Refill Social History Tobacco Use Types [...] to PCP. * Telephone Encounter - Yazmin Naqvi Mosley - 11/19/2022 12:31 PM EDT Tc from pt requesting med refill on cyanocobalamin (Vitamin B-12) 1000 MCG/ML injection. Utility Bill Complaints Investigator obinna was sent over on 11/18/2022, senior writer called Pharmacy to confirmed and Pharmacy informed they have not received script. Please sent to [facility]/pharmacy #[id number] - [place], [place] - [address] [place] [address] documented in this encounter Plan of Treatment Upcoming Encounters Date Type Department Care Team (Late st Contact Info) Description 05/30/2025 11:00 AM EST Office Visit [facility] MED[facility]INE [address] [place] [address] documented as of this encounter Visit Diagnoses Not on filedocumented in this encounter Additional Health Concerns Assessment Noted Time PHQ-9 Depression Total Score: 0 10/31/19 23 1:55 PM EDT documented as of this encounter Care Teams Cot Assembler Relationship Specialty Start Date End Date Kathleen Nieto MD [address] [place] [address] PCP - General Internal Medicine 09/12/22 documented as of this encounter
--- OUTSIDE RECORDS SUMMARY | 2025-04-28 11:43 | XMS_ITS | Encounter Summary ---
Author Organization [employer] Address [address] [facility] [address] [place] [address] Care Team Providers Care Beef Breaker Name Role Phone Kathleen Nieto MD Primary Care Provide r Reason for Visit * Reason Comments Med Change Request Encounter Details Date Type Department Care Team ([facility] st Contact Info) Description 06/23/2023 Refill [facility] MEDICINE [address] [place], [place] [phone] Kathleen Nieto MD [address] [place], [place] [phone] Menopause Social History Tobacco Use Types Packs/Day [...] Description 05/30/2025 11:00 AM EST Office Visit [facility] MEDICINE [address] [place] [address] documented as of this encounter Visit Diagnoses Diagnosis Menopause Symptomatic menopausal or female climacteric states documented in this encounter Additional Health Concerns Assessment Noted Time PHQ-9 Depression Total Score: 0 10/31/19 23 1:55 PM EDT documented as of this encounter Care Teams Beef Breaker Relationship Specialty Start Date End Date Kathleen Nieto MD [address] [place] [address] PCP - General Internal Medicine 09/12/22 documented as of this encounter
--- OUTSIDE RECORDS SUMMARY | 2025-04-28 11:43 | XMS_ITS | Encounter Summary ---
Author Organization [employer] Address [address] [place] [address] [address] [place] [address] Care Team Providers Care Water Restoration Technician Name Role Phone Kathleen Nieto MD Primary Care Provide r Reason for Visit * Reason Comments Med Refill Encounter Details Date Type Department Care Team (Late st Contact Info) Description 12/05/2022 Refill [facility] MEDICINE [address] [place] [phone] Kathleen Nieto MD [address] [place] [address] [phone] Vitamin B12 deficiency Social History Tobacco Use [...] Description 05/30/2025 11:00 AM EST Office Visit [facility] MED[facility]INE [address] [place] [address] [phone] documented as of this encounter Visit Diagnoses Diagnosis Vitamin B12 deficiency Other B-complex deficiencies documented in this encounter Additional Health Concerns Assessment Noted Time PHQ-9 Depression Total Score: 0 10/31/19 23 1:55 PM EDT documented as of this encounter Care Teams Water Restoration Technician Relationship Specialty Start Date End Date Kathleen Nieto MD [address] [place] [address] PCP - General Internal Medicine 09/12/22 documented as of this encounter
--- OUTSIDE RECORDS SUMMARY | 2025-04-28 11:43 | XMS_ITS | Clinical Summary ---
Author Organization [employer] Address [address] [facility] [address] [place] [address] Care Team Providers Care Graduating Machine Operator Name Role Phone Kathleen Nieto [...] 025 Active Blood Glucose Monitoring Suppl (FreeStyle Wayne Lite) w/Device kitIndications:Ty pe 2 diabetes mellitus without complication, without long-term current use of insulin ([facility]) Use to test blood sugar 2 times daily 1 kit 025 Active albuterol (Ventolin HFA) 108 (90 Base) MCG/ACT inhaler INHALE 2 PUFFS BY MOUTH EVERY 4 TO 6 HOURS NEEDED 18 g 5 025 Active empagliflozin (Jardiance) 25 MGIndications:Typ e 2 diabetes mellitus with hyperglycemia, without long-term current use of insulin ([facility]) Take 1 tablet (25 mg) by mouth Once per day. 30 tablet 11 025 2025 Active fenofibrate (Triglide) 160 MG [...] TIMES DAILY 90 tablet 1 025 Active estradiol (Climara) 0.05 MG/24HRIndication s:Menopause APLIQUE UN PARCHE BY TRANSDERMAL ROUTE EVERY WEEK 12 patch 1 025 Active Arnuity Ellipta 200 MCG/ACT inhaler INHALE 1 PUFF BY MOUTH ONCE A DAY 30 each 3 Active oxyCODONE-acetami nophen (Percocet) 5-325 MG tabletIndications :Lumbar radiculopathy Take 1 tablet by mouth every 8 (eight) hours if needed for severe pain for up to [address] while taking this medication Do not start before April 29, 2025. 84 tablet 025 2024 Active estradiol (Climara) 0.05 MG/24HRIndication s:Menopause APLIQUE UN PARCHE BY TRANSDERMAL ROUTE EVERY WEEK 12 patch 5 024 2024 Discontinued fluticasone furoate (Arnuity Ellipta) 200 MCG/ACT inhaler INHALE 1 PUFF BY MOUTH ONCE A DAY 30 each 3 024 2024 Discontinued SITagliptin (Januvia) 50 MG tabletIndications :Type 2 diabetes mellitus with hyperglycemia, without long-term current use of insulin (HCC) Take 1 tablet (50 mg) by mouth Once per day. 30 tablet 11 025 2024 Discontinued oxyCODONE-acetami nophen (Percocet) 5-325 MG tabletIndications :Lumbar radiculopathy Take 1 tablet by mouth every 8 (eight) hours if needed for severe pain for up to [address]. [address] while taking this medication Do not start before March 04, 2025. 84 tablet 025 2024 Discontinued(R eorder (will not trigger notification to Pharmacy)) oxyCODONE-acetami nophen (Percocet) 5-325 MG tabletIndications :Lumbar radiculopathy Take 1 tablet by mouth every 8 (eight) hours if needed for severe pain for up to [address]. [address] while taking this medication Do not start before April 01, 2025. 84 tablet 025 2024 Discontinued(R eorder [...] including pharm and non- pharm modalities -See elastic attacher overlock regarding UTOX and Pill count Assessment & [...] EST): Reports scheduled for upcoming appt with spine/senior bioinformatics specialist. 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: 01/24/25 Additional considerations/risk factors: benzodiazepine & [...] needed Lumbar radiculopathy 05/21/2017 Assessment & Plan (04/18/2025 4:32 PM EDT): Continue with percocet as prescribed Continue to follow with specialist Assessment & Plan (01/12/2025 3:53 PM EDT): [...] 05/04/2017 Essential hypertension 03/30/2017 Assessment & Plan (04/18/2025 4:29 PM EDT): - Aerobic exercise to reduce [...] consulting health care provider Assessment & Plan (01/12/2025 3:49 PM EDT): [...] again on hydrochlorothiazide 12.5mg I advise to apple picker medication at pharmacy and today to [...] kidney disease (CKD) , stage III (moderate) ([facility]) 02/15/2013 Type 2 diabetes mellitus with hyperglycemia 10/05 Assessment & Plan (04/18/2025 4:31 PM EDT): - Lab Results Component Value Date HGBA1C 7.4 (A) 09/29/2024 HGBA1C 8.6 (A) 06/30/2024 HGBA1C 7.9 (A) 02/05/2024 - Lab Results Component Value Date MICROALBUR <5.0 01/17/2025 CREATININE 1.19 04/17/2025 -Changes: januvia was discontinue - Diabetic eye exam:pending - Diabetic foot exam:pending - Continue lifestyle modifications - Follow up: 3 months Assessment & Plan (01/12/2025 3:50 PM EDT): [...] Date Resolved Date Acute otitis media 05/07/2023 Laryngitis 05/07/2023 10/15/2023 Assessment & Plan (05/07/2023 [...] organization. Date Type Department Care Team Description 04/27/2025 Refill [facility] [address] [place] [address] Kathleen Nieto MD Lumbar radiculopathy 04/18/2025 3:15 PM EDT Telemedicine [facility] MED[facility] [address] [place] [address] Kathleen Nieto MD Essential hypertension (Primary Dx); Type 2 diabetes mellitus with hyperglycemia, without long-term current use of insulin (HCC); Lumbar radiculopathy 04/18/2025 Travel 04/17/2025 Orders Only GENERIC EXTERNAL DATA DEPARTMENT Provider, Generic External Data 04/10/2025 Refill [facility] MED[facility]INE [address] [place] [address] Kathleen Nieto MD Type 2 diabetes mellitus with hyperglycemia, without long-term current use of insulin (HCC); Menopause 03/31/2025 Patient Outreach [facility] [address] [place] [address] Kathleen Nieto MD Pre-visit Planning (SDOH screening completed on 09/20/2024) 03/30/2025 Telephone [facility] [address] [place] [address] Nutrition referral 03/30/2025 Refill [facility] MEDICINE [address] [place] [phone] Kathleen Nieto MD Lumbar radiculopathy 03/28/2025 11:00 AM EDT Office Visit [address] [address] Homa Randle FNP Lumbar disc herniation (Primary Dx); Long-term current use of opiate analgesic 03/28/2025 Travel 03/13/2025 Refill [facility] MED[facility]INE [address] [place] [phone] Kathleen Nieto MD Lumbar radiculopathy 03/02/2025 Refill [facility] MED[facility]INE [address] [place] [phone] Kathleen Nieto MD Lumbar radiculopathy 02/23/2025 Refill [facility] MED[facility] [address] [place] [phone] Kathleen Nieto MD Lumbar radiculopathy 02/08/2025 Telephone [facility] MED[facility]INE [address] [place] [address] [phone] Kathleen Nieto MD OCT RECALL 02/04/2025 Refill [facility] MED[facility] [address] [place] [address] Nichole Zhao DO Vitamin D deficiency 02/04/2025 Refill [facility] [address] [place], [place] [phone] Kathleen Nieto MD Vitamin D deficiency 02/02/2025 Refill [facility] MED[facility] [address] [place] [address] Kathleen Nieto MD Lumbar radiculopathy from Last 3 Months Immunizations Immunization Administration [...] Date Recorded Patient Health Questionnaire-9 Score 0 04/18/2025 Patient Health Questionnaire-9 Score 0 04/18/2025 Last PHQ-9: Questionnaire Data Not on file 1 Housing Stability Answer Date Recorded What is [...] Date Recorded Patient Health Questionnaire-2 Score 0 04/18/2025 Internet Access Answer Date Recorded Internet Access [...] 11:00 AM EST Office Visit [facility] [address] [place], [place] [phone] Health Maintenance Due Date Last Done Comments CT Colonography 1965 FIT DNA/Cologuard 1965 FIT 1965 FOBT 1965 Sigmoidoscopy 1965 Disability Screening 1965 Diabetes: Foot Exam 1975 Eye Exam 1975 Hepatitis A Vaccines (1 of 2 - Risk 2-dose series) 01/11/1984 Diabetes: Hemoglobin A1C 12/30/2024 025, 06/30/2024, 02/05/2024, Additional history exists Mammogram 02/21/2025 02/22/2024, 02/03, 09/09/2022, Additional history exists COVID-19 Vaccine ( season) 2025 06/05/2023, 05/02/2022, 10/16/2021, Additional history exists SDOH Screening 09/20/2025 09/20/2024 Tobacco Screening 01/12/2026 01/12/2025 Diabetes: Urine Protein Screening 01/17/2026 01/17/2025, 02/11/2024, 02/19/2023 Lipid Panel 01/17/2026 01/17/2025, 08/02/2024, 02/11/2024, Additional history exists Alcohol/Substance Use Screening 04/18/2026 04/18/2025 Depression Screening 04/18/2026 04/18/2025, 04/18/20 25 Colonoscopy 12/21/2027 Colorectal Cancer Screening 12/21/2027 DTaP/Tdap/Td [...] Procedure Name Priority Date/Time Associated Diagnosis Comments XR HIP 2 OR 3 VIEWS RIGHT Routine 04/28/2025 10:[address] ABDOMEN PELVIS W CONTRAST Routine 04/17/2025 1:29 PM EDT URINALYSIS, COMPLETE, WITH REFLEX TO CULTURE Routine 04/17/2025 11:38 AM EDT MAGNESIUM Routine 04/17/2025 10:50 AM EDT COMPREHENSIVE METABOLIC PANEL Routine 04/17/2025 10:50 AM EDT CBC WITH AUTO DIFFERENTIAL Routine 04/17/2025 10:50 AM EDT POCT HALINA-14 URINE DRUG SCREEN Routine 03/28/2025 11:22 AM EDT Long-term current use of opiate analgesic AMB REFERRAL TO ENT Routine 02/09/2025 Asymmetrical hearing loss HEPATITIS C AB W/REFL TO HCV RNA, QN, PCR Routine 01/17/2025 9:02 AM EDT Type 2 diabetes mellitus with hyperglycemia, without long-term current use of insulin ([facility]/HCC) HIV 1/2 ANTIGEN/ANTIBODY, FOURTH GENERATION W/RFL Routine 01/17/2025 9:02 AM EDT Type 2 diabetes mellitus with hyperglycemia, without long-term current use of insulin (CMS/HCC) ALBUMIN, RANDOM URINE W/CREATININE Routine 01/17/2025 9:02 [...] Recently Relevant to Health Maintenance Results * XR Hip 2 or 3 Views Right (04/28/2025 10:35 AM EDT) Anatomical Region Laterality Modality Lower Extremities, Hip Right Radiograp hic Imaging 04/28/2025 10:3 5 AM EDT Narrative 04/28/2025 10:48 AM EDT [facility] [address] [place] [address] [place] [phone] XRay Report Signed Patient: Ariadne Lundberg I MR#: [id number] 545 : 1965 Acct:[id number] Age/Sex: 60 / F ADM Date: 04/28/25 Loc: HO.HOSX Attending Dr: Peg Rodriguez MD Ordering Physician: Peg Voss Date of Service: 04/28/25 Procedure(s): XR hip RT min 2V Accession Number(s): [id number] cc: Kathleen Nieto MD; Peg Voss Reason for Exam: M25.551 - Pain in right hip EXAMINATION: XR HIP, RIGHT CLINICAL INFORMATION: M25.551 - Pain in right hip COMPARISON: March 28, 2024. TECHNIQUE: AP and oblique views of the right hip. FINDINGS: No acute cortical disruption or malalignment. No lytic or blastic lesions. Mild sclerosis and the articular surface of the acetabulum and asymmetric joint space narrowing. Sclerosis and vacuum phenomenon, right sacroiliac joint. Mild degenerative changes most conspicuous. No metallic or radiopaque foreign body. XR/XR hip RT min 2V IMPRESSION: Mild osteoarthrosis/osteoarthritis without acute fracture or dislocation, right hip. Probable right sacroiliitis. Electronically signed by: Bryce Dos Santos MD 04/28/2025 10:45 AM EDT RP Dictated By: Bryce Romero MD Signed By: <Electronically signed by Bryce Peguero MD in OV> 04/28/25 1045 DD/ 1035 TD/TT: 04/28/25 1040 Senior Interior Designer: Procedure Note Donotuseinterpreter, Image - 04/28/2025 [facility] [address] [place] [address] Drive [address] [place] [address] XRay Report Signed Patient: Ariadne Lundberg IMR#: [id number] 545 : 1965Acct:[id number] Age/Sex: 60 / FADM Date: 04/28/25 Loc: HO.HOSX Attending Dr: Peg Rodriguez MD Ordering Physician: Peg Voss Date of Service: 04/28/25 Procedure(s): XR hip RT min 2V Accession Number(s): [id number] cc: Kathleen Nieto MD; Peg Voss Reason for Exam: M25.551 - Pain in right hip EXAMINATION: XR HIP, RIGHT CLINICAL INFORMATION: M25.551 - Pain in right hip COMPARISON: March 28, 2024. TECHNIQUE: AP and oblique views of the right hip. FINDINGS: No acute cortical disruption or malalignment. No lytic or blastic lesions. Mild sclerosis and the articular surface of the acetabulum and asymmetric joint space narrowing. Sclerosis and vacuum phenomenon, right sacroiliac joint. Mild degenerative changes most conspicuous. No metallic or radiopaque foreign body. XR/XR hip RT min 2V IMPRESSION: Mild osteoarthrosis/osteoarthritis without acute fracture or dislocation, right hip. Probable right sacroiliitis. Electronically signed by: Bryce Dos Santos MD 04/28/2025 10:45 AM EDT RP Dictated By: Bryce Romero MD Signed By: <Electronically signed by Bryce Peguero MDin OV> 04/28/25 1045 DD/ 1035 TD/TT: 04/28/25 1040 Senior Interior Designer: [facility] External Provider IMG XR PROCEDURES Final Result * CT Abdomen Pelvis w/ Contrast (04/17/2025 1:29 PM EDT) Anatomical Region Laterality Modality Body, Pelvis, Abdomen Computed T omography 04/17/2025 1:29 PM EDT Narrative 04/17/2025 1:30 PM EDT [place] [address] CT Scan Report Signed Patient: Ariadne Lundberg I MR#: [id number] 545 : 1965 Acct:[id number] Age/Sex: 60 / F ADM Date: 04/17/25 Loc: HO.ED Attending Dr: Ordering Physician: Micheline Knight Date of Service: 04/17/25 Procedure(s): CT abdomen pelvis w IV con Accession Number(s): [id number] cc: Kathleen Nieto MD; Micheline Knight Report Number: [id number]: Total DLP = 433.00 mGy-cm Reason for Exam: acute Left sided abd pain, dysuria CLINICAL HISTORY: acute Left sided abd pain, dysuria CT abdomen and pelvis with contrast Comparison: CT/SR - CT ABDOMEN PELVIS WITH IV CONTRAST - 07/24/22 11:[address] - CT ABDOMEN PELVIS WITH IV CONTRAST - 05/20/22 18:31 EST Findings: No consolidation or effusion. Hepatic steatosis. Unchanged intrahepatic and extrahepatic biliary ductal dilation postcholecystectomy. No nephrolithiasis or hydronephrosis. No bowel obstruction, pneumoperitoneum, or pneumatosis. Large volume of stool throughout the colon. Hysterectomy. No acute inflammation or free fluid. No acute fracture. IMPRESSION: 1. Large volume of stool throughout the colon. 2. No acute inflammation or free fluid. 3. Unchanged intrahepatic and extrahepatic biliary ductal dilation postcholecystectomy. 4. No nephrolithiasis or hydronephrosis. This document has been electronically signed by: Godwin Hernandez DO on 04/17/2025 13:29:24 Dictated By: Godwin Hernandez DO Signed By: <Electronically signed by Godwin Hernandez DO in OV> 04/17/25 1330 DD/ 1329 TD/TT: 04/17/25 1329 Senior Interior Designer: Procedure Note Donotuseinterpreter, Image - 04/17/[address] [place] [address] [address] Scan Report Signed Patient: Ariadne Lundberg IMR#: [id number] 545 : 1965Acct:[id number] Age/Sex: 60 / FADM Date: 04/17/25 Loc: HO.ED Attending Dr: Ordering Physician: Micheline Knight Date of Service: 04/17/25 Procedure(s): CT abdomen pelvis w IV con Accession Number(s): [id number] cc: Kathleen Nieto MD; Micheline Knight Report Number: [id number]: Total DLP = 433.00 mGy-cm Reason for Exam: acute Left sided abd pain, dysuria CLINICAL HISTORY: acute Left sided abd pain, dysuria CT abdomen and pelvis with contrast Comparison: CT/SR - CT ABDOMEN PELVIS WITH IV CONTRAST - 07/24/22 11:[address] - CT ABDOMEN PELVIS WITH IV CONTRAST - 05/20/22 18:31 EST Findings: No consolidation or effusion. Hepatic steatosis. Unchanged intrahepatic and extrahepatic biliary ductal dilation postcholecystectomy. No nephrolithiasis or hydronephrosis. No bowel obstruction, pneumoperitoneum, or pneumatosis. Large volume of stool throughout the colon. Hysterectomy. No acute inflammation or free fluid. No acute fracture. IMPRESSION: 1. Large volume of stool throughout the colon. 2. No acute inflammation or free fluid. 3. Unchanged intrahepatic and extrahepatic biliary ductal dilation postcholecystectomy. 4. No nephrolithiasis or hydronephrosis. This document has been electronically signed by: Godwin Hernandez DO on 04/17/2025 13:29:24 Dictated By: Godwin Hernandez DO Signed By: <Electronically signed by Godwin Hernandez DO in OV> 04/17/25 1330 DD/ 1329 TD/TT: 04/17/25 1329 Senior Interior Designer: [facility] External Provider IMG CT PROCEDURES Edited Result - Final * (ABNORMAL) Urinalysis, Complete, with Reflex to Culture (04/17/2025 11:38 AM EDT) Color Urine Yellow [facility] Appearance Urine Clear [facility] PH 5.5 5.0 - 9.0 [facility] Glucose Urine UA >=1000(A) Negative mg/dL [facility] Urine Blood Negative Negative [facility] Specific [place] - Urine 1.010 1.005 - 1.025 [facility] Urine Protein Negative Neg-Trace mg/dL [facility] Urine Ketones Negative Negative mg/dL [facility] Nitrite Urine Negative Negative [facility] Leukocyte Esterase Urine Negative Negative [facility] RBC Urine 0-2 0 - 2 /HPF [facility] Urine WBC 0-5 0 - 5 /HPF [facility] Urine Squamous Epithelial Cell 0-2 0 - 2 /HPF [facility] Urine Bacteria None Seen None Seen [facility] Hyaline Casts, Urine 0-2 0 - 2 /LPF [facility] 04/17/2025 11:3 8 AM EDT 04/17/2025 11:41 AM EDT Narrative [facility] - 04/17/2025 11:59 AM EDT [id number], Clean Catch Generic External Data Provider LAB URINE ORDERAB LES Final Result [facility] [address] [place] [phone] * (ABNORMAL) CBC auto differential (04/17/2025 10:50 AM EDT) White Blood Count 7.6 4.8 - 10.8 X10*3/uL [facility] Red Blood Count 5.20 4.20 - 5.50 X10*6/uL [facility] Hemoglobin 13.7 12.0 - 16.0 g/dl [facility] Hematocrit 42.8 37.0 - 47.0 % [facility] Mean Corpuscular Volume 82.3 80.0 - 98.0 fL [facility] Mean Corpuscular Hemoglobin 26.3(L) 27.0 - 33.0 pg [facility] Mean Corpuscular HGB Conc 32.0 31.0 - 35.0 g/dl [facility] Red Cell Distribution Width 13.2 11.0 - 16.0 % [facility] Platelet Count 358 160 - 400 X10*3/uL [facility] Mean Platelet Volume 10.1 9.4 - 12.3 fL [facility] Neutrophils Percent Auto 57.6 45 - 73 % [facility] Imm Gran Pct Auto 0.4 0.0 - 0.4 % [facility] Lymphocytes Percent Auto 31.7 20 - 40 % [facility] Monocytes Percent Auto 8.0 2 - 11 % [facility] Eosinophils Percent Auto 2.2 0 - 4 % [facility] Basophils Percent Auto 0.1 0 - 2 % [facility] NRBC Pct Auto 0.0 0.0 - 0.2 /100WBC [facility] Neutrophils Absolute Auto 4.4 2.0 - 8.3 x10*3/uL [facility] Imm Gran Abs Auto 0.03 0.00 - 0.03 X10*3/uL [facility] Lymphocytes Absolute Auto 2.4 1.2 - 4.9 X10*3/uL [facility] Monocytes Absolute Auto 0.6 0.1 - 1.2 X10*3/uL [facility] Eosinophils Absolute Auto 0.2 0.0 - 0.4 X10*3/uL [facility] Basophils Absolute Auto 0.0 0.0 - 0.2 X10*3/uL [facility] NRBC Abs Auto 0.000 0.0 - 0.012 X10*3/uL [facility] 04/17/2025 10:5 0 AM EDT 04/17/2025 10:52 AM EDT Generic External Data Provider LAB BLOOD ORDERAB LES Final Result Performing Organization Address [facility]/ZIP Co de Phone Number [facility] [address] [place] [phone] * Magnesium (04/17/2025 10:50 AM EDT) Pathologist [facility] Magnesium 1.9 1.6 - 2.6 mg/dL [facility] 04/17/2025 10:5 0 AM EDT 04/17/2025 10:52 AM EDT Generic External Data Provider LAB BLOOD ORDERAB LES Final Result Performing Organization Address [facility] Co de Phone Number [facility] [address] [place] [phone] * (ABNORMAL) Comprehensive Metabolic Panel (04/17/2025 10:50 AM EDT) Sodium 140 135 - 145 mmol/L [facility] Potassium 4.3 3.3 - 5.1 mmol/L [facility] Chloride 104 96 - 108 mmol/L [facility] Carbon Dioxide 26 22 - 29 mmol/L [facility] Anion Gap 14 12 - 20 [facility] Urea Nitrogen (BUN) 22(H) 9 - 16 mg/dL [facility] Creatinine, Serum 1.19 0.5 - 1.4 mg/dL [facility] Creatinine Clr Calc Pharmacy 46.2 [facility] Comment:Provided height and weight: 157.48 cm,70.6 kg.eGFR (calculated from the MDRD study equation) and eCrCl(calculated from the Cockcroft-Gault equation) are based ondifferent parameters and may not yield comparable results.If eCrCl result is absurd, please check patient'sheight/weight. Estimated Glomerular Filt Rate 46 [facility] Comment:Chronic Kidney Disea se: Estimated GFR < 60 mL/min/1.97s3Ksbefg Kidney Disease: Estimated GFR < 15 mL/min/1.73m2 Glucose 140(H) 60 - 115 mg/dL [facility] Calcium 10.6(H) 8.4 - 10.2 mg/dL [facility] Bilirubin, Total 0.3 0.0 - 1.0 mg/dL [facility] Aspartate Amino Transferase 35(H) 5 - 31 U/L [facility] Alanine Aminotransferase 35(H) 0 - 31 U/L [facility] Total Protein 7.5 6.5 - 8.0 g/dL [facility] Albumin Level 4.6 3.5 - 5.0 g/dL [facility] Alkaline Phosphatase 57 39 - 117 U/L [facility] 04/17/2025 10:5 0 AM EDT 04/17/2025 10:52 AM EDT us Generic External Data Provider LAB BLOOD ORDERAB LES Final Result [facility] [address] [place] [phone] * POCT HALINA-14 Urine Drug Screen (03/28/2025 11:22 AM EDT) THC Negative Negative Cocaine Screen, Urine Negative [...] - 03/28/2025 11:22 AM EDT UTOX cup Lot#[id number] Exp. 04/11/26 Internal Pass Control Homa Randle MANAGER ADMINISTRATIVE POINT OF CARE TEST ENTER/EDIT ORDERABLES Final Result * Referral to ENT (02/09/2025) Kathleen Gracia MD OUTPATIENT REFERRAL O RDERABLES Final Result * Albumin, Random Urine W/Creatinine (01/17/2025 9:02 AM EDT) Creatinine, Urine 85.40 mg/dL [facility] Microalbumin Urine <5.0 mg/L [facility] Microalbum Creatinine Ratio Ur TNP <30 ug/mg cr [facility] Comment:Unable to calculate albumin/creatinine ratio due to lowmicroalbumin or creatinine result. Urine (Urine, Random) 01/17/2025 9:02 AM EDT 01/17/2025 11:07 AM EDT Kathleen Gracia MD LAB URINE ORDERABLES Final Result [facility] [address] [place] [phone] * Hepatitis C Antibody with Reflex to HCV, RNA, Quantitative, Real-Time PCR (01/17/2025 9:02 AM EDT) Hepatitis C Antibody Nonreactive Nonreactive [facility] Comment:Antibodies to HCV no t detected; does not exclude early acuteHCV infection. Blood Venous blood specimen / Unknown 01/17/2025 9:02 AM EDT 01/17/2025 11:06 AM EDT us Kathleen Gracia MD LAB BLOOD ORDERABLES Final Result Performing Organization Address [facility]/ZIP Co de Phone Number [facility] [address] [place] [phone] * HIV-1/2 Antigen and Antibodies, Fourth Generation, with Reflexes (01/17/2025 9:02 AM EDT) HIV AB/AG Nonreactive Nonreactive [facility] Comment:HIV-1 p24 Ag and/or HIV-1/HIV-2 Ab not detected.A test result that is nonreactive does not exclude thepossibility of exposure to or infection with HIV-1 and/orHIV-2. Nonreactive results in this assay for individualswith prior exposure to HIV-1 and/or HIV-2 may be due toantigen and antibody levels that are below the limit ofdetection of this assay.The Frontier pte HIV Ag/Ab Combo assay result andsupplemental assay results should be interpreted inconjunction with the patient's clinical presentation,history and other laboratory results. If the results areinconsistent with clinical evidence, additional testing issuggested to confirm the result. Blood Venous blood specimen / Unknown 01/17/2025 9:02 AM EDT 01/17/2025 11:06 AM EDT us Kathleen Gracia MD LAB BLOOD ORDERABLES Final Result Performing Organization Address [facility]/ZIP Co de Phone Number [facility] [address] [place] [phone] * (ABNORMAL) Lipid Panel, Standard (01/17/2025 9:02 AM EDT) Triglycerides 166(H) <150 mg/dL [facility] Comment:Desirable Triglyceri de: less than 150 mg/dLBorderline High Triglyceride 150-199 mg/dLHigh Triglyceride: 200-499 mg/dLVery High Triglyceride: greater than or equal to 5OO mg/dL Cholesterol 189 <200 mg/dL [facility] Comment:Desirable Cholestero l: less than 200 mg/dLBorderline High Cholesterol: 200-239 mg/dLHigh Cholesterol: greater than 239 mg/dL LDL Cholesterol Calculated 108(H) <100 mg/dL [facility] Comment:Desirable LDL: less than 100 mg/dLNear Optimal/Above Optimal LDL: 110- 129 mg/dLBorderline High LDL: 130-159 mg/dLHigh LDL: 160-189 mg/dLVery High LDL: greater than or equal to 190 mg/dL HDL Cholesterol 48 >40 mg/dL [facility] Comment:Desirable HDL: great er than 40 mg/dL Note: This HDL assay may give artificially low results in patients with liver disease. Blood Venous blood specimen / Unknown 01/17/2025 9:02 AM EDT 01/17/2025 11:06 AM EDT Kathleen Gracia MD LAB BLOOD ORDERABLES Final Result Performing Organization Address City/State/[facility] Co de Phone Number [facility] [address] [place] [address] [phone] * (ABNORMAL) POCT HGB A1C (09/29/2024 10:57 AM EDT) Hemoglobin A1C 7.4(A) 4.0 - 6.0 % QC Media Lot # [id number] Lot# Expiration Date [id number] Blood 09/29/2024 10:5 7 AM EDT Kathleen Gracia MD POINT OF CARE TEST EN TER/EDIT ORDERABLES Final Result * BI US Breast Limited Right (02/22/2024 3:09 PM EDT) Anatomical Region Laterality Modality Breast Right Ultrasound 02/22/2024 3:09 PM EDT Narrative 02/22/2024 3:17 PM EDT [address] [place] [address] Ultrasound Report Signed Patient: Ariadne Lundberg I MR#: [id number] : 1965 Acct:[id number] Age/Sex: 59 / F ADM Date: 02/22/24 Loc: HO.MAMMO Attending Dr: Kathleen Gracia MD Ordering Physician: Kathleen Nieto MD Date of Service: 02/22/24 Procedure(s): US breast RT limited mamm only Accession Number(s): [id number] cc: Kathleen Nieto MD EXAMINATION: MM DIAGNOSTIC [...] in OV> 02/22/24 1513 DD/ 1509 TD/TT: Senior Interior Designer: Procedure Note Donotuseinterpreter, Image - 02/22/2024 [facility] [address] [place], [place] [address] Ultrasound Report Signed Patient: Ariadne Lundberg IMR#: [id number] : 1965Acct:[id number] Age/Sex: 59 / FADM Date: 02/22/24 Loc: HO.MAMMO Attending Dr: Kathleen Gracia MD Ordering Physician: Kathleen Nieto MD Date of Service: 02/22/24 Procedure(s): US breast RT limited mamm only Accession Number(s): [id number] cc: Kathleen Nieto MD EXAMINATION: MM DIAGNOSTIC [...] in OV> 02/22/24 1513 DD/ 1509 TD/TT: Senior Interior Designer: Kathleen Gracia MD IMG US PROCEDURES Fin al Result from Last 3 Months or Most Recently Relevant to Health Maintenance Insurance [facility] C3 Care Teams Graduating Machine Operator Relationship Specialty Start Date End Date Kathleen Nieto MD [address] [place] [phone] PCP - General Internal Medicine 09/12/22
--- OUTSIDE RECORDS SUMMARY | 2025-04-28 11:43 | XMS_ITS | Encounter Summary ---
Author Organization [employer] Address [address] [place] [address] 7t [place] [address] Care Team Providers Care Securities Vault Supervisor Name Role Phone Kathleen Nieto MD Primary Care Provide r Reason for Visit * Reason Comments Med Refill Encounter Details Date Type Department Care Team (Late Contact Info) Description 03/11/2023 Refill [facility] MEDICINE [address] [place] [address] [phone] Kathleen Nieto MD [address] [place], [place] [phone] Social History Tobacco Use Types Packs/Day Years [...] Description 05/30/2025 11:00 AM EST Office Visit [facility] [address] [place] [address] [phone] documented as of this encounter Visit Diagnoses Not on filedocumented in this encounter Additional Health Concerns Assessment Noted Time PHQ-9 Depression Total Score: 0 10/31/19 23 1:55 PM EDT documented as of this encounter Care Teams Securities Vault Supervisor Relationship Specialty Start Date End Date Kathleen Nieto MD [address] [place] [address] PCP - General Internal Medicine 09/12/22 documented as of this encounter
--- OUTSIDE RECORDS SUMMARY | 2025-04-28 11:43 | XMS_ITS | Encounter Summary ---
Author Organization [employer] Address [address] [place] [address] 7 [place] [address] Care Team Providers Care Adzing And Boring Machine Operator Name Role Phone Kathleen Nieto MD Primary Care Provide r Reason for Visit * Reason Onset Date Comments Med Refill 09/22/2022 Encounter Details Date Type Department Care Team (Late st Contact Info) Description 09/22/2022 Telephone [facility] MEDICINE [address] [place] [address] [phone] Kathleen Nieto MD [address] [place] [phone] Med Refill Social History Tobacco Use Types [...] Description 05/30/2025 11:00 AM EST Office Visit [facility] [address] [place] [address] [phone] documented as of this encounter Visit Diagnoses Not on filedocumented in this encounter Care Teams Adzing And Boring Machine Operator Relationship Specialty Start Date End Date Kathleen Nieto MD [address] [place] [phone] PCP - General Internal Medicine 09/12/22 documented as of this encounter
--- OUTSIDE RECORDS SUMMARY | 2025-04-28 11:43 | XMS_ITS | Encounter Summary ---
Author Organization [employer] Address [address] [place] [address] 7t [place] [address] Care Team Providers Care Digital Product Manager Name Role Phone Kathleen Nieto MD Primary Care Provide r Reason for Visit * Reason Comments Med Refill Encounter Details Date Type Department Care Team (Late st Contact Info) Description 03/31/2023 Refill [facility] MEDICINE [address] [place] [address] [phone] Mary Edwards ANP [address] [place] [address] Vitamin D deficiency Social History Tobacco Use [...] Description 05/30/2025 11:00 AM EST Office Visit [facility] MEDICINE [address] [place] [address] [phone] documented as of this encounter Visit Diagnoses Diagnosis Vitamin D deficiency documented in this encounter Additional Health Concerns Assessment Noted Time PHQ-9 Depression Total Score: 0 10/31/19 23 1:55 PM EDT documented as of this encounter Care Teams Digital Product Manager Relationship Specialty Start Date End Date Kathleen Nieto MD [address] [place] [address] PCP - General Internal Medicine 09/12/22 documented as of this encounter
--- OUTSIDE RECORDS SUMMARY | 2025-04-28 11:43 | XMS_ITS | Encounter Summary ---
Author Organization [employer] Address [address] [place] [address] 7t [place] [address] Care Team Providers Care Security Control Assessor Name Role Phone Kathleen Nieto MD Primary Care Provide r Reason for Visit * Reason Comments Med Change Request Encounter Details Date Type Department Care Team ([facility] Contact Info) Description 11/19/2022 Refill [facility] MEDICINE [address] [place], [place] [phone] Kathleen Nieto MD [address] [place], [place] [phone] Vitamin B12 deficiency Social History Tobacco Use [...] Upcoming Encounters Date Type Department Care Team ([facility] Contact Info) Description 05/30/2025 11:00 AM EST Office Visit [facility] [address] [place], [place] [phone] documented as of this encounter Visit Diagnoses Diagnosis Vitamin B12 deficiency Other B-complex deficiencies documented in this encounter Additional Health Concerns Assessment Noted Time PHQ-9 Depression Total Score: 0 10/31/19 1:55 PM EDT documented as of this encounter Care Teams Security Control Assessor Relationship Specialty Start Date End Date Kathleen Nieto MD [address] [place] [address] PCP - General Internal Medicine 09/12/22 documented as of this encounter
--- OUTSIDE RECORDS SUMMARY | 2025-04-28 11:43 | XMS_ITS | Encounter Summary ---
Author Organization [employer] Address [address] [facility] 7t [place] [address] Care Team Providers Care Torpedo Worker Name Role Phone Kathleen Nieto MD Primary Care Provide r Encounter Details Date Type Department Care Team (Late st Contact Info) Description 11/12/2022 Orders Only [facility] MEDICINE [address] [place] [phone] Elva Hernández LPN Social History Tobacco Use [...] Description 05/30/2025 11:00 AM EST Office Visit [facility] MED[facility]INE [address] [place] [phone] documented as of this encounter Visit Diagnoses Not on filedocumented in this encounter Additional Health Concerns Assessment Noted Time PHQ-9 Depression Total Score: 0 10/31/19 23 1:55 PM EDT documented as of this encounter Care Teams Torpedo Worker Relationship Specialty Start Date End Date Kathleen Nieto MD [address] [place] [address] PCP - General Internal Medicine 09/12/22 documented as of this encounter
--- OUTSIDE RECORDS SUMMARY | 2025-04-28 11:43 | XMS_ITS | Encounter Summary ---
Author Organization [employer] Address [address] [facility] 7t [place] [address] Care Team Providers Care Cementer Machine Joiner Name Role Phone Kathleen Nieto MD Primary Care Provide r Reason for Visit * Reason Comments Med Refill Encounter Details Date Type Department Care Team (Late st Contact Info) Description 01/02/2025 Refill [facility] MEDICINE [address] [place], [place] [phone] Laurel Dacosta MD [address] [place], [place] [phone] Lumbar radiculopathy Social History Tobacco Use Types [...] Description 05/30/2025 11:00 AM EST Office Visit [facility] MEDICINE [address] [place] [address] documented as of this encounter Visit Diagnoses Diagnosis Lumbar radiculopathy Thoracic or lumbosacral neuritis or radiculitis, unspecified documented in this encounter Additional Health Concerns Assessment Noted Time PHQ-9 Depression Total Score: 0 08/27/19 24 10:26 AM EST documented as of this encounter Care Teams Cementer Machine Joiner Relationship Specialty Start Date End Date Kathleen Nieto MD [address] [place] [address] PCP - General Internal Medicine 09/12/22 documented as of this encounter
--- OUTSIDE RECORDS SUMMARY | 2025-04-28 11:43 | XMS_ITS | Clinical Summary ---
Author Organization [facility] Address [address] [place] [address] Care Team Providers Care Railway Switchman Name Role Phone Minerva Negro MD Primary [...] age to complete this topic Care Teams Railway Switchman Relationship Specialty Start Date End Date Minerva Negro MD [address] [place] [address] [place], [place] PCP - General Internal Medicine 05/03/18
--- OUTSIDE RECORDS SUMMARY | 2025-04-28 11:43 | XMS_ITS | Encounter Summary ---
Author Organization [employer] Address [address] [facility] 7t [place] [address] Care Team Providers Care Particle Board Supervisor Name Role Phone Kathleen Nieto MD Primary Care Provide r Reason for Visit * Reason Comments Med Refill Encounter Details Date Type Department Care Team ([facility] st Contact Info) Description 09/09/2023 Refill [facility] MEDICINE 230 [place], [place] [phone] Kathleen Nieto MD [address] [place], [place] [phone] Social History Tobacco Use Types Packs/Day Years [...] Description 05/30/2025 11:00 AM EST Office Visit [facility] MEDICINE 230 [place] [address] documented as of this encounter Visit Diagnoses Not on filedocumented in this encounter Additional Health Concerns Assessment Noted Time PHQ-9 Depression Total Score: 0 08/27/19 24 10:26 AM EST documented as of this encounter Care Teams Particle Board Supervisor Relationship Specialty Start Date End Date Kathleen Nieto MD [address] [place] [address] PCP - General Internal Medicine 09/12/22 documented as of this encounter
--- OUTSIDE RECORDS SUMMARY | 2025-04-28 11:43 | XMS_ITS | Encounter Summary ---
Author Organization [employer] Address [address] [facility] 7t [place] [address] Care Team Providers Care Pbx Teacher Name Role Phone Kathleen Nieto MD Primary Care Provide r Reason for Visit * Reason Comments Med Refill Encounter Details Date Type Department Care Team ([facility] st Contact Info) Description 02/23/2025 Refill [facility] MEDICINE [address] [place], [place] [phone] Kathleen Nieto MD 230 [place], [place] [phone] Lumbar radiculopathy Social History Tobacco Use Types [...] Description 05/30/2025 11:00 AM EST Office Visit [facility] MEDICINE [address] [place] [address] documented as of this encounter Visit Diagnoses Diagnosis Lumbar radiculopathy Thoracic or lumbosacral neuritis or radiculitis, unspecified documented in this encounter Additional Health Concerns Assessment Noted Time PHQ-9 Depression Total Score: 0 08/27/19 24 10:26 AM EST documented as of this encounter Care Teams Pbx Teacher Relationship Specialty Start Date End Date Kathleen Nieto MD [address] [place] [address] PCP - General Internal Medicine 09/12/22 documented as of this encounter
--- OUTSIDE RECORDS SUMMARY | 2025-04-28 11:43 | XMS_ITS | Encounter Summary ---
Author Organization [employer] Address [address] [place] [address] 7t [place] [address] Care Team Providers Care Dietician Name Role Phone Kathleen Nieto MD Primary Care Provide r Reason for Visit * Reason Comments Med Refill Encounter Details Date Type Department Care Team (Late st Contact Info) Description 03/11/2023 Refill [facility] MEDICINE [address] [place] [address] [phone] Mary Edwards ANP [address] [place] [address] Vitamin D deficiency Social History Tobacco Use [...] Description 05/30/2025 11:00 AM EST Office Visit [facility] MEDICINE [address] [place] [address] [phone] documented as of this encounter Visit Diagnoses Diagnosis Vitamin D deficiency documented in this encounter Additional Health Concerns Assessment Noted Time PHQ-9 Depression Total Score: 0 10/31/19 23 1:55 PM EDT documented as of this encounter Care Teams Dietician Relationship Specialty Start Date End Date Kathleen Nieto MD [address] [place] [address] PCP - General Internal Medicine 09/12/22 documented as of this encounter
--- OUTSIDE RECORDS SUMMARY | 2025-04-28 11:43 | XMS_ITS | Encounter Summary ---
Author Organization [employer] Address [address] [facility] 7t [place] [address] Care Team Providers Care Sewer Inspector Name Role Phone Kathleen Nieto MD Primary Care Provide r Reason for Visit * Reason Comments Med Refill Encounter Details Date Type Department Care Team ([facility] st Contact Info) Description 01/05/2024 Refill [facility] [address] [place], [place] [phone] Kathleen Nieto MD [address] [place] [address] Vitamin D deficiency Social History Tobacco Use [...] Description 05/30/2025 11:00 AM EST Office Visit [facility] MEDICINE [address] [place] [address] documented as of this encounter Visit Diagnoses Diagnosis Vitamin D deficiency documented in this encounter Additional Health Concerns Assessment Noted Time PHQ-9 Depression Total Score: 0 08/27/19 24 10:26 AM EST documented as of this encounter Care Teams Sewer Inspector Relationship Specialty Start Date End Date Kathleen Nieto MD [address] [place] [address] PCP - General Internal Medicine 09/12/22 documented as of this encounter
--- OUTSIDE RECORDS SUMMARY | 2025-04-28 11:43 | XMS_ITS | Encounter Summary ---
Author Organization [employer] Address [address] [facility] 7t [place] [address] Care Team Providers Care Financial Systems Director Name Role Phone Kathleen Nieto MD Primary Care Provide r Reason for Visit * Reason Onset Date Comments Med Refill 04/27/2025 Encounter Details Date Type Department Care Team ([facility] st Contact Info) Description 04/27/2025 Refill [facility] MEDICINE [address] [place] [address] Kathleen Nieto MD [address] [place], [place] [phone] Lumbar radiculopathy Social History Tobacco Use Types [...] encounter Miscellaneous Notes * Telephone Encounter - Chace Cervantes - 04/27/2025 9:19 AM EDT TC from pt requesting medication refill. Medications needing refill : oxyCODONE-acetaminophen (Percocet) 5-325 MG tablet To be sent to: [facility]/pharmacy [address] [place] [address] documented in this encounter Plan of Treatment Upcoming Encounters Date Type Department Care Team (Late st Contact Info) Description 05/30/2025 11:00 AM EST Office Visit [facility] MEDICINE [address] [place] [address] documented as of this encounter Visit Diagnoses Diagnosis Lumbar radiculopathy Thoracic or lumbosacral neuritis or radiculitis, unspecified documented in this encounter Additional Health Concerns Assessment Noted Time PHQ-9 Depression Total Score: 0 04/18/20 3:09 PM EDT documented as of this encounter Care Teams Financial Systems Director Relationship Specialty Start Date End Date Kathleen Nieto MD [address] [place] [address] PCP - General Internal Medicine 09/12/22 documented as of this encounter
--- OUTSIDE RECORDS SUMMARY | 2025-04-28 11:43 | XMS_ITS | Encounter Summary ---
Author Organization [employer] Address [address] [facility] 7t [place] [address] Care Team Providers Care Health And Safety Coordinator Name Role Phone Kathleen Nieto MD Primary Care Provide r Reason for Visit * Reason Onset Date Comments Med Change Request telephone call 11/19/2022 Encounter Details Date Type Department Care Team ([facility] st Contact Info) Description 11/19/2022 Refill [facility] MEDICINE [address] [place] [address] Kathleen Nieto MD [address] [place] [address] Vitamin B12 deficiency Social History Tobacco Use [...] Office Visit [facility] MEDICINE [address] [place], [place] [phone] documented as of this encounter Visit Diagnoses Diagnosis Vitamin B12 deficiency Other B-complex deficiencies documented in this encounter Additional Health Concerns Assessment Noted Time PHQ-9 Depression Total Score: 0 10/31/19 23 1:55 PM EDT documented as of this encounter Care Teams Health And Safety Coordinator Relationship Specialty Start Date End Date Kathleen Nieto MD [address] [place] [address] PCP - General Internal Medicine 09/12/22 documented as of this encounter
--- OUTSIDE RECORDS SUMMARY | 2025-04-28 11:43 | XMS_ITS | Encounter Summary ---
Author Organization [employer] Address [address] [facility] 7t [place] [address] Care Team Providers Care Bookkeeping Assistant Name Role Phone Kathleen Nieto MD Primary Care Provide r Reason for Visit * Reason Comments Med Change Request Encounter Details Date Type Department Care Team ([facility] st Contact Info) Description 11/18/2022 Refill [facility] MEDICINE [address] [place], [place] [phone] Kathleen Nieto MD [address] [place], [place] [phone] Vitamin B12 deficiency Social History Tobacco Use [...] 05/30/2025 11:00 AM EST Office Visit [facility] MEDICINE [address] [place] [address] documented as of this encounter Visit Diagnoses Diagnosis Vitamin B12 deficiency Other B-complex deficiencies documented in this encounter Additional Health Concerns Assessment Noted Time PHQ-9 Depression Total Score: 0 10/31/19 1:55 PM EDT documented as of this encounter Care Teams Bookkeeping Assistant Relationship Specialty Start Date End Date Kathleen Nieto MD [address] [place] [address] PCP - General Internal Medicine 09/12/22 documented as of this encounter
== END 2025-04-28 10:13 | disposition home or self-care (01) ==
LOC: HO.HOSX 10:12
PROVIDERS: PCP Internal Medicine; Visit Provider Physical Medicine & Rehabilitation
DX: M16.11 Unilateral primary osteoarthritis, right hip (principal); M51.26 Other intervertebral disc displacement, lumbar region; M46.1 Sacroiliitis, not elsewhere classified
CPT/HCPCS: 73502; 99212

== ENCOUNTER → 2025-04-28 10:35 | Outpatient (BNV) | payer MEDICAID, SELFPAY | PROVIDERS: PCP Internal Medicine; Visit Provider Radiology Diagnostic Radiology | DX: M16.11 Unilateral primary osteoarthritis, right hip (principal) | CPT/HCPCS: 73502 ==